=== PATIENT | male | born 1960 | race Caucasian/White ===

== ENCOUNTER 2017-12-07 22:22 | Emergency (ER) | payer SELFPAY ==
[2017-12-07 22:24] VITALS: BP 140/66; PULSE 74; RESP 20; TEMP 36.7; O2SAT 95; BMI 34.3
--- NOTE | 2017-12-07 23:26 | EKG12_ITS ---
Test Reason : SOB Blood Pressure : / mmHG Vent. Rate : 064 BPM Atrial Rate : 064 BPM P-R Int : 170 ms QRS Dur : 100 ms QT Int : 412 ms P-R-T Axes : 051 010 018 degrees QTc Int : 425 ms Normal sinus rhythm Normal ECG Confirmed by MYLES ALMODOVAR, PEG ([id number]), acquisition editor SHEA CHAPMAN ([id number] on 12/13/2017 1:54:51 PM Referred By: UCHE Confirmed By:PEG BUENO MD
--- NOTE | 2017-12-07 23:30 | ED.DCSUM_ITS ---
- ER Visit Summary Date of Service: 12/07/17 Chief Complaint: [Cough, fall] History of Present Illness: The patient is a 56 M [who presents the emergency department with 2 weeks of cough. He has been coughing up green sputum. He denies any shortness of breath fevers sore throat or ear pain. He does smoke a pack a day. Today he was in bed started coughing hard fell out of bed hit his head on a toolbox and had a brief loss of consciousness. Shortly thereafter he became dizzy and started complaining of a headache. No nausea or vomiting. No blurred vision or visual disturbances. No altered mental status. He does not see a doctor does not take any medications he has had some orthopedic surgeries in the past but has no other known health problems.] Physical Examination: [] Pressure 140/66 heart rate 74 respiratory rate 20 pulse ox 95% on room air WN WD NAD patient has a large superficial scratch on his right forehead he has an abrasion just lateral to that he has a contusion with some mild tenderness to palpation and swelling there is no crepitus or depressed skull fracture PERRL EOMI Neck is nontender MMM Serous otitis bilaterally no hematoma to panel him NECK supple and nontender, no masses RRR no murmur rub or gallop, no peripheral edema, symmetric radial pulses End expiratory wheezing with slightly DIP diminished breath sounds diffusely no respiratory distress ABDOMEN is soft and nontender, normal bowel sounds, no distension, no rebound or guarding SKIN is warm and dry no rashes Alert and Oriented x3, CN II-XII in tact, no motor or sensory deficits, gait normal No lymphadenopathy Test Results: [] Emergency Department Course and Treatment: [T of the head shows no acute process. Tetanus was updated. Wound was cleaned and dressed. Patient was given breathing treatments and did improve. Influenza was negative. Blood work was unremarkable. EKG was sinus at a rate of 64 with no acute ischemic changes or conduction abnormalities. Chest x-ray did show a small right middle lobe pneumonia. Patient will be placed on doxycycline. He states that he has a Proventil inhaler inhaler that he uses at home. He will use it every 4 hours. He understands if he gets fevers or worsening shortness of breath he should return to the emergency department. He was given head injury precautions and an excuse for work for the next 2 days.] Treatment Plan: [] Disposition: [Discharge] Impression: [1. Head injury 2. Right middle lobe pneumonia] This note was generated with [employer] dictation software. It may contain incorrect words, spelling, and punctuation that were not noted in review of the chart prior to signing ED Disposition - Plan for ED Patient: Chief Complaint: Cough Referrals: NOT,DEFINED [NON-STAFF] -
[2017-12-07] MEDS: Diphth,Pertuss(Acell),Tet Vac 0.5 ML Vial IM (23:43)
[2017-12-07 23:45] VITALS: PULSE 68; RESP 14
[2017-12-07] MEDS: Albuterol 2.5 MG/3 ML VIAL.NEB. INHALATION (23:45)
[2017-12-07] MEDS: Ipratropium/Albuterol Sulfate 3 ML AMPUL.NEB INHALATION (23:45)
[2017-12-07 23:51] LABS: Absolute Neutrophil Count 1.9 X10^3/uL (2.0-7.7); Basophil# 0.02 X10^3/uL; Basophil% 0.4 % (0-1); Eosinophil# 0.11 X10^3/uL; Eosinophils% 2.4 % (0-5); Hematocrit 40.3 % (40-54); Hemoglobin 13.2 g/dl (13.0-16.5); Lymphocyte % 42.9 % (19-41); Mean Corp Hgb Conc 32.8 g/gl (32-36); Mean Corpuscular Hgb 29.1 pg (27.0-32.0); Mean Platelet Vol. 9.3 fl (6.2-12.0); Monocyte# 0.59 X10^3/uL; Monocyte% 12.7 % (0-10); Neutrophil # 1.94 X10^3/uL (2.7-7.7); Neutrophil % 41.6 % (47-70); POSITIVE COUNT NO; POSITIVE DIFFERENTIAL NO; POSITIVE MORPHOLOGY NO; Platelet Count 169 K/mm3 (150-450); RBC Distribution Width CV 13.9 % (11.6-14.6); RBC Distribution Width SD 45.3 fl (35.1-43.9); Red Blood Count 4.53 M/mm3 (4.6-6.2); White Blood Count 4.7 K/mm3 (4.4-11.0)
[2017-12-07 23:58] LABS: Anion Gap 8 (5-15); BUN 16 mg/dL (7-18); BUN/Creat Ratio 16.3 RATIO (10-20); Calcium,Total 8.3 mg/dL (8.5-10.1); Chloride 102 mmol/L (98-107); Creatinine, Serum 0.98 mg/dL (0.70-1.30); EST Glomerular Filtration Rate 83 mL/min (>60); Est Glom Filt Rate - Afr Amer 101 mL/min (>60); Estimated Creatinine Clearance 84.17 ml/min; Glucose 96 mg/dL (74-106); Potassium 3.3 mmol/L (3.5-5.1); Sodium Level 137 mmol/L (136-145)
--- NOTE | 2017-12-08 00:03 | RAD_ITS ---
STUDY: X-RAY CHEST REASON FOR EXAM: Male, 56 years old. Cough x2 weeks TECHNIQUE: PA and lateral views of the chest. COMPARISON: 03/28/2013 FINDINGS: There are mild hyperinflation of the upper lung parenchyma, calcified nodule left peripheral base. There is mild increase of opacification in the right medial lung base. There is no demonstrated pleural abnormality. Normal size heart. Normal mediastinum and baudilio. Normal visualized pulmonary arteries. Normal visualized aortic arch and descending thoracic aorta. Normal visualized thoracic spine. Normal visualized ribs, clavicles, and shoulders. There is no demonstrated abnormality of the visualized soft tissue structures of the upper abdomen. RAD/Chest PA and Lateral IMPRESSION: Suspect focal bronchial disease or minimal pneumonia in the right middle lobe. Stable hyperinflation of the upper lung parenchyma, remote granulomatous exposure. Electronically Signed: Shy Guthrie MD at 1:36 EST , Service support ,
[2017-12-08 00:23] VITALS: BP 120/73; PULSE 72; RESP 17; O2SAT 93
[2017-12-08 02:00] VITALS: BP 129/70; PULSE 80; RESP 16; O2SAT 94
--- NOTE | 2017-12-08 02:08 | ED.DEP ---
ED Disposition - Plan for ED Patient: Chief Complaint: Cough Instructions: ED Pneumonia Adult, ED Head Injury Closed Prescriptions: Benzonatate [Tessalon Perle] 100 mg PO 4X/DAY PRN PRN #20 capsule PRN Reason: Cough Doxycycline [Vibramycin] 100 mg PO BID #20 capsule Referrals: Anat Welch MD [STAFF PHYSICIAN] - 3-5 Days
[2017-12-08] MEDS: Doxycycline 100 MG CAPSULE PO (02:16)
[2017-12-08] MEDS: Acetaminophen 500 MG Tablet 1000 MG PO (02:16)
[2017-12-08 02:22] VITALS: BP 129/70; PULSE 80; RESP 19
--- NOTE | 2017-12-08 23:26 | CT_ITS ---
STUDY: CT BRAIN WITHOUT CONTRAST REASON FOR EXAM: Male, 56 years old. Cough x2 weeks, fell out of bed and hit forehead, laceration right forehead passed out. History of COPD. RADIATION DOSAGE (If Supplied By Facility): CTDIvol = ( 44.99 ) mGy, DLP = ( 745.49 ) mGycm TECHNIQUE: Transaxial CT imaging of the brain was performed without administration of intravenous contrast material. Individualized dose optimization techniques were used for this CT. COMPARISON: None. FINDINGS: Normal soft tissue structures. Normal calvarium. Normal size ventricles and extra-axial spaces for the patient's age. Normal white matter tracts of the cerebral hemispheres. Normal basal ganglia and thalami. Normal brainstem. Normal cerebellum. There is no intracranial hemorrhage. There are no findings of an acute ischemic infarction. Complete opacification of the right maxillary sinus, moderate bilateral ethmoid sinus opacification consistent with chronic disease. The bilateral mastoid air cells are clear. CT/Brain/Head without Contrast IMPRESSION: There is no acute intracranial pathology. Chronic sinus inflammation. Electronically Signed: Shy Guthrie MD at 1:41 EST , Service support ,
== END 2017-12-08 02:23 | disposition home or self-care (01) ==
LOC: ED 12-08 00:02
PROVIDERS: Emergency Provider Emergency Medicine
DX: J18.9 Pneumonia, unspecified organism (principal); S06.9X9A Unspecified intracranial injury with loss of consciousness of unspecified duration, initial encounter; S00.83XA Contusion of other part of head, initial encounter; W06.XXXA Fall from bed, initial encounter; Y93.9 Activity, unspecified; Y92.9 Unspecified place or not applicable; Y99.9 Unspecified external cause status; Z23 Encounter for immunization; F17.200 Nicotine dependence, unspecified, uncomplicated
CPT/HCPCS: 70450; 71046; 80048; 85025; 87804; 90715; 93005; 94640; 99285; A4216

== ENCOUNTER 2018-01-07 19:11 | Emergency (ER) | payer SELFPAY ==
[2018-01-07 19:12] VITALS: BP 137/80; PULSE 86; RESP 16; TEMP 36.3; O2SAT 95; BMI 31.5
--- NOTE | 2018-01-07 20:01 | ED.VISSUMM ---
- ER Visit Summary Date of Service: 01/07/18 Chief Complaint: Left knee pain History of Present Illness: The patient is a 57 M presenting with left knee pain. Patient states he fell approximately 1 week ago. He states he lost his balance and fell landing on his left knee. He did not hit his head. He has been able to ambulate. He has been taking Tylenol at home with some relief. He presented to ED due to persistent pain. Physical Examination: Vitals are stable. Patient is afebrile. Alert no acute distress. HEENT exam is unremarkable. Lungs are clear and equal bilaterally. Heart is regular rate and rhythm. Extremities left anterior and posterior knee tenderness, active full range of motion, normal distal pulses. No erythema or warmth. Skin is warm and dry. Remainder of exam is unremarkable. Emergency Department Course and Treatment: X-ray left knee shows moderate effusion. Ultrasound is not available at this time of day. He is given an order form for an outpatient venous ultrasound. He is advised to ice and elevate. Advised to follow-up with Dr. Mcqueen environmental research scientist for no doc. Advised return ED if worsening complaints. Disposition: Discharge home Impression: Left knee injury This note was generated with [employer] dictation software. It may contain incorrect words, spelling, and punctuation that were not noted in review of the chart prior to signing ED Disposition - Plan for ED Patient: Chief Complaint: Lower Extremity Injury Referrals: Care Physician,No Primary [Primary Care Provider] -
--- NOTE | 2018-01-07 20:29 | RAD_ITS ---
STUDY: X-RAY - LEFT KNEE REASON FOR EXAM: Male, 57 years old. FELL ABOUT 1 WEEK AGO. PAIN IN LEFT KNEE POSTERIORLY. TECHNIQUE: 4 view(s) of the knee. COMPARISON: None. FINDINGS: Normal visualized distal femur. Normal visualized proximal tibia and fibula. Normal proximal tibiofibular articulation. There is moderate degenerative arthrosis of the medial femorotibial compartment with moderate joint space narrowing. There is mild degenerative arthrosis of the lateral femorotibial compartment. There is mild degenerative arthrosis of the patellofemoral articulation. There is a moderate volume joint effusion. The soft tissue structures are unremarkable. RAD/Knee 4 or More Views IMPRESSION: There is a moderate volume joint effusion. Degenerative arthrosis of the knee. Electronically Signed: Alex Ramhan MD at 20:41 EDT , Service support ,
--- NOTE | 2018-01-07 21:09 | ED.DEP ---
ED Disposition - Plan for ED Patient: Chief Complaint: Lower Extremity Injury Instructions: ED Sprain Knee Referrals: Care Physician,No Primary [Primary Care Provider] - Katharina Mcqueen DO [STAFF PHYSICIAN] -
[2018-01-07 21:28] VITALS: PULSE 82; RESP 16; O2SAT 99
== END 2018-01-07 21:28 | disposition home or self-care (01) ==
PROVIDERS: Emergency Provider Emergency Medicine
DX: S89.92XA Unspecified injury of left lower leg, initial encounter (principal); W19.XXXA Unspecified fall, initial encounter; Y93.9 Activity, unspecified; Y92.9 Unspecified place or not applicable; Y99.9 Unspecified external cause status; M25.462 Effusion, left knee; Z72.0 Tobacco use
CPT/HCPCS: 73564; 99282

== ENCOUNTER → 2018-01-08 14:56 | Outpatient (CLI) | payer SELFPAY ==
--- NOTE | 2018-01-08 14:58 | VDLE_ITS ---
Reason For Study: LEG PAIN RIGHT LEFT CFV is compressible, spontaneous, phasic, GSV is normal. competent and demonstrates normal CFV is compressible, spontaneous, phasic, augmentation. competent, and demonstrates normal Procedure augmentation. Exam performed in department. FV is compressible, spontaneous, phasic, competent and demonstrates normal augmentation. POP V is compressible, spontaneous, phasic, competent and demonstrates normal augmentation. T/P Trunk is compressible. PTV is compressible. LT PerV is compressible. Interpretation Summary Deep veins of the left lower extremity are patent and compressible segmentally. There is no evidence of left lower extremity deep vein thrombosis. Valvular competence appears intact within the proximal deep venous system on the left . The left greater saphenous vein appears patent and compressible segmentally. Ordering Physician: Irina Whelan Performed By: Sagrario Araujo RVT
== END ==
PROVIDERS: Visit Provider Emergency Medicine
DX: M79.605 Pain in left leg (principal)
CPT/HCPCS: 93971

== ENCOUNTER 2018-03-03 08:58 | Emergency (ER) | payer SELFPAY ==
[2018-03-03 08:59] VITALS: BP 122/59; PULSE 92; RESP 17; TEMP 36.7; O2SAT 97; BMI 33.8
--- NOTE | 2018-03-03 09:07 | RAD_ITS ---
STUDY: X-RAY - LEFT TIBIA AND FIBULA REASON FOR EXAM: Male, 57 years old. Pain TECHNIQUE: 2 view(s) of the tibia and fibula were obtained. COMPARISON: None. FINDINGS: Normal visualized tibia. Normal visualized fibula. There is no demonstrated acute fracture. The soft tissue structures are unremarkable. RAD/Tibia & Fibula 2 Views IMPRESSION: Normal x-ray examination of the tibia and fibula. Electronically Signed: Nj Lopez DO at 9:35 EDT , Service support ,
--- NOTE | 2018-03-03 09:07 | RAD_ITS ---
STUDY: X-RAY - LEFT KNEE REASON FOR EXAM: Male, 57 years old. Pain TECHNIQUE: 4 view(s) of the knee. COMPARISON: None. FINDINGS: Normal visualized distal femur. Normal visualized proximal tibia and fibula. Normal proximal tibiofibular articulation. Normal medial femorotibial compartment. There is moderate degenerative arthrosis of the lateral femorotibial compartment with moderate joint space narrowing. Normal patellofemoral articulation. There is a soft tissue prominence in the suprapatellar region suggesting a small volume joint effusion. The soft tissue structures are unremarkable. RAD/Knee 4 or More Views IMPRESSION: Degenerative arthrosis. Small effusion. No fracture or dislocation. Electronically Signed: Nj Lopez DO at 9:56 EDT , Service support ,
--- NOTE | 2018-03-03 09:07 | VDLE_ITS ---
Reason For Study: LLE SWELLING RIGHT LEFT CFV is compressible, spontaneous, phasic, GSV is normal. competent and demonstrates normal CFV is compressible, spontaneous, phasic, augmentation. competent, and demonstrates normal Procedure augmentation. Exam performed portable in ED. FV is compressible, spontaneous, phasic, The exam was diagnostic. competent and demonstrates normal A preliminary report was called and/or faxed augmentation. to ED. POP V is compressible, spontaneous, phasic, competent and demonstrates normal augmentation. T/P Trunk is compressible. PTV is compressible. LT PerV is compressible. Interpretation Summary Deep veins of the left lower extremity are patent and compressible segmentally. There is no evidence of left lower extremity deep vein thrombosis. Valvular competence appears intact within the proximal deep venous system on the left . The left greater saphenous vein appears patent and compressible segmentally. Ordering Physician: Irina Whelan Referring Physician: MD Ronald Galavizery Performed By: Nicol Paul, RDCS, RVT
--- NOTE | 2018-03-03 09:08 | RAD_ITS ---
STUDY: X-RAY CHEST REASON FOR EXAM: Male, 57 years old. Cough TECHNIQUE: AP and lateral views of the chest. COMPARISON: 12/08/2017. FINDINGS: The lungs are clear and expanded. There is no demonstrated pleural abnormality. Normal size heart. Normal mediastinum and baudilio. Normal visualized pulmonary arteries. Normal visualized aortic arch and descending thoracic aorta. Normal visualized thoracic spine. Normal visualized ribs, clavicles, and shoulders. There is no demonstrated abnormality of the visualized soft tissue structures of the upper abdomen. RAD/Chest PA and Lateral IMPRESSION: No acute cardiopulmonary disease. Electronically Signed: Nj Lopez DO at 9:57 EDT , Service support ,
--- NOTE | 2018-03-03 09:08 | ED.VISSUMM ---
- ER Visit Summary Date of Service: 03/03/18 Chief Complaint: Left leg pain History of Present Illness: The patient is a 57 M presenting with left leg pain ?2 days. Patient denies injury. He has not tried any medication at home prior to arrival. He states he has had had similar symptoms in the past on the right with a Bernard's cyst. He also has a nonproductive cough ?1 week. Denies fever. Denies chest pain or shortness of breath. Denies other complaints. Physical Examination: Vitals are stable. Patient is afebrile. Alert no acute distress. HEENT exam is unremarkable. Neck is supple. Lungs are clear and equal bilaterally. Heart is regular rate and rhythm. Abdomen is soft nontender nondistended. Extremities left anterior lower leg tenderness. Active full range of motion. No erythema or warmth. No swelling. Normal distal pulses. Skin is warm and dry. No focal neurologic deficit. Remainder of exam is unremarkable. Emergency Department Course and Treatment: Left tib-fib x-ray shows no acute process. Left knee x-ray shows degenerative arthrosis, small effusion, no fracture or dislocation. Chest x-ray shows no acute process. Ultrasound of the left lower extremity shows no evidence of DVT. Patient was given Tylenol. He was given a prescription for Naprosyn. He is advised to follow-up with Dr. Díaz credit collections analyst for no doc. Advised return to ED if worsening complaints. Disposition: Discharge home Impression: Left leg pain, URI This note was generated with [employer] dictation software. It may contain incorrect words, spelling, and punctuation that were not noted in review of the chart prior to signing ED Disposition - Plan for ED Patient: Chief Complaint: Lower Extremity Injury Referrals: Care Physician,Tabitha Primary [Primary Care Provider] -
--- NOTE | 2018-03-03 10:15 | NURSING ---
VASCULAR LAB IN ROOM
[2018-03-03 11:03] VITALS: BP 124/65; RESP 18; O2SAT 95
--- NOTE | 2018-03-03 11:31 | ED.DEP ---
ED Disposition - Plan for ED Patient: Chief Complaint: Lower Extremity Injury Instructions: ED Strain Muscle Ext Prescriptions: Naproxen [Naprosyn] 500 mg PO BID PRN #20 tablet Referrals: Care Physician,No Primary [Primary Care Provider] - Brayan Díaz DO [STAFF PHYSICIAN] -
[2018-03-03] MEDS: Acetaminophen 500 MG Tablet 1000 MG PO (11:35)
[2018-03-03 11:36] VITALS: BP 134/67; PULSE 84; RESP 18
== END 2018-03-03 11:39 | disposition home or self-care (01) ==
LOC: ED 09:24
PROVIDERS: Emergency Provider Emergency Medicine
DX: M79.605 Pain in left leg (principal); J06.9 Acute upper respiratory infection, unspecified
CPT/HCPCS: 71046; 73564; 73590; 93971; 99283

== ENCOUNTER 2018-03-13 23:19 | Observation (INO) | payer OTHER, SELFPAY ==
[2018-03-13 23:20] VITALS: BP 149/93; PULSE 74; RESP 12; TEMP 36.9; O2SAT 98; BMI 31.8
--- NOTE | 2018-03-13 23:36 | EKG12_ITS ---
Test Reason : NUMBNESS Blood Pressure : / mmHG Vent. Rate : 068 BPM Atrial Rate : 068 BPM P-R Int : 160 ms QRS Dur : 102 ms QT Int : 392 ms P-R-T Axes : 037 004 014 degrees QTc Int : 416 ms Normal sinus rhythm Incomplete right bundle branch block Confirmed by MYLES ALMODOVAR, PEG ([id number]), medical transcription editor SHEA CHAPMAN ([id number]) on 03/16/2018 10:33:29 AM Referred By: WHIT Confirmed By:PEG BUENO MD
--- NOTE | 2018-03-13 23:36 | CT_ITS ---
STUDY: CT BRAIN WITHOUT CONTRAST REASON FOR EXAM: Male, 57 years old. Left-sided headache, numbness and tingling to left side of face since 5:00 PM. History of COPD. RADIATION DOSAGE (If Supplied By Facility): CTDIvol = ( 44.99 ) mGy, DLP = ( 762.36 ) mGycm TECHNIQUE: Transaxial CT imaging of the brain was performed without administration of intravenous contrast material. Multiplanar coronal and sagittal images were reformatted. Individualized dose optimization techniques were used for this CT. COMPARISON: CT brain noncontrast 12/08/2017 FINDINGS: Normal soft tissue structures. Normal calvarium. Normal size ventricles and extra-axial spaces for the patient's age. Normal white matter tracts of the cerebral hemispheres. Normal basal ganglia and thalami. Normal brainstem. Normal cerebellum. There is no intracranial hemorrhage. There are no findings of an acute ischemic infarction. Marked improved paranasal sinus disease involving the right maxillary sinus with residual antral round opacification probably retention cyst on the first image obtained measuring 1.8 x 1.5 cm. There is mild residual mucosal opacification involving the bilateral ethmoid sinuses. The bilateral mastoid air cells are clear. CT/Brain/Head without Contrast IMPRESSION: Improved right maxillary sinus disease. There is no acute intracranial pathology. There is no significant interval change. Electronically Signed: Shy Guthrie MD at 0:38 EDT , Service support ,
--- NOTE | 2018-03-13 23:39 | ED.DCSUM_ITS ---
- ER Visit Summary Date of Service: 03/13/18 Chief Complaint: Left facial numbness History of Present Illness: The patient is a 57 M presenting with left facial numbness and facial droop. This started around 5 PM this evening. He also complains of blurry vision in the left eye which has been ongoing for the past week. He complains of mild intermittent headache over the past week. Denies numbness or weakness in his arms or legs. Denies dizziness or confusion. Denies chest pain or shortness of breath. Physical Examination: Vitals are stable. Patient is afebrile. Alert no acute distress. HEENT exam left facial droop which spares the forehead Neck is supple. Lungs are clear and equal bilaterally. Heart is regular rate and rhythm. Abdomen is soft nontender nondistended. Extremities are unremarkable. Skin is warm and dry. NIH 3 for facial droop, decreased sensation left face, slurred speech Remainder of exam is unremarkable. Emergency Department Course and Treatment: EKG is sinus rate is 68. Chest x- ray shows no acute process. CT head shows no acute pathology. CBC shows a white count 12.0. Chemistry is unremarkable other than glucose 116. INR 1.0. Troponin is negative. Patient was kept n.p.o. in the ED. On repeat evaluation , NIH is 2 with improving facial droop. Discussed with Dr. Rider for admission. Disposition: Admission Impression: TIA versus CVA This note was generated with [employer] dictation software. It may contain incorrect words, spelling, and punctuation that were not noted in review of the chart prior to signing ED Disposition - Plan for ED Patient: Chief Complaint: Numb/Ting
[2018-03-13 23:42] VITALS: O2SAT 96
[2018-03-13 23:44] LABS: Absolute Lymphocyte Count 3.58 X10^3/ul (0.83-4.51); Absolute Neutrophil Count 6.8 X10^3/uL (2.0-7.7); Basophil# 0.04 X10^3/uL; Basophil% 0.3 % (0-1); Eosinophil# 0.38 X10^3/uL; Eosinophils% 3.2 % (0-5); Hematocrit 42.1 % (40-54); Hemoglobin 13.8 g/dl (13.0-16.5); Lymphocyte # 3.58 X10^3/ul (4.0); Lymphocyte % 29.9 % (19-41); Mean Corp Hgb Conc 32.8 g/gl (32-36); Mean Corpuscular Hgb 29.4 pg (27.0-32.0); Mean Corpuscular Volume 89.8 fL (80-94); Mean Platelet Vol. 8.9 fl (6.2-12.0); Monocyte# 1.15 X10^3/uL; Monocyte% 9.6 % (0-10); Neutrophil # 6.77 X10^3/uL (2.7-7.7); Neutrophil % 56.7 % (47-70); Platelet Count 401 K/mm3 (150-450); RBC Distribution Width CV 14.2 % (11.6-14.6); Red Blood Count 4.69 M/mm3 (4.6-6.2)
[2018-03-13 23:45] LABS: POSITIVE COUNT NO; POSITIVE DIFFERENTIAL NO; POSITIVE MORPHOLOGY NO
[2018-03-13 23:47] VITALS: BP 139/80; PULSE 68; RESP 14; O2SAT 96
[2018-03-13 23:48] LABS: Prothrombin Time (Protime)PT. 13.4 SECONDS (11.7-14.9)
[2018-03-13 23:49] LABS: Partial Thromboplast Time 34.4 Seconds (24.1-36.2)
[2018-03-13 23:59] LABS: Anion Gap 6 (5-15); BUN 14 mg/dL (7-18); BUN/Creat Ratio 14.7 RATIO (10-20); Calcium,Total 8.5 mg/dL (8.5-10.1); Chloride 106 mmol/L (98-107); Creatinine, Serum 0.95 mg/dL (0.70-1.30); EST Glomerular Filtration Rate 87 mL/min (>60); Est Glom Filt Rate - Afr Amer 105 mL/min (>60); Estimated Creatinine Clearance 94.16 ml/min; Glucose 116 mg/dL (74-106); Potassium 3.6 mmol/L (3.5-5.1); Sodium Level 139 mmol/L (136-145)
[2018-03-14] VITALS (11 sets, daily range): BP systolic 119–133; BP diastolic 68–113; PULSE 64–80; RESP 14–17; TEMP 36.3–36.6; O2SAT 95–99; BMI 31.1; BMI 31.8
--- NOTE | 2018-03-14 02:04 | PCM.HP.STD ---
Problem List (1) Numbness and tingling of left side of face Status: Acute (2) CVA (cerebral vascular accident) Status: Acute (3) Tobacco abuse Status: Chronic (4) history of rotator cuff disease Status: Chronic History of Present Illness Date of Admission: 03/14/18 Chief Complaint: Left-sided facial droop and numbness and mild slurred speech The patient is a 57 year old M With no prior significant past medical history was brought into ER for left-sided facial numbness and droop since 5 PM today. Prior to that, patient is having blurry vision in the left side visual field and mild headache, intermittent for about 1 week. As per the , he also had mild slurred speech. Patient denies any limb weakness or change in sensation. Has previous history of TIA/CVA, coronary artery disease or CHF. CT had done in the ER does not show acute change. Chest x-ray suggestive of suspected COPD no acute cardiopulmonary disease. EKG normal sinus rhythm at 68 bpm with T inversion in lead V1. [] Past Medical History Past Medical History (Chronic Problems): Chronic Problems Tobacco abuse (Chronic) history of rotator cuff disease (Chronic) Allergies No Known Allergies Allergy (Verified 03/13/18 23:24) Home Medications: Ambulatory Orders Medication Instructions Recorded Naproxen [Naprosyn] 500 mg PO BID PRN #20 tablet 03/03/18 Surgical History: rotator cuff repair Smoking Status: Current every day smoker - 1 pack per day since age of 16. Review of Systems Constitutional: Denies: Chills, Fever, Weight Change HEENT: Denies: Head Aches, Sinus Congestion, Sinus Drainage Cardiovascular: Denies: Chest Pain, Palpitations Respiratory: Denies: Cough, Shortness of breath at rest, Sputum production Gastrointestinal: Denies: Abdominal Pain, Nausea, Vomiting Genitourinary: Denies: Dysuria Musculoskeletal: Denies: Joint Pain, Joint Tenderness Skin: Denies: Rash, Wounds Neurological: Reports: Blurred vision, Headaches, Numbness. Denies: Focal weakness, Tingling Psychiatric: Denies: Anxiety, Depression, Homicidal Ideations, Suicidal Ideations Hematologic/ Lymphatic: Denies: Easy Bruising, Easy Bleeding VTE Information - Inpt Only VTE Present on Admission: No VTE Mechan Device Prophylaxis: SCD's VTE Pharm Prophylaxis ordered?: Yes Patient Problems: Active and Suspected Problems Numbness and tingling of left side of face (Acute) CVA (cerebral vascular accident) (Acute) - Physical Exam General: Alert, Oriented x3, Cooperative HEENT: Atraumatic, PERRLA, EOMI, Normocephalic Neck: Supple, No JVD, Negative Carotid Bruits Lungs: Clear to auscultation, Normal air movement, No rhonchi, No wheeze, No rales Cardiovascular: Regular rate, Regular Rhythm, Normal S1, Normal S2, No murmurs Abdomen: Bowel Sounds Present, Soft, Non Tender, Non-Distended Extremities: No edema, Capillary Refill Less than 3 Seconds Skin: No rashes, No breakdown Musculoskeletal: No Tenderness to Palpation of Joints or Extremities Neurological: - - Left-sided facial droop. Decreased sensation to touch in the left side of face. NIH stroke scale 2. Per ED physician, NIH stroke scale 3 with one more point for slurred speech Psych/Mental Status: Normal Affect, Appropriate Vital Signs Temp Pulse Resp BP Pulse Ox 98.4 F 68 16 130/113 H 95 03/13/18 23:20 03/14/18 01:41 03/14/18 01:41 03/14/18 01:41 03/14/18 01:41 Assessment/Plan Active and Suspected Problems Numbness and tingling of left side of face (Acute) CVA (cerebral vascular accident) (Acute) The patient is a 57 year old M With no prior significant past medical history was brought into ER for left-sided facial numbness and droop since 5 PM today. Prior to that, patient is having blurry vision in the left side visual field and mild headache, intermittent for about 1 week. As per the , he also had mild slurred speech. Patient denies any limb weakness or change in sensation. Has previous history of TIA/CVA, coronary artery disease or CHF. CT had done in the ER does not show acute change. Chest x-ray suggestive of suspected COPD no acute cardiopulmonary disease. EKG normal sinus rhythm at 68 bpm with T inversion in lead V1. 1. Left-sided facial numbness and droop possible CVA: The patient is being admitted in PCU for stroke workup. Follow stroke protocol with MRI brain and CT angiogram of head and neck. BP and glucose control as per stroke guidelines. Neuro consult. PT/OT and speech/swallow evaluation. On aspirin and a statin. Fasting lipid profile and A1c tomorrow a.m. 2. Chronic a smoker with nicotine dependence and exacerbation of COPD: Needs outpatient PFT. Bronchodilator as needed. 3. DVT prophylaxis: Heparin 5000 units twice daily and bilateral SCDs Code Visit Inpatient E&M: 07372 Init Hosp L3
--- NOTE | 2018-03-14 02:11 | CT_ITS ---
STUDY: CTA OF THE BRAIN REASON FOR EXAM: Male, 57 years old. TIA, left-sided facial numbness and tingling. Headache for one week. RADIATION DOSAGE (If Supplied By Facility): CTDIvol = ( 26.72 ) mGy, DLP = ( 764.67 ) mGycm TECHNIQUE: CT angiography was performed with a multi-detector CT scanner. Data acquisition was obtained from the skull base through the vertex following intravenous administration of 100 ml of Isovue-370. MIP images were reconstructed from the axial data set. Post-processing of the angiographic images was performed, with multiplanar reformation and 3D reconstruction. Individualized dose optimization techniques were used for this CT. COMPARISON: CT head March 13, 2018. FINDINGS: Normal bilateral petrous carotid arteries. Normal right cavernous carotid artery with a normal supraclinoid bifurcation. Normal left cavernous carotid artery with a normal supraclinoid bifurcation. Normal right A1 segments of the anterior cerebral artery. Normal left A1 segments of the anterior cerebral artery. Normal intact anterior communicating artery (ACOM). Normal bilateral A2 segments of the anterior cerebral arteries. Normal right M1 and M2 segments of the middle cerebral arteries, with a normal M1 bifurcation. Normal left M1 and M2 segments of the middle cerebral arteries, with a normal M1 bifurcation. Normal right posterior communicating artery (PCOM). Normal left posterior communicating artery (PCOM). Normal bilateral vertebral arteries. Vertebral arteries are codominant. Normal basilar artery with a normal basilar bifurcation. The visualized bilateral superior cerebellar (SCA) arteries are normal. Normal bilateral P1, P2 and visualized P3 segments of the posterior cerebral arteries. There is no demonstrated aneurysm of the [place]. There is no demonstrated abnormality of the visualized brain. 1.7 cm right maxillary sinus mucous retention cyst. CT/CTA Head W/WO Contrast IMPRESSION: Normal [place] without a demonstrated aneurysm or hemodynamically significant stenosis. Electronically Signed: Lg Walters MD at 4:31 EDT , Service support ,
--- NOTE | 2018-03-14 02:11 | MRI_ITS ---
STUDY: MRI BRAIN WITHOUT CONTRAST REASON FOR EXAM: Male, 57 years old. Left-sided facial droop, blurred vision and headache. TECHNIQUE: Standardized multiplanar fat and water weighted pulse sequences were obtained. Several images are limited by patient motion. COMPARISON: CT of the head dated March 13, 2018. FINDINGS: There is mild cerebral atrophy with widening of the extra-axial spaces and ventricular dilatation. There are a limited number of small white matter hyperintensities, distributed throughout the deep white matter tracts of the cerebral hemispheres, consistent with mild chronic white matter ischemic changes. There is no evidence for recent intracranial ischemia or other cause of cytotoxic edema on diffusion weighted imaging (DWI). Normal T2* images of the brain without demonstrated susceptibility artifact. There is no demonstrated hemosiderin stain. Normal bilateral basal ganglia. Normal thalami. There is no extra-axial fluid accumulation. Normal flow voids within the major intracranial circulation suggesting patency by spin echo criteria. Normal sella turcica, pituitary gland, infundibular stalk, optic chiasm and hypothalamus. Normal tectal plate and pineal gland. Normal midbrain, alphonso and medulla. Normal cerebellum. Normal basal cisterns. Normal bilateral temporal bones. Normal bilateral internal auditory canals. No demonstrated orbital abnormality, within the constraints of a routine brain study. Is a right maxillary mucous retention cyst. There is mucoperiosteal thickening present in both maxillary sinuses. There is mucoperiosteal thickening within the ethmoid sinuses Normal calvarium and skull base. Normal visualized soft tissue structures. There are degenerative changes of the imaged cervical spine. There is mild anterolisthesis at C2-3. MRI/Brain without Contrast IMPRESSION: 1. Involutional changes of the brain, as described above. 2. No MR evidence for acute infarct. 3. Technically limited study due to patient motion. Electronically Signed: Johanna Ochoa MD at 9:16 EDT , Service support ,
--- NOTE | 2018-03-14 02:11 | CT_ITS ---
STUDY: CTA NECK WITH CONTRAST BILATERAL REASON FOR EXAM: Male, 57 years old. TIA, left-sided facial numbness and tingling, headache for 1 week blurred vision. RADIATION DOSAGE (If Supplied By Facility): CTDIvol = ( 26.72 ) mGy, DLP = ( 764.67 ) mGycm. Individualized dose optimization techniques were used for this CT.? TECHNIQUE: Axial images through the neck after administration of 100 mL Isovue 370 intravenous contrast with sagittal coronal reconstructions. COMPARISON: CT brain March 13, 2018. CTA head March 14, 2018. FINDINGS: Normal visualized aortic arch. Normal takeoff of the great vessels. Right common carotid artery is normal. Normal carotid bulb. Very minimal atherosclerotic calcification proximal internal carotid artery which is otherwise normal. Normal external carotid artery. No stenosis or aneurysmal dilatation. Left common carotid artery, carotid bulb, internal and external carotid arteries are normal. No stenosis or aneurysmal dilatation. Vertebral arteries are codominant and are normal. Minimal bullous changes in the lung apices. Mild multilevel degenerative changes of the cervical spine. 1.5 cm right maxillary sinus mucous retention cyst. CT/CTA Neck W/WO Contrast IMPRESSION: Normal vertebral and internal carotid arteries. Right maxillary sinus mucous retention cyst. Electronically Signed: Lg Walters MD at 4:22 EDT , Service support ,
[2018-03-14] MEDS: 0.9% Normal Saline 1,000 ML 100 ML IV (02:31)
[2018-03-14] MEDS: Aspirin 325 MG Tablet PO (03:06)
[2018-03-14] MEDS: Acetaminophen 325 MG Tablet 650 MG PO ×2 (03:09→09:28)
[2018-03-14 03:46] LABS: Alcohol, Blood (Medical)-Serum < 3.0 mg/dL
[2018-03-14 03:57] LABS: Thyroid Stim Hormone (TSH) 2.29 uIU/mL (0.358-3.74)
[2018-03-14 03:59] LABS: AST(SGOT) 10 U/L (15-37); Alanine Aminotransfer ALT/SGPT 21 U/L (16-61); Albumin, Serum 2.9 g/dL (3.2-5.0); Alkaline Phosphatase 65 U/L (45-117); Bilirubin, Direct < 0.05 mg/dL (0.00-0.30); Globulin 3.3 g/dL (2.2-4.2); Protein, Total 6.2 g/dL (6.4-8.2)
[2018-03-14 04:00] LABS: Cholesterol 145 mg/dL (200); High Density Lipoprotein 31 mg/dL; Triglycerides 156 mg/dL; Very Low Density Lipoprotein 31 mg/dL (5-40)
[2018-03-14 04:04] LABS: Vista UDS pH Range 6
[2018-03-14 04:23] LABS: Hemoglobin A1c 5.7 % (4.2-6.3)
[2018-03-14 04:57] LABS: Amphetamine Urine VISTA NEGATIVE (<1000 ng/mL); Barbiturate Urine VISTA NEGATIVE (< 200 ng/mL); Benzodiazepine Urine VISTA NEGATIVE (< 200 ng/mL); Cocaine Urine VISTA NEGATIVE (< 300 ng/mL); Ecstacy Urine VISTA NEGATIVE (< 500 ng/mL); Methadone Urine VISTA NEGATIVE (< 300 ng/mL); PCP Urine VISTA NEGATIVE (< 25 ng/mL); THC Urine VISTA NEGATIVE (< 50 ng/mL)
[2018-03-14 06:50] LABS: Bedside Glucose 105 mg/dL (70-110)
[2018-03-14] MEDS: Famotidine 20 MG Tablet PO (09:28)
--- NOTE | 2018-03-14 10:26 | CASEMGMT ---
Per Yessi Pearson PA-C, pt does not have a PCP. List of local PCP's provided to pt at this time, voices understanding. Lila HILL CM
--- NOTE | 2018-03-14 10:46 | DCINST_ITS ---
- Discharge Diagnoses Current Active Problems: Current Active and Chronic Problems Numbness and tingling of left side of face (Acute) CVA (cerebral vascular accident) (Acute) You will use the following diet at home:: Calorie/Carbohydrate Controlled ( specify 1200, 1400, etc) - 1800 cc / day Your food should be the consistency of: Regular Your liquids should be the consistency of: Regular/Thin Discharge Activity: Return to Normal Activity Additional Instructions: Eye patch at night. Eye drops as needed. Allergies/Adverse Reactions: Allergies No Known Allergies Allergy (Verified 03/13/18 23:24) Medications to take at Discharge Naproxen [Naprosyn] 500 mg PO BID PRN #20 tablet 03/03/18 Pantoprazole Sodium [Protonix] 40 mg PO DAILY #12 tab 03/14/18 Prednisone 10 mg PO DAILY #43 tab 03/14/18 Valacyclovir HCl [Valtrex] 1,000 mg PO TID #21 tab 03/14/18 The following prescriptions were given: Pantoprazole Sodium [Protonix] 40 mg PO DAILY #12 tab Prednisone 10 mg PO DAILY #43 tab Valacyclovir HCl [Valtrex] 1,000 mg PO TID #21 tab Primary Care Physician: Care Physician,No Primary [Primary Care Provider] - Please follow up with your Primary Care Physician in: 1-2 weeks Please Follow Up With: Brant Dawson MD When: 6 weeks Proposed Discharge Date: 03/14/18
--- NOTE | 2018-03-14 10:46 | PCM.CONS.GEN ---
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 Per patient he started having left facial weakness and numbness about 2 days ago. Denies any visual disturbances, NASSAR, motor weakness or sensory loss. Has difficulty closing the left eye. Denies any rash.[] Past Medical History Past Medical History (Chronic Problems): Chronic Problems Tobacco abuse (Chronic) history of rotator cuff disease (Chronic) Allergies No Known Allergies Allergy (Verified 03/13/18 23:24) Home Medications: Ambulatory Orders Medication Instructions Recorded Naproxen [Naprosyn] 500 mg PO BID PRN #20 tablet 03/03/18 Pantoprazole Sodium [Protonix] 40 mg PO DAILY #12 tab 03/14/18 Prednisone 10 mg PO DAILY #43 tab 03/14/18 Valacyclovir HCl [Valtrex] 1,000 mg PO TID #21 tab 03/14/18 Surgical History: rotator cuff repair Lives: Spouse/ Significant Other Smoking Status: Current every day smoker Tobacco Use: Cigarettes Alcohol: None Drugs: None Review of Systems Constitutional: Reports: - - complete ROS negative except as documented in HPI Patient Problems: Active and Suspected Problems Numbness and tingling of left side of face (Acute) CVA (cerebral vascular accident) (Acute) Facial weakness (Acute) 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 Power 5/5 all 4 extremities, no sensory loss, no cerebellar signs, Reflexes + B/L B/S/T/K/A, gait deferred Psych/Mental Status: Normal Affect Vital Signs Temp Pulse Resp BP Pulse Ox 97.8 F 69 16 124/68 H 99 05/23/18 09:30 03/14/18 09:30 03/14/18 09:30 03/14/18 09:30 03/14/18 09:30 Oxygen Delivery Method Room Air Weight: 104.4 kg Body Mass Index (BMI) 31.1 Intake and Output for Last 24 Hours 03/12/18 03/13/18 03/14/18 23:59 23:59 23:59 Intake Total 318 / 318 Balance 318 / 318 Laboratory Tests Past 24 Hrs 03/14/18 03/14/18 03/14/18 02:44 02:44 02:44 Hemoglobin A1c Total Bilirubin 0.20 Direct Bilirubin < 0.05 AST 10 L ALT 21 Alkaline Phosphatase 65 Troponin I < 0.015 Total Protein 6.2 L Albumin 2.9 L Globulin 3.3 Triglycerides Cholesterol LDL Cholesterol VLDL Cholesterol HDL Cholesterol TSH 2.29 Urine Opiates Screen Urine Methadone Screen Ur Barbiturates Screen Ur Phencyclidine Scrn Ur Amphetamines Screen U Methamphetamin-MDMA U Benzodiazepines Scrn Urine Cocaine Screen U Cannabinoids Screen Ur Drug Screen Comment Ethyl Alcohol < 3.0 03/14/18 03/14/18 03/14/18 02:44 02:44 03:50 Hemoglobin A1c 5.7 Total Bilirubin Direct Bilirubin AST ALT Alkaline Phosphatase Troponin I Total Protein Albumin Globulin Triglycerides 156 Cholesterol 145 LDL Cholesterol 83 VLDL Cholesterol 31 HDL Cholesterol 31 L TSH Urine Opiates Screen NEGATIVE Urine Methadone Screen NEGATIVE Ur Barbiturates Screen NEGATIVE Ur Phencyclidine Scrn NEGATIVE Ur Amphetamines Screen NEGATIVE U Methamphetamin-MDMA NEGATIVE U Benzodiazepines Scrn NEGATIVE Urine Cocaine Screen NEGATIVE U Cannabinoids Screen NEGATIVE Ur Drug Screen Comment Ethyl Alcohol POC Glucose 03/14/18 06:41 POC Glucose 105 Assessment/Plan Active and Suspected Problems Numbness and tingling of left side of face (Acute) CVA (cerebral vascular accident) (Acute) Facial weakness (Acute) 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 Per patient he started having left facial weakness and numbness about 2 days ago. Denies any visual disturbances, NASSAR, motor weakness or sensory loss. Has difficulty closing the left eye. Denies any rash. 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 Prednisone 60 mg PO for 2 days, then 50 mg PO for 2 days, then 40 mg PO for 2 days, then 30 mg PO for 2 days, then 20 mg PO for 2 days, then 10 mg PO for 2 days, and then 5 mg PO for 2 days, then stop. -Recommend Valacyclovir 1 g PO TID for 7 days -Recommend artificial tears left eye as needed -Recommend eye patch as needed for protection of left cornea -Recommend [place] Ab testing. -Eye care and possible eye infection prevention discussed with patient. -GI/DVT prophylaxis -Fall precautions -Follow up with Neurology as outpatient in about 6 weeks -Please call with questions if any -Thank you for allowing us to participate in patient's care and management I spent 60 minutes taking history, doing physical examination, reviewing medical records, coordinating care and counseling the patient. Code Visit Inpatient E&M: 79243 Init Hosp L3
--- NOTE | 2018-03-14 13:31 | PCM.DC.SUM ---
Discharge Date and Diagnosis Date of Admission: 03/14/18 Date of Discharge: 03/14/18 - Primary Discharge Diagnosis [place] palsy, left Prediabetes type 2 Tobacco abuse Obesity - Secondary Discharge Diagnosis Chronic Problems Tobacco abuse (Chronic) history of rotator cuff disease (Chronic) Hospital Course and Treatment Imaging Results: CT/Brain/Head without Contrast IMPRESSION: Improved right maxillary sinus disease. There is no acute intracranial pathology. There is no significant interval change. RAD/Chest 1 View IMPRESSION: Component of COPD suspected, probable remote granulomatous exposure. No acute cardiopulmonary disease. No significant interval change. MRI/Brain without Contrast IMPRESSION: 1. Involutional changes of the brain, as described above. 2. No MR evidence for acute infarct. 3. Technically limited study due to patient motion. CT/CTA Head W/WO Contrast IMPRESSION: Normal [place] without a demonstrated aneurysm or hemodynamically significant stenosis. CT/CTA Neck W/WO Contrast IMPRESSION: Normal vertebral and internal carotid arteries. Right maxillary sinus mucous retention cyst. Consults: Eunice - neuro. Operations: None Procedures: None Summary of Care Provided: Physical exam on day of discharge: General: Resting comfortably NAD Psych: A/Ox3 normal affect HEENT: [place] AT NC Neck: Supple NT CV: RRR no m/t/r/g/h Resp: CTA Abd: [id number] Soft NT no guarding or rigidity Ext: DP2+= no edema Skin: W/D normal turgor Lymph/Heme: No active bleeding or adenopathy Neuro: left sided facial droop, not sparing the eyebrow, some drooling with eating present, mildly slurred speech Hospital course: The patient is a 57 year old M who has a hx of nicotine abuse who presented to the ER with sudden onset of left sided facial weakness and facial droop, numbness, and slurred speech that started the day prior suddenly. He reported a headache and left sided blurry vision for about a week as well. He had a negative CT of the brain and was brought in with concern for stroke and started on the CVA protocol. MRI brain and CTA head and neck were obtained. There was no stroke. Tox screen was negative. Troponin was negative. Neuro was consulted and felt that this was Morrow's palsy. The patient was placed on 1 week of valtrex, and a tapering dose of oral prednisone. He was advised to use eye drops and patch his eye at night if he had difficulty closing it or if it became dry. We also checked his A1C as part of his CVA workup and found him to be prediabetic (5.7). I advised him on the risks of diabetes and he was provided with diabetic education. Antiglycemics were deferred at this time. He was discharged home in stable condition and will need to follow up with his PCP and with neuro in 6 weeks. He did not have a PCP so a list of local PCPs was provided by case management. This patient was seen by Jean Pearson PA-C under the supervision of Doctor Stoll. [] Discharge Activity: Return to Normal Activity Home Medications: Medications to take at Discharge Naproxen [Naprosyn] 500 mg PO BID PRN #20 tablet 03/03/18 Pantoprazole Sodium [Protonix] 40 mg PO DAILY #12 tab 03/14/18 Prednisone 10 mg PO DAILY #43 tab 03/14/18 Valacyclovir HCl [Valtrex] 1,000 mg PO TID #21 tab 03/14/18 Following Prescrptions Were Given to Patient: Pantoprazole Sodium [Protonix] 40 mg PO DAILY #12 tab Prednisone 10 mg PO DAILY #43 tab Valacyclovir HCl [Valtrex] 1,000 mg PO TID #21 tab Primary Care Physician: Care Physician,No Primary [Primary Care Provider] - Please follow up with your Primary Care Physician in: 1-2 weeks Please Follow Up With: Brant Dawson MD When: 6 weeks Medical Necessity - Tobacco Use Smoking Status: Current every day smoker Tobacco Use: Cigarettes Meaningful Use Info Meaningful Use Diagnoses (Choose all that apply): None applicable
--- NOTE | 2018-03-14 13:40 | DS.PCM_ITS ---
Discharge Date and Diagnosis Date of Admission: 03/14/18 Date of Discharge: 03/14/18 - Primary Discharge Diagnosis [place] palsy, left Prediabetes type 2 Tobacco abuse Obesity - Secondary Discharge Diagnosis Chronic Problems Tobacco abuse (Chronic) history of rotator cuff disease (Chronic) Hospital Course and Treatment Imaging Results: CT/Brain/Head without Contrast IMPRESSION: Improved right maxillary sinus disease. There is no acute intracranial pathology. There is no significant interval change. RAD/Chest 1 View IMPRESSION: Component of COPD suspected, probable remote granulomatous exposure. No acute cardiopulmonary disease. No significant interval change. MRI/Brain without Contrast IMPRESSION: 1. Involutional changes of the brain, as described above. 2. No MR evidence for acute infarct. 3. Technically limited study due to patient motion. CT/CTA Head W/WO Contrast IMPRESSION: Normal [place] without a demonstrated aneurysm or hemodynamically significant stenosis. CT/CTA Neck W/WO Contrast IMPRESSION: Normal vertebral and internal carotid arteries. Right maxillary sinus mucous retention cyst. Consults: Eunice - neuro. Operations: None Procedures: None Summary of Care Provided: Physical exam on day of discharge: General: Resting comfortably NAD Psych: A/Ox3 normal affect HEENT: [place] AT NC Neck: Supple NT CV: RRR no m/t/r/g/h Resp: CTA Abd: [id number] Soft NT no guarding or rigidity Ext: DP2+= no edema Skin: W/D normal turgor Lymph/Heme: No active bleeding or adenopathy Neuro: left sided facial droop, not sparing the eyebrow, some drooling with eating present, mildly slurred speech Hospital course: The patient is a 57 year old M who has a hx of nicotine abuse who presented to the ER with sudden onset of left sided facial weakness and facial droop, numbness, and slurred speech that started the day prior suddenly. He reported a headache and left sided blurry vision for about a week as well. He had a negative CT of the brain and was brought in with concern for stroke and started on the CVA protocol. MRI brain and CTA head and neck were obtained. There was no stroke. Tox screen was negative. Troponin was negative. Neuro was consulted and felt that this was Morrow's palsy. The patient was placed on 1 week of valtrex , and a tapering dose of oral prednisone. He was advised to use eye drops and patch his eye at night if he had difficulty closing it or if it became dry. We also checked his A1C as part of his CVA workup and found him to be prediabetic ( 5.7). I advised him on the risks of diabetes and he was provided with diabetic education. Antiglycemics were deferred at this time. He was discharged home in stable condition and will need to follow up with his PCP and with neuro in 6 weeks. He did not have a PCP so a list of local PCPs was provided by case management. This patient was seen by Jean Pearson PA-C under the supervision of Doctor Stoll. [] Discharge Activity: Return to Normal Activity Home Medications: Medications to take at Discharge Naproxen [Naprosyn] 500 mg PO BID PRN #20 tablet 03/03/18 Pantoprazole Sodium [Protonix] 40 mg PO DAILY #12 tab 03/14/18 Prednisone 10 mg PO DAILY #43 tab 03/14/18 Valacyclovir HCl [Valtrex] 1,000 mg PO TID #21 tab 03/14/18 Following Prescrptions Were Given to Patient: Pantoprazole Sodium [Protonix] 40 mg PO DAILY #12 tab Prednisone 10 mg PO DAILY #43 tab Valacyclovir HCl [Valtrex] 1,000 mg PO TID #21 tab Primary Care Physician: Care Physician,No Primary [Primary Care Provider] - Please follow up with your Primary Care Physician in: 1-2 weeks Please Follow Up With: Brant Dawson MD When: 6 weeks Medical Necessity - Tobacco Use Smoking Status: Current every day smoker Tobacco Use: Cigarettes Meaningful Use Info Meaningful Use Diagnoses (Choose all that apply): None applicable
--- NOTE | 2018-03-14 23:36 | RAD_ITS ---
STUDY: X-RAY CHEST REASON FOR EXAM: Male, 57 years old. Headache, numbness and tingling to left face, elevated blood pressure TECHNIQUE: Single AP portable view of the chest. COMPARISON: 03/03/2018 FINDINGS: There are superimposed monitor leads. Calcified nodule left base with adjacent pleural thickening appears stable. There are areas of hyperinflation. There is no focal parenchymal abnormality. There is no demonstrated pleural abnormality. Normal size heart. Normal mediastinum and baudilio. Normal visualized pulmonary arteries. Normal visualized aortic arch and descending thoracic aorta. Normal visualized thoracic spine. Normal visualized ribs, clavicles, and shoulders. There is no demonstrated abnormality of the visualized soft tissue structures of the upper abdomen. RAD/Chest 1 View IMPRESSION: Component of COPD suspected, probable remote granulomatous exposure. No acute cardiopulmonary disease. No significant interval change. Electronically Signed: Shy Guthrie MD at 1:10 EDT , Service support ,
[2018-03-15 16:06] LABS: Bedside Glucose 133 mg/dL (70-110)
== END 2018-03-14 10:45 | disposition home or self-care (01) ==
LOC: ED 03-14 00:30 → PCU 03-14 01:36
PROVIDERS: Admitting Provider Internal Medicine; Emergency Provider Emergency Medicine; Visit Provider Internal Medicine
DX: G51.0 Bell's palsy (principal); Z86.73 Personal history of transient ischemic attack (TIA), and cerebral infarction without residual deficits; R47.81 Slurred speech; I25.10 Atherosclerotic heart disease of native coronary artery without angina pectoris; F17.200 Nicotine dependence, unspecified, uncomplicated; J44.9 Chronic obstructive pulmonary disease, unspecified; Z95.5 Presence of coronary angioplasty implant and graft
CPT/HCPCS: 36415; 70450; 70496; 70498; 70551; 71045; 80048; 80061; 80076; 80307; 80320; 82962; 83036; 84443; 84484; 85025; 85610; 85730; 92523; 93005; 96360; 96361; 97162; 99218; 99285; 99406; J7030; Q9967; A4216; G0378; G0480

== ENCOUNTER 2024-09-11 09:58 | Emergency (ER) | payer MEDICAID, SELFPAY ==
[2024-09-11 09:59] VITALS: BP 132/82; PULSE 101; RESP 25; TEMP 36.8; O2SAT 94; BMI 42.3
--- NOTE | 2024-09-11 10:13 | CT_ITS ---
INDICATION: cough, right rib injury EXAMINATION: CT CHEST WITHOUT CONTRAST - CT Chest W/O Contrast Injection TECHNIQUE: Helically acquired images were obtained of the chest. A radiation dose optimization technique was used for this scan. IV Contrast dosage and agent: None. COMPARISON: None. FINDINGS: LUNGS, PLEURA AND LARGE AIRWAYS: Mild emphysema. No noncalcified nodule or mass. No pleural effusion or thickening. No pneumothorax. THYROID: No thyroid lesions. HEART AND PERICARDIUM: Heart size is normal. No pericardial effusion. CORONARY ARTERIES: Coronary artery calcification is seen. VESSELS: Thoracic aorta is not dilated. MEDIASTINUM AND TRAM: No mediastinal or hilar adenopathy. Esophagus is unremarkable. No hiatal hernia. UPPER ABDOMEN: Diffusely decreased attenuation of hepatic parenchyma consistent with fatty infiltration. Multiple lesions of decreased attenuation within liver worrisome for metastatic disease and correlation with liver mass protocol CT is recommended. BONES: No suspicious lytic or blastic abnormality. CT/Chest without Contrast IMPRESSION: Mild emphysema without pneumonia, atelectasis, nodule, or mass. Fatty infiltration liver. Multiple hepatic lesions and correlation with liver mass protocol CT is recommended. Electronically Signed: Ced Jama MD at 11:43 EST ,
--- NOTE | 2024-09-11 10:13 | EKG12_ITS ---
Test Reason : Blood Pressure : */* mmHG Vent. Rate : 88 BPM Atrial Rate : 88 BPM P-R Int : 160 ms QRS Dur : 106 ms QT Int : 366 ms P-R-T Axes : 53 -16 16 degrees QTcB Int : 442 ms Normal sinus rhythm Incomplete right bundle branch block Borderline ECG Confirmed by LEANDRO SAHU ([id number]), editorial assistant PAMELA COTTER ([id number]) on 09/13/2024 12:02:12 PM Referred By: Confirmed By: LEANDRO SAHU
--- NOTE | 2024-09-11 10:15 | EDS_ITS ---
HPI History of Present Illness Chief Complaint: Cough Informant: patient Narrative Narrative: Presents for evaluation persistent right rib pain along with increasing productive cough for the last week.. History of COPD no home oxygen tobacco history. He states a week ago today coughing hard caused him to pass out. He was on the ground. He woke up with right rib pain. Increasing yellow sputum since then. No fevers. Increasing wheeze. He is using his nebulizers. He was seen outside emergency department in [place] 3 days ago he states only a chest x-ray was done and he was discharged. He has been using Aleve. Last dose today. Last breathing treatment this morning. No cardiac history. [facility] Medical History Cough Home Medications ?Medication ?Instructions ?Recorded ?Last Taken ?Type naproxen 500 mg tablet 500 mg PO BID PRN #20 tabs 18 03/13/18 21:00 Rx pantoprazole 40 mg tablet,delayed 40 mg PO DAILY #12 tabs 03/14/18 Unknown Rx release prednisone 10 mg tablet 10 mg PO DAILY #43 tabs 03/14/18 Unknown Rx valacyclovir 1 gram tablet 1,000 mg PO TID #21 tabs 03/14/18 Unknown Rx azithromycin 250 mg tablet 250 mg PO DAILY #4 TABLETS 09/11/24 Unknown Rx prednisone 20 mg tablet 60 mg (3 x 20 mg) PO DAILY #12 09/11/24 Unknown Rx TABLETS Allergy/AdvReac Type Severity Reaction Status Date / Time No Known Allergies Allergy Verified 09/11/24 09:59 Social History Smoking Status: Current every day smoker tobacco type: cigarettes ROS ROS ED Constitutional Constitutional ED: Denies chills, fever(s) or sweats Eyes Eyes: Denies change in vision ENT ENT ED: Denies dysphagia or sore throat Cardiovascular Cardiovascular: Denies chest pain, leg edema, palpitations or racing heartbeat Respiratory/Chest Respiratory/Chest: Reports cough, dyspnea and other; Denies dyspnea on exertion Gastrointestinal Gastrointestinal: Denies abdominal pain, diarrhea, nausea or vomiting Genitourinary Genitourinary ED: Denies dysuria, hematuria or urinary frequency Musculoskeletal Musculoskeletal: Denies back pain, extremity pain or neck pain Integumentary Denies rash or wounds Neurologic Neurologic: Denies headache(s), paresthesias or weakness EXAM Physical Exam Const Vital Signs: 09/11/24 09:59 09/11/24 10:22 09/11/24 10:32 Temperature 98.3 F Temperature Source Oral Pulse Rate 101 H Respiratory Rate 25 H 18 Respiratory Effort Short of Breath Respiratory Pattern Normal Blood Pressure 132/82 H Blood Pressure Mean 98 Pulse Ox 94 Oxygen Delivery Method Room Air 09/11/24 11:13 09/11/24 11:36 Temperature 98.1 F Temperature Source Oral Pulse Rate 87 89 Respiratory Rate 24 H 18 Respiratory Effort Respiratory Pattern Blood Pressure 149/80 H 117/80 Blood Pressure Mean 103 92 Pulse Ox 91 93 Oxygen Delivery Method Room Air Room Air Positive well nourished and well developed Constitutional Narrative: Mild pursed lip breathing, nontoxic General Appearance ED: well developed and NAD HEENT Reports moist mucous membranes normocephalic and atraumatic Eyes EOMs intact bilaterally and conjunctivae normal General Eye ED: Yes normal appearance of both eyes Neck no lymphadenopathy and supple General: Negative for tenderness Chest Wall Chest Narrative: Tender palpation right lateral lower ribs with no crepitus. No ecchymosis. Chest: tenderness Resp normal respiratory effort and normal air movement Resp Narrative: Symmetric breath sounds with diminished at the bases. Effort and Inspection: symmetric chest movement; Negative for respiratory distress Cardio regular rate, regular rhythm and no murmurs Peripheral Pulses: pulses 2+ throughout GI normal to inspection, nondistended, normoactive bowel sounds and non-tender Palpation: Negative for guarding or rebound tenderness present Back/Spine no CVA tenderness and no thoracic nor lumbar tenderness Extremity normal to inspection General Extremety ED: Negative for edema or tenderness General Extremity: Negative for edema Neuro oriented x3, CN's II-XII intact bilaterally and no sensory deficits noted Neuro Narrative: No focal deficits Sensorium / Orientation: awake and alert Skin no rashes or lesions noted and no wounds MDM MDM MDM Narrative Medical decision making narrative: Interventions / MDM: Differential diagnosis: COPD exacerbation, posttussive syncope, rib injury, liver masses, abdominal aneurysm with mural thrombus Diagnosis considered but do not suspect: N/A My EKG interpretation: Sinus rate of 88, no ST changes, interventricular delay. Isolated T wave version in lead III nonspecific. QTc 442. Imaging independently reviewed and interpreted by myself: Noncontrast CT chest: No fracture, no pneumonia. Liver masses. CT abdomen pelvis with and without contrast: Liver masses. 4.1 cm aortic aneurysm with mural thrombus. External documents reviewed: Inpatient evaluated in 2018 for potential CVA however he was diagnosed with Morrow's palsy left side of face. Test considered but not ordered:N/A ED course: Patient nontoxic is mild pursed lip breathing. History likely posttussive syncope a week ago causing him to fall with right rib pain. Will check EKG. He reported negative chest x-ray 3 days ago with rib pain. Will obtain noncontrast CT chest for further evaluation. Will start him on prednisone and Zithromax for COPD exacerbation. Aerosol treatments given. Will reevaluate. 1135: Clinically improving on reevaluation no pursed lip breathing. EKG nonspecific findings. CT chest pending final read. On my review notes bilateral atelectasis no clear fracture noted. Will ambulate with a pulse ox, will plan for onset of spirometer for home use. 1200: CT scan neck for fracture and infiltrates. Patient ambulated 91% room air no worsening symptoms. However noted multiple hypodense lesions of the liver concerning for metastatic findings. Patient no cancer history. Denies any unintentional weight loss. Denies history of colonoscopies. Further recommendation radiology is for liver mass protocol CT. Discussed this with the patient and he would like imaging studies in the ED. IV established, CT abdomen pelvis with and without contrast for further evaluation. 1440: CT scan abdomen pelvis again multiple hypodense masses in the liver with metastatic disease to be ruled out. There is no masses in the colon. There is a 4.1 cm abdominal aneurysm with a mural thrombus. Patient is no abdominal pain he reports to me known aneurysm followed by his PCP last time was 4 cm. Secondary mural thrombus I reached out to vascular team in the ED, they recommended baby aspirin, without pain the follow-up with him as an outpatient. With the hypodense lesions in the liver with metastatic disease to be ruled out I did reach out to his primary care team, we will fax note and imaging reports to the office. He will follow-up as an outpatient for further treatment and testing to be ordered. For COPD he will be continued on steroids and antibiotics which is sent to his pharmacy. This was discussed with the patient. Baby aspirin started in the ED. He will package pick up 81 mg daily to take. Re-evaluation: stable Disposition discussed with patient/family/significant other: Patient Case discussed with consulting clinician: N/A This note was generated with [employer] dictation software. It may contain incorrect words, spelling, and punctuation that were not noted in checking the note before signing. Lab Data Attestation: I reviewed the patient's lab results. Labs: Laboratory Results - last 24 hr 09/11/24 12:45 WBC 8.1 RBC 4.88 Hgb 15.0 Hct 45.7 MCV 93.6 MCH 30.7 MCHC 32.8 RDW Std Deviation 47.5 H RDW Coeff of Cecilia 13.9 Plt Count 211 MPV 9.7 Immature Gran % (Auto) 0.400 Neut % (Auto) 77.6 H Lymph % (Auto) 14.0 L Bryan % (Auto) 5.7 Eos % (Auto) 1.8 Baso % (Auto) 0.5 Absolute Neuts (auto) 6.3 Absolute Lymphs (auto) 1.14 Nucleated RBC % 0 Sodium 139 Potassium 4.3 Chloride 105 Carbon Dioxide 29.0 Anion Gap 4 L BUN 19 H Creatinine 1.08 Estim Creat Clear Calc 102.16 Est GFR (MDRD) Af Amer 89 Est GFR (MDRD) Non-Af 73 BUN/Creatinine Ratio 17.6 Glucose 127 H Calcium 9.0 Total Bilirubin 0.70 Direct Bilirubin 0.15 AST 29 ALT 54 Alkaline Phosphatase 73 Total Protein 6.8 Albumin 4.0 Globulin 2.8 Radiography Diagnostic Testing: Clinical Impression(s) from Imaging Studies Chest CT 09/11/24 10:13 IMPRESSION: Mild emphysema without pneumonia, atelectasis, nodule, or mass. Fatty infiltration liver. Multiple hepatic lesions and correlation with liver mass protocol CT is recommended. Electronically Signed: Ced Jama MD at 11:43 EST , Abdomen/Pelvis CT 09/11/24 12:19 IMPRESSION: Diffuse fatty infiltration liver with multiple hypodense masses. Metastatic deposits to be ruled out. Aneurysmal dilatation of the distal abdominal aorta with a transverse dimension of 4.1 cm. Mural thrombus is seen. Electronically Signed: Sree Farmer MD at 14:11 EST , Discharge Plan Triage Chief Complaint: Cough ED Provider: Umesh Multani Dx/Rx/DC Orders Clinical Impression: COPD exacerbation, Chest wall contusion, Liver masses, AAA (abdominal aortic aneurysm) Instructions: AAA, ED COPD Flare Prescriptions: New azithromycin 250 mg tablet 250 mg PO DAILY Qty: 4 0RF prednisone 20 mg tablet 60 mg PO DAILY Qty: 12 0RF No Action naproxen 500 MG tablet 500 mg PO BID PRN Qty: 20 0RF prednisone 10 MG tablet 10 mg PO DAILY Qty: 43 0RF Rx Instructions: 60 mg po qd x 2 days 50 mg po qd x 2 days 40 mg po qd x 2 days 30 mg po qd x 2 days 20 mg po qd x 2 days 10 mg po qd x 2 days 5 mg po qd x 2 days valacyclovir 1,000 MG tablet 1,000 mg PO TID Qty: 21 0RF pantoprazole 40 MG tablet 40 mg PO DAILY Qty: 12 0RF Primary Care Provider: Pilar Morataya Referrals: Javier Rivera MD [Med Staff - Active Staff] - 1-2 Weeks Pilar Morataya MD [Primary Care Provider] - 3-5 Days [facility] Doctor,Out of [Non-Staff] - Activity Restrictions/Additional Instructions: Your CT chest negative for pneumonia or rib fractures. Take prednisone antibiotics for your COPD flare. You are found to have liver masses. CT abdomen pelvis was done there was no other masses noted in the abdomen or chest. Discussed with your PCP team, you will likely need further workup. You have a abdominal aneurysm 4.1 cm with a mural thrombus. Discussed with vascular team, package pick up baby aspirin 81 mg to take daily. Follow-up with Dr. Rivera. If you develop any worsening symptoms show with breathing, return to ED for reevaluation. Print Language: [place] Disposition Disposition: Home, Self Care
[2024-09-11] MEDS: Azithromycin 250 MG Tablet 500 MG PO (10:20)
[2024-09-11] MEDS: predniSONE 20 MG Tablet 60 MG PO (10:20)
[2024-09-11] MEDS: Ipratropium/Albuterol Sulfate 3 ML AMPUL.NEB INHALATION (10:26)
[2024-09-11 10:32] VITALS: RESP 18
[2024-09-11 11:13] VITALS: BP 149/80; PULSE 87; RESP 24; TEMP 36.7; O2SAT 91
[2024-09-11 11:36] VITALS: BP 117/80; PULSE 89; RESP 18; O2SAT 93
[2024-09-11 11:49] VITALS: O2SAT 91
--- NOTE | 2024-09-11 12:19 | CT_ITS ---
STUDY: CT ABDOMEN AND PELVIS WITH AND WITHOUT CONTRAST REASON FOR EXAM: Male, 63 years old. Hepatic lesions RADIATION DOSAGE (If Supplied By Facility): CTDIvol = ( 32.11 ) mGy, DLP = ( 1105.36 ) mGycm TECHNIQUE: Transaxial images were obtained from the dome of the diaphragm to the symphysis pubis without oral contrast. IV 100mL Isovue-370 was administered. Sagittal and coronal images were reconstructed. Individualized dose optimization techniques were used for this CT. COMPARISON: None. FINDINGS: The visualized lung bases are unremarkable. The visualized portions of the heart are within normal limits. There is decreased attenuation of the liver consistent with steatosis. There are multiple hypodense masses scattered throughout both lobes of the liver suggestive of metastatic deposits. The gallbladder is contracted. Normal spleen. Normal pancreas. Normal bilateral adrenal glands. Normal right kidney. Normal left kidney. Normal visualized stomach. Normal small intestine. There are scattered colonic diverticula consistent with diverticulosis. The appendix is visualized and appears normal. There is scattered atherosclerotic calcification of the abdominal aorta. Mild aneurysmal dilatation of the infrarenal abdominal aorta with a transverse dimension of 4.1 cm. Mural thrombus is seen. Normal inferior vena cava. Normal retroperitoneum. Normal urinary bladder. There is a small umbilical hernia containing fat. There are diffuse degenerative changes of the visualized lumbar spine. Straightening of the normal lumbar lordosis. Grade 1 to grade 2 anterolisthesis of L5 on S1 due to spondylolysis of the pars interarticularis of the L5 vertebrae. CT/CT Abd/Pelvis W/WO Contrast IMPRESSION: Diffuse fatty infiltration liver with multiple hypodense masses. Metastatic deposits to be ruled out. Aneurysmal dilatation of the distal abdominal aorta with a transverse dimension of 4.1 cm. Mural thrombus is seen. Electronically Signed: Sree Farmer MD at 14:11 EST ,
[2024-09-11 12:54] LABS: Absolute Lymphocyte Count 1.14 X10^3/uL (0.83-4.51); Absolute Neutrophil Count 6.3 X10^3/uL (2.0-7.7); Basophil# 0.04 X10^3/uL; Basophil% 0.5 % (0-1); Eosinophil# 0.15 X10^3/uL; Eosinophils% 1.8 % (0-5); Hematocrit 45.7 % (40-54); Lymphocyte # 1.14 X10^3/ul (0.83-4.51); Mean Corp Hgb Conc 32.8 g/dL (32-36); Mean Corpuscular Hgb 30.7 pg (27.0-32.0); Mean Corpuscular Volume 93.6 fL (80-94); Mean Platelet Vol. 9.7 fl (6.2-12.0); Monocyte# 0.46 X10^3/uL; Monocyte% 5.7 % (0-10); NRBC Flagged by Analyzer 0 % (0-5); Neutrophil # 6.32 X10^3/uL (2.7-7.7); Neutrophil % 77.6 % (47-70); Platelet Count 211 K/mm3 (150-450); RBC Distribution Width CV 13.9 % (11.6-14.6); RBC Distribution Width SD 47.5 fl (35.1-43.9); Red Blood Count 4.88 M/mm3 (4.6-6.2); White Blood Count 8.1 K/mm3 (4.4-11.0)
[2024-09-11 13:12] LABS: AST(SGOT) 29 U/L (15-37); Alanine Aminotransfer ALT/SGPT 54 U/L (16-61); Alkaline Phosphatase 73 U/L (45-117); Anion Gap 4 (5-15); BUN 19 mg/dL (7-18); BUN/Creat Ratio 17.6 RATIO (10-20); Bilirubin, Direct 0.15 mg/dL (0.00-0.30); Chloride 105 mmol/L (98-107); Creatinine, Serum 1.08 mg/dL (0.70-1.30); EST Glomerular Filtration Rate 73 mL/min (>60); Est Glom Filt Rate - Afr Amer 89 mL/min (>60); Estimated Creatinine Clearance 102.16 ml/min; Globulin 2.8 g/dL (2.2-4.2); Glucose 127 mg/dL (74-106); Potassium 4.3 mmol/L (3.5-5.1); Protein, Total 6.8 g/dL (6.4-8.2); Sodium Level 139 mmol/L (136-145)
[2024-09-11 14:46] VITALS: BP 121/98; PULSE 88; RESP 22; TEMP 36.7; O2SAT 90
[2024-09-11] MEDS: Aspirin 81 MG TAB.CHEW PO (14:51)
== END 2024-09-11 14:56 | disposition home or self-care (01) ==
PROVIDERS: Emergency Provider Emergency Medicine; PCP Student in an Organized Health Care Education/Training Program; Visit Provider Emergency Medicine
DX: J44.1 Chronic obstructive pulmonary disease with (acute) exacerbation (principal); I71.40 Abdominal aortic aneurysm, without rupture, unspecified; I51.3 Intracardiac thrombosis, not elsewhere classified; R16.0 Hepatomegaly, not elsewhere classified; S20.211A Contusion of right front wall of thorax, initial encounter; X58.XXXA Exposure to other specified factors, initial encounter; F17.210 Nicotine dependence, cigarettes, uncomplicated; Z86.73 Personal history of transient ischemic attack (TIA), and cerebral infarction without residual deficits
CPT/HCPCS: 71250; 74178; 80048; 80076; 85025; 93005; 94640; 99284; Q9967; A4216

== ENCOUNTER 2024-09-14 15:19 | Emergency (ER) | payer MEDICAID, SELFPAY ==
[2024-09-14 15:20] VITALS: BP 172/94; PULSE 87; RESP 16; TEMP 36.9; O2SAT 94; BMI 42.5
--- NOTE | 2024-09-14 15:40 | EDS_ITS ---
HPI History of Present Illness Chief Complaint: Chest Other Informant: patient Narrative Narrative: Presents to ED persistent pain right ribs after coughing. History of COPD no home oxygen. Note was seen by myself 3 days ago. Initially seen at outside hospital system report x-rays done was negative. During my workup he had a CT scan noncontrast there is no fractures. No infiltrates. He had incidental findings of concerning liver masses and a known aneurysm with the new mural thrombus. He is currently on baby aspirin. Stay for of his antibiotic and steroids. He states pain only when he coughs. No fevers. No dyspnea. He has no allergies. Note he reports has made appointment with vascular surgery along with appointment with his PCP for further outpatient workup on the findings above. Prior similar symptoms: Yes PFSH PFSH Medical History Cough Home Medications ?Medication ?Instructions ?Recorded ?Last Taken ?Type naproxen 500 mg tablet 500 mg PO BID PRN #20 tabs 18 03/13/18 21:00 Rx pantoprazole 40 mg tablet,delayed 40 mg PO DAILY #12 tabs 03/14/18 Unknown Rx release prednisone 10 mg tablet 10 mg PO DAILY #43 tabs 03/14/18 Unknown Rx valacyclovir 1 gram tablet 1,000 mg PO TID #21 tabs 03/14/18 Unknown Rx azithromycin 250 mg tablet 250 mg PO DAILY #4 TABLETS 09/11/24 Unknown Rx prednisone 20 mg tablet 60 mg (3 x 20 mg) PO DAILY #12 09/11/24 Unknown Rx TABLETS hydrocodone-acetaminophen 5-325mg 1 tab PO Q6H PRN PRN Pain 3 days 09/14/24 Unknown Rx 5mg-325mg #12 TABLETS Allergy/AdvReac Type Severity Reaction Status Date / Time No Known Allergies Allergy Verified 09/14/24 15:20 Social History Smoking Status: Current every day smoker tobacco type: cigarettes ROS ROS ED Constitutional Constitutional ED: Denies chills, fever(s) or sweats Eyes Eyes: Denies change in vision ENT ENT ED: Denies dysphagia or sore throat Cardiovascular Cardiovascular: Reports other Details: Right rib pain ; Denies chest pain, leg edema, palpitations or racing heartbeat Respiratory/Chest Respiratory/Chest: Reports cough; Denies dyspnea or dyspnea on exertion Gastrointestinal Gastrointestinal: Denies abdominal pain, diarrhea, nausea or vomiting Genitourinary Genitourinary ED: Denies dysuria, hematuria or urinary frequency Musculoskeletal Musculoskeletal: Denies back pain, extremity pain or neck pain Integumentary Denies rash or wounds Neurologic Neurologic: Denies headache(s), paresthesias or weakness EXAM Physical Exam Const Vital Signs: 09/14/24 15:20 Temperature 98.4 F Temperature Source Temporal Pulse Rate 87 Respiratory Rate 16 Blood Pressure 172/94 H Blood Pressure Mean 120 Pulse Ox 94 Oxygen Delivery Method Room Air Positive well nourished and well developed General Appearance ED: well developed and NAD HEENT Reports moist mucous membranes normocephalic and atraumatic Eyes EOMs intact bilaterally and conjunctivae normal General Eye ED: Yes normal appearance of both eyes Neck no lymphadenopathy and supple General: Negative for tenderness Chest Wall Chest Narrative: Mild tenderness right lateral lower ribs no crepitus no ecchymosis. Chest: tenderness Resp normal respiratory effort and normal air movement Resp Narrative: Symmetric breath sounds. Effort and Inspection: symmetric chest movement; Negative for respiratory distress Cardio regular rate, regular rhythm and no murmurs Peripheral Pulses: pulses 2+ throughout GI normal to inspection, nondistended, normoactive bowel sounds and non-tender Palpation: Negative for guarding or rebound tenderness present Back/Spine no CVA tenderness and no thoracic nor lumbar tenderness Extremity normal to inspection General Extremety ED: Negative for edema or tenderness General Extremity: Negative for edema Neuro oriented x3 and no sensory deficits noted Sensorium / Orientation: awake and alert Skin no rashes or lesions noted and no wounds MDM MDM MDM Narrative Medical decision making narrative: Interventions / MDM: Differential diagnosis: COPD, rib strain Diagnosis considered but do not suspect: Fracture however x-ray negative My EKG interpretation: N/A Imaging independently reviewed and interpreted by myself: Right rib series with PA chest: No infiltrates no rib fractures also read by radiology External documents reviewed: N/A Test considered but not ordered:N/A ED course: Seen for COPD exacerbation. Still has cough with pain in her right ribs. He is nontoxic symmetric breath sounds. He had a CT scan 3 days ago. Will order, [place] for pain, will obtain rib series for evaluation. Rib series negative pain more controlled. Short course of [place] for symptom control. He will finish his antibiotics and steroids. He is not hypoxic. Outpatient follow-up. All questions were answered. Re-evaluation: stable Disposition discussed with patient/family/significant other: Patient Case discussed with consulting clinician: N/A This note was generated with [employer] dictation software. It may contain incorrect words, spelling, and punctuation that were not noted in checking the note before signing. Radiography Diagnostic Testing: Clinical Impression(s) from Imaging Studies Ribs w/Chest X-Ray 09/14/24 15:50 IMPRESSION: Negative chest and right ribs series. Electronically Signed: Tim Portillo MD at 16:35 EST , Discharge Plan Triage Chief Complaint: Chest Other ED Provider: Umesh Multani Dx/Rx/DC Orders Clinical Impression: Rib sprain, Cough, COPD (chronic obstructive pulmonary disease) Instructions: ED Strain Chest Wall Prescriptions: New hydrocodone-acetaminophen 5-325 mg tablet 1 tab PO Q6H PRN PRN (Reason: Pain) 3 Days Qty: 12 0RF No Action naproxen 500 MG tablet 500 mg PO BID PRN Qty: 20 0RF prednisone 10 MG tablet 10 mg PO DAILY Qty: 43 0RF Rx Instructions: 60 mg po qd x 2 days 50 mg po qd x 2 days 40 mg po qd x 2 days 30 mg po qd x 2 days 20 mg po qd x 2 days 10 mg po qd x 2 days 5 mg po qd x 2 days valacyclovir 1,000 MG tablet 1,000 mg PO TID Qty: 21 0RF pantoprazole 40 MG tablet 40 mg PO DAILY Qty: 12 0RF azithromycin 250 mg tablet 250 mg PO DAILY Qty: 4 0RF prednisone 20 mg tablet 60 mg PO DAILY Qty: 12 0RF Primary Care Provider: Pilar Morataya Referrals: Pilar Morataya MD [Primary Care Provider] - 1 Week if not improving Activity Restrictions/Additional Instructions: Rib series with chest x-ray negative. Take pain medicine as prescribed to help with pain and cough. Finish your steroid antibiotic. Follow-up with your doctor. Print Language: German Disposition Disposition: Home, Self Care Discharge Date/Time: 09/14/24 16:56
[2024-09-14] MEDS: HYDROcodone Bitartrate/Apap 5/325 Tablet PO (15:50)
--- NOTE | 2024-09-14 15:50 | RAD_ITS ---
EXAM: XR RIGHT RIBS AND AP CHEST, 3 OR MORE VIEWS CLINICAL INDICATION: rib pain, cough TECHNIQUE: Frontal and oblique views of the right ribs and frontal view of the chest. COMPARISON: 03/14/2019 FINDINGS: LUNGS AND PLEURAL SPACES: Unremarkable. No consolidation or edema. No pneumothorax. No effusion. HEART: Unremarkable. Cardiac silhouette not enlarged. MEDIASTINUM: Central airways and mediastinal contour are unremarkable. BONES/JOINTS: Unremarkable. No evidence of displaced rib fractures. RAD/Ribs Uni Min 3V w/PA Chest IMPRESSION: Negative chest and right ribs series. Electronically Signed: Tim Portillo MD at 16:35 EST ,
== END 2024-09-14 16:56 | disposition home or self-care (01) ==
PROVIDERS: Emergency Provider Emergency Medicine; PCP Student in an Organized Health Care Education/Training Program; Visit Provider Emergency Medicine
DX: S23.41XA Sprain of ribs, initial encounter (principal); J44.9 Chronic obstructive pulmonary disease, unspecified; X58.XXXA Exposure to other specified factors, initial encounter; I51.3 Intracardiac thrombosis, not elsewhere classified; F17.210 Nicotine dependence, cigarettes, uncomplicated; Z79.82 Long term (current) use of aspirin
CPT/HCPCS: 71101; 99282

== ENCOUNTER → 2024-10-22 | Outpatient (CLI) | payer MEDICAID, SELFPAY ==
--- NOTE | 2024-10-22 08:51 | AAVD_ITS ---
Reason For Study: AAA Aorta Measurements Aorta Doppler Measurements Proximal aorta measures2.43 x 2.00cm. in cross- Peak systolic flow velocities within the proximal sectional axis. aorta measure 86.8 cm/sec. Proximal aorta measures2.54cm. in longitudinal Peak systolic flow velocities within the mid aorta axis. measure 56.0 cm/sec. Mid aorta measures4.09 x 3.69cm. in cross- Peak systolic flow velocities within the distal sectional axis. aorta measure 63.2 cm/sec. Mid aorta measures3.33cm. in longitudinal axis. Distal aorta measures4.22 x 4.06cm. in cross- sectional axis. Distal aorta measures3.93cm. in longitudinal axis. Intraluminal Echoes noted at Distal AO. Left Iliac Artery Left iliac artery measures 1.25 x 1.38 cm. in the cross-sectional axis. Left iliac artery measures 1.32 cm. in the longitudinal axis. Peak systolic velocity in the left iliac artery measures 50.6 cm/sec. Right Iliac Artery Right iliac artery measures 1.32 x 1.45 cm. in the cross-sectional axis. Right iliac artery measures 1.45 cm. in the longitudinal axis. Peak systolic velocity in the right iliac artery measures 79.6 cm/sec. Procedure Aorta IVC Iliac vasculature or bypass grafts 17584. Technically Difficult Study. Exam performed in department. VL/Abd Aortic/IVC Duplex scan Interpretation Summary Aorta patent, 4.22 cm aneurysm present Right iliac artery patent, ectasia to 1.45 cm Left iliac artery patent, ectasia to 1.38 cm Ordering Physician: Chela aTbares Referring Physician: Pilar Morataya Performed By: Morgan Rios, RVT
== END | disposition home or self-care (01) ==
LOC: CVS 08:47
PROVIDERS: PCP Student in an Organized Health Care Education/Training Program; Referring Provider Physician Assistant; Visit Provider Physician Assistant
DX: I71.40 Abdominal aortic aneurysm, without rupture, unspecified (principal)
CPT/HCPCS: 93978

== ENCOUNTER → 2025-04-16 | Outpatient (CLI) | payer MEDICAID, SELFPAY ==
--- NOTE | 2025-04-16 11:33 | RAD_ITS ---
PROCEDURE: L/S SPINE BENDING FLEX/EXT 04/16/2025 REASON FOR EXAM: LUMBAR SPONDYLOLYSIS TECHNIQUE: L/S SPINE BENDING FLEX/EXT COMPARISON: None. FINDINGS: Grade 2 anterolisthesis of L5 on S1 secondary to bilateral pars defects. No evidence of instability on flexion/extension images. Grade 1 anterolisthesis of L3 on L4 secondary to facet joint arthropathy without associated instability on flexion/extension images. There are diffuse spondylotic changes. Findings are demonstrated to by diffuse disc space narrowing, osteophyte formation and degenerative endplate sclerosis. There is diffuse facet joint arthropathy with secondary bilateral neural foramina narrowing. No fracture or dislocation is seen. No aggressive lytic or blastic bony lesion is noted. RAD/L/S Spine Bending Flex/Ext IMPRESSION: Grade 2 anterolisthesis of L5 on S1 secondary to bilateral pars defects. No ev idence of instability on flexion/extension images. Grade 1 anterolisthesis of L3 on L4 secondary to facet joint arthropathy withou t associated instability on flexion/extension images. Spondylosis. Reading Location: [facility]
--- OUTSIDE RECORDS SUMMARY | 2025-04-16 21:45 | XMS RPT_ITS | CCD ---
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 Name Role Phone Pilar Morataya MD Primary Care Provider Chela Tabares Attending Unavailable Chela Tabares Referring Unavailable Pilar Morataya Primary Care Unavailable Pilar Moartaya Primary Care Unavailable Umesh Multani Attending Unavailable Pilar Morataya Primary Care Unavailable Umesh Multani Attending Unavailable Pilar Morataya Primary Care Unavailable Pilar Morataya Referring Unavailable Chela Tabares Attending Unavailable Poncho Tabaresison Referring Unavailable Sarah Rivera Attending Unavailable Pilar Morataya Primary Care Unavailable PILAR MORATAYA Primary Care Unavailable FABI JOVEL Referring Unavailable FABI JOVEL Referring Unavailable SELF Referring Unavailable FABI JOVEL Attending Unavailable SELF Referring Unavailable PILAR MORATAYA Primary Care Unavailable LOU DAVE Attending Unavailable PILAR MORATAYA MD Consulting Unavailable PILAR MORATAYA MD Primary Care Unavailable PILAR MORATAYA MD Admitting Unavailable PILAR MORATAYA MD Attending Unavailable PROVIDER, UNKNOWN Consulting Unavailable PROVIDER, UNKNOWN Consulting Unavailable PILAR MORATAYA MD Consulting Unavailable PILAR MORATAYA MD Primary Care Unavailable PILAR MORATAYA MD Attending Unavailable PILAR MORATAYA MD Admitting Unavailable PROVIDER, UNKNOWN Consulting Unavailable PROVIDER, UNKNOWN Consulting Unavailable PILAR MORATAYA MD Primary Care Unavailable PILAR MORATAYA MD Consulting Unavailable PILAR MORATAYA MD Admitting Unavailable PILAR MORATAYA MD Attending Unavailable PROVIDER, UNKNOWN Consulting Unavailable PROVIDER, UNKNOWN Consulting Unavailable PILAR MORATAYA MD Consulting Unavailable CHEY PERRY Admitting Unavailable ORLANDO, CHEY E Attending Unavailable ORLANDO, CHEY E Primary Care Unavailable PILAR MORATAYA MD Referring Unavailable PROVIDER, UNKNOWN Consulting Unavailable PROVIDER, UNKNOWN Consulting Unavailable PILAR MORATAYA MD Consulting Unavailable ORLANDO, CHEY E Admitting Unavailable ORLANDO, CHEY E Attending Unavailable ORLANDO, CHEY E Primary Care Unavailable PILAR MORATAYA MD Referring Unavailable PROVIDER, UNKNOWN Consulting Unavailable PROVIDER, UNKNOWN Consulting Unavailable PILAR MORATAYA MD Consulting Unavailable PILAR MORATAYA MD Primary Care Unavailable PILAR MORATAYA MD Attending Unavailable PILAR MORATAYA MD Admitting Unavailable PROVIDER, UNKNOWN Consulting Unavailable PROVIDER, UNKNOWN Consulting Unavailable PILAR MORATAYA MD Referring Unavailable PILAR MORATAYA MD Consulting Unavailable DEBORAH CHU MD Admitting Unavailable DEBORAH CHU MD Attending Unavailable DEBORAH CHU MD Primary Care Unavailable PROVIDER, UNKNOWN Consulting Unavailable PROVIDER, UNKNOWN Consulting Unavailable PILAR MORATAYA MD Admitting Unavailable PILAR MORATAYA MD Consulting Unavailable PILAR MORATAYA MD Primary Care Unavailable PILAR MORATAYA MD Attending Unavailable PROVIDER, UNKNOWN Consulting Unavailable PROVIDER, UNKNOWN Consulting Unavailable LEANNA HAINES DO Admitting Unavailable LEANNA HAINES DO Attending Unavailable PILAR MORATAYA MD Consulting Unavailable LEANNA HAINES DO Primary Care Unavailable PILAR MORATAYA MD Referring Unavailable PROVIDER, UNKNOWN Consulting Unavailable PROVIDER, UNKNOWN Consulting Unavailable PILAR MORATAYA MD Admitting Unavailable PILAR MORATAYA MD Consulting Unavailable PILAR MORATAYA MD Primary Care Unavailable PILAR MORATAYA MD Attending Unavailable PROVIDER, UNKNOWN Consulting Unavailable PROVIDER, UNKNOWN Consulting Unavailable PILAR MORATAYA MD Admitting Unavailable PILAR MORATAYA MD Consulting Unavailable PILAR MORATAYA MD Primary Care Unavailable PILAR MORATAYA MD Attending Unavailable PROVIDER, UNKNOWN Consulting Unavailable PROVIDER, UNKNOWN Consulting Unavailable PILAR MORATAYA MD Admitting Unavailable PILAR MORATAYA MD Consulting Unavailable PILAR MORATAYA MD Primary Care Unavailable PILAR MORATAYA MD Attending Unavailable PROVIDER, UNKNOWN Consulting Unavailable PROVIDER, UNKNOWN Consulting Unavailable PILAR MORATAYA MD Consulting Unavailable ORLANDO, CHEY E Admitting Unavailable ORLANDO, CHEY E Attending Unavailable ORLANDO, CHEY E Primary Care Unavailable PILAR MORATAYA MD Referring Unavailable PROVIDER, UNKNOWN Consulting Unavailable PROVIDER, UNKNOWN Consulting Unavailable PILAR MORATAYA MD Referring Unavailable LEANNA HAINES DO Admitting Unavailable LEANNA HAINES DO Attending Unavailable PILAR MORATAYA MD Consulting Unavailable LEANNA HAINES DO Primary Care Unavailable PROVIDER, UNKNOWN Consulting Unavailable PROVIDER, UNKNOWN Consulting Unavailable PILAR MORATAYA MD Consulting Unavailable CSERNYIK, SARAH DO Admitting Unavailable CSERNYIK, SARAH DO Attending Unavailable CSERNYIK, SARAH DO Primary Care Unavailable PROVIDER, UNKNOWN Consulting Unavailable PROVIDER, UNKNOWN Consulting Unavailable DA SILVARITA Man C Admitting Unavailable RITA DA SILVA C Attending Unavailable PILAR MORATAYA MD Consulting Unavailable RITA DA SILVA Primary Care Unavailable PILAR MORATAYA MD Referring Unavailable PROVIDER, UNKNOWN Consulting Unavailable PROVIDER, UNKNOWN Consulting Unavailable PILAR MORATAYA MD Consulting Unavailable ALMUSHTAQ ROJAS MD Admitting Unavailable MUSHTAQ GUZMAN MD Attending Unavailable MUSHTAQ GUZMAN MD Primary Care Unavailable PILAR MORATAYA MD Referring Unavailable PROVIDER, UNKNOWN Consulting Unavailable PROVIDER, UNKNOWN Consulting Unavailable PILAR MORATAYA MD Consulting Unavailable ORLANDO CHEY E Primary Care Unavailable ORLANDO CHEY E Admitting Unavailable ORLANDO CHEY E Attending Unavailable PILAR MORATAYA MD Referring Unavailable PROVIDER, UNKNOWN Consulting Unavailable PROVIDER, UNKNOWN Consulting Unavailable PILAR MORATAYA MD Consulting Unavailable PILAR MORATAYA MD Primary Care Unavailable PILAR MORATAYA MD Admitting Unavailable PILAR MORATAYA MD Attending Unavailable PROVIDER, UNKNOWN Consulting Unavailable PROVIDER, UNKNOWN Consulting Unavailable Medications Current Medications Medication Drug Class(es) Dates Sig (Normalized) Sig (Original) albuterol 0.83 mg/ml inhalation solution (11 sources) beta2-Adrenergic Agonist Start: 08-03-2024 take 2.5 mg by inhalation every six hours as needed albuterol (PROVENTIL) 2.5 mg /3 mL (0.083 %) nebulizer solution Use 2.5 mg via nebulizer every 6 hours as needed. 08/03/2024 Active take 2 puff(s) by in halation every six hours as needed albuterol HFA (PROVENTIL HFA, VENTOLIN H FA) 90 mcg/actuation inhaler Inhale 2 Puffs as instructed every 6 hours as needed. Active COMP-AIR NEBULIZER COMPRESSOR (6 sources) Start: 07-13-2024 COMP-AIR NEBULIZER COMPRESSOR USE NEBULIZER DAILY 07/13/2024 Active dicyclomine hydrochloride 20 mg oral tablet (6 sources) Anticholinergic Start: 04-30-2024 dicyclomine (BENTYL) 20 mg tablet Take 1 tablet by mouth as needed. 04/30/2024 Active 0.5 ml dulaglutide 1.5 mg/ml auto-injector (1 source) GLP-1 Receptor Agonist Start: 12-04-2024 inject 0.75 mg by subcutaneous injection every week TRULICITY 0.75 mg/0.5 mL pen injector Inject 0.75 mg subcutaneously one time a week. 12/04/2024 Active fluticasone / salmeterol (7 sources) Corticosteroid, beta2-Adrenergic Agonist Start: 08-13-2024 take 1 puff(s) by mouth twice daily fluticasone-salmet kal (ADVAIR DISKUS) 250-50 mcg/dose inhaler Inhale 1 Puff as instructed two times a day. RINSE AND GARGLE MOUTH WITH WATER AFTER EACH USE. 1 Each 5 08/13/2024 Active Start: 08-01-2024 End: 08-13-2024 take 1 puff(s) by inhalation twice daily ADVAIR DISKUS 100-50 mcg/dose inhaler Inhale 1 Puff as instructed two times a day. 08/01/2024 08/13/2024 Discontinued furosemide 20 mg oral tablet (1 source) Loop Diuretic Start: 11-29-2024 take 1 tablet by mouth once furosemide (LASIX) 20 mg tablet Take 1 tablet by mouth every afternoon. 11/29/2024 Active gabapentin 300 mg oral capsule (6 sources) Anti-epileptic Agent take 2 capsules by mouth once daily at bedtime gabapentin (NEURONTIN) 300 mg capsule Take 600 mg by mouth daily at bedtime. Active guaifenesin/dextrom ethorphan (TUSSIN DM MAX ORAL) (6 sources) Start: 07-31-2024 take 10 mL by mouth once daily guaifenesin/dextro methorphan (TUSSIN DM MAX ORAL) Take 10 mL by mouth once daily. 07/31/2024 Active ketorolac tromethamine 10 mg oral tablet (1 source) Nonsteroidal Anti-inflammatory Drug, Cyclooxygenase Inhibitor Start: 11-30-2024 take 1 tablet by mouth every eight hours as needed keTORolac (TORADOL) 10 mg tablet Take 10 mg by mouth every 8 hours as needed. 11/30/2024 Active magnesium oxide 400 mg oral tablet (6 sources) Start: 02-05-2024 take 1 tablet by mouth once daily magnesium oxide (MAG-OX) 400 mg (241.3 mg magnesium) tablet Take 1 tablet by mouth once daily. 02/05/2024 Active meloxicam 7.5 mg oral tablet (5 sources) Nonsteroidal Anti-inflammatory Drug take 1 tablet by mouth once daily as needed meloxicam (MOBIC) 7.5 mg tablet Take 7.5 mg by mouth once daily as needed. Active 24 hr metFORMIN hydrochloride 500 mg extended release oral tablet (1 source) Biguanide Start: 11-29-2024 take 1 tablet by mouth every twelve hours metFORMIN ER (GLUCOPHAGE XR) 500 mg 24 hr tablet Take 1 tablet by mouth every 12 hours. 11/29/2024 Active naproxen 500 mg delayed release oral tablet (6 sources) Nonsteroidal Anti-inflammatory Drug Start: 03-03-2018 Naproxen SR (EC-NAPROSYN) 500 mg EC tablet Take 500 mg by mouth as needed. 03/03/2018 Active ondansetron 4 mg disintegrating oral tablet (6 sources) Serotonin-3 Receptor Antagonist Start: 04-30-2024 take 1 tablet by mouth every eight hours as needed ondansetron orally disintegrating (ZOFRAN ODT) 4 mg disintegrating tablet Take 4 mg by mouth every 8 hours as needed. 04/30/2024 Active pantoprazole 40 mg delayed release oral tablet (6 sources) Proton Pump Inhibitor Start: 08-09-2024 take 1 tablet by mouth once pantoprazole DR (PROTONIX) 40 mg tablet Take 1 tablet by mouth every afternoon. 08/09/2024 Active rosuvastatin calcium 20 mg oral tablet (1 source) HMG-CoA Reductase Inhibitor Start: 11-25-2024 take 1 tablet by mouth once rosuvastatin (CRESTOR) 20 mg tablet Take 1 tablet by mouth every afternoon. 11/25/2024 Active tamsulosin hydrochloride 0.4 mg oral capsule (6 sources) alpha-Adrenergic Tera take 0.4 mg by mouth once daily at bedtime tamsulosin (FLOMAX) 0.4 mg Take 0.4 mg by mouth daily at bedtime. Active 10 actuat tiotropium 0.0025 mg/actuat inhalation spray (7 sources) Anticholinergic Start: 08-13-2024 take 2 puff(s) by inhalation once daily tiotropium bromide (SPIRIVA RESPIMAT) 2.5 mcg/actuation inhaler Inhale 2 Puffs as instructed once daily. 1 Each 5 08/13/2024 Active End: 08-13-2024 SPIRIVA RESPIMAT 1.25 mcg/ac tuation inhaler Inhale 2 Puffs as instructed once daily. 08/13/2024 Discontinued varenicline 1 mg oral tablet (1 source) Partial Cholinergic Nicotinic Agonist Start: 11-10-2024 take 1 tablet by mouth once daily at breakfast varenicline (CHANTIX) 1 mg tablet Take 1 mg by mouth daily with breakfast. 11/10/2024 Active Problems Active Problems Problem Classification Problem Date Documented Da te Episodic/Chronic Aortic; peripheral; and visceral artery aneurysms (1 source) Aortic aneurysm of unspecified site, without rupture; Translations: [Aortic aneurysm of unspecified site, without rupture] Onset: 01-21-2025 Chronic Chronic obstructive pulmonary disease and bronchiectasis (8 sources) Chronic obstructive lung disease; Translations: [Chronic obstructive pulmonary disease, unspecified] Onset: 12-10-2024 08-13-2024 Chronic Diabetes mellitus without complication (1 source) Type 2 diabetes mellitus without complications; Translations: [Type 2 diabetes mellitus without complications] Onset: 02-18-2025 Chronic Nonspecific chest pain (1 source) Other chest pain; Translations: [Other chest pain] Onset: 10-13-2024 Episodic Other connective tissue disease (3 sources) Pain in left lower leg; Translations: [Pain in left lower leg] Onset: 01-22-2025 Episodic Other lower respiratory disease (2 sources) Dyspnea; Translations: [Dyspnea, unspecified] 08-13-2024 Episodic Other lower respiratory disease (1 source) Nodule of lung; Translations: [Solitary pulmonary nodule] 08-13-2024 Episodic Other lower respiratory disease (1 source) Hypoxia; Translations: [Hypoxemia] 12-10-2024 Episodic Other nutritional; endocrine; and metabolic disorders (1 source) Morbid obesity; Translations: [Morbid (severe) obesity due to excess calories] 08-13-2024 Chronic Substance-related disorders (3 sources) Cigarette smoker ; Translations: [Nicotine dependence, cigarettes, uncomplicated] Onset: 01-21-2025 08-13-2024 Chronic Thyroid disorders (1 source) Other specified hypothyroidism; Translations: [Other specified hypothyroidism] Onset: 02-18-2025 Chronic Unclassified (1 source) Abdominal aortic aneurysm, without rupture, unspecified; Translations: [Abdominal aortic aneurysm, without rupture, unspecified] Onset: 11-13-2024 Unclassified (1 source) Cough, unspecified; Translations: [Cough, unspecified] Onset: 10-09-2024 Past or Other Problems Problem Classification Problem Date Documented Da te Episodic/Chronic Abdominal pain (7 sources) Right lower quadrant pain; Translations: [Left lower quadrant pain] Onset: 04-29-2024 Episodic Other connective tissue disease (3 sources) Other symptoms and signs involving the nervous system; Translations: [Other symptoms and signs involving the nervous system] Onset: 08-19-2024 Episodic Other lower respiratory disease (1 source) Dyspnea, unspecified; Translations: [Dyspnea, unspecified type] Onset: 08-13-2024 Episodic Other screening for suspected conditions (not mental disorders or infectious disease) (2 sources) Other specified abnormal findings of blood chemistry; Translations: [Other specified abnormal findings of blood chemistry] Onset: 05-13-2024 Episodic Screening and history of mental health and substance abuse codes (1 source) Personal history of nicotine dependence; Translations: [Personal history of nicotine dependence] Onset: 11-16-2024 Episodic Syncope (3 sources) Syncope and collapse; Translations: [Syncope and collapse] Onset: 07-24-2024 Episodic Results Test Name Value Interpretation Reference Range Facility ED MED ADMINISTRATION DETAIL on 03-23-2025 ED MED ADMINISTRATION DETAIL Normal [facility] ED NURSES CLINICAL NOTEon ED NURSES CLINICAL NOTE Normal [facility] ED ORDER SHEET (CPOE ONLY)on 03-23-2025 ED ORDER SHEET (CPOE ONLY) Normal [facility] ED PHYSICIAN CLINICAL REPORT on 03-23-2025 ED PHYSICIAN CLINICAL REPORT Normal [facility] ED SUPER BILLon 03-23-2025 ED SUPER BILL Normal [facility] ED VISIT SUMMARYon ED VISIT SUMMARY Normal [facility] ED VITALS FLOW SHEETon 03-23 ED VITALS FLOW SHEET Normal [facility] Bacteria Ur Culton Bacteria identified Cx Nom (U) ORGANISM ID: 1 10,000 -<50,000 CFU/ml Normal urogenital tomy Normal [facility] Comment on above: Performed By: #### 6 30-4 #### [facility] CLIA [id number] [address] [place] [address] OF [facility] C DIFF COMPLETEon 03-22-2025 C DIFF COMPLETE Normal [facility] Comment on above: Performed By: #### 2 04528 ####[facility],[address] [place] [address] CBC + DIFFon 03-22-2025 Baso # 0.02 x10EE3/UL Normal 0.00 - 0.10 [facility] Comment on above: Performed By: #### 2 07527 ####[facility],[address] [place] [address] 07143 Basophils/100 WBC (Bld) 0.3 % Normal 0.0 - 2.0 [facility] Comment on above: Performed By: #### 2 80802 ####[facility],[address] [place] [address] 52160 CBC + DIFF Normal [facility] Comment on above: Result Comment: CBC- COMPLETE BLOOD COUNT Performed By: #### 2 36151 ####[facility],[address] [place] [address] 82546 EO # 0.38 x10EE3/UL Normal 0.00 - 0.50 [facility] Comment on above: Performed By: #### 2 19975 ####[facility],[address] [place] [address] 98380 Eosinophils/100 WBC (Bld) 5.1 % Normal 0.0 - 7.0 [facility] Comment on above: Performed By: #### 2 71882 ####[facility],[address] [place], [place] [id number] Erythrocyte distribution width (RBC) [Ratio] 13.6 % Normal 12.0 - 15.6 [facility] Comment on above: Performed By: #### 2 72407 ####[facility],[address] [place], [place] [id number] Hematocrit (Bld) [Volume fraction] 44.1 % Normal 40.0 - 52.0 [facility] Comment on above: Performed By: #### 2 15227 ####[facility],[address] [place] [address] Hemoglobin (Bld) [Mass/Vol] 15.5 g/dL Normal 13.0 - 17.5 [facility] Comment on above: Performed By: #### 2 67048 ####[facility],[address] [place] [address] Lymph # 1.75 x10EE3/UL Normal 0.80 - 2.80 [facility] Comment on above: Performed By: #### 2 98093 ####[facility],[address] [place], [place] [id number] Lymphocytes/100 WBC (Bld) 23.2 % Normal 20.0 - 45.0 [facility] Comment on above: Performed By: #### 2 75691 ####[facility],[address] [place], [place] [id number] MANUAL DIFF N/A Normal [facility] Comment on above: Performed By: #### 2 95995 ####[facility],[address] [place] [address] 64545 MCH (RBC) [Entitic mass] 32 pg Normal 27 - 33 [facility] Comment on above: Performed By: #### 2 56374 ####[facility],[address] [place] [address] 17867 MCHC 35 X10 3 Normal 32 - 36 [facility] Comment on above: Performed By: #### 2 14683 ####[facility],[address] [place] [address] 04934 MCV (RBC) [Entitic vol] 90 fL Normal 81 - 98 [facility] Comment on above: Performed By: #### 2 00376 ####[facility],[address] [place] [address] 97285 [place] # 0.57 x10EE3/UL Normal 0.20 - 1.00 [facility] Comment on above: Performed By: #### 2 62297 ####[facility],[address] [place] [address] 71638 MONOS % 7.6 % Normal 0.0 - 10.0 [facility] Comment on above: Performed By: #### 2 53282 ####[facility],[address] [place] [address] 98478 Morphology Brody (Bld) [Interp] N/A Normal [facility] Comment on above: Performed By: #### 2 71780 ####[facility],[address] [place] [address] 88851 Neut # 4.80 x10EE3/UL Normal 1.50 - 7.10 [facility] Comment on above: Performed By: #### 2 38250 ####[facility],[address] [place] [address] 65060 Neutrophils/100 WBC (Bld) 63.9 % Normal 46.0 - 76.0 [facility] Comment on above: Performed By: #### 2 96639 ####[facility],[address] [place] [address] 29172 PLATELET 224 x10EE3/UL Normal 150 - 450 [facility] Comment on above: Performed By: #### 2 69479 ####[facility],[address] [place] [address] 24636 Platelet mean volume (Bld) [Entitic vol] 7.8 fL Normal 6.4 - 10.5 [facility] Comment on above: Result Comment: AUTO MATED DIFFERENTIAL Performed By: #### 2 04404 ####[facility],[address] [place] [address] 35411 RBC 4.91 x 10EE6/UL Normal 4.50 - 6.00 [facility] Comment on above: Performed By: #### 2 51550 ####[facility],[address] [place] [address] 37347 WBC 7.5 x 10EE3/UL Normal 4.5 - 10.8 [facility] Comment on above: Performed By: #### 2 45345 ####[facility],[address] [place] [address] 25623 CMP with eGFRon 03-22-2025 AGE 64 years Normal [facility] Comment on above: Performed By: #### 2 48466 ####[facility],[address] [place] [address] 71199 Albumin [Mass/Vol] 3.5 g/dL Normal 3.4 - 5.0 [facility] Comment on above: Performed By: #### 2 39768 ####[facility],[address] [place] [address] 19313 Albumin/Globulin [Mass ratio] 1.0 {ratio} Normal 0.9 - 1.6 [facility] Comment on above: Performed By: #### 2 84891 ####[facility],[address] [place] [address] 36270 ALK PHOS 77 U/L Normal 46 - 116 [facility] Comment on above: Performed By: #### 2 60676 ####[facility],[address] [place] [address] 20350 ALT [Catalytic activity/Vol] 37 U/L Normal 16 - 63 [facility] Comment on above: Performed By: #### 2 64637 ####[facility],[address] [place] [address] 85379 Anion gap [Moles/Vol] 14 mmol/L Normal 10 - 20 [facility] Comment on above: Performed By: #### 2 13161 ####[facility],[address] [place] [address] 01759 AST [Catalytic activity/Vol] 21 U/L Normal 15 - 37 [facility] Comment on above: Performed By: #### 2 93111 ####[facility],[address] [place] [address] 27956 B/C RATIO 14 ratio Normal 0 - 30 [facility] Comment on above: Performed By: #### 2 76195 ####[facility],[address] [place] [address] 93747 Bilirubin [Mass/Vol] 0.5 mg/dL Normal 0.2 - 1.0 [facility] Comment on above: Performed By: #### 2 11288 ####[facility],[address] [place] [address] 19107 Calcium [Mass/Vol] 8.3 mg/dL Low 8.5 - 10.1 [facility] Comment on above: Performed By: #### 2 85471 ####[facility],[address] [place] [address] 14137 Chloride [Moles/Vol] 102 mmol/L Normal 98 - 107 [facility] Comment on above: Performed By: #### 2 79239 ####[facility],[address] [place] [address] 58124 CMP with eGFR Normal [facility] Comment on above: Result Comment: COMP REHENSIVE METABOLIC PANEL Performed By: #### 2 03603 ####[facility],[address] [place] [address] 37181 CO2 [Moles/Vol] 25.9 mmol/L Normal 21.0 - 32.0 [facility] Comment on above: Performed By: #### 2 81006 ####[facility],[address] [place] [address] 67448 Creatinine [Mass/Vol] 0.98 mg/dL Normal 0.70 - 1.30 [facility] Comment on above: Performed By: #### 2 40978 ####[facility],[address] [place] [address] 94168 GFR/1.73 sq M.predicted among non-blacks MDRD (S/P/Bld) [Vol rate/Area] mL/min/{1.73_m2} Normal 60 - 999 [facility] Comment on above: Performed By: #### 2 47079 ####[facility],[address] [place], [place] [id number] Result Comment: ACCO RDING TO THE NATIONAL KIDNEY DISEASE EDUCATION PROGRAM(NKDE), A NORMAL eGFRIS A VALUE GREATER THAN OR EQUAL TO 60 ML/MIN/1.73 SQ METERS.CHRONIC KIDNEY DISEASE: <60mL/MIN/1.73 SQ METERSKIDNEY FAILURE: <15mL/MIN/1.73 SQ METERSTHIS TEST SHOULD ONLY BE USED FOR PATIENTS 18 YEARS OF AGE AND OLDER. Globulin (S) [Mass/Vol] 3.4 g/dL Normal 1.5 - 3.8 [facility] Comment on above: Performed By: #### 2 96271 ####[address] [address] Glucose [Mass/Vol] 123 mg/dL High 74 - 106 [facility] Comment on above: Performed By: #### 2 62106 ####[facility],[address] [place] [address] 45156 Potassium [Moles/Vol] 3.7 mmol/L Normal 3.5 - 5.1 [facility] Comment on above: Performed By: #### 2 38169 ####[facility],[address] [place] [address] 44261 Protein [Mass/Vol] 6.9 g/dL Normal 6.4 - 8.2 [facility] Comment on above: Performed By: #### 2 87223 ####[facility],[address] [place] [address] 04802 Sodium [Moles/Vol] 138 mmol/L Normal 136 - 145 [facility] Comment on above: Performed By: #### 2 63022 ####[facility],[address] [place] [address] Urea nitrogen [Mass/Vol] 14 mg/dL Normal 7 - 18 [facility] Comment on above: Performed By: #### 2 29066 ####[facility],[address] [place] [address] CT ABDOMEN/PELVIS Won 2024 CT ABDOMEN/PELVIS W Normal [facility] LACTOFERRIN, QUALITATIVE, ST OOLon 03-22-2025 LACTOFERRIN, QUALITATIVE, STOOL Normal [facility] Comment on above: Performed By: #### 2 80440 ####[place] [address] LIPASEon 03-22-2025 Lipase [Catalytic activity/Vol] 18.0 U/L Normal 15.0 - 78.0 [facility] Comment on above: Result Comment: *PLE ASE NOTE THAT RANGES FOR LIPASE HAVE CHANGED OF 10/20/23 DUE TO AN ASSAYUPDATE BY THE HORSE RACE STARTER.THE NEW ASSAY RANGE IS 6-250 U/L, WITH A REFERENCERANGE OF 16-77 U/L. Performed By: #### 2 75849 ####[place] [id number] STOOL CULTURE [DANIEL]on Stool culture STOOL CULTURE [AULTM AN] 03/27/25.0919.DNP.COMPLE TE Normal [facility] Comment on above: Performed By: #### 2 99303 ####[place] [id number] URINALYSISon 03-22-2025 Amorphous NONE Normal [facility] Comment on above: Performed By: #### 2 03275 ####[place] [id number] Bacteria NONE Normal [facility] Comment on above: Performed By: #### 2 91852 ####[facility],[address] [place] [address] 08142 Bilirubin Ql (U) 1 Abnormal NORMAL: NEGATIVE [facility] Comment on above: Performed By: #### 2 34451 ####[facility],[address] [place] [address] 27832 Casts NONE Normal [facility] Comment on above: Performed By: #### 2 86744 ####[facility],[address] [place] [address] 09607 Clarity (U) clear Normal NORMAL: CLEAR [facility] Comment on above: Performed By: #### 2 60835 ####[facility],[address] [place] [address] 49162 Color (U) marilynn Normal NORMAL: YELLOW [facility] Comment on above: Performed By: #### 2 04049 ####[facility],[address] [place] [address] 51918 Crystals LM Nom (Urine sed) NONE Normal [facility] Comment on above: Performed By: #### 2 87864 ####[facility],[address] [place] [address] 14111 Epi Cells NONE Normal [facility] Comment on above: Performed By: #### 2 61605 ####[facility],[address] [place] [address] 79309 Glucose Ql (U) NORM Normal NORMAL: NORMAL [facility] Comment on above: Performed By: #### 2 95730 ####[facility],[address] [place] [address] 50375 Hemoglobin Ql (U) Negative Normal NORMAL: NEGATIVE [facility] Comment on above: Performed By: #### 2 07428 ####[facility],[address] [place] [address] 95047 Ketone Negative Normal NORMAL: NEGATIVE [facility] Comment on above: Performed By: #### 2 28564 ####[facility],[address] [place] [address] 75352 Leukocytes 25 Abnormal NORMAL: NEGATIVE [facility] Comment on above: Performed By: #### 2 15338 ####[facility],[address] [place] [address] 31360 Mucous 1+ Normal [facility] Comment on above: Performed By: #### 2 17073 ####[facility],[address] [place] [address] Nitrite Ql (U) Negative Normal NORMAL: NEGATIVE [facility] Comment on above: Performed By: #### 2 18886 ####[facility],[address] [place] [address] pH (U) 5 [pH] Normal NORMAL: 5.0-8.0 [facility] Comment on above: Performed By: #### 2 07876 ####[facility],[address] [place] [address] Protein Ql (U) 30 Abnormal NORMAL: NEGATIVE [facility] Comment on above: Performed By: #### 2 30662 ####[facility],[address] [place] [address] Rbc NONE Normal 0-3/hpf [facility] Comment on above: Performed By: #### 2 79203 ####[facility],[address] [place] [address] Sp [place] 1.020 Normal NORMAL: 1.010-1.030 [facility] Comment on above: Performed By: #### 2 86881 ####[facility],[address] [place] [address] Specimen Type R Normal [facility] Comment on above: Performed By: #### 2 69578 ####[facility],[address] [place] [address] Urinalysis dipstick W Reflex Microscopic panel (U) SEE BELOW Normal [facility] Comment on above: Result Comment: MICR OSCOPIC Performed By: #### 2 53612 ####[facility],[address] [place] [address] 21642 Urobilinog 1 Abnormal NORMAL: NORMAL [facility] Comment on above: Performed By: #### 2 85751 ####[facility],[address] [place] [address] 28388 Wbc 1-5 Normal 0-5/hpf [facility] Comment on above: Performed By: #### 2 55206 ####[facility],[address] [place] [address]1532 Yeast NONE Normal [facility] Comment on above: Performed By: #### 2 25656 ####[facility],[address] [place], [place] [id number] URINE CULTURE [CCL]on 2024 Bacteria identified Cx Nom (U) Normal [facility] Comment on above: Performed By: #### 2 45713 ####[facility],[address] [place], [place] [id number] US EXTREMITY NONVASCULAR COM PLETEon 02-27-2025 US EXTREMITY NONVASCULAR COMPLETE Normal [facility] HEMOGLOBIN A1C (POM)on 02-18 Glucose [Mass/Vol] 148.5 mg/dL High 0.0 - 0.0 [facility] Comment on above: Result Comment: BLDo HEMOGLOBIN A1C REFERENCE RANGESBLDo Suggested Diagnosis HbA1c(%) HbA1C (mmol/mol Diabetic >/=6.5 >/=48 Prediabetes 5.7 - 6.4 39 - 47 Normal <5.7 <39 Performed By: #### 2 33451 ####[facility],[address] [place], [place] [id number] HbA1c (Bld) [Mass fraction] 6.8 % High 0.0 - 6.5 [facility] Comment on above: Performed By: #### 2 47632 ####[facility],[address] [place], [place] [id number] T4-FREE (FREE THYROXINE)on 0 02-18-2025 Free T4 [Mass/Vol] 0.99 ng/dL Normal 0.76 - 1.46 [facility] Comment on above: Result Comment: P otential of falsely elevated results when biotin concentrations are > 10ng/mL. Performed By: #### 2 93336 ####[facility],[address] [place] [address] TSHon 02-18-2025 TSH Qn 3.68 m[IU]/L Normal 0.35 - 3.74 [facility] Comment on above: Performed By: #### 2 36867 ####[facility],[address] [place], [place] [address] URINE MICROALBUMIN W/CREATIN INE, RANDOMon 02-18-2025 CREATININE UR 231.46 mg/dl Normal [facility] Comment on above: Performed By: #### 2 12578 ####[facility],[address] [place], [place] [id number] MICROALBUMIN UR 0.9 mg/dL Normal 0.1 - 25.1 [facility] Comment on above: Performed By: #### 2 43910 ####[facility],[address] [place] [address]26 UACR 4 mg/g Normal [facility] Comment on above: Performed By: #### 2 98263 ####[facility],[address] [place] [address] 13357 CV VENOUS LEG LTon CV VENOUS LEG LT Normal [facility] ED MED ADMINISTRATION DETAIL on 01-21-2025 ED MED ADMINISTRATION DETAIL Normal [facility] ED NURSES CLINICAL NOTEon ED NURSES CLINICAL NOTE Normal [facility] ED ORDER SHEET (CPOE ONLY)on 01-21-2025 ED ORDER SHEET (CPOE ONLY) Normal [facility] ED PHYSICIAN CLINICAL REPORT on 01-21-2025 ED PHYSICIAN CLINICAL REPORT Normal [facility] ED PHYSICIAN DISCHARGE REPOR Ton 01-21-2025 ED PHYSICIAN DISCHARGE REPORT Normal [facility] ED SUPER BILLon 01-21-2025 ED SUPER BILL Normal [facility] ED VISIT SUMMARYon ED VISIT SUMMARY Normal [facility] ED VITALS FLOW SHEETon 01-21 ED VITALS FLOW SHEET Normal [facility] CNOVon 12-10-2024 CNOV Office Visit (PULMWS ) -------- QUIQUE DENNY ([id number]) 1960 M Date Time Provider Department 12/10/24 1:00 PM LOU DAVE PULMWS During your visit today, we recorded the following information about you: Lou Dave, RUDY.[facility] 12/10/2024 5:41 PM Signed Pulmonary Medicine Patients name: Quique Denny PCP: Pilar Morataya MD CC: oxygen testing and follow-up HPI: Quique Denny is a 63 year old male current [id number] smoker with PMH significant for COPD, PAD, AAA, obesity, and HTN. He presents today for follow-up and request for oxygen testing for portable oxygen. Current therapy with Advair, Spiriva and PRN Albuterol. New to Dr. Jovel 08/13/2024 for COPD. PFT with midflow obstruction but he had used Advair prior to testing which may have impacted results. Advair and Spiriva doses increased d/t symptoms of cough, wheezing and exertional dyspnea. Recommended sleep study which is scheduled for 12/12. Following his visit, a chest CT report was sent from [facility] which revealed Emphysema and a calcified granuloma. Reportedly prescribed oxygen by PCP for hypoxia but he does not recall why. Has oxygen tanks but is requesting portable concentrator. Today, he reports he was prescribed Chantix by his PCP and is down to 1 pack of cigarettes a week. Breathing symptoms have significant improved. Currently has an occasional cough with white phelgm. No hemoptysis. No wheezing. No dyspnea at rest. Exertional dyspnea with stairs or heavy activity which is much improved. No fevers, chills, or night sweats. No unintended weight loss. Currently on Trulicity for diabetes and has lost 5lbs. DME: Susan PAST MEDICAL HISTORY Diagnosis Date AAA (abdominal aortic aneurysm) ([facility]) COPD (chronic obstructive pulmonary disease) ([facility]) Morbid obesity ([facility]) VANDANA (obstructive sleep apnea) PAD (peripheral artery disease) ([facility]) Allergies: No Known Allergies Medication List Accurate as of December 10, 2024 12:45 PM. If you have any questions, ask your nurse or doctor. CONTINUE taking these medications * albuterol HFA 90 mcg/actuation inhaler Commonly known as: PROVENTIL HFA, VENTOLIN HFA * albuterol 2.5 mg /3 mL (0.083 %) nebulizer solution Commonly known as: PROVENTIL COMP-AIR NEBULIZER COMPRESSOR Generic drug: Nebulizer and Compressor For Neb dicyclomine 20 mg tablet Commonly known as: BENTYL fluticasone-salmeterol 250-50 mcg/dose inhaler Commonly known as: ADVAIR DISKUS Inhale 1 Puff as instructed two times a day. RINSE AND GARGLE MOUTH WITH WATER AFTER EACH USE. gabapentin 300 mg capsule Commonly known as: NEURONTIN magnesium oxide 400 mg (241.3 mg magnesium) tablet Commonly known as: MAG-OX meloxicam 7.5 mg tablet Commonly known as: MOBIC Naproxen SR 500 mg EC tablet Commonly known as: EC-NAPROSYN ondansetron orally disintegrating 4 mg disintegrating tablet Commonly known as: ZOFRAN ODT pantoprazole DR 40 mg tablet Commonly known as: PROTONIX SPIRIVA RESPIMAT 2.5 mcg/actuation inhaler Generic drug: tiotropium bromide Inhale 2 Puffs as instructed once daily. tamsulosin 0.4 mg Commonly known as: FLOMAX TUSSIN DM MAX ORAL * This list has 2 medication(s) that are the same as other medications prescribed for you. Read the directions carefully, and ask your doctor or other care provider to review them with you. DATA: I personally reviewed and analyzed all labs, radiographs and available pulmonary function testing Oximetry with ambulation: 12/10/2024 PFT: 07/2024 Spirometry notable for obstruction of midflows. No improvement with bronchodilator. Patient took Advair prior to testing which may affect the results. CXR: Last XR Chest - Impression Only XR CHEST 2V FRONTAL/LAT Exam End: 08/13/2024 10:08 AM (Final result) Impression: IMPRESSION: Minimal linear atelectasis or fibrosis at the left base Medical Psychotherapist: UZIEL Transcribe Date/Time: Aug 14 2024 3:09P ... CT Chest: 07/2024 at [facility] Review of Systems Constitutional: Negative for activity change, appetite change, fever and unexpected weight change. HENT: Negative for congestion, mouth sores, postnasal drip, sinus pressure and sinus pain. Respiratory: Positive for cough and shortness of breath. Negative for chest tightness and wheezing. Cardiovascular: Negative for chest pain, palpitations and leg swelling. Neurological: Negative for dizziness, light-headedness and headaches. BP (P) 130/80 Pulse (P) 100 Resp (P) 17 Wt (!) (P) 140.6 kg (310 lb) SpO2 (P) 91% BMI (P) 42.04 kg/m? Physical Exam Vitals reviewed. Constitutional: General: He is not in acute distress. Appearance: Normal appearance. He is obese. He is not ill-appearing. HENT: Head: Normocephalic. Nose: No rhinorrhea. Mouth/Throat: Mouth: Mucous membranes are moist. Pharynx: No oropharyngeal exudate. Cardiova (more content not included)... Normal [facility] OXIMETRY WITH AMBULATIONon 0 12-10-2024 Justen Roman RPF T 12/10/2024 1:28 PM RESPIRATORY THERAPY OXIMETRY WITH AMBULATION Oximetry with Ambulation Test for This Encounter O2 Device O2 Adapter NC O2 Flow SpO2% HR Activity Ft Walked (ft) Time (min) Avg Speed (MPH) R/A 97 82 Resting R/A 95 120 Walking, usual pace 540 3 2.05 R/A 96 124 Walking, fastest pace 700 3 2.65 General Information Pulse Oximetry Site Total Time Spent Walking Assistance/O2 Supply Carrier Forehead 30 None NAME: DUONG Heart PATIENT NAME: Quique Denny DATE: December 10, 2024 TIME: 1:28 PM Comment: [facility] Jamal 12-06-2024 JEREL Telephone (PULMWS) -------- QUIQUE DENNY ([id number]) 1960 M Date Time Provider Department 12/06/24 FABI JOVEL PULAlissaWS During your visit today, we recorded the following information about you: Julia Burris LPN 12/06/2024 2:26 PM Signed Patient calling and states he would like a POC for using outside of the home. Currently has O2 he uses PRN at home through [employer] that was ordered by PCP. PCPs office has directed patient to us for POC order. I advised the patient we do not have qualifying data and he would need to complete oximetry testing and have a face to face with provider for insurance to cover. He is agreeable to testing and visit. ARIAN [place] Christine M, APRN.[facility] 12/06/2024 2:33 PM Signed Orders placed. I'm happy to see him. Allergies As of Date: 12/06/2024 (No Known Allergies) Date Reviewed: 08/13/2024 Reviewed by: Fabi Jovel MD - Fully Assessed Primary Visit Diagnosis:Chronic obstructive pulmonary disease, unspecified COPD type ([facility]) [J44.9] Order(s):OXIMETRY WITH AMBULATION [[id number]] Order #: [id number]: 1 FUTURE Prescriptions as of 12/06/2024 - Naproxen SR (EC-NAPROSYN) 500 mg EC tablet Take 500 mg by mouth as needed. - guaifenesin/dextromethor miles (TUSSIN DM MAX ORAL) Take 10 mL by mouth once daily. - dicyclomine (BENTYL) 20 mg tablet Take 1 tablet by mouth as needed. - gabapentin (NEURONTIN) 300 mg capsule Take 600 mg by mouth daily at bedtime. - magnesium oxide (MAG-OX) 400 mg (241.3 mg magnesium) tablet Take 1 tablet by mouth once daily. - meloxicam (MOBIC) 7.5 mg tablet Take 7.5 mg by mouth once daily as needed. - COMP-AIR NEBULIZER COMPRESSOR USE NEBULIZER DAILY - ondansetron orally disintegrating (ZOFRAN ODT) 4 mg disintegrating tablet Take 4 mg by mouth every 8 hours as needed. - pantoprazole DR (PROTONIX) 40 mg tablet Take 1 tablet by mouth every afternoon. - tamsulosin (FLOMAX) 0.4 mg Take 0.4 mg by mouth daily at bedtime. - albuterol (PROVENTIL) 2.5 mg /3 mL (0.083 %) nebulizer solution Use 2.5 mg via nebulizer every 6 hours as needed. - albuterol HFA (PROVENTIL HFA, VENTOLIN HFA) 90 mcg/actuation inhaler Inhale 2 Puffs as instructed every 6 hours as needed. - fluticasone-salmeterol (ADVAIR DISKUS) 250-50 mcg/dose inhaler Inhale 1 Puff as instructed two times a day. RINSE AND GARGLE MOUTH WITH WATER AFTER EACH USE. - tiotropium bromide (SPIRIVA RESPIMAT) 2.5 mcg/actuation inhaler Inhale 2 Puffs as instructed once daily. Problem List As Of Date: 12/06/2024 (None) Encounter Status:Closed by CLICK, LOU Maxwell on 12/06/24 Normal [facility] CVFLURVon 11-30-2024 FLU A PCR Negative Normal Negative [facility] Comment on above: Result Comment: [place] s [id number] Performed By: #### C VFLURV #### [facility] [address] [place] [address]1807 FLU B PCR Negative Normal Negative [facility] Comment on above: Result Comment: Note s [id number] Performed By: #### C VFLURV #### [facility] [address] [place] [address] 09468 RSV PCR Negative Normal Negative [facility] Comment on above: Result Comment: Note s [id number] Performed By: #### C VFLURV #### [facility] [address] [place] [address] 76419 SARS-CoV-2 (COVID-19) RNA DANIEL+probe Ql (Unsp spec) Negative Normal Negative [facility] Comment on above: Result Comment: Note s [id number] This test has been authorized by FDA under an EUA for use by authorized laboratories and has not been FDA cleared or approved. Results from the Xpert Xpress SARS-CoV-2/Flu/RSV or Xpert Xpress SARS-CoV-2 only test should be correlated with the clinical history, epidemiological data, and other data available to the clinician evaluating the patient. Performance of the Xpert Xpress SARS-CoV-2/Flu/RSV or Xpert Xpress SARS-CoV-2 only test has only been established in nasopharyngeal swab specimens. Erroneous test results might occur from improper specimen collection; failure to follow the recommended sample collection, handling, and storage procedures; technical error; or sample mix-up.False negative results may occur if virus is present at levels below the analytical limit of detection. Viral nucleic acid may persist in vivo, independent of virus viability. Detection of analyte target(s) does not imply that the corresponding virus(es) are infectious or are the causative agents for clinical symptoms.Recent patient exposure to FluMist or other live attenuated influenza vaccines may cause inaccurate positive results. Performed By: #### C [facility] #### [facility] [address] [place] [address]220[address] ED MED ADMINISTRATION DETAIL on 11-30-2024 ED MED ADMINISTRATION DETAIL Normal [facility] ED MED ADMINISTRATION DETAIL Normal [facility] ED NURSES CLINICAL NOTEon ED NURSES CLINICAL NOTE Normal [facility] ED NURSES CLINICAL NOTE Normal [facility] ED ORDER SHEET (CPOE ONLY)on 11-30-2024 ED ORDER SHEET (CPOE ONLY) Normal [facility] ED ORDER SHEET (CPOE ONLY) Normal [facility] ED PHYSICIAN CLINICAL REPORT on 11-30-2024 ED PHYSICIAN CLINICAL REPORT Normal [facility] ED PHYSICIAN CLINICAL REPORT Normal [facility] ED PHYSICIAN DISCHARGE REPOR Ton 11-30-2024 ED PHYSICIAN DISCHARGE REPORT Normal [facility] ED PHYSICIAN DISCHARGE REPORT Normal [facility] ED SUPER BILLon 11-30-2024 ED SUPER BILL Normal [facility] ED SUPER BILL Normal [facility] ED VISIT SUMMARYon ED VISIT SUMMARY Normal [facility] ED VISIT SUMMARY Normal [facility] ED VITALS FLOW SHEETon 11-30 ED VITALS FLOW SHEET Normal [facility] ED VITALS FLOW SHEET Normal [facility] CBC + DIFFon 11-29-2024 Baso # 0.01 x10EE3/UL Normal 0.00 - 0.10 [facility] Comment on above: Performed By: #### 2 91526 ####[facility],[address] [place] [address] 16710 Basophils/100 WBC (Bld) 0.2 % Normal 0.0 - 2.0 [facility] Comment on above: Performed By: #### 2 48818 ####[facility],[address] [place], [place] [id number] CBC + DIFF Normal [facility] Comment on above: Result Comment: CBC- COMPLETE BLOOD COUNT Performed By: #### 2 57776 ####[facility],[address] [place] [address] 44769 EO # 0.28 x10EE3/UL Normal 0.00 - 0.50 [facility] Comment on above: Performed By: #### 2 76609 ####[facility],[address] [place] [address] 96202 Eosinophils/100 WBC (Bld) 4.3 % Normal 0.0 - 7.0 [facility] Comment on above: Performed By: #### 2 25479 ####[facility],[address] [place] [address] 39805 Erythrocyte distribution width (RBC) [Ratio] 13.4 % Normal 12.0 - 15.6 [facility] Comment on above: Performed By: #### 2 60509 ####[facility],[address] [place] [address] 29619 Hematocrit (Bld) [Volume fraction] 42.0 % Normal 40.0 - 52.0 [facility] Comment on above: Performed By: #### 2 16463 ####[facility],[address] [place] [address] Hemoglobin (Bld) [Mass/Vol] 14.3 g/dL Normal 13.0 - 17.5 [facility] Comment on above: Performed By: #### 2 55481 ####[facility],[address] [place] [address] Lymph # 2.28 x10EE3/UL Normal 0.80 - 2.80 [facility] Comment on above: Performed By: #### 2 29811 ####[place] [address] Lymphocytes/100 WBC (Bld) 34.7 % Normal 20.0 - 45.0 [facility] Comment on above: Performed By: #### 2 64319 ####[facility],[address] [place] [address] MANUAL DIFF N/A Normal [facility] Comment on above: Performed By: #### 2 73725 ####[place] [address] MCH (RBC) [Entitic mass] 31 pg Normal 27 - 33 [facility] Comment on above: Performed By: #### 2 77837 ####[place] [address] MCHC 34 X10 3 Normal 32 - 36 [facility] Comment on above: Performed By: #### 2 34686 ####[place] [id number] MCV (RBC) [Entitic vol] 92 fL Normal 81 - 98 [facility] Comment on above: Performed By: #### 2 [id number] ####[place] [address] [place] # 0.41 x10EE3/UL Normal 0.20 - 1.00 [facility] Comment on above: Performed By: #### 2 69093 ####[facility],[address] [place] [address] 34424 MONOS % 6.2 % Normal 0.0 - 10.0 [facility] Comment on above: Performed By: #### 2 06553 ####[facility],[address] [place] [address] Morphology Brody (Bld) [Interp] N/A Normal [facility] Comment on above: Performed By: #### 2 22136 ####[facility],[address] [place] [address] Neut # 3.59 x10EE3/UL Normal 1.50 - 7.10 [facility] Comment on above: Performed By: #### 2 92513 ####[facility],[address] [place] [address] Neutrophils/100 WBC (Bld) 54.6 % Normal 46.0 - 76.0 [facility] Comment on above: Performed By: #### 2 58317 ####[facility],[address] [place] [address] PLATELET 216 x10EE3/UL Normal 150 - 450 [facility] Comment on above: Performed By: #### 2 44160 ####[facility],[address] [place] [address] Platelet mean volume (Bld) [Entitic vol] 7.7 fL Normal 6.4 - 10.5 [facility] Comment on above: Result Comment: AUTO MATED DIFFERENTIAL Performed By: #### 2 16711 ####[facility],[address] [place], [place] [id number] RBC 4.56 x 10EE6/UL Normal 4.50 - 6.00 [facility] Comment on above: Performed By: #### 2 34907 ####[facility],[address],[place] [address] WBC 6.6 x 10EE3/UL Normal 4.5 - 10.8 [facility] Comment on above: Performed By: #### 2 36380 ####[facility],[address] [place] [address] 71910 CMP with eGFRon 11-29-2024 AGE 63 years Normal [facility] Comment on above: Performed By: #### 2 68797 ####[facility],[address] [place] [address] 21029 Albumin [Mass/Vol] 3.6 g/dL Normal 3.4 - 5.0 [facility] Comment on above: Performed By: #### 2 68508 ####[facility],[address] [place] [address] Albumin/Globulin [Mass ratio] 1.2 {ratio} Normal 0.9 - 1.6 [facility] Comment on above: Performed By: #### 2 97590 ####[facility],[address] [place] [address] 20475 ALK PHOS 81 U/L Normal 46 - 116 [facility] Comment on above: Performed By: #### 2 89748 ####[facility],[address] [place] [address] 55209 ALT [Catalytic activity/Vol] 63 U/L Normal 16 - 63 [facility] Comment on above: Performed By: #### 2 52816 ####[facility],[address] [place] [address] 09286 Anion gap [Moles/Vol] 8 mmol/L Low 10 - 20 [facility] Comment on above: Performed By: #### 2 85124 ####[facility],[address] [place] [address] 05174 AST [Catalytic activity/Vol] 36 U/L Normal 15 - 37 [facility] Comment on above: Performed By: #### 2 38652 ####[facility],[address] [place] [address] 39133 B/C RATIO 12 ratio Normal 0 - 30 [facility] Comment on above: Performed By: #### 2 87766 ####[facility],[address] [place] [address] 91107 Bilirubin [Mass/Vol] 0.4 mg/dL Normal 0.2 - 1.0 [facility] Comment on above: Performed By: #### 2 44718 ####[facility],[address] [place], [place] [id number] Calcium [Mass/Vol] 8.4 mg/dL Low 8.5 - 10.1 [facility] Comment on above: Performed By: #### 2 07200 ####[facility],[address] [place] [address] Chloride [Moles/Vol] 104 mmol/L Normal 98 - 107 [facility] Comment on above: Performed By: #### 2 68473 ####[facility],[address] [place] [address] CMP with eGFR Normal [facility] Comment on above: Result Comment: COMP REHENSIVE METABOLIC PANEL Performed By: #### 2 17318 ####[facility],[address] [place], [place] [address] CO2 [Moles/Vol] 32.9 mmol/L High 21.0 - 32.0 [facility] Comment on above: Performed By: #### 2 68582 ####[facility],[address] [place] [address] 66787 Creatinine [Mass/Vol] 1.23 mg/dL Normal 0.70 - 1.30 [facility] Comment on above: Performed By: #### 2 24750 ####[facility],[address] [place], [place] [address] eGFR 59 ML/MINUTE Low 60 - 999 [facility] Comment on above: Performed By: #### 2 07940 ####[facility],[address] [place] [address] 37794 GFR/1.73 sq M.predicted among non-blacks MDRD (S/P/Bld) [Vol rate/Area] mL/min/{1.73_m2} Normal 60 - 999 [facility] Comment on above: Result Comment: ACCO RDING TO THE NATIONAL KIDNEY DISEASE EDUCATION PROGRAM(NKDE), A NORMAL eGFRIS A VALUE GREATER THAN OR EQUAL TO 60 ML/MIN/1.73 SQ METERS.CHRONIC KIDNEY DISEASE: <60mL/MIN/1.73 SQ METERSKIDNEY FAILURE: <15mL/MIN/1.73 SQ METERSTHIS TEST SHOULD ONLY BE USED FOR PATIENTS 18 YEARS OF AGE AND OLDER. Performed By: #### 2 88648 ####[facility],[address] [place] [address] 28184 Globulin (S) [Mass/Vol] 2.9 g/dL Normal 1.5 - 3.8 [facility] Comment on above: Performed By: #### 2 19735 ####[facility],[address] [place] [address] 56844 Glucose [Mass/Vol] 202 mg/dL High 74 - 106 [facility] Comment on above: Performed By: #### 2 08621 ####[facility],[address] [place] [address] 52487 Potassium [Moles/Vol] 3.7 mmol/L Normal 3.5 - 5.1 [facility] Comment on above: Performed By: #### 2 29554 ####[facility],[address] [place] [address] 56710 Protein [Mass/Vol] 6.5 g/dL Normal 6.4 - 8.2 [facility] Comment on above: Performed By: #### 2 17206 ####[facility],[address] [place] [address] 03189 Sodium [Moles/Vol] 141 mmol/L Normal 136 - 145 [facility] Comment on above: Performed By: #### 2 42239 ####[facility],[address] [place] [address] 41946 Urea nitrogen [Mass/Vol] 15 mg/dL Normal 7 - 18 [facility] Comment on above: Performed By: #### 2 57464 ####[facility],[address] [place] [address] 31732 CORONAVIRUS (SARS) ANTIGEN T ESTon 11-29-2024 EXTERNAL QC DONE? YES Normal [facility] Comment on above: Performed By: #### 2 71308 ####[facility],[address] [place] [address] INTERNAL CONTROL PASS Normal [facility] Comment on above: Performed By: #### 2 02380 ####[facility],[address] [place], [place] [id number] SARS ANTIGEN Negative Normal NORMAL: NEGATIVE [facility] Comment on above: Performed By: #### 2 30479 ####[facility],[address] [place], [place] [id number] SEND TO ? NO Normal [facility] Comment on above: Result Comment: SARS -CoV-2THIS TEST IS BEING USED UNDER THE FDA EUA PROCEDURE. THIS ASSAY HAS BEENVALIDATED AT [facility] FOR USE WITH NASAL AND NASOPHARYNGEAL SWABSPECIMENS.INTERPRETIVE DATATEST RESULTS SHOULD ALWAYS BE CONSIDERED IN THE CONTEXT OF CLINICALOBSERVATIONS AND EPIDEMIOLOGICAL DATA IN MAKING FINAL DIAGNOSIS AND PATIENTMANAGEMENT DECISIONS. PATIENT MANAGEMENT SHOULD FOLLOW CURRENT CDC GUIDELINES.THE FERNANDO SARS ANTIGEN ANGELICA DOES NOT DIFFERENTIATE BETWEEN SARS-CoV & SARS-CoV-2.A POSITIVE TEST RESULT INDICATES THE PRESENCE OF SARS-CoV-2 NUCLEOCAPSID PROTEINANTIGEN, AND THE PATIENT IS INFECTED WITH THE VIRUS AND PRESUMED TO BECONTAGIOUS.A NEGATIVE TEST RESULT FOR THIS TEST MEANS THAT SARS-CoV-2 NUCLEOCAPSID PROTEINANTIGEN WAS NOT PRESENT IN THE SPECIMEN ABOVE THE LIMIT OF DETECTION. HOWEVER, ANEGATIVE RESULT DOES NOT RULE OUT COVID-19 AND SHOULD NOT BE USED THE SOLEBASIS FOR TREATMENT OR PATIENT MANAGEMENT DECISIONS. A NEGATIVE RESULT DOES NOTEXCLUDE THE POSSIBILITY OF COVID-19. NEGATIVE RESULTS, FROM PATIENTS WITHSYMPTOM ONSET BEYOND FIVE DAYS, SHOULD BE TREATED PRESUMPTIVE ANDCONFIRMATION WITH A MOLECULAR ASSAY, IF NECESSARY, FOR PATIENT MANAGEMENT, MAYBE PERFORMED.WHEN DIAGNOSTIC TESTING IS NEGATIVE, THE POSSIBLILTY OF A FALSE NEGATIVE RESULTSHOULD BE CONSIDERED IN THE CONTEXT OF A PATIENT'S RECENT EXPOSURES AND THEPRESENCE OF CLINICAL SIGNS AND SYMPTOMS CONSISTENT WITH COVID-19. THEPOSSIBILITY OF A FALSE NEGATIVE RESULT SHOULD ESPECIALLY BE CONSIDERED IF THEPATIENT'S RECENT EXPOSURES OR CLINICAL PRESENTATION INDICATE THAT COVID-19 ISLIKELY, AND DIAGNOSTIC TESTS FOR OTHER CAUSES OF ILLNESS (e.g., OTHERRESPIRATORY ILLNESS) ARE NEGATIVE. IF COVID-19 IS STILL SUSPECTED BASED ONEXPOSURE HISTORY TOGETHER WITH OTHER CLINICAL FINDINGS, RE-TESTING SHOULD BECONSIDERED BY HEALTHCARE PROVIDERS IN CONSULTATION WITH [facility]. Performed By: #### 2 76564 ####[place] [id number] CPKon 11-29-2024 CPK 558 U/L High 39 - 308 [facility] Comment on above: Performed By: #### 2 28245 ####[facility],[address] [place], [place] [address] [place] CHEST W/CONTRASTon 2024 CT CHEST W/CONTRAST Normal [facility] HEMOGLOBIN A1C (POM)on 11-29 Glucose [Mass/Vol] 191.5 mg/dL High 0.0 - 0.0 [facility] Comment on above: Result Comment: BLDo HEMOGLOBIN A1C REFERENCE RANGESBLDo Suggested Diagnosis HbA1c(%) HbA1C (mmol/mol Diabetic >/=6.5 >/=48 Prediabetes 5.7 - 6.4 39 - 47 Normal <5.7 <39 Performed By: #### 2 03017 ####[facility],[address] [place] [address] 31116 HbA1c (Bld) [Mass fraction] 8.3 % High 0.0 - 6.5 [facility] Comment on above: Performed By: #### 2 56334 ####[facility],[address] [place], [place] [id number] INFLUENZA VIRUS RAPID A/Bon 11-29-2024 INFLUENZA VIRUS RAPID A/B Normal [facility] Comment on above: Performed By: #### 2 26639 ####[address] [address] LIPASEon 11-29-2024 Lipase [Catalytic activity/Vol] 27.0 U/L Normal 15.0 - 78.0 [facility] Comment on above: Result Comment: *PLE ASE NOTE THAT RANGES FOR LIPASE HAVE CHANGED OF 10/20/23 DUE TO AN ASSAYUPDATE BY THE HORSE RACE STARTER.THE NEW ASSAY RANGE IS 6-250 U/L, WITH A REFERENCERANGE OF 16-77 U/L. Performed By: #### 2 50740 ####[address] [address] Lipase [Catalytic activity/Vol] 26.0 U/L Normal 15.0 - 78.0 [facility] Comment on above: Result Comment: *PLE ASE NOTE THAT RANGES FOR LIPASE HAVE CHANGED OF 10/20/23 DUE TO AN ASSAYUPDATE BY THE HORSE RACE STARTER.THE NEW ASSAY RANGE IS 6-250 U/L, WITH A REFERENCERANGE OF 16-77 U/L. Performed By: #### 2 12583 ####[address] [address] LIPID PROFILEon 11-29-2024 Cholesterol [Mass/Vol] 95 mg/dL Normal 0 - 240 [facility] Comment on above: Performed By: #### 2 08969 ####[address] [address] Cholesterol in HDL [Mass/Vol] 44 mg/dL Normal 40 - 60 [facility] Comment on above: Performed By: #### 2 51685 ####[address] [address] Cholesterol in LDL [Mass/Vol] 25 mg/dL Normal 0 - 129 [facility] Comment on above: Performed By: #### 2 14825 ####[address],[place] [address] Cholesterol.total/Ch olesterol in HDL [Mass ratio] 2.2 {ratio} Normal 0.0 - 5.0 [facility] Comment on above: Performed By: #### 2 31637 ####[facility],[address] [place] [address] 83422 Lipid 1996 panel Normal [facility] Comment on above: Result Comment: LIPI D PROFILE Performed By: #### 2 90880 ####[facility],[address] [place] [address] 43465 Triglyceride [Mass/Vol] 129 mg/dL Normal 0 - 150 [facility] Comment on above: Performed By: #### 2 74700 ####[facility],[address] [place] [address] 73754 NM CARDIAC STRESS (SPECT) W/ LEXISCANon 11-29-2024 NM CARDIAC STRESS (SPECT) W/LEXISCAN Normal [facility] NM EXERCISE STRESS TEST (W/C ARDIAC STUDYon 11-29-2024 NM EXERCISE STRESS TEST (W/CARDIAC STUDY Normal [facility] NT-proBNPon 11-29-2024 Natriuretic peptide B (Bld) [Mass/Vol] 70 pg/mL Normal 0 - 125 [facility] Comment on above: Performed By: #### 2 80008 ####[facility],[address] [place] [address] 29465 RSVon 11-29-2024 RSV Normal [facility] Comment on above: Performed By: #### 2 39147 ####[facility],[address] [place] [address] 89117 TROPONINon 11-29-2024 HS TROPONIN 17.9 pg/mL Normal 0.0 - 76.2 [facility] Comment on above: Performed By: #### 2 70931 ####[facility],[address] [place] [address] 03753 TROPONIN I, HIGH SENSITIVITY on 11-29-2024 HS TROPONIN 12.3 pg/mL Normal 0.0 - 76.2 [facility] Comment on above: Performed By: #### 2 20824 ####[facility],[address] [place] [address] 92862 C-REACTIVE PROTEINon 025 CRP 0.81 mg/dl Normal 0.00 - 0.90 [facility] Comment on above: Performed By: #### 2 76463 ####[facility],[address] [place] [address] 95731 CBC + DIFFon 11-28-2024 Baso # 0.01 x10EE3/UL Normal 0.00 - 0.10 [facility] Comment on above: Performed By: #### 2 14541 ####[facility],[address] [place] [address] 24972 Basophils/100 WBC (Bld) 0.2 % Normal 0.0 - 2.0 [facility] Comment on above: Performed By: #### 2 18796 ####[facility],[address] [place] [address] 67113 CBC + DIFF Normal [facility] Comment on above: Result Comment: CBC- COMPLETE BLOOD COUNT Performed By: #### 2 52071 ####[facility],[address] [place] [address] 09505 EO # 0.28 x10EE3/UL Normal 0.00 - 0.50 [facility] Comment on above: Performed By: #### 2 69382 ####[facility],[address] [place] [address] 23904 Eosinophils/100 WBC (Bld) 4.1 % Normal 0.0 - 7.0 [facility] Comment on above: Performed By: #### 2 85285 ####[facility],[address] [place] [address] 07783 Erythrocyte distribution width (RBC) [Ratio] 13.3 % Normal 12.0 - 15.6 [facility] Comment on above: Performed By: #### 2 42344 ####[facility],[address] [place] [address] 54763 Hematocrit (Bld) [Volume fraction] 40.5 % Normal 40.0 - 52.0 [facility] Comment on above: Performed By: #### 2 12424 ####[facility],[address] [place] [address] 10093 Hemoglobin (Bld) [Mass/Vol] 13.8 g/dL Normal 13.0 - 17.5 [facility] Comment on above: Performed By: #### 2 98421 ####[facility],[address] [place], [place] [address] Lymph # 1.87 x10EE3/UL Normal 0.80 - 2.80 [facility] Comment on above: Performed By: #### 2 98138 ####[facility],[address] [place], [place] [address] Lymphocytes/100 WBC (Bld) 27.5 % Normal 20.0 - 45.0 [facility] Comment on above: Performed By: #### 2 83199 ####[facility],[address] [place] [address] 39689 MANUAL DIFF N/A Normal [facility] Comment on above: Performed By: #### 2 25921 ####[facility],[address] [place] [address] 23376 MCH (RBC) [Entitic mass] 31 pg Normal 27 - 33 [facility] Comment on above: Performed By: #### 2 69672 ####[facility],[address] [place] [address] 82414 MCHC 34 X10 3 Normal 32 - 36 [facility] Comment on above: Performed By: #### 2 10389 ####[facility],[address] [place] [address] 71067 MCV (RBC) [Entitic vol] 92 fL Normal 81 - 98 [facility] Comment on above: Performed By: #### 2 38005 ####[facility],[address] [place] [address] 82739 [place] # 0.56 x10EE3/UL Normal 0.20 - 1.00 [facility] Comment on above: Performed By: #### 2 82135 ####[facility],[address] [place] [address] 13656 MONOS % 8.2 % Normal 0.0 - 10.0 [facility] Comment on above: Performed By: #### 2 34467 ####[facility],[address] [place] [address] 83033 Morphology [place] (Bld) [Interp] N/A Normal [facility] Comment on above: Performed By: #### 2 31044 ####[facility],[address] [place] [address] 71888 Neut # 4.09 x10EE3/UL Normal 1.50 - 7.10 [facility] Comment on above: Performed By: #### 2 16766 ####[facility],[address] [place] [address] 29178 Neutrophils/100 WBC (Bld) 60.1 % Normal 46.0 - 76.0 [facility] Comment on above: Performed By: #### 2 83641 ####[facility],[address] [place] [address] 48102 PLATELET 216 x10EE3/UL Normal 150 - 450 [facility] Comment on above: Performed By: #### 2 95557 ####[facility],[address] [place] [address] 74272 Platelet mean volume (Bld) [Entitic vol] 7.8 fL Normal 6.4 - 10.5 [facility] Comment on above: Result Comment: AUTO MATED DIFFERENTIAL Performed By: #### 2 44152 ####[facility],[address] [place] [address] 61597 RBC 4.39 x 10EE6/UL Low 4.50 - 6.00 [facility] Comment on above: Performed By: #### 2 66336 ####[facility],[address] [place] [address] 35360 WBC 6.8 x 10EE3/UL Normal 4.5 - 10.8 [facility] Comment on above: Performed By: #### 2 50912 ####[facility],[address] [place] [address] 73555 CHEST 1 VIEWon 11-28-2024 CHEST 1 VIEW Normal [facility] CMP with eGFRon 11-28-2024 AGE 63 years Normal [facility] Comment on above: Performed By: #### 2 83546 ####[facility],[address] [place] [address] 35228 Albumin [Mass/Vol] 3.7 g/dL Normal 3.4 - 5.0 [facility] Comment on above: Performed By: #### 2 27458 ####[facility],[address] [place] [address] 36196 Albumin/Globulin [Mass ratio] 1.3 {ratio} Normal 0.9 - 1.6 [facility] Comment on above: Performed By: #### 2 56722 ####[facility],[address] [place] [address] 02346 ALK PHOS 82 U/L Normal 46 - 116 [facility] Comment on above: Performed By: #### 2 14881 ####[facility],[address] [place] [address] 57633 ALT [Catalytic activity/Vol] 66 U/L High 16 - 63 [facility] Comment on above: Performed By: #### 2 98160 ####[facility],[address] [place] [address] 13844 Anion gap [Moles/Vol] 10 mmol/L Normal 10 - 20 [facility] Comment on above: Performed By: #### 2 35946 ####[facility],[address] [place] [address] 56764 AST [Catalytic activity/Vol] 41 U/L High 15 - 37 [facility] Comment on above: Performed By: #### 2 09894 ####[facility],[address] [place] [address] 36593 B/C RATIO 11 ratio Normal 0 - 30 [facility] Comment on above: Performed By: #### 2 22200 ####[facility],[address] [place] [address] 48544 Bilirubin [Mass/Vol] 0.5 mg/dL Normal 0.2 - 1.0 [facility] Comment on above: Performed By: #### 2 87212 ####[facility],[address] [place] [address] 11513 Calcium [Mass/Vol] 8.6 mg/dL Normal 8.5 - 10.1 [facility] Comment on above: Performed By: #### 2 79592 ####[facility],[address] [place] [address] 01404 Chloride [Moles/Vol] 106 mmol/L Normal 98 - 107 [facility] Comment on above: Performed By: #### 2 91770 ####[facility],[address] [place] [address] 26858 CMP with eGFR Normal [facility] Comment on above: Result Comment: COMP REHENSIVE METABOLIC PANEL Performed By: #### 2 55135 ####[facility],[address] [place] [address] 40457 CO2 [Moles/Vol] 32.1 mmol/L High 21.0 - 32.0 [facility] Comment on above: Performed By: #### 2 05864 ####[facility],[address] [place] [address] 55835 Creatinine [Mass/Vol] 1.15 mg/dL Normal 0.70 - 1.30 [facility] Comment on above: Performed By: #### 2 23167 ####[facility],[address] [place] [address] 72902 GFR/1.73 sq M.predicted among non-blacks MDRD (S/P/Bld) [Vol rate/Area] mL/min/{1.73_m2} Normal 60 - 999 [facility] Comment on above: Performed By: #### 2 16142 ####[facility],[address] [place] [address] 53925 Result Comment: ACCO RDING TO THE NATIONAL KIDNEY DISEASE EDUCATION PROGRAM(NKDE), A NORMAL eGFRIS A VALUE GREATER THAN OR EQUAL TO 60 ML/MIN/1.73 SQ METERS.CHRONIC KIDNEY DISEASE: <60mL/MIN/1.73 SQ METERSKIDNEY FAILURE: <15mL/MIN/1.73 SQ METERSTHIS TEST SHOULD ONLY BE USED FOR PATIENTS 18 YEARS OF AGE AND OLDER. Globulin (S) [Mass/Vol] 2.8 g/dL Normal 1.5 - 3.8 [facility] Comment on above: Performed By: #### 2 77122 ####[facility],[address] [place] [address] 50072 Glucose [Mass/Vol] 147 mg/dL High 74 - 106 [facility] Comment on above: Performed By: #### 2 19774 ####[facility],[address] [place] [address] 61341 Potassium [Moles/Vol] 3.8 mmol/L Normal 3.5 - 5.1 [facility] Comment on above: Performed By: #### 2 03296 ####[facility],[address] [place] [address] 48047 Protein [Mass/Vol] 6.5 g/dL Normal 6.4 - 8.2 [facility] Comment on above: Performed By: #### 2 92322 ####[facility],[address] [place] [address] 40069 Sodium [Moles/Vol] 144 mmol/L Normal 136 - 145 [facility] Comment on above: Performed By: #### 2 49374 ####[facility],[address] [place] [address] 29041 Urea nitrogen [Mass/Vol] 13 mg/dL Normal 7 - 18 [facility] Comment on above: Performed By: #### 2 [id number] ####[facility],[address] [place] [address] 75020 CORONAVIRUS (SARS) ANTIGEN T ESTon 11-28-2024 EXTERNAL QC DONE? YES Normal [facility] Comment on above: Performed By: #### 2 41084 ####[facility],[address] [place] [address] 59097 INTERNAL CONTROL PASS Normal [facility] Comment on above: Performed By: #### 2 75722 ####[facility],[address] [place] [address] 63302 SARS ANTIGEN Negative Normal NORMAL: NEGATIVE [facility] Comment on above: Performed By: #### 2 39206 ####[facility],[address] [place] [address] 67097 SEND TO ? NO Normal [facility] Comment on above: Result Comment: SARS -CoV-2THIS TEST IS BEING USED UNDER THE FDA EUA PROCEDURE. THIS ASSAY HAS BEENVALIDATED AT [facility] FOR USE WITH NASAL AND NASOPHARYNGEAL SWABSPECIMENS.INTERPRETIVE DATATEST RESULTS SHOULD ALWAYS BE CONSIDERED IN THE CONTEXT OF CLINICALOBSERVATIONS AND EPIDEMIOLOGICAL DATA IN MAKING FINAL DIAGNOSIS AND PATIENTMANAGEMENT DECISIONS. PATIENT MANAGEMENT SHOULD FOLLOW CURRENT CDC GUIDELINES.THE FERNANDO SARS ANTIGEN ANGELICA DOES NOT DIFFERENTIATE BETWEEN SARS-CoV & SARS-CoV-2.A POSITIVE TEST RESULT INDICATES THE PRESENCE OF SARS-CoV-2 NUCLEOCAPSID PROTEINANTIGEN, AND THE PATIENT IS INFECTED WITH THE VIRUS AND PRESUMED TO BECONTAGIOUS.A NEGATIVE TEST RESULT FOR THIS TEST MEANS THAT SARS-CoV-2 NUCLEOCAPSID PROTEINANTIGEN WAS NOT PRESENT IN THE SPECIMEN ABOVE THE LIMIT OF DETECTION. HOWEVER, ANEGATIVE RESULT DOES NOT RULE OUT COVID-19 AND SHOULD NOT BE USED THE SOLEBASIS FOR TREATMENT OR PATIENT MANAGEMENT DECISIONS. A NEGATIVE RESULT DOES NOTEXCLUDE THE POSSIBILITY OF COVID-19. NEGATIVE RESULTS, FROM PATIENTS WITHSYMPTOM ONSET BEYOND FIVE DAYS, SHOULD BE TREATED PRESUMPTIVE ANDCONFIRMATION WITH A MOLECULAR ASSAY, IF NECESSARY, FOR PATIENT MANAGEMENT, MAYBE PERFORMED.WHEN DIAGNOSTIC TESTING IS NEGATIVE, THE POSSIBLILTY OF A FALSE NEGATIVE RESULTSHOULD BE CONSIDERED IN THE CONTEXT OF A PATIENT'S RECENT EXPOSURES AND THEPRESENCE OF CLINICAL SIGNS AND SYMPTOMS CONSISTENT WITH COVID-19. THEPOSSIBILITY OF A FALSE NEGATIVE RESULT SHOULD ESPECIALLY BE CONSIDERED IF THEPATIENT'S RECENT EXPOSURES OR CLINICAL PRESENTATION INDICATE THAT COVID-19 ISLIKELY, AND DIAGNOSTIC TESTS FOR OTHER CAUSES OF ILLNESS (e.g., OTHERRESPIRATORY ILLNESS) ARE NEGATIVE. IF COVID-19 IS STILL SUSPECTED BASED ONEXPOSURE HISTORY TOGETHER WITH OTHER CLINICAL FINDINGS, RE-TESTING SHOULD BECONSIDERED BY HEALTHCARE PROVIDERS IN CONSULTATION WITH [facility]. Performed By: #### 2 80434 ####[place] [address] CT CHEST (PE PROTOCOL)on CT CHEST (PE PROTOCOL) Normal [facility] D-DIMER, QUANTITATIVEon 02-0 D-DIMER QUANT 240 ng/ml High 0 - 230 [facility] Comment on above: Performed By: #### 2 59940 ####[facility],[address] [place] [address] D-DIMER, QUANTITATIVE Normal [facility] Comment on above: Result Comment: ARMEN T D-DIMER Performed By: #### 2 52363 ####[facility],[address] [place], [place] [id number] INFLUENZA VIRUS RAPID A/Bon 11-28-2024 INFLUENZA VIRUS RAPID A/B Normal [facility] Comment on above: Performed By: #### 2 06580 ####[place] [id number] LIPASEon 11-28-2024 Lipase [Catalytic activity/Vol] 23.0 U/L Normal 15.0 - 78.0 [facility] Comment on above: Result Comment: *PLE ASE NOTE THAT RANGES FOR LIPASE HAVE CHANGED OF 10/20/23 DUE TO AN ASSAYUPDATE BY THE HORSE RACE STARTER.THE NEW ASSAY RANGE IS 6-250 U/L, WITH A REFERENCERANGE OF 16-77 U/L. Performed By: #### 2 80295 ####[facility],[address] [place] [address] NT-proBNPon 11-28-2024 Natriuretic peptide B (Bld) [Mass/Vol] 35 pg/mL Normal 0 - 125 [facility] Comment on above: Performed By: #### 2 47533 ####[facility],[address] [place] [address] TROPONINon 11-28-2024 HS TROPONIN 9.4 pg/mL Normal 0.0 - 76.2 [facility] Comment on above: Performed By: #### 2 98923 ####[place] [address] HS TROPONIN 8.9 pg/mL Normal 0.0 - 76.2 [facility] Comment on above: Performed By: #### 2 83148 ####[facility],[address] [place] [address] 50511 C-REACTIVE PROTEINon 025 CRP 0.58 mg/dl Normal 0.00 - 0.90 [facility] Comment on above: Performed By: #### 2 33169 ####[facility],[address] [place] [address] 80315 CBC + DIFFon 11-16-2024 Baso # 0.01 x10EE3/UL Normal 0.00 - 0.10 [facility] Comment on above: Performed By: #### 2 77192 ####[address] [address] Basophils/100 WBC (Bld) 0.2 % Normal 0.0 - 2.0 [facility] Comment on above: Performed By: #### 2 09375 ####[facility],[address] [place], [place] [id number] CBC + DIFF Normal [facility] Comment on above: Result Comment: CBC- COMPLETE BLOOD COUNT Performed By: #### 2 55682 ####[facility],[address] [place] [address] 13163 EO # 0.31 x10EE3/UL Normal 0.00 - 0.50 [facility] Comment on above: Performed By: #### 2 37860 ####[facility],[address] [place] [address] Eosinophils/100 WBC (Bld) 3.9 % Normal 0.0 - 7.0 [facility] Comment on above: Performed By: #### 2 16217 ####[facility],[address] [place] [address] Erythrocyte distribution width (RBC) [Ratio] 13.3 % Normal 12.0 - 15.6 [facility] Comment on above: Performed By: #### 2 73673 ####[facility],[address] [place] [address] Hematocrit (Bld) [Volume fraction] 43.7 % Normal 40.0 - 52.0 [facility] Comment on above: Performed By: #### 2 52540 ####[facility],[address] [place], [place] [id number] Hemoglobin (Bld) [Mass/Vol] 14.6 g/dL Normal 13.0 - 17.5 [facility] Comment on above: Performed By: #### 2 16773 ####[facility],[address] [place] [address] 61320 Lymph # 1.97 x10EE3/UL Normal 0.80 - 2.80 [facility] Comment on above: Performed By: #### 2 23776 ####[facility],[address] [place] [address] 58289 Lymphocytes/100 WBC (Bld) 25.0 % Normal 20.0 - 45.0 [facility] Comment on above: Performed By: #### 2 50813 ####[facility],[address] [place] [address] MANUAL DIFF N/A Normal [facility] Comment on above: Performed By: #### 2 72241 ####[facility],[address] [place] [address] MCH (RBC) [Entitic mass] 31 pg Normal 27 - 33 [facility] Comment on above: Performed By: #### 2 12284 ####[facility],[address] [place] [address] MCHC 34 X10 3 Normal 32 - 36 [facility] Comment on above: Performed By: #### 2 49390 ####[facility],[address] [place] [address] MCV (RBC) [Entitic vol] 92 fL Normal 81 - 98 [facility] Comment on above: Performed By: #### 2 19661 ####[facility],[address] [place] [address] [place] # 0.57 x10EE3/UL Normal 0.20 - 1.00 [facility] Comment on above: Performed By: #### 2 37174 ####[facility],[address] [place] [address] MONOS % 7.2 % Normal 0.0 - 10.0 [facility] Comment on above: Performed By: #### 2 04028 ####[facility],[address] [place] [address] Morphology Brody (Bld) [Interp] N/A Normal [facility] Comment on above: Performed By: #### 2 97481 ####[facility],[address] [place] [address] Neut # 5.03 x10EE3/UL Normal 1.50 - 7.10 [facility] Comment on above: Performed By: #### 2 44278 ####[facility],[address] [place] [address] 20436 Neutrophils/100 WBC (Bld) 63.7 % Normal 46.0 - 76.0 [facility] Comment on above: Performed By: #### 2 59004 ####[facility],[address] [place] [address] 26312 PLATELET 218 x10EE3/UL Normal 150 - 450 [facility] Comment on above: Performed By: #### 2 91266 ####[facility],[address] [place] [address] 13274 Platelet mean volume (Bld) [Entitic vol] 7.3 fL Normal 6.4 - 10.5 [facility] Comment on above: Result Comment: AUTO MATED DIFFERENTIAL Performed By: #### 2 96602 ####[facility],[address] [place] [address] 74299 RBC 4.76 x 10EE6/UL Normal 4.50 - 6.00 [facility] Comment on above: Performed By: #### 2 55381 ####[facility],[address] [place] [address] 14889 WBC 7.9 x 10EE3/UL Normal 4.5 - 10.8 [facility] Comment on above: Performed By: #### 2 20277 ####[facility],[address] [place] [address] 07335 CMP with eGFRon 11-16-2024 AGE 63 years Normal [facility] Comment on above: Performed By: #### 2 94487 ####[facility],[address] [place] [address] 42176 Albumin [Mass/Vol] 3.6 g/dL Normal 3.4 - 5.0 [facility] Comment on above: Performed By: #### 2 16830 ####[facility],[address] [place] [address] 20692 Albumin/Globulin [Mass ratio] 1.2 {ratio} Normal 0.9 - 1.6 [facility] Comment on above: Performed By: #### 2 53621 ####[facility],[address] [place] [address] 34670 ALK PHOS 76 U/L Normal 46 - 116 [facility] Comment on above: Performed By: #### 2 83426 ####[facility],[address] [place] [address] 79298 ALT [Catalytic activity/Vol] 62 U/L Normal 16 - 63 [facility] Comment on above: Performed By: #### 2 69462 ####[facility],[address] [place] [address] 03335 Anion gap [Moles/Vol] 11 mmol/L Normal 10 - 20 [facility] Comment on above: Performed By: #### 2 71163 ####[facility],[address] [place] [address] 59577 AST [Catalytic activity/Vol] 32 U/L Normal 15 - 37 [facility] Comment on above: Performed By: #### 2 38905 ####[facility],[address] [place] [address] 63114 B/C RATIO 14 ratio Normal 0 - 30 [facility] Comment on above: Performed By: #### 2 43117 ####[facility],[address] [place] [address] 73477 Bilirubin [Mass/Vol] 0.5 mg/dL Normal 0.2 - 1.0 [facility] Comment on above: Performed By: #### 2 72759 ####[facility],[address] [place] [address] 40317 Calcium [Mass/Vol] 8.9 mg/dL Normal 8.5 - 10.1 [facility] Comment on above: Performed By: #### 2 79009 ####[facility],[address] [place] [address] 12774 Chloride [Moles/Vol] 102 mmol/L Normal 98 - 107 [facility] Comment on above: Performed By: #### 2 29391 ####[facility],[address] [place] [address] 47753 CMP with eGFR Normal [facility] Comment on above: Result Comment: COMP REHENSIVE METABOLIC PANEL Performed By: #### 2 58231 ####[facility],[address] [place] [address] 57953 CO2 [Moles/Vol] 33.5 mmol/L High 21.0 - 32.0 [facility] Comment on above: Performed By: #### 2 91175 ####[facility],[address] [place] [address] 78133 Creatinine [Mass/Vol] 1.07 mg/dL Normal 0.70 - 1.30 [facility] Comment on above: Performed By: #### 2 35566 ####[facility],[address] [place] [address] 56637 GFR/1.73 sq M.predicted among non-blacks MDRD (S/P/Bld) [Vol rate/Area] mL/min/{1.73_m2} Normal 60 - 999 [facility] Comment on above: Performed By: #### 2 17687 ####[facility],[address] [place] [address] 20474 Result Comment: ACCO RDING TO THE NATIONAL KIDNEY DISEASE EDUCATION PROGRAM(NKDE), A NORMAL eGFRIS A VALUE GREATER THAN OR EQUAL TO 60 ML/MIN/1.73 SQ METERS.CHRONIC KIDNEY DISEASE: <60mL/MIN/1.73 SQ METERSKIDNEY FAILURE: <15mL/MIN/1.73 SQ METERSTHIS TEST SHOULD ONLY BE USED FOR PATIENTS 18 YEARS OF AGE AND OLDER. Globulin (S) [Mass/Vol] 3.0 g/dL Normal 1.5 - 3.8 [facility] Comment on above: Performed By: #### 2 94168 ####[facility],[address] [place] [address] 04870 Glucose [Mass/Vol] 145 mg/dL High 74 - 106 [facility] Comment on above: Performed By: #### 2 31282 ####[facility],[address] [place] [address] 45767 Potassium [Moles/Vol] 4.2 mmol/L Normal 3.5 - 5.1 [facility] Comment on above: Performed By: #### 2 34821 ####[facility],[address] [place] [address] 01638 Protein [Mass/Vol] 6.6 g/dL Normal 6.4 - 8.2 [facility] Comment on above: Performed By: #### 2 38951 ####[facility],[address] [place] [address] 52561 Sodium [Moles/Vol] 142 mmol/L Normal 136 - 145 [facility] Comment on above: Performed By: #### 2 29030 ####[facility],[address] [place] [address] 44345 Urea nitrogen [Mass/Vol] 15 mg/dL Normal 7 - 18 [facility] Comment on above: Performed By: #### 2 55081 ####[facility],[address] [place] [address] ABDOMEN/PELVIS Won 2024 CT ABDOMEN/PELVIS W Normal [facility] ED MED ADMINISTRATION DETAIL on 11-16-2024 ED MED ADMINISTRATION DETAIL Normal [facility] ED NURSES CLINICAL NOTEon ED NURSES CLINICAL NOTE Normal [facility] ED ORDER SHEET (CPOE ONLY)on 11-16-2024 ED ORDER SHEET (CPOE ONLY) Normal [facility] ED PHYSICIAN CLINICAL REPORT on 11-16-2024 ED PHYSICIAN CLINICAL REPORT Normal [facility] ED PHYSICIAN DISCHARGE REPOR Ton 11-16-2024 ED PHYSICIAN DISCHARGE REPORT Normal [facility] ED SUPER BILLon 11-16-2024 ED SUPER BILL Normal [facility] ED VISIT SUMMARYon ED VISIT SUMMARY Normal [facility] ED VITALS FLOW SHEETon 11-16 ED VITALS FLOW SHEET Normal [facility] LACTATEon 11-16-2024 Lactate [Moles/Vol] 1.1 mmol/L Normal 0.4 - 2.0 [facility] Comment on above: Performed By: #### 2 00519 ####[facility],[address] [place] [address] 67044 LIPASEon 11-16-2024 Lipase [Catalytic activity/Vol] 22.0 U/L Normal 15.0 - 78.0 [facility] Comment on above: Result Comment: *PLE ASE NOTE THAT RANGES FOR LIPASE HAVE CHANGED OF 10/20/23 DUE TO AN ASSAYUPDATE BY THE HORSE RACE STARTER.THE NEW ASSAY RANGE IS 6-250 U/L, WITH A REFERENCERANGE OF 16-77 U/L. Performed By: #### 2 96586 ####[facility],[address] [place], [place] [address] TROPONINon 11-16-2024 HS TROPONIN 8.3 pg/mL Normal 0.0 - 76.2 [facility] Comment on above: Performed By: #### 2 85500 ####[facility],[address] [place] [address] 46085 URINALYSISon 11-16-2024 Bilirubin Ql (U) Negative Normal NORMAL: NEGATIVE [facility] Comment on above: Performed By: #### 2 58454 ####[facility],[address] [place] [address] 74988 Clarity (U) clear Normal NORMAL: CLEAR [facility] Comment on above: Performed By: #### 2 74297 ####[facility],[address] [place] [address] 43542 Color (U) yellow Normal NORMAL: YELLOW [facility] Comment on above: Performed By: #### 2 09911 ####[facility],[address] [place] [address] 54392 Glucose Ql (U) 250 Abnormal NORMAL: NORMAL [facility] Comment on above: Performed By: #### 2 64099 ####[facility],[address] [place] [address] 94174 Hemoglobin Ql (U) Negative Normal NORMAL: NEGATIVE [facility] Comment on above: Performed By: #### 2 53525 ####[facility],[address] [place] [address] 87000 Ketone Negative Normal NORMAL: NEGATIVE [facility] Comment on above: Performed By: #### 2 53806 ####[facility],[address] [place], [place] [id number] Leukocytes Negative Normal NORMAL: NEGATIVE [facility] Comment on above: Performed By: #### 2 88644 ####[facility],[address] [place], [place] [address] Nitrite Ql (U) Negative Normal NORMAL: NEGATIVE [facility] Comment on above: Performed By: #### 2 61394 ####[facility],[address] [place] [address] pH (U) 7 [pH] Normal NORMAL: 5.0-8.0 [facility] Comment on above: Performed By: #### 2 82645 ####[facility],[address] [place] [address] Protein Ql (U) 15 Abnormal NORMAL: NEGATIVE [facility] Comment on above: Performed By: #### 2 39527 ####[facility],[address] [place] [address] [place] 1.010 Normal NORMAL: 1.010-1.030 [facility] Comment on above: Performed By: #### 2 35474 ####[facility],[address] [place] [address] Specimen Type R Normal [facility] Comment on above: Performed By: #### 2 56936 ####[facility],[address] [place] [address] Urinalysis dipstick W Reflex Microscopic panel (U) NOT INDICATED Normal [facility] Comment on above: Performed By: #### 2 72549 ####[facility],[address] [facility] [address] Urobilinog NORM Normal NORMAL: NORMAL [facility] Comment on above: Performed By: #### 2 12381 ####[facility],[address] [place] [address] 54353 Abd Aortic/IVC Duplex scanon 10-22-2024 Abd Aortic/IVC Duplex scan [facility] [address] [place] [address] Abd Aortic/IVC Duplex scan 10/22/24 0920 MR#: [id number] Acct: [id number] Name: QUIQUE DENNY Rep #: [id number] : 1960 63 From: Sarah Rivera MD Attending Dr: LAURA Orellana Status: REG CLI Ordering Dr: Chela Tabares Date: 10/22/24 Location: CVS Sex: M C Admitted: Reason For Study: AAA Aorta Measurements Aorta Doppler Measurements Proximal aorta measures2.43 x 2.00cm. in cross- Peak systolic flow velocities within the proximal sectional axis. aorta measure 86.8 cm/sec. Proximal aorta measures2.54cm. in longitudinal Peak systolic flow velocities within the mid aorta axis. measure 56.0 cm/sec. Mid aorta measures4.09 x 3.69cm. in cross- Peak systolic flow velocities within the distal sectional axis. aorta measure 63.2 cm/sec. Mid aorta measures3.33cm. in longitudinal axis. Distal aorta measures4.22 x 4.06cm. in cross- sectional axis. Distal aorta measures3.93cm. in longitudinal axis. Intraluminal Echoes noted at Distal AO. Left Iliac Artery Left iliac artery measures 1.25 x 1.38 cm. in the cross-sectional axis. Left iliac artery measures 1.32 cm. in the longitudinal axis. Peak systolic velocity in the left iliac artery measures 50.6 cm/sec. Right Iliac Artery Right iliac artery measures 1.32 x 1.45 cm. in the cross-sectional axis. Right iliac artery measures 1.45 cm. in the longitudinal axis. Peak systolic velocity in the right iliac artery measures 79.6 cm/sec. Procedure Aorta IVC Iliac vasculature or bypass grafts 00949. Technically Difficult Study. Exam performed in department. VL/Abd Aortic/IVC Duplex scan Interpretation Summary Aorta patent, 4.22 cm aneurysm present Right iliac artery patent, ectasia to 1.45 cm Left iliac artery patent, ectasia to 1.38 cm Ordering Physician: Chela Tabares Referring Physician: Pilar Morataya Performed By: Morgan Rios RVT 10/22/24 7969 Date Sarah Rivera MD CC: LAURA Orellana; Dr. Pilar Morataya MD Date Dictated: 10/22/24919 Date Transcribed: 10/22/241558 Medical Psychotherapist: Jeancarlos Normal [facility] MR/BMS.JAVANSon 10-01-2024 MR/BMS.BVS [facility] [address] [place] [address]. [address] [place] [address] OFFICE VISIT Date of Service: 10/01/24 MR#: [id number] Acct: [id number] Name: QUIQUE DENNY Rep #: [id number] : 1960 Provider: LAURA Orellana Age/Sex: 63/M Location: [facility] Status: Signed Intake Vital Signs 09/11/24 09:59 09/14/24 15:20 10/01/24 13:16 Height 6 ft 6 ft Weight: 314 lb BP 143/87 H Blood Pressure Location Lt brachial Position Sitting Respiration 16 Pulse 89 Pulse Source Monitor Temp 97.3 F L Temp Source Temporal Pulse Oximetry (%) 94 Oxygen Delivery Method room air Intake Visit Reasons: AAA, blood clot Is patient in pain?: Yes Allergies No Known Allergies Allergy (Verified 10/01/24 13:17) Medications ???Medication ???Instructions ???Recorded ???Confirmed ???Type naproxen 500 mg tablet 500 mg PO BID PRN #20 tabs 03/03/18 10/01/24 Rx pantoprazole 40 mg tablet,delayed 40 mg PO DAILY #12 tabs 03/14/18 10/01/24 Rx release azithromycin 250 mg tablet 250 mg PO DAILY #4 TABLETS 09/11/24 10/01/24 Rx aspirin 81 mg chewable tablet 81 mg PO QDAY 10/01/24 10/01/24 History fluticasone 250 mcg-salmeterol 50 1 inh inhalation Q12H 10/01/24 10/01/24 History mcg/dose blistr powdr for inhalation (Advair Diskus) gabapentin 100 mg capsule 100 mg PO QHS 10/01/24 10/01/24 History meloxicam 7.5 mg tablet 7.5 mg PO QDAY PRN 10/01/24 10/01/24 History rosuvastatin 20 mg tablet (Crestor) 20 mg PO ONCE #30 tabs 10/01/24 10/01/24 Rx tamsulosin 0.4 mg capsule 0.4 mg PO QHS 10/01/24 10/01/24 History tiotropium bromide 1.25 2 puff inhalation Q24H 10/01/24 10/01/24 History mcg/actuation mist for inhalation (Spiriva Respimat) varenicline 0.5 mg (11)-1 mg (42) See Rx Instructions PO PER PKG DIR 10/01/24 10/01/24 History tablets in a dose pack Have you fallen in the past year?: No PFSH Medical History (Updated 10/01/24 @ 15:08 by LAURA Orellana) Cough Surgical History (Updated 10/01/24 @ 13:15 by Yolanda Cast) Hx of shoulder surgery Hx of right knee surgery ( 2018) Social History (Updated 10/01/24 @ 13:16 by Yolanda Cast) Smoking Status: Heavy Smoker (>10/day) Tobacco: How many years used: 45 HPI HPI HPI: QUIQUE DENNY, is a 63 M who presents to the office today for evaluation of AAA as referred from the ER. He was evaluated in the ER on 09/11/24 with rib pain and a productive cough. He had a CT Chest which incidentally noted hypodense liver lesions leading to CT Abdomen/Pelvis for further evaluation which then incidentally identified AAA 4.1 cm with associated mural thrombus. He was initiated on ASA 81mg daily and referred to our office. He reports that he also had a CT at [place] 6 months ago which had shown this AAA so he has known about it for 6 months. He has not had any ultrasounds. He denies any persistent abdominal/flank pain. He does have chronic low back pain and he has some pain into his legs as well. The pain in his back and into his legs is worse with sitting up straight or lying flat, improves with leaning forward. His PCP is working this up, he recently had PT with little improvement. He denies any history of prior vascular surgical intervention, CVA/TIA, VTE. He is a smoker, down to 1/2 ppd and recently started Chantix to try to quit. He is not diabetic. Reviewed his records in [facility]. Did see report of CTA Abd/Pelvis completed in February 2024 which showed AAA 4.1 cm and January 2024 showing AAA 4.1cm. ROS General General: No weight change, appetite, fatigue, colon cancer, breast cancer or weakness HEENT HEENT: No difficulty swallowing, eye injury, eye surgery, swollen glands or hoarseness Endo Endocrine: No thyroid disease, diabetes mellitus, thyroid cancer, Hair loss, heat intolerance or cold intolerance Skin Skin: No rash or changing moles Musc Musculoskeletal: Yes back problems; No arthritis, rheumatoid arthritis, gout or joint pain Cardio Cardiovascular: No murmur, pacemaker, heart disease, atrial fibrillation, high blood pressure, heart attack, heart stent, palpitations, shortness of breat with exertion or chest pain Psych Psychiatric: No depression, anxiety or hearing voices Resp Respiratory: Yes shortness of breath, No sleep apnea, No cough, Yes COPD, No asthma, No emphysema and No wheezing Gastro Gastrointestinal: No abdominal pain, No nausea or vomiting, No diarrhea, No constipation, No blood in stool, No acid reflux, No hemorrhoids, No ulcers, No gallbladder problem and No black,tarry stools Bakari Hematologic: No blood thinners, No blood disorders, No bleeding, No anemia and Yes blood clots Additional Details: asa Neuro Neurologic: No system reviewed and no additional complaints, except as documented, No as per HPI, No (more content not included)... Normal [facility] Emergency Department Summary on 09-14-2024 Emergency Department Summary [facility] Medical Records Department [address] [place] [address] Emergency Department Summary 09/14/24 MR#: [id number] Acct: [id number] Name: QUIQUE DENNY Rep #: [id number] : 1960 63 From: Umesh Cotton PCP: Dr. Pilar Morataya MD Status:DEP ER Location: ED HPI History of Present Illness Chief Complaint: Chest Other Informant: patient Narrative Narrative: Presents to ED persistent pain right ribs after coughing. History of COPD no home oxygen. Note was seen by myself 3 days ago. Initially seen at outside hospital system report x-rays done was negative. During my workup he had a CT scan noncontrast there is no fractures. No infiltrates. He had incidental findings of concerning liver masses and a known aneurysm with the new mural thrombus. He is currently on baby aspirin. Stay for of his antibiotic and steroids. He states pain only when he coughs. No fevers. No dyspnea. He has no allergies. Note he reports has made appointment with vascular surgery along with appointment with his PCP for further outpatient workup on the findings above. Prior similar symptoms: Yes [facility] Medical History Cough Home Medications ???Medication ???Instructions ???Recorded ???Last Taken ???Type naproxen 500 mg tablet 500 mg PO BID PRN #20 tabs 03/03/18 03/13/18 21:00 Rx pantoprazole 40 mg tablet,delayed 40 mg PO DAILY #12 tabs 03/14/18 Unknown Rx release prednisone 10 mg tablet 10 mg PO DAILY #43 tabs 03/14/18 Unknown Rx valacyclovir 1 gram tablet 1,000 mg PO TID #21 tabs 03/14/18 Unknown Rx azithromycin 250 mg tablet 250 mg PO DAILY #4 TABLETS 09/11/24 Unknown Rx prednisone 20 mg tablet 60 mg (3 x 20 mg) PO DAILY #12 09/11/24 Unknown Rx TABLETS hydrocodone-acetaminophe n 5-325mg 1 tab PO Q6H PRN PRN Pain 3 days 09/14/24 Unknown Rx 5mg-325mg #12 TABLETS Allergy/AdvReac Type Severity Reaction Status Date / Time No Known Allergies Allergy Verified 09/14/24 15:20 Social History Smoking Status: Current every day smoker tobacco type: cigarettes ROS ROS ED Constitutional Constitutional ED: Denies chills, fever(s) or sweats Eyes Eyes: Denies change in vision ENT ENT ED: Denies dysphagia or sore throat Cardiovascular Cardiovascular: Reports other Details: Right rib pain ; Denies chest pain, leg edema, palpitations or racing heartbeat Respiratory/Chest Respiratory/Chest: Reports cough; Denies dyspnea or dyspnea on exertion Gastrointestinal Gastrointestinal: Denies abdominal pain, diarrhea, nausea or vomiting Genitourinary Genitourinary ED: Denies dysuria, hematuria or urinary frequency Musculoskeletal Musculoskeletal: Denies back pain, extremity pain or neck pain Integumentary Denies rash or wounds Neurologic Neurologic: Denies headache(s), paresthesias or weakness EXAM Physical Exam Const Vital Signs: 09/14/24 15:20 Temperature 98.4 F Temperature Source Temporal Pulse Rate 87 Respiratory Rate 16 Blood Pressure 172/94 H Blood Pressure Mean 120 Pulse Ox 94 Oxygen Delivery Method Room Air Positive well nourished and well developed General Appearance ED: well developed and NAD HEENT Reports moist mucous membranes normocephalic and atraumatic Eyes EOMs intact bilaterally and conjunctivae normal General Eye ED: Yes normal appearance of both eyes Neck no lymphadenopathy and supple General: Negative for tenderness Chest Wall Chest Narrative: Mild tenderness right lateral lower ribs no crepitus no ecchymosis. Chest: tenderness Resp normal respiratory effort and normal air movement Resp Narrative: Symmetric breath sounds. Effort and Inspection: symmetric chest movement; Negative for respiratory distress Cardio regular rate, regular rhythm and no murmurs Peripheral Pulses: pulses 2+ throughout GI normal to inspection, nondistended, normoactive bowel sounds and non-tender Palpation: Negative for guarding or rebound tenderness present Back/Spine no CVA tenderness and no thoracic nor lumbar tenderness Extremity normal to inspection General Extremety ED: Negative for edema or tenderness General Extremity: Negative for edema Neuro oriented x3 and no sensory deficits noted Sensorium / Orientation: awake and alert Skin no rashes or lesions noted and no wounds MDM MDM MDM Narrative Medical decision making narrative: Interventions / MDM: Differential diagnosis: COPD, rib strain Diagnosis considered but do not suspect: Fracture however x-ray negative My EKG interpretation: N/A Imaging independently reviewed and interpreted by myself: Right rib series with PA chest: No infiltrates no rib fractures also read by radiology External documents re (more content not included)... Normal [facility] Ribs Uni Min 3V w/PA Cheston 09-14-2024 Ribs Uni Min 3V w/PA Chest [facility] Imaging Services [address] [place] [address] Ribs Uni Min 3V w/PA Chest MR#: [id number] Acct: [id number] Name: QUIQUE DENNY Rep #: [id number] : 1960 M 63 From: Tim Portillo MD PCP: Dr. Pilar Morataya MD Status: REG ER Study: Ribs Uni Min 3V w/PA Chest Date of Exam: 09/14 Exam# [id number] Ordering Dr: Umesh Multani DO [id number] EXAM: XR RIGHT RIBS AND AP CHEST, 3 OR MORE VIEWS CLINICAL INDICATION: rib pain, cough TECHNIQUE: Frontal and oblique views of the right ribs and frontal view of the chest. COMPARISON: 03/14/2019 FINDINGS: LUNGS AND PLEURAL SPACES: Unremarkable. No consolidation or edema. No pneumothorax. No effusion. HEART: Unremarkable. Cardiac silhouette not enlarged. MEDIASTINUM: Central airways and mediastinal contour are unremarkable. BONES/JOINTS: Unremarkable. No evidence of displaced rib fractures. RAD/Ribs Uni Min 3V w/PA Chest IMPRESSION: Negative chest and right ribs series. Electronically Signed: Tim Portillo MD at 16:35 EST , CC: Dr. Pilar Morataya MD; Dr. Umesh Multani DO Medical Psychotherapist: Signed Normal [facility] 12 Lead EKGon 09-11-2024 12 Lead EKG [facility] Cardiovascular Services [address] [place] [address] 12 Lead EKG 09/11/24 1029 MR#: [id number] Acct: [id number] Name: QUIQUE DENNY Rep #: [id number] : 1960 63 From: Leandro Scott MD Attending Dr: Status: DEP ER Ordering Dr: Umesh Multani DO Date: 09/11/24 Location: ED Sex: M C Admitted: Test Reason : Blood Pressure : */* mmHG Vent. Rate : 88 BPM Atrial Rate : 88 BPM P-R Int : 160 ms QRS Dur : 106 ms QT Int : 366 ms P-R-T Axes : 53 -16 16 degrees QTcB Int : 442 ms Normal sinus rhythm Incomplete right bundle branch block Borderline ECG Confirmed by LEANDRO SCOTT ([id number]), video editor PAMELA COTTER ([id number]) on 09/13/2024 12:02:12 PM Referred By: Confirmed By: LEANDRO SCOTT 09/13/24 1202 Date Leandro Scott MD CC: Dr. Pilar Morataya MD; Dr. Umesh Multani DO Signed Normal [facility] Basic Metabolic Profile (BMP )on 09-11-2024 BUN/CRE 17.6 RATIO Normal 08-11 [facility] Comment on above: Performed By: #### L 500.2500, L100.0100, L500.3400 #### [facility] [address] [place], [id number] CA,Total 9.0 mg/dL Normal 8.5-10.1 [facility] Comment on above: Performed By: #### L 500.2500, L100.0100, L500.3400 #### [facility] [address] [place], [address] Chloride [Moles/Vol] 105 mmol/L Normal 98-107 [facility] Comment on above: Performed By: #### L 500.2500, L100.0100, L500.3400 #### [facility] [address] [place], [address] CO2 [Moles/Vol] 29.0 mmol/L Normal 21.0-32.0 [facility] Comment on above: Performed By: #### L 500.2500, L100.0100, L500.3400 #### [facility] [address] [place], [address] Creatinine [Mass/Vol] 1.08 mg/dL Normal 0.70-1.30 [facility] Comment on above: Result Comment: The validity of the calculated GFR GFRAA in patients over 70 years has not been determined. Clinical correlation is essential. Performed By: #### L 500.2500, L100.0100, L500.3400 #### [facility] [address] [place], [address] ECRCL 102.16 ml/min Normal [facility] Comment on above: Performed By: #### L 500.2500, L100.0100, L500.3400 #### [facility] [address] [place], [address] EST GFR - AA 89 mL/min Normal >60 [facility] Comment on above: Result Comment: Afri can French GFR Calc Performed By: #### L 500.2500, L100.0100, L500.3400 #### [facility] [address] [place], [address] GAP 4 Low 5-15 [facility] Comment on above: Performed By: #### L 500.2500, L100.0100, L500.3400 #### [facility] [address] [place], [address] GFR/1.73 sq M.predicted among non-blacks MDRD (S/P/Bld) [Vol rate/Area] 73 mL/min/{1.73_m2} Normal >60 [facility] Comment on above: Result Comment: Non- GFR Calc Performed By: #### L 500.2500, L100.0100, L500.3400 #### [facility] [address] [place], [address] Glucose [Mass/Vol] 127 mg/dL High 74-106 [facility] Comment on above: Result Comment: Fast ing Glucose result greater than or equal to 126 mg/dL suggests DIABETES MELLITUS per A.D.A. criteria. Performed By: #### L 500.2500, L100.0100, L500.3400 #### [facility] [address] [place], [address] Potassium [Moles/Vol] 4.3 mmol/L Normal 3.5-5.1 [facility] Comment on above: Performed By: #### L 500.2500, L100.0100, L500.3400 #### [facility] [address] [place], [address] Sodium [Moles/Vol] 139 mmol/L Normal 136-145 [facility] Comment on above: Performed By: #### L 500.2500, L100.0100, L500.3400 #### [facility] [address] [place], [address] Urea nitrogen [Mass/Vol] 19 mg/dL High 7-18 [facility] Comment on above: Performed By: #### L 500.2500, L100.0100, L500.3400 #### [facility] [address] [place], [address] CBC W/Diff, Automatedon 11-2 0-4 Absolute Lymph 1.14 X10 3/uL Normal 0.83-4.51 [facility] Comment on above: Performed By: #### L 500.2500, L100.0100, L500.3400 #### [facility] [address] [place], [address] Absolute Neut 6.3 X10 3/uL Normal 2.0-7.7 [facility] Comment on above: Performed By: #### L 500.2500, L100.0100, L500.3400 #### [facility] [address] [place], [address] Basophils/100 WBC (Bld) 0.5 % Normal 0-1 [facility] Comment on above: Performed By: #### L 500.2500, L100.0100, L500.3400 #### [facility] [address] [place], [address] Eosinophils/100 WBC (Bld) 1.8 % Normal 0-5 [facility] Comment on above: Performed By: #### L 500.2500, L100.0100, L500.3400 #### [facility] [address] [place], [address] Erythrocyte distribution width (RBC) [Ratio] 13.9 % Normal 11.6-14.6 [facility] Comment on above: Performed By: #### L 500.2500, L100.0100, L500.3400 #### [facility] [address] [place], [address] Hematocrit (Bld) [Volume fraction] 45.7 % Normal 40-54 [facility] Comment on above: Performed By: #### L 500.2500, L100.0100, L500.3400 #### [facility] [address] [place], [address] Hemoglobin (Bld) [Mass/Vol] 15.0 g/dL Normal 13.0-16.5 [facility] Comment on above: Performed By: #### L 500.2500, L100.0100, L500.3400 #### [facility] [address] [place], [address] IG% 0.400 Normal 0.0-0.9 [facility] Comment on above: Result Comment: IG% - Immature Granulocytes (promyelocytes, myelocytes and metamyelocytes) > 1% indicates that a LEFT SHIFT is Present. Performed By: #### L 500.2500, L100.0100, L500.3400 #### [facility] [address] [place], [address] Lymphocytes/100 WBC (Bld) 14.0 % Low 19-41 [facility] Comment on above: Performed By: #### L 500.2500, L100.0100, L500.3400 #### [facility] [address] [place], [address] MCH (RBC) [Entitic mass] 30.7 pg Normal 27.0-32.0 [facility] Comment on above: Performed By: #### L 500.2500, L100.0100, L500.3400 #### [facility] [address] [place], [address] MCHC (RBC) [Mass/Vol] 32.8 g/dL Normal 32-36 [facility] Comment on above: Performed By: #### L 500.2500, L100.0100, L500.3400 #### [facility] [address] [place], [address] MCV (RBC) [Entitic vol] 93.6 fL Normal 80-94 [facility] Comment on above: Performed By: #### L 500.2500, L100.0100, L500.3400 #### [facility] [address] [place], [address] Monocytes/100 WBC (Bld) 5.7 % Normal 0-10 [facility] Comment on above: Performed By: #### L 500.2500, L100.0100, L500.3400 #### [facility] [address] [place], [address] Neutrophils/100 WBC (Bld) 77.6 % High 47-70 [facility] Comment on above: Performed By: #### L 500.2500, L100.0100, L500.3400 #### [facility] [address] [place], [address] Nucleated RBC (Bld) [#/Vol] 0 10*3/uL Normal 0-5 [facility] Comment on above: Performed By: #### L 500.2500, L100.0100, L500.3400 #### [facility] [address] [place], [address] Platelet mean volume (Bld) [Entitic vol] 9.7 fL Normal 6.2-12.0 [facility] Comment on above: Performed By: #### L 500.2500, L100.0100, L500.3400 #### [facility] [address] [place], [address] Platelets (Bld) [#/Vol] 211 10*3/uL Normal 150-450 [facility] Comment on above: Performed By: #### L 500.2500, L100.0100, L500.3400 #### [facility] [address] [place], [address] RBC (Bld) [#/Vol] 4.88 10*6/uL Normal 4.6-6.2 [facility] Comment on above: Performed By: #### L 500.2500, L100.0100, L500.3400 #### [facility] [address] [place], [address] RDW SD 47.5 fl High 35.1-43.9 [facility] Comment on above: Performed By: #### L 500.2500, L100.0100, L500.3400 #### [facility] [address] [place], [address] WBC (Bld) [#/Vol] 8.1 10*3/uL Normal 4.4-11.0 [facility] Comment on above: Performed By: #### L 500.2500, L100.0100, L500.3400 #### [facility] [address] [place], [address] CT Abd/Pelvis W/WO Contrasto n 09-11-2024 CT Abd/Pelvis W/WO Contrast [facility] Imaging Services [address] [place] [address] CT Abd/Pelvis W/WO Contrast MR#: [id number] Acct: [id number] Name: QUIQUE DENNY Rep #: [id number] : 1960 63 From: Sree salomon MD PCP: Dr. Pilar Morataya MD Status: REG ER Study: CT Abd/Pelvis W/WO Contrast Date of Exam: 08/24 Exam# [id number] Ordering Dr: Umesh Multani DO [id number] STUDY: CT ABDOMEN AND PELVIS WITH AND WITHOUT CONTRAST REASON FOR EXAM: Male, 63 years old. Hepatic lesions RADIATION DOSAGE (If Supplied By Facility): CTDIvol = ( 32.11 ) mGy, DLP = ( 1105.36 ) mGycm TECHNIQUE: Transaxial images were obtained from the dome of the diaphragm to the symphysis pubis without oral contrast. IV 100mL Isovue-370 was administered. Sagittal and coronal images were reconstructed. Individualized dose optimization techniques were used for this CT. COMPARISON: None. FINDINGS: The visualized lung bases are unremarkable. The visualized portions of the heart are within normal limits. There is decreased attenuation of the liver consistent with steatosis. There are multiple hypodense masses scattered throughout both lobes of the liver suggestive of metastatic deposits. The gallbladder is contracted. Normal spleen. Normal pancreas. Normal bilateral adrenal glands. Normal right kidney. Normal left kidney. Normal visualized stomach. Normal small intestine. There are scattered colonic diverticula consistent with diverticulosis. The appendix is visualized and appears normal. There is scattered atherosclerotic calcification of the abdominal aorta. Mild aneurysmal dilatation of the infrarenal abdominal aorta with a transverse dimension of 4.1 cm. Mural thrombus is seen. Normal inferior vena cava. Normal retroperitoneum. Normal urinary bladder. There is a small umbilical hernia containing fat. There are diffuse degenerative changes of the visualized lumbar spine. Straightening of the normal lumbar lordosis. Grade 1 to grade 2 anterolisthesis of L5 on S1 due to spondylolysis of the pars interarticularis of the L5 vertebrae. CT/CT Abd/Pelvis W/WO Contrast IMPRESSION: Diffuse fatty infiltration liver with multiple hypodense masses. Metastatic deposits to be ruled out. Aneurysmal dilatation of the distal abdominal aorta with a transverse dimension of 4.1 cm. Mural thrombus is seen. Electronically Signed: Sree Farmer MD at 14:11 EST Reading Location ID and State: [address] [place] [address] , Service support , CC: Dr. Pilar Morataya MD; Dr. Umesh Multani DO Medical Psychotherapist: Signed Normal [facility] Chest without Contraston Chest without Contrast [facility] Imaging Services [address] [place], [place] [address] Chest without Contrast MR#: [id number] Acct: [id number] Name: QUIQUE DENNY Rep #: [id number] : 1960 M 63 From: Ced Jama MD PCP: Dr. Pilar Morataya MD Status: REG ER Study: Chest without Contrast Date of Exam: 09/11/24 Exam# [id number] Ordering Dr: Umesh Multani DO [id number] INDICATION: cough, right rib injury EXAMINATION: CT CHEST WITHOUT CONTRAST - CT Chest W/O Contrast Injection TECHNIQUE: Helically acquired images were obtained of the chest. A radiation dose optimization technique was used for this scan. IV Contrast dosage and agent: None. COMPARISON: None. FINDINGS: LUNGS, PLEURA AND LARGE AIRWAYS: Mild emphysema. No noncalcified nodule or mass. No pleural effusion or thickening. No pneumothorax. THYROID: No thyroid lesions. HEART AND PERICARDIUM: Heart size is normal. No pericardial effusion. CORONARY ARTERIES: Coronary artery calcification is seen. VESSELS: Thoracic aorta is not dilated. MEDIASTINUM AND TRAM: No mediastinal or hilar adenopathy. Esophagus is unremarkable. No hiatal hernia. UPPER ABDOMEN: Diffusely decreased attenuation of hepatic parenchyma consistent with fatty infiltration. Multiple lesions of decreased attenuation within liver worrisome for metastatic disease and correlation with liver mass protocol CT is recommended. BONES: No suspicious lytic or blastic abnormality. CT/Chest without Contrast IMPRESSION: Mild emphysema without pneumonia, atelectasis, nodule, or mass. Fatty infiltration liver. Multiple hepatic lesions and correlation with liver mass protocol CT is recommended. Electronically Signed: Ced Jama MD at 11:43 EST , CC: Dr. Pilar Morataya MD; Dr. Umesh Multani DO Medical Psychotherapist: Signed Normal [facility] Emergency Department Summary on 09-11-2024 Emergency Department Summary [facility] Medical Records Department [address] [place] [address] Emergency Department Summary 09/11/24 MR#: [id number] Acct: [id number] Name: QUIQUE DENNY Rep #: [id number] : 1960 63 From: Umesh Cotton PCP: Dr. Pilar Morataya MD Status:REG ER Location: ED HPI History of Present Illness Chief Complaint: Cough Informant: patient Narrative Narrative: Presents for evaluation persistent right rib pain along with increasing productive cough for the last week.. History of COPD no home oxygen tobacco history. He states a week ago today coughing hard caused him to pass out. He was on the ground. He woke up with right rib pain. Increasing yellow sputum since then. No fevers. Increasing wheeze. He is using his nebulizers. He was seen outside emergency department in [place] 3 days ago he states only a chest x-ray was done and he was discharged. He has been using Aleve. Last dose today. Last breathing treatment this morning. No cardiac history. [facility] Medical History Cough Home Medications ???Medication ???Instructions ???Recorded ???Last Taken ???Type naproxen 500 mg tablet 500 mg PO BID PRN #20 tabs 03/03/18 03/13/18 21:00 Rx pantoprazole 40 mg tablet,delayed 40 mg PO DAILY #12 tabs 03/14/18 Unknown Rx release prednisone 10 mg tablet 10 mg PO DAILY #43 tabs 03/14/18 Unknown Rx valacyclovir 1 gram tablet 1,000 mg PO TID #21 tabs 03/14/18 Unknown Rx azithromycin 250 mg tablet 250 mg PO DAILY #4 TABLETS 09/11/24 Unknown Rx prednisone 20 mg tablet 60 mg (3 x 20 mg) PO DAILY #12 09/11/24 Unknown Rx TABLETS Allergy/AdvReac Type Severity Reaction Status Date / Time No Known Allergies Allergy Verified 09/11/24 09:59 Social History Smoking Status: Current every day smoker tobacco type: cigarettes ROS ROS ED Constitutional Constitutional ED: Denies chills, fever(s) or sweats Eyes Eyes: Denies change in vision ENT ENT ED: Denies dysphagia or sore throat Cardiovascular Cardiovascular: Denies chest pain, leg edema, palpitations or racing heartbeat Respiratory/Chest Respiratory/Chest: Reports cough, dyspnea and other; Denies dyspnea on exertion Gastrointestinal Gastrointestinal: Denies abdominal pain, diarrhea, nausea or vomiting Genitourinary Genitourinary ED: Denies dysuria, hematuria or urinary frequency Musculoskeletal Musculoskeletal: Denies back pain, extremity pain or neck pain Integumentary Denies rash or wounds Neurologic Neurologic: Denies headache(s), paresthesias or weakness EXAM Physical Exam Const Vital Signs: 09/11/24 09:59 09/11/24 10:22 09/11/24 10:32 Temperature 98.3 F Temperature Source Oral Pulse Rate 101 H Respiratory Rate 25 H 18 Respiratory Effort Short of Breath Respiratory Pattern Normal Blood Pressure 132/82 H Blood Pressure Mean 98 Pulse Ox 94 Oxygen Delivery Method Room Air 09/11/24 11:13 09/11/24 11:36 Temperature 98.1 F Temperature Source Oral Pulse Rate 87 89 Respiratory Rate 24 H 18 Respiratory Effort Respiratory Pattern Blood Pressure 149/80 H 117/80 Blood Pressure Mean 103 92 Pulse Ox 91 93 Oxygen Delivery Method Room Air Room Air Positive well nourished and well developed Constitutional Narrative: Mild pursed lip breathing, nontoxic General Appearance ED: well developed and NAD HEENT Reports moist mucous membranes normocephalic and atraumatic Eyes EOMs intact bilaterally and conjunctivae normal General Eye ED: Yes normal appearance of both eyes Neck no lymphadenopathy and supple General: Negative for tenderness Chest Wall Chest Narrative: Tender palpation right lateral lower ribs with no crepitus. No ecchymosis. Chest: tenderness Resp normal respiratory effort and normal air movement Resp Narrative: Symmetric breath sounds with diminished at the bases. Effort and Inspection: symmetric chest movement; Negative for respiratory distress Cardio regular rate, regular rhythm and no murmurs Peripheral Pulses: pulses 2+ throughout GI normal to inspection, nondistended, normoactive bowel sounds and non-tender Palpation: Negative for guarding or rebound tenderness present Back/Spine no CVA tenderness and no thoracic nor lumbar tenderness Extremity normal to inspection General Extremety ED: Negative for edema or tenderness General Extremity: Negative for edema Neuro oriented x3, CN's II-XII intact bilaterally and no sensory deficits noted Neuro Narrative: No focal deficits Sensorium / Orientation: awake and alert Skin no rashes or lesions noted and no wounds MDM MDM MDM Narrative Medical decision making narrative: Interventions / MDM: Differ (more content not included)... Normal [facility] Liver Profileon 09-11-2024 Albumin [Mass/Vol] 4.0 g/dL Normal 3.2-5.0 [facility] Comment on above: Performed By: #### L 500.2500, L100.0100, L500.3400 #### [facility] [address] [place], [address] ALK P 73 U/L Normal 45-117 [facility] Comment on above: Performed By: #### L 500.2500, L100.0100, L500.3400 #### [facility] [address] [place], [address] ALT [Catalytic activity/Vol] 54 U/L Normal 16-61 [facility] Comment on above: Performed By: #### L 500.2500, L100.0100, L500.3400 #### [facility] [address] [place], [address] AST [Catalytic activity/Vol] 29 U/L Normal 15-37 [facility] Comment on above: Performed By: #### L 500.2500, L100.0100, L500.3400 #### [facility] [address] [place], [address] Bilirubin [Mass/Vol] 0.70 mg/dL Normal 0.20-1.00 [facility] Comment on above: Result Comment: For patients on eltrombopag therapy, use of Dimension [place] TBIL is not recommended. Performed By: #### L 500.2500, L100.0100, L500.3400 #### [facility] [address] [place], [address] Bilirubin.direct [Mass/Vol] 0.15 mg/dL Normal 0.00-0.30 [facility] Comment on above: Performed By: #### L 500.2500, L100.0100, L500.3400 #### [facility] [address] [place], [address] Globulin (S) [Mass/Vol] 2.8 g/dL Normal 2.2-4.2 [facility] Comment on above: Performed By: #### L 500.2500, L100.0100, L500.3400 #### [facility] [address] [place], [address] T PROT 6.8 g/dL Normal 6.4-8.2 [facility] Comment on above: Performed By: #### L 500.2500, L100.0100, L500.3400 #### [facility] [address] [place], [address] ED MED ADMINISTRATION DETAIL on 09-09-2024 ED MED ADMINISTRATION DETAIL Normal [facility] ED NURSES CLINICAL NOTEon ED NURSES CLINICAL NOTE Normal [facility] ED ORDER SHEET (CPOE ONLY)on 09-09-2024 ED ORDER SHEET (CPOE ONLY) Normal [facility] ED PHYSICIAN CLINICAL REPORT on 09-09-2024 ED PHYSICIAN CLINICAL REPORT Normal [facility] ED PHYSICIAN DISCHARGE REPOR Ton 09-09-2024 ED PHYSICIAN DISCHARGE REPORT Normal [facility] ED SUPER BILLon 09-09-2024 ED SUPER BILL Normal [facility] ED VISIT SUMMARYon ED VISIT SUMMARY Normal [facility] ED VITALS FLOW SHEETon 09-09 ED VITALS FLOW SHEET Normal [facility] SHOULDER COMPLETE RTon 09-09 SHOULDER COMPLETE RT Normal [facility] ED MED ADMINISTRATION DETAIL on 09-05-2024 ED MED ADMINISTRATION DETAIL Normal [facility] ED NURSES CLINICAL NOTEon ED NURSES CLINICAL NOTE Normal [facility] ED ORDER SHEET (CPOE ONLY)on 09-05-2024 ED ORDER SHEET (CPOE ONLY) Normal [facility] ED PHYSICIAN CLINICAL REPORT on 09-05-2024 ED PHYSICIAN CLINICAL REPORT Normal [facility] ED PHYSICIAN DISCHARGE REPOR Ton 09-05-2024 ED PHYSICIAN DISCHARGE REPORT Normal [facility] ED SUPER BILLon 09-05-2024 ED SUPER BILL Normal [facility] ED VISIT SUMMARYon ED VISIT SUMMARY Normal [facility] ED VITALS FLOW SHEETon 09-05 ED VITALS FLOW SHEET Normal [facility] CHEST 1 VIEWon 09-04-2024 CHEST 1 VIEW Normal [facility] CT CERVICAL W/O CONTRASTon 1 11-04-2023 CT CERVICAL W/O CONTRAST Normal [facility] CNOVon 08-13-2024 CNOV Office Visit (PULMWS ) -------- QUIQUE DENNY ([id number]) 1960 M Date Time Provider Department 08/13/24 11:00 AM FABI JOVEL PULMWS During your visit today, we recorded the following information about you: Pulse Blood pressure Weight Height 88/minute 126/94 139.7 kg 1.829 m Fabi Jovel MD 08/13/2024 12:24 PM Signed . Respiratory [place] Note Patient name: Quique Denny PCP: Pilar Morataya MD Referring Physician: same Consultation requested by Dr. Morataya for an opinion regarding COPD. My final recommendations will be communicated back to the requesting physician by way of shared Medical record or letter to requesting physician via US mail. CC: COPD HPI: Quique Denny 63 year old male current [id number] smoker with PMH significant for COPD, PAD, AAA, obesity, HTN being referred for evaluation of COPD. Current inhaled therapy consists of Advair and Spiriva Respimat he has been on medication for several years. Pending evaluation for obstructive sleep apnea. Respiratory symptoms consist of daily cough productive of yellow to brown sputum, wheezing, dyspnea with exertion. No chest pain. He has never been intubated for his COPD nor required noninvasive ventilation. Has denies a history of recurrent bronchitis, last episode requiring antibiotics over a year ago. Shortness of breath is not worsened by exposure to changes in the weather or strong odors or fumes. Uses his rescue inhaler on a daily basis. He has attempted smoking cessation in the past using nicotine replacement as well as Chantix but has been unsuccessful. His chest x-ray today shows evidence of pulmonary nodularity. He states that he had a CT of the chest at [facility] approximately 1 month ago. I do not have a report or images to review. DATA: PFT: Pulmonary function tests are consistent with PRISM Imaging / Diagnostic Studies: Reviewed chest CT shows flattening of diaphragms on the lateral view and a pulmonary nodule PAST MEDICAL HISTORY Diagnosis Date AAA (abdominal aortic aneurysm) (HCC) COPD (chronic obstructive pulmonary disease) (HCC) Morbid obesity (HCC) VANDANA (obstructive sleep apnea) PAD (peripheral artery disease) (HCC) ALLERGIES No Known Allergies Naproxen SR (EC-NAPROSYN) 500 mg EC tablet Take 500 mg by mouth as needed. guaifenesin/dextromethor miles (TUSSIN DM MAX ORAL) Take 10 mL by mouth once daily. dicyclomine (BENTYL) 20 mg tablet Take 1 tablet by mouth as needed. ADVAIR DISKUS 100-50 mcg/dose inhaler Inhale 1 Puff as instructed two times a day. gabapentin (NEURONTIN) 300 mg capsule Take 600 mg by mouth daily at bedtime. magnesium oxide (MAG-OX) 400 mg (241.3 mg magnesium) tablet Take 1 tablet by mouth once daily. meloxicam (MOBIC) 7.5 mg tablet Take 7.5 mg by mouth once daily as needed. COMP-AIR NEBULIZER COMPRESSOR USE NEBULIZER DAILY ondansetron orally disintegrating (ZOFRAN ODT) 4 mg disintegrating tablet Take 4 mg by mouth every 8 hours as needed. pantoprazole DR (PROTONIX) 40 mg tablet Take 1 tablet by mouth every afternoon. tamsulosin (FLOMAX) 0.4 mg Take 0.4 mg by mouth daily at bedtime. SPIRIVA RESPIMAT 1.25 mcg/actuation inhaler Inhale 2 Puffs as instructed once daily. albuterol (PROVENTIL) 2.5 mg /3 mL (0.083 %) nebulizer solution Use 2.5 mg via nebulizer every 6 hours as needed. albuterol HFA (PROVENTIL HFA, VENTOLIN HFA) 90 mcg/actuation inhaler Inhale 2 Puffs as instructed every 6 hours as needed. Social History Tobacco Use Smoking status: Every Day Current packs/day: 1.00 Average packs/day: 1 pack/day for 47.8 years (47.8 ttl pk-yrs) Types: Cigarettes Start date: 1976 Smokeless tobacco: Never Vaping Use Vaping status: Never Used Substance Use Topics Alcohol use: Never Drug use: Never Sawdust exposure for 2 years Pets: None FAMILY HISTORY Problem Relation Age of Onset Heart disease Mother Diabetes Mother Stroke Father No Known Problems Sister Obesity Brother PAST SURGICAL HISTORY Procedure Laterality Date TOTAL KNEE REPLACEMENT Right 2018 PMH, Social history, family history and surgical history reviewed and updated in EMR REVIEW OF SYSTEMS: CONSTITUTIONAL: No fevers, chills, nightsweats, unintended weight loss HEENT: Denies nasal congestion/sinus symptoms, allergy problems. EYES: No visual changes CARDIOVASCULAR: No chest pain, palpitations, orthopnea, edema. PULM: See HPI GI: No dysphagia/odynophagia, problematic reflux NEURO: No balance problems, peripheral weakness/paresthesias or numbness of concern. MUSC-SKEL: No joint pain, swelling, or erythema. PSY: No concerns regarding depression, anxiety INTEGUMENTARY: No new skin changes, rashes PHYSICAL EXAMINATION: BP 126/94 Pulse 88 Ht 6' 0 (1.83m) Wt 308 lb (139.7kg) SpO2 89% BMI 41.76 kg/(m2). General Appearance: Morbidly (more content not included)... Normal [facility] XR CHEST 2V FRONTAL/LATon XR CHEST 2V FRONTAL/LAT * * *Final Report* * * DATE OF EXAM: Aug 13 2024 10:08AM [id number] - XR CHEST 2V FRONTAL/LAT / PROCEDURE REASON: Dyspnea, unspecified type * * * * Physician Interpretation * * * * EXAMINATION: CHEST RADIOGRAPH (2 VIEW FRONTAL and LATERAL) CLINICAL HISTORY: Dyspnea, unspecified type MQ: [id number] EXAM DATE/TIME: 08/13/2024 10:08 AM COMPARISON: No relevant prior studies available. RESULT: Lines, tubes, and devices: None. Lungs and pleura: No consolidation. No lung mass. No pleural effusion. No pneumothorax. Minimal linear atelectasis or fibrosis at the left base Cardiomediastinal silhouette: Normal cardiomediastinal silhouette. Bones and soft tissues: Unremarkable. IMPRESSION: Minimal linear atelectasis or fibrosis at the left base Medical Psychotherapist: UZIEL Transcribe Date/Time: Aug 14 2024 3:09P Dictated by : JASON CHAPMAN MD This examination was interpreted and the report reviewed and electronically signed by: JASON CHAPMAN MD on Aug 14 2024 3:09PM EST [id number] Normal [facility] BCIDon 07-28-2024 Acinetobacter fatemeh-baumanii complex Not detected Normal Not Detected [facility] Comment on above: Order Comment: jay reza at [facility] [place] , 07/28/2024 13:25:10 EDT//JV Performed By: #### B ELDER #### [place] [address] Bacteroides fragilis Not detected Normal Not Detected [facility] Comment on above: Order Comment: jay reza at [facility], [facility] [place] , 07/28/2024 13:25:10 EDT//JV Performed By: #### B ELDER #### [place] [address] BCID Comment See Comment Normal [facility] Comment on above: Order Comment: jay reza at [facility], [facility] [place] , 07/28/2024 13:25:10 EDT//JV Result Comment: Anti microbial resistance can occur via multiple mechanisms. A Not Detected result for antimicrobial resistance gene(s) does not indicate antimicrobial susceptibility. Culture identification and susceptibility results to follow. If BCID panel was negative (Not Detected) for all targets, this does not exclude a blood stream infection. Our blood culture system detected growth. Culture identification and susceptibility testing (if appropriate) to follow. Performed By: #### B ELDER #### [place] [address] Marie albicans Not detected Normal Not Detected [facility] Comment on above: Order Comment: jay reza at [facility], [facility] [place] , 07/28/2024 13:25:10 EDT//JV Performed By: #### B ELDER #### [facility] [address] [place] [address] Marie auris Not detected Normal Not Detected [facility] Comment on above: Order Comment: jay reza at [facility] [place] , 07/28/2024 13:25:10 EDT//JV Performed By: #### B ELDER #### [address] [address] Marie glabrata Not detected Normal Not Detected [facility] Comment on above: Order Comment: jay reza at [facility] [place] , 07/28/2024 13:25:10 EDT//JV Performed By: #### B ELDER #### [address] [address] Marie krusei Not detected Normal Not Detected [facility] Comment on above: Order Comment: jay reza at [facility] [place] , 07/28/2024 13:25:10 EDT//JV Performed By: #### B ELDER #### [address] [address] Marie parapsilosis Not detected Normal Not Detected [facility] Comment on above: Order Comment: jay reza at [facility] [place] , 07/28/2024 13:25:10 EDT//JV Performed By: #### B ELDER #### [address] Marie tropicalis Not detected Normal Not Detected [facility] Comment on above: Order Comment: jay reza at [facility] [place] , 07/28/2024 13:25:10 EDT//JV Performed By: #### B ELDER #### [address] [address] Cryptococcus neoformans-gattii Not detected Normal Not Detected [facility] Comment on above: Order Comment: jay reza at [facility] [place] , 07/28/2024 13:25:10 EDT//JV Performed By: #### B ELDER #### [address] [address] CTX-M (ESBL) Not Applicable Normal Not Detected [facility] Comment on above: Order Comment: jay reza at [facility] [place] , 07/28/2024 13:25:10 EDT//JV Performed By: #### B ELDER #### [facility] [address] [place] [address] E. Coli Not detected Normal Not Detected [facility] Comment on above: Order Comment: jay reza at [facility] [place] , 07/28/2024 13:25:10 EDT//JV Performed By: #### B ELDER #### [address] [address] Enterobacter cloacae Complex Not detected Normal Not Detected [facility] Comment on above: Order Comment: jay reza at [facility] [place] , 07/28/2024 13:25:10 EDT//JV Performed By: #### B ELDER #### [address] [address] Enterobacterales Not detected Normal Not Detected [facility] Comment on above: Order Comment: jay reza at [facility] [place] , 07/28/2024 13:25:10 EDT//JV Performed By: #### B ELDER #### [address] [address] Enterococcus faecalis Not detected Normal Not Detected [facility] Comment on above: Order Comment: jay reza at [facility], [facility] [place] , 07/28/2024 13:25:10 EDT//JV Performed By: #### B ELDER #### [address] [address] Enterococcus faecium Not detected Normal Not Detected [facility] Comment on above: Order Comment: jay reza at [facility] [place] , 07/28/2024 13:25:10 EDT//JV Performed By: #### B ELDER #### [address] [address] Haemophilus influenzae Not detected Normal Not Detected [facility] Comment on above: Order Comment: jay reza at [facility] [place] , 07/28/2024 13:25:10 EDT//JV Performed By: #### B ELDER #### [facility] [address] [place] [address] IMP (Carbapenemase) Not Applicable Normal Not Detected [facility] Comment on above: Order Comment: jay reza at [facility] [place] , 07/28/2024 13:25:10 EDT//JV Performed By: #### B ELDER #### [facility] [address] [place] [address] Klebsiella aerogenes Not detected Normal Not Detected [facility] Comment on above: Order Comment: jay reza at [facility] [place] , 07/28/2024 13:25:10 EDT//JV Performed By: #### B ELDER #### [address] [address] Klebsiella oxytoca Not detected Normal Not Detected [facility] Comment on above: Order Comment: jay reza at [facility] [place] , 07/28/2024 13:25:10 EDT//JV Performed By: #### B ELDER #### [address] [address] Klebsiella pneumoniae group Not detected Normal Not Detected [facility] Comment on above: Order Comment: jay reza at [facility] [place] , 07/28/2024 13:25:10 EDT//JV Performed By: #### B ELDER #### [place] [id number] [place] [address] KPC (Carbapenemase) Not Applicable Normal Not Detected [facility] Comment on above: Order Comment: jay reza at [facility] [place] , 07/28/2024 13:25:10 EDT//JV Performed By: #### B ELDER #### [address] [address] Listeria monocytogenes Not detected Normal Not Detected [facility] Comment on above: Order Comment: jay reza at [facility] [place] , 07/28/2024 13:25:10 EDT//JV Performed By: #### B ELDER #### [address] [address] MCR-1 (Colistin Resistance) Not Applicable Normal Not Detected [facility] Comment on above: Order Comment: jay reza at [facility] [place] , 07/28/2024 13:25:10 EDT//JV Performed By: #### B ELDER #### [address] [address] Mec A/C Detected Abnormal Not Detected [facility] Comment on above: Order Comment: jay reza at [facility] [place] , 07/28/2024 13:25:10 EDT//JV Performed By: #### B ELDER #### [address] [address] Mec A/C-MREJ (MRSA) Not Applicable Normal Not Detected [facility] Comment on above: Order Comment: jay reza at [facility] [place] , 07/28/2024 13:25:10 EDT//JV Performed By: #### B ELDER #### [address] [address] NDM (Carbapenemase) Not Applicable Normal Not Detected [facility] Comment on above: Order Comment: jay reza at [facility], [facility] [place] , 07/28/2024 13:25:10 EDT//JV Performed By: #### B ELDER #### [address] [address] Neisseria meningitidis (Encapsalated) Not detected Normal Not Detected [facility] Comment on above: Order Comment: jay reza at [facility] [place] , 07/28/2024 13:25:10 EDT//JV Performed By: #### B ELDER #### [address] [address] OXA-48 like (Carbapenemase) Not Applicable Normal Not Detected [facility] Comment on above: Order Comment: jay reza at [facility] [place] , 07/28/2024 13:25:10 EDT//JV Performed By: #### B ELDER #### [address] [address] Proteus Not detected Normal Not Detected [facility] Comment on above: Order Comment: jay reza at [facility] [place] , 07/28/2024 13:25:10 EDT//JV Performed By: #### B ELDER #### [address] [address] Pseudomonas aeruginosa Not detected Normal Not Detected [facility] Comment on above: Order Comment: jay reza at [facility] [place] , 07/28/2024 13:25:10 EDT//JV Performed By: #### B ELDER #### [address] [address] S. agalactiae Org specific cx Ql (Vag fld) Not detected Normal Not Detected [facility] Comment on above: Order Comment: jay reza at [facility] [place] , 07/28/2024 13:25:10 EDT//JV Performed By: #### B ELDER #### [address] [address] Salmonella species Not detected Normal Not Detected [facility] Comment on above: Order Comment: jay reza at [facility] [place] , 07/28/2024 13:25:10 EDT//JV Performed By: #### B ELDER #### [address] [address] Serratia marcescens Not detected Normal Not Detected [facility] Comment on above: Order Comment: jay reza at [facility] [place] , 07/28/2024 13:25:10 EDT//JV Performed By: #### B ELDER #### [address] [address] Staphylococcus Detected Abnormal Not Detected [facility] Comment on above: Order Comment: jay reza at [facility] [place] , 07/28/2024 13:25:10 EDT//JV Performed By: #### B ELDER #### [facility] [address] [place] [address] Staphylococcus aureus Not detected Normal Not Detected [facility] Comment on above: Order Comment: jay reza at [facility], [facility] [place] , 07/28/2024 13:25:10 EDT//JV Result Comment: If S taphylococcus aureus is Detected, an Infectious Disease physician consult is required on identification. Performed By: #### B ELDER #### [address] [address] Staphylococcus epidermidis Detected Abnormal Not Detected [facility] Comment on above: Order Comment: jay reza at [facility], [facility] [place] , 07/28/2024 13:25:10 EDT//JV Performed By: #### B ELDER #### [address] [address] Staphylococcus lugdunensis Not detected Normal Not Detected [facility] Comment on above: Order Comment: jay reza at [facility], [facility] [place] , 07/28/2024 13:25:10 EDT//JV Performed By: #### B ELDER #### [address] [address] Stenotrophomonas maltophilia Not detected Normal Not Detected [facility] Comment on above: Order Comment: jay reza at [facility] [place] , 07/28/2024 13:25:10 EDT//JV Performed By: #### B ELDER #### [address] [address] Streptococcus Not detected Normal Not Detected [facility] Comment on above: Order Comment: jay reza at [facility], [facility] [place] , 07/28/2024 13:25:10 EDT//JV Performed By: #### B ELDER #### [address] [address] Streptococcus pneumoniae Not detected Normal Not Detected [facility] Comment on above: Order Comment: jay reza at [facility] [place] , 07/28/2024 13:25:10 EDT//JV Performed By: #### B ELDER #### [place] [address] Streptococcus pyogenes Not detected Normal Not Detected [facility] Comment on above: Order Comment: jay reza at [facility] [place] , 07/28/2024 13:25:10 EDT//JV Performed By: #### B ELDER #### [place] [address] Van A/B Not Applicable Normal Not Detected [facility] Comment on above: Order Comment: jay reza at [facility] [place] , 07/28/2024 13:25:10 EDT//JV Performed By: #### B ELDER #### [place] [address] VIM (Carbapenemase) Not Applicable Normal Not Detected [facility] Comment on above: Order Comment: jay reza at [facility] [place] , 07/28/2024 13:25:10 EDT//JV Performed By: #### B ELDER #### [place] [address] CBC + DIFFon 07-27-2024 Baso # 0.01 x10EE3/UL Normal 0.00 - 0.10 [facility] Comment on above: Performed By: #### 2 [id number] ####[facility],[address] [place] [address] Basophils/100 WBC (Bld) 0.2 % Normal 0.0 - 2.0 [facility] Comment on above: Performed By: #### 2 [address]1639 ####[facility],[address] [place] [address] CBC + DIFF Normal [facility] Comment on above: Result Comment: CBC- COMPLETE BLOOD COUNT Performed By: #### 2 11689 ####[facility] [facility],[address] [place] [address] EO # 0.29 x10EE3/UL Normal 0.00 - 0.50 [facility] Comment on above: Performed By: #### 2 73241 ####[facility],[address] [place] [address] 37676 Eosinophils/100 WBC (Bld) 4.9 % Normal 0.0 - 7.0 [facility] Comment on above: Performed By: #### 2 90635 ####[facility],[address] [place], [place] [id number] Erythrocyte distribution width (RBC) [Ratio] 13.9 % Normal 12.0 - 15.6 [facility] Comment on above: Performed By: #### 2 00816 ####[facility],[address] [place] [address] Hematocrit (Bld) [Volume fraction] 47.0 % Normal 40.0 - 52.0 [facility] Comment on above: Performed By: #### 2 60354 ####[facility],[address] [place] [address] Hemoglobin (Bld) [Mass/Vol] 15.7 g/dL Normal 13.0 - 17.5 [facility] Comment on above: Performed By: #### 2 15106 ####[facility],[address] [place] [address] 72618 Lymph # 1.60 x10EE3/UL Normal 0.80 - 2.80 [facility] Comment on above: Performed By: #### 2 68556 ####[facility],[address] [place], [place] [id number] Lymphocytes/100 WBC (Bld) 27.0 % Normal 20.0 - 45.0 [facility] Comment on above: Performed By: #### 2 87924 ####[facility],[address] [place] [address] 47645 MANUAL DIFF N/A Normal [facility] Comment on above: Performed By: #### 2 79937 ####[facility],[address] [place] [address] 41047 MCH (RBC) [Entitic mass] 31 pg Normal 27 - 33 [facility] Comment on above: Performed By: #### 2 77460 ####[facility],[address] [place] [address] 18803 MCHC 34 X10 3 Normal 32 - 36 [facility] Comment on above: Performed By: #### 2 81064 ####[facility],[address] [place] [address] 01769 MCV (RBC) [Entitic vol] 92 fL Normal 81 - 98 [facility] Comment on above: Performed By: #### 2 36359 ####[facility],[address] [place] [address] 83776 [place] # 0.47 x10EE3/UL Normal 0.20 - 1.00 [facility] Comment on above: Performed By: #### 2 68762 ####[facility],[address] [place] [address] 98028 MONOS % 7.9 % Normal 0.0 - 10.0 [facility] Comment on above: Performed By: #### 2 81348 ####[facility],[address] [place] [address] 97163 Morphology Brody (Bld) [Interp] N/A Normal [facility] Comment on above: Performed By: #### 2 09757 ####[facility],[address] [place] [address] 30184 Neut # 3.57 x10EE3/UL Normal 1.50 - 7.10 [facility] Comment on above: Performed By: #### 2 42591 ####[facility],[address] [place] [address] 01771 Neutrophils/100 WBC (Bld) 60.1 % Normal 46.0 - 76.0 [facility] Comment on above: Performed By: #### 2 81548 ####[facility],[address] [place] [address] 24478 PLATELET 193 x10EE3/UL Normal 150 - 450 [facility] Comment on above: Performed By: #### 2 66245 ####[facility],[address] [place] [address] 20008 Platelet mean volume (Bld) [Entitic vol] 7.7 fL Normal 6.4 - 10.5 [facility] Comment on above: Result Comment: AUTO MATED DIFFERENTIAL Performed By: #### 2 17749 ####[facility],[address] [place] [address] RBC 5.11 x 10EE6/UL Normal 4.50 - 6.00 [facility] Comment on above: Performed By: #### 2 66251 ####[facility],[address] [place] [address] WBC 6.0 x 10EE3/UL Normal 4.5 - 10.8 [facility] Comment on above: Performed By: #### 2 78614 ####[facility],[address] [place], [place] [id number] CMP with eGFRon 07-27-2024 AGE 63 years Normal [facility] Comment on above: Performed By: #### 2 17793 ####[facility],[address] [place], [place] [id number] Albumin [Mass/Vol] 3.6 g/dL Normal 3.4 - 5.0 [facility] Comment on above: Performed By: #### 2 23751 ####[facility],[address] [place], [place] [address] Albumin/Globulin [Mass ratio] 1.1 {ratio} Normal 0.9 - 1.6 [facility] Comment on above: Performed By: #### 2 70833 ####[facility],[address] [place] [address] 42093 ALK PHOS 70 U/L Normal 46 - 116 [facility] Comment on above: Performed By: #### 2 59519 ####[facility],[address] [place] [address] 22017 ALT [Catalytic activity/Vol] 58 U/L Normal 16 - 63 [facility] Comment on above: Performed By: #### 2 62922 ####[facility],[address] [place] [address] 73151 Anion gap [Moles/Vol] 10 mmol/L Normal 10 - 20 [facility] Comment on above: Performed By: #### 2 19557 ####[facility],[address] [place] [address] AST [Catalytic activity/Vol] 28 U/L Normal 15 - 37 [facility] Comment on above: Performed By: #### 2 35791 ####[facility],[address] [place], [place] [id number] B/C RATIO 14 ratio Normal 0 - 30 [facility] Comment on above: Performed By: #### 2 24602 ####[facility],[address] [place] [address] 72778 Bilirubin [Mass/Vol] 0.5 mg/dL Normal 0.2 - 1.0 [facility] Comment on above: Performed By: #### 2 73486 ####[facility],[address] [place] [address] 86951 Calcium [Mass/Vol] 8.6 mg/dL Normal 8.5 - 10.1 [facility] Comment on above: Performed By: #### 2 77705 ####[facility],[address] [place] [address] 72126 Chloride [Moles/Vol] 101 mmol/L Normal 98 - 107 [facility] Comment on above: Performed By: #### 2 35741 ####[facility],[address] [place] [address] 18631 CMP with eGFR Normal [facility] Comment on above: Result Comment: COMP REHENSIVE METABOLIC PANEL Performed By: #### 2 12273 ####[facility],[address] [place] [address] 85529 CO2 [Moles/Vol] 31.1 mmol/L Normal 21.0 - 32.0 [facility] Comment on above: Performed By: #### 2 61501 ####[facility],[address] [place] [address] Creatinine [Mass/Vol] 1.04 mg/dL Normal 0.70 - 1.30 [facility] Comment on above: Performed By: #### 2 36733 ####[place] [address] GFR/1.73 sq M.predicted among non-blacks MDRD (S/P/Bld) [Vol rate/Area] mL/min/{1.73_m2} Normal 60 - 999 [facility] Comment on above: Performed By: #### 2 34067 ####[place] [address] Result Comment: ACCO RDING TO THE NATIONAL KIDNEY DISEASE EDUCATION PROGRAM(NKDE), A NORMAL eGFRIS A VALUE GREATER THAN OR EQUAL TO 60 ML/MIN/1.73 SQ METERS.CHRONIC KIDNEY DISEASE: <60mL/MIN/1.73 SQ METERSKIDNEY FAILURE: <15mL/MIN/1.73 SQ METERSTHIS TEST SHOULD ONLY BE USED FOR PATIENTS 18 YEARS OF AGE AND OLDER. Globulin (S) [Mass/Vol] 3.4 g/dL Normal 1.5 - 3.8 [facility] Comment on above: Performed By: #### 2 25145 ####[facility],[address] [place], [place] [id number] Glucose [Mass/Vol] 123 mg/dL High 74 - 106 [facility] Comment on above: Performed By: #### 2 45730 ####[place] [id number] Potassium [Moles/Vol] 3.7 mmol/L Normal 3.5 - 5.1 [facility] Comment on above: Performed By: #### 2 94755 ####[place] [id number] Protein [Mass/Vol] 7.0 g/dL Normal 6.4 - 8.2 [facility] Comment on above: Performed By: #### 2 13305 ####[facility],[address] [place] [address] Sodium [Moles/Vol] 138 mmol/L Normal 136 - 145 [facility] Comment on above: Performed By: #### 2 40977 ####[facility],[address] [place] [address] Urea nitrogen [Mass/Vol] 15 mg/dL Normal 7 - 18 [facility] Comment on above: Performed By: #### 2 47761 ####[facility],[address] [place] [address] CORONAVIRUS (SARS) ANTIGEN T ESTon 07-27-2024 EXTERNAL QC DONE? YES Normal [facility] Comment on above: Performed By: #### 2 75380 ####[facility],[address] [place] [address] INTERNAL CONTROL PASS Normal [facility] Comment on above: Performed By: #### 2 90952 ####[facility],[address] [place] [address] SARS ANTIGEN Negative Normal NORMAL: NEGATIVE [facility] Comment on above: Performed By: #### 2 18583 ####[facility],[address] [place] [address] SEND TO ? NO Normal [facility] Comment on above: Result Comment: SARS -CoV-2THIS TEST IS BEING USED UNDER THE FDA EUA PROCEDURE. THIS ASSAY HAS BEENVALIDATED AT [facility] FOR USE WITH NASAL AND NASOPHARYNGEAL SWABSPECIMENS.INTERPRETIVE DATATEST RESULTS SHOULD ALWAYS BE CONSIDERED IN THE CONTEXT OF CLINICALOBSERVATIONS AND EPIDEMIOLOGICAL DATA IN MAKING FINAL DIAGNOSIS AND PATIENTMANAGEMENT DECISIONS. PATIENT MANAGEMENT SHOULD FOLLOW CURRENT CDC GUIDELINES.THE FERNANDO SARS ANTIGEN ANGELICA DOES NOT DIFFERENTIATE BETWEEN SARS-CoV & SARS-CoV-2.A POSITIVE TEST RESULT INDICATES THE PRESENCE OF SARS-CoV-2 NUCLEOCAPSID PROTEINANTIGEN, AND THE PATIENT IS INFECTED WITH THE VIRUS AND PRESUMED TO BECONTAGIOUS.A NEGATIVE TEST RESULT FOR THIS TEST MEANS THAT SARS-CoV-2 NUCLEOCAPSID PROTEINANTIGEN WAS NOT PRESENT IN THE SPECIMEN ABOVE THE LIMIT OF DETECTION. HOWEVER, ANEGATIVE RESULT DOES NOT RULE OUT COVID-19 AND SHOULD NOT BE USED THE SOLEBASIS FOR TREATMENT OR PATIENT MANAGEMENT DECISIONS. A NEGATIVE RESULT DOES NOTEXCLUDE THE POSSIBILITY OF COVID-19. NEGATIVE RESULTS, FROM PATIENTS WITHSYMPTOM ONSET BEYOND FIVE DAYS, SHOULD BE TREATED PRESUMPTIVE ANDCONFIRMATION WITH A MOLECULAR ASSAY, IF NECESSARY, FOR PATIENT MANAGEMENT, MAYBE PERFORMED.WHEN DIAGNOSTIC TESTING IS NEGATIVE, THE POSSIBLILTY OF A FALSE NEGATIVE RESULTSHOULD BE CONSIDERED IN THE CONTEXT OF A PATIENT'S RECENT EXPOSURES AND THEPRESENCE OF CLINICAL SIGNS AND SYMPTOMS CONSISTENT WITH COVID-19. THEPOSSIBILITY OF A FALSE NEGATIVE RESULT SHOULD ESPECIALLY BE CONSIDERED IF THEPATIENT'S RECENT EXPOSURES OR CLINICAL PRESENTATION INDICATE THAT COVID-19 ISLIKELY, AND DIAGNOSTIC TESTS FOR OTHER CAUSES OF ILLNESS (e.g., OTHERRESPIRATORY ILLNESS) ARE NEGATIVE. IF COVID-19 IS STILL SUSPECTED BASED ONEXPOSURE HISTORY TOGETHER WITH OTHER CLINICAL FINDINGS, RE-TESTING SHOULD BECONSIDERED BY HEALTHCARE PROVIDERS IN CONSULTATION WITH PUBLIC [facility]IES. Performed By: #### 2 05836 ####[facility],[address] [place] [address] CT CHEST (PE PROTOCOL)on CT CHEST (PE PROTOCOL) Normal [facility] CULTURE BLOOD [DANIEL]on Microscopic examination of blood, culture CULTURE BLOOD [DANIEL] _[facility]ANNED REPORT 07/30/[email or web address].COMPLE TE Normal [facility] Comment on above: Performed By: #### 2 98067 ####[facility],[address] [place] [address] Microscopic examination of blood, culture CULTURE BLOOD [DANIEL] _BLOOD CULTURE_ [facility]ANNED REPORT 08/02/[email or web address].COMPLE TE Normal [facility] Comment on above: Performed By: #### 2 15708 ####[facility],[address] [place] [address] 01839 LACTATEon 07-27-2024 Lactate [Moles/Vol] 1.5 mmol/L Normal 0.4 - 2.0 [facility] Comment on above: Performed By: #### 2 30564 ####[facility],[address] [place], [place] [id number] TROPONIN I, HIGH SENSITIVITY on 07-27-2024 HS TROPONIN 12.6 pg/mL Normal 0.0 - 76.2 [facility] Comment on above: Performed By: #### 2 04304 ####[facility],[address] [place] [address] 16546 URINALYSISon 07-27-2024 Bilirubin Ql (U) Negative Normal NORMAL: NEGATIVE [facility] Comment on above: Performed By: #### 2 35768 ####[facility],[address] [place] [address] 81059 Clarity (U) clear Normal NORMAL: CLEAR [facility] Comment on above: Performed By: #### 2 43659 ####[facility],[address] [place] [address] 17607 Color (U) marilynn Normal NORMAL: YELLOW [facility] Comment on above: Performed By: #### 2 47545 ####[facility],[address] [place] [address] 34980 Glucose Ql (U) NORM Normal NORMAL: NORMAL [facility] Comment on above: Performed By: #### 2 16499 ####[facility],[address] [place] [address] 49096 Hemoglobin Ql (U) Negative Normal NORMAL: NEGATIVE [facility] Comment on above: Performed By: #### 2 00860 ####[facility],[address] [place] [address] 15376 Ketone Negative Normal NORMAL: NEGATIVE [facility] Comment on above: Performed By: #### 2 02119 ####[facility],[address] [place] [address] Leukocytes Negative Normal NORMAL: NEGATIVE [facility] Comment on above: Performed By: #### 2 52282 ####[facility],[address] [place], [place] [id number] Nitrite Ql (U) Negative Normal NORMAL: NEGATIVE [facility] Comment on above: Performed By: #### 2 14466 ####[facility],[address] [place] [address] pH (U) 6 [pH] Normal NORMAL: 5.0-8.0 [facility] Comment on above: Performed By: #### 2 87114 ####[facility],[address] [place] [address] Protein Ql (U) 30 Abnormal NORMAL: NEGATIVE [facility] Comment on above: Performed By: #### 2 29334 ####[facility],[address] [place] [address] [place] 1.020 Normal NORMAL: 1.010-1.030 [facility] Comment on above: Performed By: #### 2 53134 ####[facility],[address] [place] [address] Specimen Type UNSPECIFIED Normal [facility] Comment on above: Performed By: #### 2 85872 ####[facility],[address] [place] [address] Urinalysis dipstick W Reflex Microscopic panel (U) NOT INDICATED Normal [facility] Comment on above: Performed By: #### 2 72200 ####[facility],[address] [place] [address] Urobilinog 1 Abnormal NORMAL: NORMAL [facility] Comment on above: Performed By: #### 2 08498 ####[facility],[address] [place] [address] CV ECHO COMPLETEon CV ECHO COMPLETE Normal [facility] T4-FREE (FREE THYROXINE)on 0 05-24-2024 Free T4 [Mass/Vol] 0.82 ng/dL Normal 0.76 - 1.46 [facility] Comment on above: Result Comment: P otential of falsely elevated results when biotin concentrations are > 10ng/mL. Performed By: #### 2 55908 ####[facility],[address] [place] [address] 88546 LIPID PROFILEon 05-13-2024 Cholesterol [Mass/Vol] 215 mg/dL Normal 0 - 240 [facility] Comment on above: Performed By: #### 2 62577 ####[facility],[address] [place] [address] 35162 Cholesterol in HDL [Mass/Vol] 47 mg/dL Normal 40 - 60 [facility] Comment on above: Performed By: #### 2 14212 ####[facility],[address] [place] [address] 66014 Cholesterol in LDL [Mass/Vol] 119 mg/dL Normal 0 - 129 [facility] Comment on above: Performed By: #### 2 25860 ####[facility],[address] [place] [address] 49820 Cholesterol.total/Ch olesterol in HDL [Mass ratio] 4.6 {ratio} Normal 0.0 - 5.0 [facility] Comment on above: Performed By: #### 2 27295 ####[facility],[address] [place] [address] 14741 Lipid 1996 panel Normal [facility] Comment on above: Result Comment: LIPI D PROFILE Performed By: #### 2 73814 ####[facility],[address] [place] [address] 82376 Triglyceride [Mass/Vol] 245 mg/dL High 0 - 150 [facility] Comment on above: Performed By: #### 2 06755 ####[facility],[address] [place] [address] TSHon 05-13-2024 TSH Qn 4.54 m[IU]/L High 0.35 - 3.74 [facility] Comment on above: Performed By: #### 2 93231 ####[facility],[address] [place] [address] CBC + DIFFon 04-29-2024 Baso # 0.02 x10EE3/UL Normal 0.00 - 0.10 [facility] Comment on above: Performed By: #### 2 88772 ####[facility],[address] [place] [address] Basophils/100 WBC (Bld) 0.3 % Normal 0.0 - 2.0 [facility] Comment on above: Performed By: #### 2 07545 ####[facility],[address] [place] [address] CBC + DIFF Normal [facility] Comment on above: Result Comment: CBC- COMPLETE BLOOD COUNT Performed By: #### 2 07403 ####[facility],[address] [place] [address] EO # 0.26 x10EE3/UL Normal 0.00 - 0.50 [facility] Comment on above: Performed By: #### 2 77515 ####[facility],[address] [place] [address] Eosinophils/100 WBC (Bld) 3.2 % Normal 0.0 - 7.0 [facility] Comment on above: Performed By: #### 2 92019 ####[facility],[address] [place] [address] Erythrocyte distribution width (RBC) [Ratio] 13.5 % Normal 12.0 - 15.6 [facility] Comment on above: Performed By: #### 2 25249 ####[facility],[address],[place] [address] Hematocrit (Bld) [Volume fraction] 45.3 % Normal 40.0 - 52.0 [facility] Comment on above: Performed By: #### 2 45534 ####[facility],[address] [place], [place] [id number] Hemoglobin (Bld) [Mass/Vol] 15.0 g/dL Normal 13.0 - 17.5 [facility] Comment on above: Performed By: #### 2 15173 ####[facility],[address] [place] [address] Lymph # 2.37 x10EE3/UL Normal 0.80 - 2.80 [facility] Comment on above: Performed By: #### 2 53987 ####[facility],[address] [place], [place] [id number] Lymphocytes/100 WBC (Bld) 29.1 % Normal 20.0 - 45.0 [facility] Comment on above: Performed By: #### 2 04022 ####[facility],[address] [place], [place] [id number] MANUAL DIFF N/A Normal [facility] Comment on above: Performed By: #### 2 74204 ####[facility],[address] [place], [place] [id number] MCH (RBC) [Entitic mass] 30 pg Normal 27 - 33 [facility] Comment on above: Performed By: #### 2 91806 ####[facility],[address] [place], [place] [id number] MCHC 33 X10 3 Normal 32 - 36 [facility] Comment on above: Performed By: #### 2 34774 ####[facility],[address] [place], [place] [id number] MCV (RBC) [Entitic vol] 92 fL Normal 81 - 98 [facility] Comment on above: Performed By: #### 2 28823 ####[facility],[address],[place] [address] [place] # 0.65 x10EE3/UL Normal 0.20 - 1.00 [facility] Comment on above: Performed By: #### 2 41625 ####[facility],[address] [place] [address] 68516 MONOS % 8.1 % Normal 0.0 - 10.0 [facility] Comment on above: Performed By: #### 2 41867 ####[facility],[address] [place] [address] Morphology Brody (Bld) [Interp] N/A Normal [facility] Comment on above: Performed By: #### 2 70703 ####[place] [address] Neut # 4.82 x10EE3/UL Normal 1.50 - 7.10 [facility] Comment on above: Performed By: #### 2 42973 ####[place] [address] Neutrophils/100 WBC (Bld) 59.4 % Normal 46.0 - 76.0 [facility] Comment on above: Performed By: #### 2 62183 ####[place] [address] PLATELET 218 x10EE3/UL Normal 150 - 450 [facility] Comment on above: Performed By: #### 2 41518 ####[place] [address] Platelet mean volume (Bld) [Entitic vol] 7.7 fL Normal 6.4 - 10.5 [facility] Comment on above: Result Comment: AUTO MATED DIFFERENTIAL Performed By: #### 2 49114 ####[place] [address] RBC 4.94 x 10EE6/UL Normal 4.50 - 6.00 [facility] Comment on above: Performed By: #### 2 03738 ####[facility],[address] [place] [address] 09063 WBC 8.1 x 10EE3/UL Normal 4.5 - 10.8 [facility] Comment on above: Performed By: #### 2 97131 ####[facility],[address] [place] [address] 47920 CMP with eGFRon 04-29-2024 AGE 63 years Normal [facility] Comment on above: Performed By: #### 2 38672 ####[facility],[address] [place] [address] 03669 Albumin [Mass/Vol] 3.5 g/dL Normal 3.4 - 5.0 [facility] Comment on above: Performed By: #### 2 77579 ####[facility],[address] [place] [address] 71830 Albumin/Globulin [Mass ratio] 1.1 {ratio} Normal 0.9 - 1.6 [facility] Comment on above: Performed By: #### 2 57966 ####[facility],[address] [place] [address] 82111 ALK PHOS 68 U/L Normal 46 - 116 [facility] Comment on above: Performed By: #### 2 34582 ####[facility],[address] [place] [address] 69049 ALT [Catalytic activity/Vol] 59 U/L Normal 16 - 63 [facility] Comment on above: Performed By: #### 2 53410 ####[facility],[address] [place] [address] 81559 Anion gap [Moles/Vol] 11 mmol/L Normal 10 - 20 [facility] Comment on above: Performed By: #### 2 49056 ####[facility],[address] [place] [address] 35061 AST [Catalytic activity/Vol] 27 U/L Normal 15 - 37 [facility] Comment on above: Performed By: #### 2 [id number] ####[facility],[address] [place] [address] 15530 B/C RATIO 12 ratio Normal 0 - 30 [facility] Comment on above: Performed By: #### 2 68560 ####[facility],[address] [place] [address] 24401 Bilirubin [Mass/Vol] 0.4 mg/dL Normal 0.2 - 1.0 [facility] Comment on above: Performed By: #### 2 68582 ####[facility],[address] [place] [address] 10709 Calcium [Mass/Vol] 9.5 mg/dL Normal 8.5 - 10.1 [facility] Comment on above: Performed By: #### 2 03972 ####[facility],[address] [place] [address] 07473 Chloride [Moles/Vol] 102 mmol/L Normal 98 - 107 [facility] Comment on above: Performed By: #### 2 53495 ####[facility],[address] [place] [address] 27652 CMP with eGFR Normal [facility] Comment on above: Result Comment: COMP REHENSIVE METABOLIC PANEL Performed By: #### 2 15507 ####[facility],[address] [place] [address] 65472 CO2 [Moles/Vol] 32.3 mmol/L High 21.0 - 32.0 [facility] Comment on above: Performed By: #### 2 35445 ####[facility],[address] [place] [address] 74380 Creatinine [Mass/Vol] 1.15 mg/dL Normal 0.70 - 1.30 [facility] Comment on above: Performed By: #### 2 36906 ####[facility],[address] [place] [address] 23246 GFR/1.73 sq M.predicted among non-blacks MDRD (S/P/Bld) [Vol rate/Area] mL/min/{1.73_m2} Normal 60 - 999 [facility] Comment on above: Performed By: #### 2 95898 ####[facility],[address] [place] [address] 01868 Result Comment: ACCO RDING TO THE NATIONAL KIDNEY DISEASE EDUCATION PROGRAM(NKDE), A NORMAL eGFRIS A VALUE GREATER THAN OR EQUAL TO 60 ML/MIN/1.73 SQ METERS.CHRONIC KIDNEY DISEASE: <60mL/MIN/1.73 SQ METERSKIDNEY FAILURE: <15mL/MIN/1.73 SQ METERSTHIS TEST SHOULD ONLY BE USED FOR PATIENTS 18 YEARS OF AGE AND OLDER. Globulin (S) [Mass/Vol] 3.3 g/dL Normal 1.5 - 3.8 [facility] Comment on above: Performed By: #### 2 96240 ####[facility],[address] [place] [address] 66079 Glucose [Mass/Vol] 122 mg/dL High 74 - 106 [facility] Comment on above: Performed By: #### 2 52795 ####[facility],[address] [place] [address] 87552 Potassium [Moles/Vol] 4.0 mmol/L Normal 3.5 - 5.1 [facility] Comment on above: Performed By: #### 2 46098 ####[facility],[address] [place] [address] 69265 Protein [Mass/Vol] 6.8 g/dL Normal 6.4 - 8.2 [facility] Comment on above: Performed By: #### 2 58909 ####[facility],[address] [place] [address] 08084 Sodium [Moles/Vol] 141 mmol/L Normal 136 - 145 [facility] Comment on above: Performed By: #### 2 38476 ####[facility],[address] [place] [address] 64574 Urea nitrogen [Mass/Vol] 14 mg/dL Normal 7 - 18 [facility] Comment on above: Performed By: #### 2 70656 ####[facility],[address] [place] [address] CT ABDOMEN/PELVIS Won 2023 CT ABDOMEN/PELVIS W Normal [facility] LIPASEon 04-29-2024 Lipase [Catalytic activity/Vol] 29.0 U/L Normal 15.0 - 78.0 [facility] Comment on above: Result Comment: *PLE ASE NOTE THAT RANGES FOR LIPASE HAVE CHANGED OF 10/20/23 DUE TO AN ASSAYUPDATE BY THE HORSE RACE STARTER.THE NEW ASSAY RANGE IS 6-250 U/L, WITH A REFERENCERANGE OF 16-77 U/L. Performed By: #### 2 54073 ####[facility],[address] [place] [address] TROPONIN I, HIGH SENSITIVITY on 04-29-2024 HS TROPONIN 7.8 pg/mL Normal 0.0 - 76.2 [facility] Comment on above: Performed By: #### 2 87601 ####[facility],[address] [place] [address] HS TROPONIN 6.3 pg/mL Normal 0.0 - 76.2 [facility] Comment on above: Performed By: #### 2 36842 ####[facility],[address] [place] [address] URINALYSISon 04-29-2024 Amorphous NONE Normal [facility] Comment on above: Performed By: #### 2 28643 ####[facility],[address] [place] [address] Bacteria NONE Normal [facility] Comment on above: Performed By: #### 2 72789 ####[facility],[address] [place] [address] Bilirubin Ql (U) Negative Normal NORMAL: NEGATIVE [facility] Comment on above: Performed By: #### 2 62930 ####[facility],[address] [place] [address] Casts NONE Normal [facility] Comment on above: Performed By: #### 2 54892 ####[facility],[address] [place] [address] 27980 Clarity (U) clear Normal NORMAL: CLEAR [facility] Comment on above: Performed By: #### 2 56957 ####[facility],[address] [place] [address] 50887 Color (U) yellow Normal NORMAL: YELLOW [facility] Comment on above: Performed By: #### 2 51258 ####[facility],[address] [place] [address],[facility] [address] Crystals LM Nom (Urine sed) NONE Normal [facility] Comment on above: Performed By: #### 2 71492 ####[facility],[address] [place] [address] 59772 Epi Cells NONE Normal [facility] Comment on above: Performed By: #### 2 14403 ####[facility],[address] [place] [address] 24041 Glucose Ql (U) NORM Normal NORMAL: NORMAL [facility] Comment on above: Performed By: #### 2 87766 ####[facility],[address] [place] [address] 89987 Hemoglobin Ql (U) Negative Normal NORMAL: NEGATIVE [facility] Comment on above: Performed By: #### 2 23012 ####[facility],[address] [place] [address] 89927 Ketone Negative Normal NORMAL: NEGATIVE [facility] Comment on above: Performed By: #### 2 66500 ####[facility],[address] [place] [address] 22283 Leukocytes Negative Normal NORMAL: NEGATIVE [facility] Comment on above: Performed By: #### 2 71862 ####[facility],[address] [place] [address] 26165 Mucous NONE Normal [facility] Comment on above: Performed By: #### 2 35351 ####[facility],[address] [place] [address] Nitrite Ql (U) Negative Normal NORMAL: NEGATIVE [facility] Comment on above: Performed By: #### 2 04725 ####[facility],[address] [place] [address] pH (U) 6 [pH] Normal NORMAL: 5.0-8.0 [facility] Comment on above: Performed By: #### 2 69407 ####[facility],[address] [place] [address] Protein Ql (U) 15 Abnormal NORMAL: NEGATIVE [facility] Comment on above: Performed By: #### 2 05674 ####[facility],[address] [place] [address] Rbc NONE Normal 0-3/hpf [facility] Comment on above: Performed By: #### 2 16422 ####[facility],[address] [place] [address] Sp [place] 1.025 Normal NORMAL: 1.010-1.030 [facility] Comment on above: Performed By: #### 2 22980 ####[facility],[address] [place] [address] Specimen Type Clean catch Normal [facility] Comment on above: Performed By: #### 2 10957 ####[facility],[address] [place] [address] Urinalysis dipstick W Reflex Microscopic panel (U) SEE BELOW Normal [facility] Comment on above: Result Comment: MICR OSCOPIC Performed By: #### 2 67235 ####[facility],[address] [place] [address] Urobilinog 1 Abnormal NORMAL: NORMAL [facility] Comment on above: Performed By: #### 2 05029 ####[facility],[address] [place] [address] Wbc 1-5 Normal 0-5/hpf [facility] Comment on above: Performed By: #### 2 09681 ####[facility],[address] [place] [address] 11602 Yeast NONE Normal [facility] Comment on above: Performed By: #### 2 02713 ####[facility],[address] [place] [address] 32310 ALBon 09-05-2023 Albumin Level 3.9 G/dL Normal 3.2-4.8 [facility] Comment on above: Performed By: #### A LB #### [facility] [address] [place] [address] Vital Signs Date Time Vital Sign Value Performing Clinician Daijai melonie 08-13-2024 10:50-0400 Body height 182.9 cm Fabi Jovel MD Work Phone: [facility] 08-13-2024 10:50-0400 Body mass index (BMI) [Ratio] 41.77 kg/m2 Fabi Jovel MD Work Phone: [facility] 08-13-2024 10:50-0400 Body weight 139.71 kg Fabi Jovel MD Work Phone: [facility] 08-13-2024 10:50-0400 Diastolic blood pressure 94 mm[Hg] Fabi Jovel MD Work Phone: [facility] 08-13-2024 10:50-0400 Heart rate 88 /min Fabi Jovel MD Work Phone: [facility] 08-13-2024 10:50-0400 SaO2% (BldA) [Mass fraction] 89 % Fabi Jovel MD Work Phone: [facility] 08-13-2024 10:50-0400 Systolic blood pressure 126 mm[Hg] Fabi Jovel MD Work Phone: [facility] 08-13-2024 10:31-0400 Body height 179.3 cm Pulm Wstr Work Phone: [facility] 08-13-2024 10:31-0400 Body mass index (BMI) [Ratio] 43.46 kg/m2 Pulm Wstr Work Phone: [facility] 08-13-2024 10:31-0400 Body weight 139.71 kg Pulm Wstr Work Phone: [facility] 08-13-2024 10:31-0400 Heart rate 86 /min Pulm Wstr Work Phone: [facility] 08-13-2024 10:31-0400 Respiratory rate 16 /min Pulm Wstr Work Phone: [facility] 08-13-2024 10:31-0400 SaO2% (BldA) [Mass fraction] 95 % Pulm Wstr Work Phone: [facility] Encounters Encounter Date Encounter Type Care Provider Facility Start: 03-22-2025 End: 03-22-2025 Emergency department patient visit PILAR ALMODOVAR [facility] Start: 03-18-2025 ambulatory PILAR ALMODOVAR [facility] Start: 02-27-2025 End: 02-27-2025 ambulatory PILAR ALMODOVAR [facility] Start: 02-18-2025 End: 02-18-2025 ambulatory PILAR ALMODOVAR [facility] Start: 01-22-2025 End: 01-22-2025 ambulatory LEANNA FINK [facility] Start: 01-21-2025 End: 01-21-2025 Emergency department patient visit PILAR ALMODOVAR [facility] Start: 12-26-2024 End: 12-27-2024 ambulatory PILAR ALMODOVAR [facility] Start: 12-10-2024 End: 12-10-2024 Patient encounter procedure [facility] Work Phone: [facility] Start: 12-10-2024 End: 12-10-2024 ambulatory [facility] Work Phone: [facility] Comment on above: Spirometry Start: 12-10-2024 End: 12-10-2024 Office outpatient visit 15 minutes Lou M Nathaly COHEN Work Phone: Pulmonary Medicine Comment on above: Hypoxia (Primary Dx) ; Chronic obstructive pulmonary disease, unspecified COPD type (HCC); Pulmonary emphysema, unspecified emphysema type (HCC); Cigarette smoker Start: 12-06-2024 End: 12-06-2024 Telephone encounter Fabi Jovel MD Work Phone: Pulmonary Medicine Start: 11-29-2024 End: 11-30-2024 Emergency department patient visit PILAR ALMODOVAR [facility] Start: 11-28-2024 End: 11-29-2024 ambulatory PILAR ALMODOVAR [facility] Start: 11-16-2024 End: 11-16-2024 Emergency department patient visit PILAR ALMODOVAR [facility] Start: 11-04-2024 End: 11-04-2024 ambulatory Fabi Jovel MD Work Phone: Pulmonary Medicine Comment on above: Received Outside Med ical Records Start: 10-22-2024 [facility] Start: 10-22-2024 End: 10-22-2024 ambulatory [facility] Facility:[facility] Start: 10-01-2024 End: 10-01-2024 ambulatory [facility] Facility:[facility] Start: 09-14-2024 End: 09-14-2024 Emergency department patient visit [facility] Facility:[facility] Start: 09-11-2024 End: 09-11-2024 Emergency department patient visit [facility] Facility:[facility] Start: 09-09-2024 End: 09-09-2024 Emergency department patient visit RITA DA SILVA [facility] Start: 09-04-2024 End: 09-04-2024 Emergency department patient visit PILAR ALMODOVAR [facility] Start: 08-19-2024 End: 08-19-2024 ambulatory PILAR ALMODOVAR [facility] Start: 08-13-2024 End: 08-13-2024 Patient encounter procedure [facility] Work Phone: [facility] Comment on above: Chronic obstructive pulmonary disease, unspecified COPD type (HCC) (Primary Dx); Cigarette smoker; Lung nodule; Morbid obesity (HCC) Start: 08-13-2024 End: 08-13-2024 ambulatory [facility] Work Phone: [facility] Comment on above: Spirometry Start: 08-13-2024 End: 08-13-2024 Subsequent hospital visit by physician [facility] Work Phone: Radiology Comment on above: Dyspnea, unspecified type [R06.00] Start: 07-27-2024 End: 07-27-2024 Emergency department patient visit PILAR ALMODOVAR [facility] Start: 07-24-2024 End: 07-24-2024 ambulatory PILAR ALMODOVAR [facility] Start: 07-16-2024 End: 07-16-2024 ambulatory PILAR ALMODOVAR [facility] Start: 05-24-2024 End: 05-24-2024 ambulatory PILAR ALMODOVAR [facility] Start: 05-13-2024 End: 05-13-2024 ambulatory PILAR ALMODOVAR [facility] Start: 05-13-2024 End: 05-13-2024 Encounter for general adult medical examination without abnormal findings PILAR ALMODOVAR [facility] Start: 04-29-2024 End: 04-30-2024 Emergency department patient visit PILAR ALMODOVAR [facility] Procedures Date Procedure Procedure Detail Performing Clinician Start: 03-22-2025 Urinalysis PILAR SHIPLEY Comment on above: Result Comment: URIN ALYSIS Performed By: #### 2 [id number] ####[facility],[address] [place] [address] 90793 Start: 12-10-2024 Noninvasive ear/puls e oximetry multiple deter Fabi Jovel MD Work Phone: Start: 11-16-2024 Urinalysis PILAR SHIPLEY Comment on above: Result Comment: URIN ALYSIS Performed By: #### 2 [id number] ####[place] [id number] Start: 08-13-2024 Brncdilat rspse spmt ry pre&post-brncdilat admn Fabi Jovel MD Work Phone: Start: 07-27-2024 Urinalysis PILAR SHIPLEY Comment on above: Result Comment: URIN ALYSIS Performed By: #### 2 [id number] ####[place] [address] Start: 04-29-2024 Urinalysis PILAR SHIPLEY Comment on above: Result Comment: URIN ALYSIS Performed By: #### 2 [id number] ####[place] [address] Plan of Treatment Date Care Activity Detail Author Start: 12-07-2027 Urine microalbumin profile DTaP,Tdap,Td Vaccine (2 - Td or Tdap) [facility] Start: 06-10-2025 End: 06-10-2025 Patient encounter procedure 06/10/2025 11:30 AM EDT Office Visit Pulmonary Medicine [address] [place] [address] Lou Dave APRN.[employer]ER[employer]ECTIVE [address] [place] [address] 6 MTH F/U Pulmonary Medicine Comment on above: 6 MTH F/U Start: 12-17-2024 End: 12-17-2024 Patient encounter procedure 12/17/2024 11:00 AM EST Office Visit Pulmonary Medicine [address] [place] [address] Lou Dave APRN.SHERIFFS DETECTIVE [address] [place] [address] 4 MTH F/U [facility] Medicine Comment on above: 4 MTH F/U Start: 06-23-2024 Covid-19 Vaccine ( season) Covid-19 Vaccine ( season) [facility] Start: 06-23-2024 Influenza vaccination Influenza Vacc ine (#1) [facility] Start: 2020 RSV Vaccine (1 - Ris k 60-74 years 1-dose series) RSV Vaccine (1 - Risk 60-74 years 1-dose series) [facility] Start: 2015 Prostate specific antigen measurement Prostate Cancer Screening Discussion [facility] Start: 2010 Screening for malign ant neoplasm of lung Lung Cancer Screening [facility] Start: 2010 Shingrix Vaccine (1 of 2) Shingrix Vaccine (1 of 2) [facility] Start: 2005 Diabetes Screening Diabetes Screenin g [facility] Start: 2005 Screening for malign ant neoplasm of colon [facility] Start: 1995 Lipid panel Lipid Screening 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 Disease Visit Annual PCP Team Chronic Disease Visit [facility] Start: 1978 Anxiety Screening Anxiety Screening [facility] Start: 1978 Depression Screening Depression Scre ening [facility] Start: 1978 Hepatitis C screening Hepatitis C Sc reening [facility] Start: 1978 HIV screening HIV Screening [facility] Start: 1966 Pneumococcal vaccination Pneumococcal Vaccine (1 of 2 - PCV) [facility] OXIMETRY - NOCTURNAL OXIMETRY - NOCTURNAL Procedures Routine Hypoxia Ordered: 12/10/2024 [facility] Work Phone: Comment on above: Ordered: 12/10/2024 End: 01-05-2026 OXIMETRY WITH AMBULATION OXIMETRY WITH AMBULATION PFT Routine Chronic obstructive pulmonary disease, unspecified COPD type (HCC) 1 Occurrences starting 12/06/2024 until 01/05/2026 [facility] Work Phone: Comment on above: 1 Occurrences starti ng 12/06/2024 until 01/05/2026 SPIROMETRY WITH DILA TOR IF OBSTRUCTED SPIROMETRY WITH DILATOR IF OBSTRUCTED PFT Routine Dyspnea, unspecified type 08/13/2024 10:17 AM EDT [facility] Work Phone: XR Chest PA and Lateral XR CHEST 2V FRONTAL/LAT Radiology Routine Dyspnea, unspecified type 08/13/2024 10:08 AM EDT [facility] Work Phone: Payers Date Payer Category Payer Self-pay 2024 Medicaid [id number] 2024 Unknown [id number] 1960 Unknown [id number] 2.16.8 40.1.636167.3.579.2.651 1960 Unknown [id number] 2.16.8 40.1.902473.3.579.2.651 1960 Unknown [id number] 2.16.8 40.1.639654.3.579.2.651 1960 Unknown [id number] 2.16.8 40.1.950658.3.579.2.651 1960 Unknown [id number] 2.16.8 40.1.565606.3.579.2.651 1960 Unknown [id number] 2.16.8 40.1.970348.3.579.2.651 1960 Unknown [id number] 2.16.8 40.1.222145.3.579.2.651 1960 Unknown [id number] 2.16.8 40.1.241957.3.579.2.651 1960 Unknown [id number] 2.16.8 40.1.930608.3.579.2.651 1960 Unknown [id number] 2.16.8 40.1.957375.3.579.2.651 1960 Unknown [id number] 2.16.8 40.1.739883.3.579.2.651 1960 Unknown [id number] 2.16.8 40.1.366793.3.579.2.651 1960 Unknown [id number] 2.16.8 40.1.119157.3.579.2.651 1960 Unknown [id number] 2.16.8 40.1.203675.3.579.2.651 1960 Unknown [id number] 2.16.8 40.1.640730.3.579.2.651 1960 Unknown [id number] 2.16.8 40.1.294231.3.579.2.651 1960 Unknown [id number] 2.16.8 40.1.156775.3.579.2.651 1960 Unknown [id number] 2.16.8 40.1.244604.3.579.2.651 1960 Unknown [id number] 2.16.8 40.1.138697.3.579.2.651 Unknown [id number] 2.16.8 40.1.347310.3.579.2.462 Unknown [id number] 2.16.8 40.1.220967.3.579.2.462 Unknown [id number] 2.16.8 40.1.693002.3.579.2.462 Unknown [id number] 2.16.8 40.1.928505.3.579.2.462 Unknown [id number] 2.16.8 40.1.868267.3.579.2.462 Social History Date Type Detail Facility Start[facility] Start: 10-23-1976 History of tobacco use Cigarette Smo ker [facility] Start: 08-13-2024 End: 12-10-2024 Cigarettes smoked current (pack per day) - Reported 1 [facility] Start: 08-13-2024 Tobacco use and exposure Smoke less tobacco non-user [facility] Start: 08-13-2024 End: 12-10-2024 Alcoholic beverage intake Lifetime non-drinker (finding) [facility] Start: 08-13-2024 End: 12-10-2024 Tobacco use panel [facility] National Score (1-10 0), lower number is lower risk 80 [facility] Start: 1960 Sex assigned at Not on file C [facility] Clinical Notes 11-14-2023 to 03-26-2025 Patient InstructionsPetJusten johnson, RPFT - 12/10/2024 1:27 PM ESTPetushChristyJusten, RPFT - 12/10/2024 1:27 PM ESTPetush, Justen, RPFT - 12/10/2024 1:12 PM EST Note Date & Type Note Facility 03-26-2025 Note . MICRO - Microbiology PROCEDURE: Stool Culture [^1 *1] SOURCE: Stool BODY SITE: COLLECTED DATE/TIME: 03/22/2025 15:00 EDT RECEIVED DATE/TIME: 03/23/2025 13:26 EDT START DATE/TIME: 03/23/2025 13:27 EDT FREE TEXT SOURCE: FINAL REPORTS Final Report [] Verified Date/Time/Personnel: 03/26/2025 08:50 EDT Normal stool tomy present. Salmonella: Negative Shigella: Negative Campylobacter: Negative PRELIMINARY REPORTS Preliminary Report [] Verified Date/Time/Personnel: 03/25/2025 09:54 EDT Normal stool tomy present. Negative for stool pathogens at 48 hours. Final report to follow. Interpretive Data ^1: Culture Stool Requests for alternative pathogens including Yersinia, E. coli 0157, C. difficile toxin, Rotavirus, Giardia and parasites require specific requests. Performing Locations *1: This test was performed at: [facility], [address] [place] [address], [id number] , [facility] 03-24-2025 Note . MICRO - Microbiology PROCEDURE: Shiga Toxins 1 and 2 [[id number]: [id number] ^1 *1] SOURCE: Stool BODY SITE: COLLECTED DATE/TIME: 03/23/2025 13:27 EDT RECEIVED DATE/TIME: 03/23/2025 13:27 EDT START DATE/TIME: 03/23/2025 13:27 EDT FREE TEXT SOURCE: FINAL REPORTS Final Report [] Verified Date/Time/Personnel: 03/24/2025 14:30 EDT Absence of Shiga toxin 1 Absence of Shiga toxin 2 Order Comments O1: Shiga Toxins 1 and 2 ordered by lab as part of Culture Stool Panel Interpretive Data ^1: Shiga Toxins 1 and 2 Testing performed by immunochromatography. Performing Locations *1: This test was performed at: [facility], [address] [place] [address], [facility] , [facility] 12-10-2024 Instructions Lou Dave APRN.CNP - 12/10/2024 1:59 PM EST Take your Lasix prescription in the morning. Continue your current inhalers with Advair and Spiriva. Complete your sleep study. You will have an overnight oxygen test to see if you also need oxygen overnight. [facility] will supply the machine to test and send me a report. I will let you know what it shows. Our test today do not show the need for oxygen during the day with activity. documented in this encounter [facility] 12-10-2024 Note HNO ID: [id number] Author: JUSTEN ROMAN RPFT Service: ? Author Type: Respiratory Therapist Type: Procedures Filed: 12/10/2024 13:28 Note Text: RESPIRATORY THERAPY OXIMETRY WITH AMBULATION Oximetry with Ambulation Test for This Encounter O2 Device O2 Adapter NC O2 Flow SpO2% HR Activity Ft Walked (ft) Time (min) Avg Speed (MPH) R/A 97 82 Resting R/A 95 120 Walking, usual pace 540 3 2.05 R/A 96 124 Walking, fastest pace 700 3 2.65 General Information Pulse Oximetry Site Total Time Spent Walking Assistance/O2 Supply Carrier Forehead 30 None NAME: Justen DUONG Roman PATIENT NAME: Quique Denny DATE: December 10, 2024 TIME: 1:28 PM Comment: [facility] 12-10-2024 Procedure note Associated Ord er(s): OXIMETRY WITH AMBULATION RESPIRATORY THERAPY OXIMETRY WITH AMBULATION Oximetry with Ambulation Test for This Encounter O2 Device O2 Adapter NC O2 Flow SpO2% HR Activity Ft Walked (ft) Time (min) Avg Speed (MPH) R/A 97 82 Resting R/A 95 120 Walking, usual pace 540 3 2.05 R/A 96 124 Walking, fastest pace 700 3 2.65 General Information Pulse Oximetry Site Total Time Spent Walking Assistance/O2 Supply Carrier Forehead 30 None NAME: Justen DUONG Roman PATIENT NAME: Quique Denny DATE: December 10, 2024 TIME: 1:28 PM Comment: [facility] 12-10-2024 Procedure note Associated Ord er(s): OXIMETRY WITH AMBULATION RESPIRATORY THERAPY OXIMETRY WITH AMBULATION Oximetry with Ambulation Test for This Encounter O2 Device O2 Adapter NC O2 Flow SpO2% HR Activity Ft Walked (ft) Time (min) Avg Speed (MPH) R/A 97 82 Resting R/A 95 120 Walking, usual pace 540 3 2.05 R/A 96 124 Walking, fastest pace 700 3 2.65 General Information Pulse Oximetry Site Total Time Spent Walking Assistance/O2 Supply Carrier Forehead 30 None NAME: DUONG Heart PATIENT NAME: Quique Denny DATE: December 10, 2024 TIME: 1:28 PM Comment: documented in this encounter [facility] 12-10-2024 Note HNO ID: [id number] Author: JUSTEN ROMAN RPFT Service: ? Author Type: Respiratory Therapist Type: Progress Notes Filed: 12/10/2024 13:28 Note Text: PULM FUNCTION: Provider: Fabi Jovel MD Assisting Tech: Justen Roman RPFT Oximetry - Ambulation: 1 [facility] 12-10-2024 History of Presen t illness Narrative PULM FUNCTION: Provider: Fabi Jovel MD Assisting Tech: Justen Roman RPFT Oximetry - Ambulation: 1 documented in this encounter [facility] 12-10-2024 Note HNO ID: [id number] Author: LOU DAVE APRN.SHERIFFS DETECTIVE Service: ? Author Type: Nurse Practitioner Type: Progress Notes Filed: 12/10/2024 17:41 Note Text: Pulmonary Medicine Patients name: Quique Denny PCP: Pilar Morataya MD CC: oxygen testing and follow-up HPI: Quique Denny is a 63 year old male current 14-ficx-dmsz smoker with PMH significant for COPD, PAD, AAA, obesity, and HTN. He presents today for follow-up and request for oxygen testing for portable oxygen. Current therapy with Advair, Spiriva and PRN Albuterol. New to Dr. Jovel 08/13/2024 for COPD. PFT with midflow obstruction but he had used Advair prior to testing which may have impacted results. Advair and Spiriva doses increased d/t symptoms of cough, wheezing and exertional dyspnea. Recommended sleep study which is scheduled for 12/12. Following his visit, a chest CT report was sent from [facility] which revealed Emphysema and a calcified granuloma. Reportedly prescribed oxygen by PCP for hypoxia but he does not recall why. Has oxygen tanks but is requesting portable concentrator. Today, he reports he was prescribed Chantix by his PCP and is down to 1 pack of cigarettes a week. Breathing symptoms have significant improved. Currently has an occasional cough with white phelgm. No hemoptysis. No wheezing. No dyspnea at rest. Exertional dyspnea with stairs or heavy activity which is much improved. No fevers, chills, or night sweats. No unintended weight loss. Currently on Trulicity for diabetes and has lost 5lbs. DME: Susan PAST MEDICAL HISTORY Diagnosis Date AAA (abdominal aortic aneurysm) ([facility]) COPD (chronic obstructive pulmonary disease) ([facility]) Morbid obesity (HCC) VANDANA (obstructive sleep apnea) PAD (peripheral artery disease) ([facility]) Allergies: No Known Allergies Medication List Accurate as of December 10, 2024 12:45 PM. If you have any questions, ask your nurse or doctor. CONTINUE taking these medications * albuterol HFA 90 mcg/actuation inhaler Commonly known as: PROVENTIL HFA, VENTOLIN HFA * albuterol 2.5 mg /3 mL (0.083 %) nebulizer solution Commonly known as: PROVENTIL COMP-AIR NEBULIZER COMPRESSOR Generic drug: Nebulizer and Compressor For Neb dicyclomine 20 mg tablet Commonly known as: BENTYL fluticasone-salmeterol 250-50 mcg/dose inhaler Commonly known as: ADVAIR DISKUS Inhale 1 Puff as instructed two times a day. RINSE AND GARGLE MOUTH WITH WATER AFTER EACH USE. gabapentin 300 mg capsule Commonly known as: NEURONTIN magnesium oxide 400 mg (241.3 mg magnesium) tablet Commonly known as: MAG-OX meloxicam 7.5 mg tablet Commonly known as: MOBIC Naproxen SR 500 mg EC tablet Commonly known as: EC-NAPROSYN ondansetron orally disintegrating 4 mg disintegrating tablet Commonly known as: ZOFRAN ODT pantoprazole DR 40 mg tablet Commonly known as: PROTONIX SPIRIVA RESPIMAT 2.5 mcg/actuation inhaler Generic drug: tiotropium bromide Inhale 2 Puffs as instructed once daily. tamsulosin 0.4 mg Commonly known as: FLOMAX TUSSIN DM MAX ORAL * This list has 2 medication(s) that are the same as other medications prescribed for you. Read the directions carefully, and ask your doctor or other care provider to review them with you. DATA: I personally reviewed and analyzed all labs, radiographs and available pulmonary function testing Oximetry with ambulation: 12/10/2024 PFT: 07/2024 Spirometry notable for obstruction of midflows. No improvement with bronchodilator. Patient took Advair prior to testing which may affect the results. CXR: Last XR Chest - Impression Only XR CHEST 2V FRONTAL/LAT Exam End: 08/13/2024 10:08 AM (Final result) Impression: IMPRESSION: Minimal linear atelectasis or fibrosis at the left base Medical Psychotherapist: UZIEL Transcribe Date/Time: Aug 14 2024 3:09P ... CT Chest: 07/2024 at O[facility] Review of Systems Constitutional: Negative for activity change, appetite change, fever and unexpected weight change. HENT: Negative for congestion, mouth sores, postnasal drip, sinus pressure and sinus pain. Respiratory: Positive for cough and shortness of breath. Negative for chest tightness and wheezing. Cardiovascular: Negative for chest pain, palpitations and leg swelling. Neurological: Negative for dizziness, light-headedness and headaches. BP (P) 130/80 Pulse (P) 100 Resp (P) 17 Wt (!) (P) 140.6 kg (310 lb) SpO2 (P) 91% BMI (P) 42.04 kg/m? Physical Exam Vitals reviewed. Constitutional: General: He is not in acute distress. Appearance: Normal appearance. He is obese. He is not ill-appearing. HENT: Head: Normocephalic. Nose: No rhinorrhea. Mouth/Throat: Mouth: Mucous membranes are moist. Pharynx: No oropharyngeal exudate. Cardiovascular: Rate and Rhythm: Normal rate and regular rhythm. Heart sounds: Normal heart sounds. Pulmonary: Effort: Pulmonary effort is normal. No respiratory distress. Breath sound (more content not included)... [facility] 12-10-2024 History of Presen t illness Narrative Images from the original note were not included. Pulmonary Medicine Patients name: Quique Denny PCP: Pilar Morataya MD CC: oxygen testing and follow-up HPI: Quique Denny is a 63 year old male current 35-hdsn-qvpj smoker with PMH significant for COPD, PAD, AAA, obesity, and HTN. He presents today for follow-up and request for oxygen testing for portable oxygen. Current therapy with Advair, Spiriva and PRN Albuterol. New to Dr. Jovel 08/13/2024 for COPD. PFT with midflow obstruction but he had used Advair prior to testing which may have impacted results. Advair and Spiriva doses increased d/t symptoms of cough, wheezing and exertional dyspnea. Recommended sleep study which is scheduled for 2/20. Following his visit, a chest CT report was sent from [facility] which revealed Emphysema and a calcified granuloma. Reportedly prescribed oxygen by PCP for hypoxia but he does not recall why. Has oxygen tanks but is requesting portable concentrator. Today, he reports he was prescribed Chantix by his PCP and is down to 1 pack of cigarettes a week. Breathing symptoms have significant improved. Currently has an occasional cough with white phelgm. No hemoptysis. No wheezing. No dyspnea at rest. Exertional dyspnea with stairs or heavy activity which is much improved. No fevers, chills, or night sweats. No unintended weight loss. Currently on Trulicity for diabetes and has lost 5lbs. DME: Susan PAST MEDICAL HISTORY Diagnosis Date AAA (abdominal aortic aneurysm) ([facility]) COPD (chronic obstructive pulmonary disease) ([facility]) Morbid obesity ([facility]) VANDANA (obstructive sleep apnea) PAD (peripheral artery disease) ([facility]) Allergies: No Known Allergies Medication List Accurate as of December 10, 2024 12:45 PM. If you have any questions, ask your nurse or doctor. CONTINUE taking these medications * albuterol HFA 90 mcg/actuation inhaler Commonly known as: PROVENTIL HFA, VENTOLIN HFA * albuterol 2.5 mg /3 mL (0.083 %) nebulizer solution Commonly known as: PROVENTIL COMP-AIR NEBULIZER COMPRESSOR Generic drug: Nebulizer and Compressor For Neb dicyclomine 20 mg tablet Commonly known as: BENTYL fluticasone-salmeterol 250-50 mcg/dose inhaler Commonly known as: ADVAIR DISKUS Inhale 1 Puff as instructed two times a day. RINSE AND GARGLE MOUTH WITH WATER AFTER EACH USE. gabapentin 300 mg capsule Commonly known as: NEURONTIN magnesium oxide 400 mg (241.3 mg magnesium) tablet Commonly known as: MAG-OX meloxicam 7.5 mg tablet Commonly known as: MOBIC Naproxen SR 500 mg EC tablet Commonly known as: EC-NAPROSYN ondansetron orally disintegrating 4 mg disintegrating tablet Commonly known as: ZOFRAN ODT pantoprazole DR 40 mg tablet Commonly known as: PROTONIX SPIRIVA RESPIMAT 2.5 mcg/actuation inhaler Generic drug: tiotropium bromide Inhale 2 Puffs as instructed once daily. tamsulosin 0.4 mg Commonly known as: FLOMAX TUSSIN DM MAX ORAL * This list has 2 medication(s) that are the same as other medications prescribed for you. Read the directions carefully, and ask your doctor or other care provider to review them with you. DATA: I personally reviewed and analyzed all labs, radiographs and available pulmonary function testing Oximetry with ambulation: 12/10/2024 PFT: 07/2024 Spirometry notable for obstruction of midflows. No improvement with bronchodilator. Patient took Advair prior to testing which may affect the results. CXR: Last XR Chest - Impression Only XR CHEST 2V FRONTAL/LAT Exam End: 08/13/2024 10:08 AM (Final result) Impression: IMPRESSION: Minimal linear atelectasis or fibrosis at the left base Medical Psychotherapist: UZIEL Transcribe Date/Time: Aug 14 2024 3:09P ... CT Chest: 07/2024 at OSH Review of Systems Constitutional: Negative for activity change, appetite change, fever and unexpected weight change. HENT: Negative for congestion, mouth sores, postnasal drip, sinus pressure and sinus pain. Respiratory: Positive for cough and shortness of breath. Negative for chest tightness and wheezing. Cardiovascular: Negative for chest pain, palpitations and leg swelling. Neurological: Negative for dizziness, light-headedness and headaches. BP (P) 130/80 Pulse (P) 100 Resp (P) 17 Wt (!) (P) 140.6 kg (310 lb) SpO2 (P) 91% BMI (P) 42.04 kg/m Physical Exam Vitals reviewed. Constitutional: General: He is not in acute distress. Appearance: Normal appearance. He is obese. He is not ill-appearing. HENT: Head: Normocephalic. Nose: No rhinorrhea. Mouth/Throat: Mouth: Mucous membranes are moist. Pharynx: No oropharyngeal exudate. Cardiovascular: Rate and Rhythm: Normal rate and regular rhythm. Heart sounds: Normal heart sounds. Pulmonary: Effort: Pulmonary effort is normal. No respiratory distress. Breath sounds: No wheezing or rhonchi. Musculoskeletal: Right lower leg: Edema present. Left lower leg: Edema present. Comments: 1-2+ LE edema Lymphadenopathy: Cervical: No cervical adenopathy. Skin: General: Skin is warm and dry. Capillary Refill: Capillary refill takes less than 2 seconds. Neurological: General: No focal deficit present. Mental Status: He is alert. ASSESSMENT/PLAN: 1. Hypoxia - ICD9: 799.02, ICD10: R09.02 (primary diagnosis) - testing today with stable SPO2. Does not qualify for oxygen. - Oximetry testing at night. - OXIMETRY - NOCTURNAL 2. Chronic obstructive pulmonary disease, unspecified COPD type (HCC) - ICD9: 496, ICD10: J44.9 3. Pulmonary emphysema, unspecified emphysema type (HCC) - ICD9: 492.8, ICD10: J43.9 - significant improvement in symptoms with adjustment in triple therapy and cutting back on smoking. - Continue Advair and Spiriva. - Albuterol as needed 4. Cigarette smoker - ICD9: 305.1, ICD10: F17.210 - Cessation encouraged is paramount. Down to 1 pack per week. - continue Chantix prescribed by PCP. - Counseling was given focusing on the harmful effects of this addiction especially given the patient's medical condition(s) which will be worsened because of the chemicals in tobacco. - will refer for LCS but not due until 07/2025. [address] order at 6 month follow-up. F/u 6 months Portions of this documentation were copied and pasted from previous office visit notes in order to provide a cohesive continuity of the history. The note has been reviewed and edited and updated as necessary. Lou Dave APRN.SOM I spent a total of 22 minutes on the date of the service which included preparing to see the patient, [id number] patient care, completing clinical documentation, performing a medically appropriate examination, counseling and educating the patient/family/caregiver, and ordering medications, tests, or procedures. documented in this encounter [facility] 12-06-2024 Telephone encounter Note Orders placed. I'm happy to see him. [facility] 12-06-2024 Miscellaneous Notes Orders placed. I'm happy to see him. Patient calling and states he would like a POC for using outside of the home. Currently has O2 he uses PRN at home through [employer] that was ordered by PCP. PCPs office has directed patient to us for POC order. I advised the patient we do not have qualifying data and he would need to complete oximetry testing and have a face to face with provider for insurance to cover. He is agreeable to testing and visit. Julia Burris LPN documented in this encounter [facility] 12-06-2024 Telephone encounter Note Patient calling and states he would like a POC for using outside of the home. Currently has O2 he uses PRN at home through [employer] that was ordered by PCP. PCPs office has directed patient to us for POC order. I advised the patient we do not have qualifying data and he would need to complete oximetry testing and have a face to face with provider for insurance to cover. He is agreeable to testing and visit. Julia Burris LPN [facility] 11-04-2024 Note HNO ID: [id number] Author: FABI JOVEL MD Service: ? Author Type: Physician Type: Progress Notes Filed: 11/04/2024 05:25 Note Text: Received report of chest CT 07/2024 from [facility]. Emphysema and calcified granuloma. Will Refer for lung cancer screening but not due until this July. [facility] 11-04-2024 History of Presen t illness Narrative Received report of chest CT 07/2024 from [facility]. Emphysema and calcified granuloma. Will Refer for lung cancer screening but not due until this July. documented in this encounter [facility] 09-13-2024 Note HNO ID: [id number] Author: FABI JOVEL MD Service: ? Author Type: Physician Type: Progress Notes Filed: 09/13/2024 08:22 Note Text: Outside PFT 10/2023: FVC 3.15 L 67% FEV1 2.46 L 69% FEV1/FVC 102% Marked improvement post bronchodilator TLC 4.48 L 61% RV 0.79 L 32% RV/TLC 51% DLCO 28.12 100% DLCO/VA 101% [facility] 08-13-2024 History of Presen t illness Narrative Images from the original note were not included. . Respiratory [place] Note Patient name: Quique Denny PCP: Pilar Morataya MD Referring Physician: same Consultation requested by Dr. Morataya for an opinion regarding COPD. My final recommendations will be communicated back to the requesting physician by way of shared Medical record or letter to requesting physician via US mail. CC: COPD HPI: Quique Denny 63 year old male current 50-smrg-aoqw smoker with PMH significant for COPD, PAD, AAA, obesity, HTN being referred for evaluation of COPD. Current inhaled therapy consists of Advair and Spiriva Respimat he has been on medication for several years. Pending evaluation for obstructive sleep apnea. Respiratory symptoms consist of daily cough productive of yellow to brown sputum, wheezing, dyspnea with exertion. No chest pain. He has never been intubated for his COPD nor required noninvasive ventilation. Has denies a history of recurrent bronchitis, last episode requiring antibiotics over a year ago. Shortness of breath is not worsened by exposure to changes in the weather or strong odors or fumes. Uses his rescue inhaler on a daily basis. He has attempted smoking cessation in the past using nicotine replacement as well as Chantix but has been unsuccessful. His chest x-ray today shows evidence of pulmonary nodularity. He states that he had a CT of the chest at [facility] approximately 1 month ago. I do not have a report or images to review. DATA: PFT: Pulmonary function tests are consistent with PRISM Imaging / Diagnostic Studies: Reviewed chest CT shows flattening of diaphragms on the lateral view and a pulmonary nodule PAST MEDICAL HISTORY Diagnosis Date AAA (abdominal aortic aneurysm) (HCC) COPD (chronic obstructive pulmonary disease) (HCC) Morbid obesity (HCC) VANDANA (obstructive sleep apnea) PAD (peripheral artery disease) ([facility]) ALLERGIES No Known Allergies Naproxen SR (EC-NAPROSYN) 500 mg EC tablet Take 500 mg by mouth as needed. guaifenesin/dextromethorphan (TUSSIN DM MAX ORAL) Take 10 mL by mouth once daily. dicyclomine (BENTYL) 20 mg tablet Take 1 tablet by mouth as needed. ADVAIR DISKUS 100-50 mcg/dose inhaler Inhale 1 Puff as instructed two times a day. gabapentin (NEURONTIN) 300 mg capsule Take 600 mg by mouth daily at bedtime. magnesium oxide (MAG-OX) 400 mg (241.3 mg magnesium) tablet Take 1 tablet by mouth once daily. meloxicam (MOBIC) 7.5 mg tablet Take 7.5 mg by mouth once daily as needed. COMP-AIR NEBULIZER COMPRESSOR USE NEBULIZER DAILY ondansetron orally disintegrating (ZOFRAN ODT) 4 mg disintegrating tablet Take 4 mg by mouth every 8 hours as needed. pantoprazole DR (PROTONIX) 40 mg tablet Take 1 tablet by mouth every afternoon. tamsulosin (FLOMAX) 0.4 mg Take 0.4 mg by mouth daily at bedtime. SPIRIVA RESPIMAT 1.25 mcg/actuation inhaler Inhale 2 Puffs as instructed once daily. albuterol (PROVENTIL) 2.5 mg /3 mL (0.083 %) nebulizer solution Use 2.5 mg via nebulizer every 6 hours as needed. albuterol HFA (PROVENTIL HFA, VENTOLIN HFA) 90 mcg/actuation inhaler Inhale 2 Puffs as instructed every 6 hours as needed. Social History Tobacco Use Smoking status: Every Day Current packs/day: 1.00 Average packs/day: 1 pack/day for 47.8 years (47.8 ttl pk-yrs) Types: Cigarettes Start date: 1976 Smokeless tobacco: Never Vaping Use Vaping status: Never Used Substance Use Topics Alcohol use: Never Drug use: Never Sawdust exposure for 2 years Pets: None FAMILY HISTORY Problem Relation Age of Onset Heart disease Mother Diabetes Mother Stroke Father No Known Problems Sister Obesity Brother PAST SURGICAL HISTORY Procedure Laterality Date TOTAL KNEE REPLACEMENT Right 2018 PMH, Social history, family history and surgical history reviewed and updated in EMR REVIEW OF SYSTEMS: CONSTITUTIONAL: No fevers, chills, nightsweats, unintended weight loss HEENT: Denies nasal congestion/sinus symptoms, allergy problems. EYES: No visual changes CARDIOVASCULAR: No chest pain, palpitations, orthopnea, edema. PULM: See HPI GI: No dysphagia/odynophagia, problematic reflux NEURO: No balance problems, peripheral weakness/paresthesias or numbness of concern. MUSC-SKEL: No joint pain, swelling, or erythema. PSY: No concerns regarding depression, anxiety INTEGUMENTARY: No new skin changes, rashes PHYSICAL EXAMINATION: BP 126/94 Pulse 88 Ht 6' 0 (1.83m) Wt 308 lb (139.7kg) SpO2 89% BMI 41.76 kg/(m^2). General Appearance: Morbidly obese, NAD Skin: Skin color, texture, turgor normal, no suspicious rashes or lesions. Head: Normocephalic, no masses, lesions, tenderness or abnormalities. Nicotine staining of mustache Oropharynx: Mallampati 4, dry mucosa. Neck: No masses or adenopathy. Lungs: Not labored, pursed lip breathing bilateral expiratory wheezes. Heart: Regular rate rhythm, no murmurs. Extremities: No edema, no clubbing. Assessment/Plan: 1. COPD -Despite his smoking history, pulmonary function testing is relatively preserved but physical exam would suggest more significant obstructive lung disease -Smoking cessation recommended -Increase Advair dosage to 250/50 and increase Spiriva Respimat to 2.5 mcg -Suspect he does have significant obstructive sleep apnea. If he qualifies for PAP would recommend overnight oximetry testing on his CPAP/BiPAP 2. Cigarette smoker -Current smoker -Smoking cessation strongly encouraged. Failed nicotine replacement and Chantix -Follows for lung cancer screening but had recent CT of the chest 3. Lung nodule -See #2 -Requesting images from [facility] 4. Morbid obesity -BMI 41 -Weight loss advised Fabi Jovel MD [facility] [place] documented in this encounter [facility] 08-13-2024 Note HNO ID: [id number] Author: FABI JOVEL MD Service: ? Author Type: Physician Type: Progress Notes Filed: 08/13/2024 12:24 Note Text: . Respiratory [place] Note Patient name: Quique Denny PCP: Pilar Morataya MD Referring Physician: same Consultation requested by Dr. Morataya for an opinion regarding COPD. My final recommendations will be communicated back to the requesting physician by way of shared Medical record or letter to requesting physician via US mail. CC: COPD HPI: Quique Denny 63 year old male current 51-[id number]-hozf smoker with PMH significant for COPD, PAD, AAA, obesity, HTN being referred for evaluation of COPD. Current inhaled therapy consists of Advair and Spiriva Respimat he has been on medication for several years. Pending evaluation for obstructive sleep apnea. Respiratory symptoms consist of daily cough productive of yellow to brown sputum, wheezing, dyspnea with exertion. No chest pain. He has never been intubated for his COPD nor required noninvasive ventilation. Has denies a history of recurrent bronchitis, last episode requiring antibiotics over a year ago. Shortness of breath is not worsened by exposure to changes in the weather or strong odors or fumes. Uses his rescue inhaler on a daily basis. He has attempted smoking cessation in the past using nicotine replacement as well as Chantix but has been unsuccessful. His chest x-ray today shows evidence of pulmonary nodularity. He states that he had a CT of the chest at [facility] approximately 1 month ago. I do not have a report or images to review. DATA: PFT: Pulmonary function tests are consistent with PRISM Imaging / Diagnostic Studies: Reviewed chest CT shows flattening of diaphragms on the lateral view and a pulmonary nodule PAST MEDICAL HISTORY Diagnosis Date AAA (abdominal aortic aneurysm) (HCC) COPD (chronic obstructive pulmonary disease) (HCC) Morbid obesity (HCC) VANDANA (obstructive sleep apnea) PAD (peripheral artery disease) ([facility]) ALLERGIES No Known Allergies Naproxen SR (EC-NAPROSYN) 500 mg EC tablet Take 500 mg by mouth as needed. guaifenesin/dextromethorphan (TUSSIN DM MAX ORAL) Take 10 mL by mouth once daily. dicyclomine (BENTYL) 20 mg tablet Take 1 tablet by mouth as needed. ADVAIR DISKUS 100-50 mcg/dose inhaler Inhale 1 Puff as instructed two times a day. gabapentin (NEURONTIN) 300 mg capsule Take 600 mg by mouth daily at bedtime. magnesium oxide (MAG-OX) 400 mg (241.3 mg magnesium) tablet Take 1 tablet by mouth once daily. meloxicam (MOBIC) 7.5 mg tablet Take 7.5 mg by mouth once daily as needed. COMP-AIR NEBULIZER COMPRESSOR USE NEBULIZER DAILY ondansetron orally disintegrating (ZOFRAN ODT) 4 mg disintegrating tablet Take 4 mg by mouth every 8 hours as needed. pantoprazole DR (PROTONIX) 40 mg tablet Take 1 tablet by mouth every afternoon. tamsulosin (FLOMAX) 0.4 mg Take 0.4 mg by mouth daily at bedtime. SPIRIVA RESPIMAT 1.25 mcg/actuation inhaler Inhale 2 Puffs as instructed once daily. albuterol (PROVENTIL) 2.5 mg /3 mL (0.083 %) nebulizer solution Use 2.5 mg via nebulizer every 6 hours as needed. albuterol HFA (PROVENTIL HFA, VENTOLIN HFA) 90 mcg/actuation inhaler Inhale 2 Puffs as instructed every 6 hours as needed. Social History Tobacco Use Smoking status: Every Day Current packs/day: 1.00 Average packs/day: 1 pack/day for 47.8 years (47.8 ttl pk-yrs) Types: Cigarettes Start date: 1976 Smokeless tobacco: Never Vaping Use Vaping status: Never Used Substance Use Topics Alcohol use: Never Drug use: Never Sawdust exposure for 2 years Pets: None FAMILY HISTORY Problem Relation Age of Onset Heart disease Mother Diabetes Mother Stroke Father No Known Problems Sister Obesity Brother PAST SURGICAL HISTORY Procedure Laterality Date TOTAL KNEE REPLACEMENT Right 2018 PMH, Social history, family history and surgical history reviewed and updated in EMR REVIEW OF SYSTEMS: CONSTITUTIONAL: No fevers, chills, nightsweats, unintended weight loss HEENT: Denies nasal congestion/sinus symptoms, allergy problems. EYES: No visual changes CARDIOVASCULAR: No chest pain, palpitations, orthopnea, edema. PULM: See HPI GI: No dysphagia/odynophagia, problematic reflux NEURO: No balance problems, peripheral weakness/paresthesias or numbness of concern. MUSC-SKEL: No joint pain, swelling, or erythema. PSY: No concerns regarding depression, anxiety INTEGUMENTARY: No new skin changes, rashes PHYSICAL EXAMINATION: BP 126/94 Pulse 88 Ht 6' 0 (1.83m) Wt 308 lb (139.7kg) SpO2 89% BMI 41.76 kg/(m2). General Appearance: Morbidly obese, NAD Skin: Skin color, texture, turgor normal, no suspicious rashes or lesions. Head: Normocephalic, no masses, lesions, tenderness or abnormalities. Nicotine staining of mustache Oropharynx: Mallampati 4, dry mucosa. Neck: No masses or adenopathy. Lungs: Not (more content not included)... [facility] 08-13-2024 Note HNO ID: [id number] Author: JUSTEN ROMAN RPFT Service: ? Author Type: Respiratory Therapist Type: Progress Notes Filed: 08/13/2024 10:44 Note Text: PULM FUNCTION: Provider: Fabi Jovel MD Assisting Tech: Justen Roman RPFT Spirometry w/BD: 1 [facility] 08-13-2024 History of Presen t illness Narrative PULM FUNCTION: Provider: Fabi Jovel MD Assisting Tech: Justen Roman RPFT Spirometry w/BD: 1 documented in this encounter [facility] 08-13-2024 History of Presen t illness Narrative Radiology Service Progress Note PATIENT NAME: Quique Denny DATE OF SERVICE: August 13, 2024 TIME: 12:20 PM PATIENT IDENTITY VERIFICATION COMPLETED USING TWO (2) IDENTIFIERS: Name and Date of confirmed by patient verbally. FALL SCREENING: Has the patient had 2 falls in the last year or 1 fall with injury or currently using an Ambulatory Assistive Device (Walker, Cane, Wheelchair, Crutches, etc.)? No PATIENT GENDER DATA: Male PATIENT RELEVANT IMPLANT DATA REVIEWED: Not Applicable PATIENT PRESENTS WITH AN IMPLANTABLE OR ATTACHED YARD PILOT: No RADIOLOGY DEPARTMENT: General X-ray: Exam(s) Completed: Chest X-Ray PERIPHERAL IV DATA: Not applicable SIGNED BY: RT Yeni(R) August 13, 2024 12:20 PM documented in this encounter [facility] 08-13-2024 Note HNO ID: [id number] Author: ARIELLA CORNEJO RT(Tierney) Service: ? Author Type: Technologist Type: Progress Notes Filed: 08/13/2024 12:21 Note Text: Radiology Service Progress Note PATIENT NAME: Quique Denny DATE OF SERVICE: August 13, 2024 TIME: 12:20 PM PATIENT IDENTITY VERIFICATION COMPLETED USING TWO (2) IDENTIFIERS: Name and Date of confirmed by patient verbally. FALL SCREENING: Has the patient had 2 falls in the last year or 1 fall with injury or currently using an Ambulatory Assistive Device (Walker, Cane, Wheelchair, Crutches, etc.)? No PATIENT GENDER DATA: Male PATIENT RELEVANT IMPLANT DATA REVIEWED: Not Applicable PATIENT PRESENTS WITH AN IMPLANTABLE OR ATTACHED YARD PILOT: No RADIOLOGY DEPARTMENT: General X-ray: Exam(s) Completed: Chest X-Ray PERIPHERAL IV DATA: Not applicable SIGNED BY: RT Yeni(Tierney) August 13, 2024 12:20 PM [facility] 08-01-2024 Note . MICRO - Microbiology PROCEDURE: Blood Culture (bacterial) [*1] SOURCE: Blood BODY SITE: COLLECTED DATE/TIME: 07/27/2024 09:09 EDT RECEIVED DATE/TIME: 07/27/2024 16:28 EDT START DATE/TIME: 07/27/2024 16:29 EDT FREE TEXT SOURCE: FINAL REPORTS Final Report [] Verified Date/Time/Personnel: 08/01/2024 17:00 EDT Blood Culture: No Growth at 5 days. PRELIMINARY REPORTS Preliminary Report [] Verified Date/Time/Personnel: 07/27/2024 16:59 EDT Culture has been received in lab and is no growth to date. Routine cultures are held for 5 days. Performing Locations *1: This test was performed at: [facility], [address] [place] [address], [phone] , [facility] 07-29-2024 Note . MICRO - Microbiology PROCEDURE: Blood Culture (bacterial) [*1] SOURCE: Blood BODY SITE: Anticubital, Left COLLECTED DATE/TIME: 07/27/2024 10:12 EDT RECEIVED DATE/TIME: 07/27/2024 16:27 EDT START DATE/TIME: 07/27/2024 16:29 EDT FREE TEXT SOURCE: FINAL REPORTS Final Report [] Verified Date/Time/Personnel: 07/29/2024 10:21 EDT Staphylococcus coagulase negative Isolated from aerobe bottle only. 1 out of 2 sets positive Organism is a potential contaminant. Clinical Significance undetermined. Please contact Microbiology if further work-up is required. PRELIMINARY REPORTS Preliminary Report [] Verified Date/Time/Personnel: 07/27/2024 16:59 EDT Culture has been received in lab and is no growth to date. Routine cultures are held for 5 days. STAINS GSAER [] Verified Date/Time/Personnel: 07/28/2024 11:21 EDT Gram Positive Cocci in clusters Performing Locations *1: This test was performed at: [address], [address] [place] [address] 11-14-2023 Note . MICRO - Microbiology PROCEDURE: Blood Culture (bacterial) [*1] SOURCE: Blood BODY SITE: COLLECTED DATE/TIME: 11/13/2023 17:39 EST RECEIVED DATE/TIME: 11/14/2023 14:38 EST START DATE/TIME: 11/14/2023 14:39 EST FREE TEXT SOURCE: PRELIMINARY REPORTS Preliminary Report [] Verified Date/Time/Personnel: 11/14/2023 15:59 EST Culture has been received in lab and is no growth to date. Routine cultures are held for 5 days. Performing Locations *1: This test was performed at: [address] ([place]) Evaluation note Diagnosis Dyspnea, unspecified type [facility] Diagnosis Chronic obstructive pulmonary disease, unspecified COPD type (HCC)- Primary Cigarette smoker Tobacco use disorder Lung nodule Solitary pulmonary nodule Morbid obesity (HCC) Morbid obesity documented in this encounter [facility] note* Diagnosis Dyspnea, unspecified type documented in this encounter [facility] note* Diagnosis Chronic obstructive pulmonary disease, unspecified COPD type (HCC)- Primary documented in this encounter [facility] note* Diagnosis Chronic obstructive pulmonary disease, unspecified COPD type (HCC) documented in this encounter [facility] note* Diagnosis Hypoxia- Primary Hypoxemia Chronic obstructive pulmonary disease, unspecified COPD type (HCC) Pulmonary emphysema, unspecified emphysema type (HCC) Cigarette smoker Tobacco use disorder documented in this encounter [facility] Summary Purpose Family History No Family History Records FoundNo Family History Records FoundNo Family History Records FoundNo Family History Records FoundNo Family History Records Found Advance Directives No Advanced Directives Records FoundNo Advanced Directives Records FoundNo Advanced Directives Records FoundNo Advanced Directives Records FoundNo Advanced Directives Records Found Additional Source Comments (unrecognized sect ion and content) No Status Records FoundNo Status Records FoundNo Status Records FoundNo Status Records FoundNo Status Records Found INFORMATION SOURCE (unrecogn ized section and content) DATE CREATED AUTHOR 11/15/2023 [facility] ([place] DATE CREATED AUTHOR AUTHOR'S ORGANIZ ATION 11/14/2024 [facility] DATE CREATED AUTHOR AUTHOR'S ORGANIZ ATION 03/25/2025 [facility] DATE CREATED AUTHOR AUTHOR'S ORGANIZ ATION 03/27/2025 [facility] DATE CREATED AUTHOR AUTHOR'S ORGANIZ ATION 03/28/2025 [facility] Source Comments (unrecognize d section and content) In the event this informatio n is protected by the Federal Confidentiality of Alcohol and Drug Abuse Patient Records regulations: The Federal rules restrict any use of the information to criminally investigate or prosecute any alcohol or drug abuse patient.[facility] the event this information is protected by the Federal Confidentiality of Alcohol and Drug Abuse Patient Records regulations: The Federal rules restrict any use of the information to criminally investigate or prosecute any alcohol or drug abuse patient.[facility] the event this information is protected by the Federal Confidentiality of Alcohol and Drug Abuse Patient Records regulations: The Federal rules restrict any use of the information to criminally investigate or prosecute any alcohol or drug abuse patient.[facility] the event this information is protected by the Federal Confidentiality of Alcohol and Drug Abuse Patient Records regulations: The Federal rules restrict any use of the information to criminally investigate or prosecute any alcohol or drug abuse patient.[facility] the event this information is protected by the Federal Confidentiality of Alcohol and Drug Abuse Patient Records regulations: The Federal rules restrict any use of the information to criminally investigate or prosecute any alcohol or drug abuse patient.[facility] the event this information is protected by the Federal Confidentiality of Alcohol and Drug Abuse Patient Records regulations: The Federal rules restrict any use of the information to criminally investigate or prosecute any alcohol or drug abuse patient.[facility] the event this information is protected by the Federal Confidentiality of Alcohol and Drug Abuse Patient Records regulations: The Federal rules restrict any use of the information to criminally investigate or prosecute any alcohol or drug abuse patient.[facility] Reason for Visit (unrecogniz ed section and content) Reason Comments Spirometry Specialty Diagnoses / Procedures Referred By Contac t Referred To Contact [facility] Diagnoses Dyspnea, unspecified type Procedures SPIROMETRY WITH DILATOR IF OBSTRUCTED BRNCDILAT RSPSE SPMTRY PRE&POST-BRNCDILAT ADMFabi Brown MD [address] [place] [address] [facility] [place] [address] [place] [address] Referral ID Status Reason Start Date Expiration Date V isits Requested Visits Authorized [id number] Closed Auto-Generate d Referral 05/29/2024 06/28/2025 1 1 Reason Comments Consult Breathing difficulti es x 1 year Reason Comments Received Outside Medical Records Specialty Diagnoses / Procedures Referred By Contac t Referred To Contact [facility] Diagnoses Chronic obstructive pulmonary disease, unspecified COPD type (HCC) Procedures OXIMETRY WITH AMBULATION NONINVASIVE EAR/PULSE OXIMETRY MULTIPLE Fabi Aguirre MD [address] [place] [address] Phone: tel: fax: [facility] [place] [address] [place] [address] Referral ID Status Reason Start Date Expiration Date V isits Requested Visits Authorized [id number] Closed Auto-Generate d Referral 12/06/2024 01/05/2026 1 1 Reason Comments Established Patient COPD/Evaluate for po rtable O2 Care Teams (unrecognized sec tion and content) 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 Relationship Specialty Start Date End Date Pilar Morataya MD [address] [place] [address] PCP - General Internal Medicine 08/13/24 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 Relationship Specialty Start Date End Date Pilar Morataya MD [address] [place] [id number] PCP - General Internal Medicine 08/13/24 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 Relationship Specialty Start Date End Date Pilar Morataya MD [address] [address] PCP - General Internal Medicine 08/13/24 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 Relationship Specialty Start Date End Date Pilar Morataya MD [address] [address] PCP - General Internal Medicine 08/13/24 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 Relationship Specialty Start Date End Date Pilar Morataya MD [address] [address] PCP - General Internal Medicine 08/13/24 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 This clinical summary was aggregated from multiple sources. Caution should be exercised in using it in the provision of clinical care. This summary normalizes information from multiple sources, and as a consequence, information in this document may materially change the coding, format and clinical context of patient data. In addition, data may be omitted in some cases. CLINICAL DECISIONS SHOULD BE BASED ON THE PRIMARY CLINICAL RECORDS. [employer] provides no warranty or guarantee of the accuracy or completeness of information in this document.
== END | disposition home or self-care (01) ==
LOC: RAD 11:27
PROVIDERS: PCP Student in an Organized Health Care Education/Training Program; Referring Provider Anesthesiology; Visit Provider Anesthesiology
DX: M47.816 Spondylosis without myelopathy or radiculopathy, lumbar region (principal)
CPT/HCPCS: 72120

== ENCOUNTER → 2025-06-09 | Outpatient (CLI) | payer MEDICAID, SELFPAY ==
--- NOTE | 2025-06-09 09:32 | US_ITS ---
PROCEDURE: EXT NON VASC LIMITED/SOFT TISS 06/09/2025 REASON FOR EXAM: WRIST SWELLING, ASSESS FOR GANGLION CYST TECHNIQUE: EXT NON VASC LIMITED/SOFT TISS COMPARISON: None FINDINGS: The dorsal aspect of the left hand/wrist was examined with ultrasound. The palpable abnormality corresponds to a 2.8 cm 2.6 cm x 0.4 cm cystic collection with the increased echoes within it. Drainage recommended. US/Ext Non Vasc Limited/Soft Tiss IMPRESSION: The palpable abnormality corresponds to a 2.8 cm 2.6 cm x 0.4 cm cystic collect ion with increased echoes within it. Percutaneous drainage is sampling recommended. Reading Location: [facility]
--- OUTSIDE RECORDS SUMMARY | 2025-06-09 20:32 | XMS RPT_ITS | CCD ---
Author Organization [facility] Care Team Providers Care Ski Base Trimmer Name Role Phone Pilar Morataya MD Primary Care Provider [phone] PILAR MORATAYA Primary Care Unavailable FABI JOVEL Referring Unavailable FABI JOVEL Referring Unavailable SELF Referring Unavailable FABI JOVEL Attending Unavailable SELF Referring Unavailable PILAR MORATAYA Primary Care Unavailable LOU DAVE Attending Unavailable Hood ALMODOVAR, Dr. Quezada Primary Care Provider Dr. Abraham Garvin MD Attending Provider [phone] Dr. Abraham Garvin MD Referring Provider Dr. Pilar Morataya MD Referring Provider Kleber Mott MD Attending Provider Pilar Morataya Primary Care Unavailable Umesh Multani Attending Unavailable Pilar Morataya Primary Care Unavailable Umesh Multani Attending Unavailable Kleber Mott Referring Unavailable Kleber Mott Attending Unavailable Pilar Morataya Primary Care Unavailable Sarah Rivera Attending Unavailable Pilar Morataya Primary Care Unavailable Chela Tabares Referring Unavailable Pilar Morataya Referring Unavailable Pilar Morataya Primary Care Unavailable Chela Tabares Attending Unavailable Kleber Mott Attending Unavailable Pilar Morataya Primary Care Unavailable Pilar Morataya Referring Unavailable Abraham Garvin Referring Unavailable Abraham Garvin Attending Unavailable Pilar Morataya Primary Care Unavailable Pilar Morataya Primary Care Unavailable Poncho Tabaresison Referring Unavailable Chela Tabares Attending Unavailable PILAR MORATAYA MD Consulting Unavailable [...] Consulting Unavailable PILAR MORATAYA MD Consulting Unavailable LEANNA HAINES DO Primary Care Unavailable LEANNA HAINES DO Admitting Unavailable LEANNA HAINES DO Attending Unavailable PILAR MORATAYA MD Referring Unavailable PROVIDER, UNKNOWN Consulting Unavailable PROVIDER, UNKNOWN Consulting Unavailable PILAR MORATAYA MD Consulting Unavailable CSERNYIK, SARAH DO Admitting Unavailable CSERNYIK, SARAH DO Attending Unavailable CSERRASHMI, SARAH DO Primary Care Unavailable PROVIDER, UNKNOWN Consulting Unavailable PROVIDER, UNKNOWN Consulting Unavailable PILAR MORATAYA MD Consulting Unavailable DEBORAH CHU MD Admitting Unavailable DEBORAH CHU MD Attending Unavailable DEBORAH CHU MD Primary Care Unavailable PILAR MORATAYA MD Referring Unavailable PROVIDER, UNKNOWN Consulting Unavailable PROVIDER, UNKNOWN Consulting Unavailable PILAR MORATAYA MD Consulting Unavailable KATJA MCKEON Primary Care Unavailable KATJA MCKEON Attending Unavailable KATJA MCKEON Admitting Unavailable PROVIDER, UNKNOWN Consulting Unavailable PROVIDER, UNKNOWN Consulting Unavailable RITA DA SILVA Attending Unavailable RITA DA SILVA Primary Care Unavailable PILAR MORATAYA MD Referring Unavailable PILAR MORATAYA MD Consulting Unavailable RITA DA SILVA Admitting Unavailable PROVIDER, UNKNOWN Consulting Unavailable PROVIDER, UNKNOWN Consulting Unavailable MUSHTAQ GUZMAN MD Admitting Unavailable MUSHTAQ GUZMAN MD Attending Unavailable PILAR MORATAYA MD Consulting Unavailable MUSHTAQ GUZMAN MD Primary Care Unavailable PILAR MORATAYA MD Referring Unavailable PROVIDER, UNKNOWN Consulting Unavailable PROVIDER, UNKNOWN Consulting Unavailable PILAR MORATAYA MD Consulting Unavailable TIBURCIO PEARL MD Admitting Unavailable TIBURCIO PEARL MD Attending Unavailable TIBURCIO PEARL MD Primary Care Unavailable PILAR MORATAYA MD Referring Unavailable PROVIDER, UNKNOWN Consulting Unavailable PROVIDER, UNKNOWN Consulting Unavailable GOOD ZAFAR Admitting Unavailable GOOD ZAFAR Attending Unavailable GOOD ZAFAR Primary Care Unavailable PILAR MORATAYA MD Referring Unavailable PILAR MORATAYA MD Consulting Unavailable PROVIDER, UNKNOWN Consulting Unavailable PROVIDER, UNKNOWN Consulting Unavailable PILAR MORATAYA MD Consulting Unavailable ARIK GONZALES JR Primary Care Unavailable PILAR MORATAYA MD Referring Unavailable JANET, ARIK JR Admitting Unavailable JANETARIK JR Attending Unavailable PROVIDER, UNKNOWN Consulting Unavailable PROVIDER, UNKNOWN Consulting Unavailable PILAR MORATAYA MD Consulting Unavailable ORLANDO, CHEY E Admitting Unavailable ORLANDO CHEY E Attending Unavailable ORLANDO, CHEY E Primary Care Unavailable PILAR MORATAYA MD Referring Unavailable PROVIDER, UNKNOWN Consulting Unavailable PROVIDER, UNKNOWN Consulting Unavailable ORLANDO, CHEY E Attending Unavailable PILAR MORATAYA MD Consulting Unavailable ORLANDO, CHEY E Primary Care Unavailable ORLANDO, CHEY E Admitting Unavailable PILAR MORATAYA MD Referring Unavailable PROVIDER, UNKNOWN Consulting Unavailable PROVIDER, UNKNOWN Consulting Unavailable ORLANDO, CHEY E Attending Unavailable PILAR MORATAYA MD Consulting Unavailable ORLANDO, CHEY E Primary Care Unavailable ORLANDO, CHEY E Admitting Unavailable PILAR MORATAYA MD Referring Unavailable PROVIDER, [...] Consulting Unavailable PILAR MORATAYA MD Consulting Unavailable LEANNA HAINES DO Admitting Unavailable LEANNA HAINES DO Attending Unavailable LEANNA HAINES DO Primary Care Unavailable [...] instructed every 6 hours as needed. Active aspirin 81 mg chewable tablet (2 sources) Platelet Aggregation Inhibitor, Nonsteroidal Anti-inflammatory Drug Start: 10-01-2024 take 1 tablet by mouth once daily Aspirin 81 mg tablet,chewable Active 81 mg PO daily October 01, 2024 1:00am azithromycin 250 mg oral tablet (2 sources) Macrolide Antimicrobial Start: 09-11-2024 take 1 tablet by mouth once daily Azithromycin 250 mg tablet Active 250 mg PO DAILY 4 0 September 11, 2024 1:00am COMP-AIR NEBULIZER COMPRESSOR (6 sources) Start: 07-13-2024 COMP-AIR NEBULIZER COMPRESSOR USE NEBULIZER DAILY 07/13/2024 Active dicyclomine hydrochloride 20 mg oral tablet (6 sources) Anticholinergic Start: 04-30-2024 dicyclomine (BENTYL) 20 mg tablet Take 1 tablet by mouth as needed. 04/30/2024 Active 0.5 ml dulaglutide 1.5 mg/ml auto-injector (1 source) GLP-1 Receptor Agonist Start: 02-12-2025 inject 0.75 mg by subcutaneous injection every week TRULICITY 0.75 mg/0.5 mL pen injector Inject 0.75 mg subcutaneously one time a week. 12/04/2024 Active Fluticasone Propion-Salmetero l (9 sources) Corticosteroid, beta2-Adrenergic Agonist Start: 10-01-2024 Fluticasone Propion-Salmeterol (Advair Diskus) 250-50 mcg/dose blister with device Active 1 NMA INHALATION Q1H October 01, 2024 1:00am Start: 10-01-2024 Fluticasone Pr opion-Salmeterol (Advair Diskus) 250-50 mcg/dose blister with device Discontinued 1 NMA INHALATION Q12H October 01, 2024 1:00am Start: 08-13-2024 take 1 puff(s) by mo uth twice daily fluticasone-salmeterol (ADVAIR DISKUS) 250-50 mcg/dose inhaler Inhale [...] tablet by mouth every afternoon. 11/29/2024 Active guaifenesin/dextrom ethorphan (TUSSIN DM MAX ORAL) (6 sources) Start: 07-31-2024 take 10 mL by mouth once daily guaifenesin/dext romethorphan (TUSSIN DM MAX ORAL) Take 10 mL [...] 02/05/2024 Active meloxicam 7.5 mg oral tablet (8 sources) Nonsteroidal Anti-inflammatory Drug Start: 05-20-2025 take 1 tablet by mouth twice daily as needed Meloxicam 7.5 mg tablet Active 7.5 mg PO TWICE A DAY as needed for swelling in the wrist 30 14 May 20, 2025 12:00am Left wrist pain Ganglion cyst of dorsum of left wrist Pain in left wrist Ganglion, left wrist Start: 10-01-2024 take 1 tablet by naun th once daily as needed Meloxicam 7.5 mg tablet Active 7.5 mg PO daily as needed October 01, 2024 1:00am 24 hr metFORMIN hydrochloride 500 mg extended release oral tablet (1 source) Biguanide Start: 11-29-2024 take 1 tablet by mouth every twelve hours metFORMIN ER (GLUCOPHAGE XR) 500 mg 24 hr tablet Take 1 tablet by mouth every 12 hours. 11/29/2024 Active naproxen 500 mg delayed release oral tablet (8 sources) Nonsteroidal Anti-inflammatory Drug Start: 03-03-2018 Naproxen SR (EC-NAPROSYN) 500 mg EC tablet Take 500 mg by mouth as needed. 03/03/2018 Active Start: 03-03-2018 take 1 tablet by naun th twice daily as needed Naproxen 500 MG tablet Active 500 mg PO TWICE DAILY NEEDED March 03, 2018 12:00am ondansetron 4 mg disintegrating oral tablet (6 sources) Serotonin-3 Receptor Antagonist Start: 04-30-2024 take 1 tablet by mouth every eight hours as needed ondansetron orally disintegrating (ZOFRAN ODT) 4 mg disintegrating tablet Take 4 mg by mouth every 8 hours as needed. 04/30/2024 Active pantoprazole 40 mg delayed release oral tablet (8 sources) Proton Pump Inhibitor Start: 03-14-2018 take 1 tablet by mouth once daily Pantoprazole 40 MG tablet Active 40 mg PO DAILY 12 March 14, 2018 12:00am tamsulosin hydrochloride 0.4 mg oral capsule (8 sources) alpha-Adrenergic Tera Start: 10-01-2024 take 1 capsule by mouth at bedtime Tamsulosin 0.4 mg capsule Active 0.4 mg PO AT BEDTIME October 01, 2024 1:00am 60 actuat tiotropium 0.19631 mg/actuat inhalation spray (9 sources) Anticholinergic Start: 10-01-2024 take 1.25 ug by inhalation every twenty-four hours Tiotropium Mylo (Spiriva Respimat) 1.25 mcg/actuation mist Active 2 NMA INHALATION Q24H October 01, 2024 1:00am Start: 08-13-2024 take 2 puff(s) by in halation once daily tiotropium bromide (SPIRIVA RESPIMAT) 2.5 [...] by mouth daily with breakfast. 11/10/2024 Active Completed/Discontinued Medications Medication Drug Class(es) Dates Sig (Normalized) Sig (Original) acetaminophen 325 mg / HYDROcodone bitartrate 5 mg oral tablet (2 sources) Opioid Agonist Start: 09-14-2024 End: 10-01-2024 Hydrocodone-Acetam inophen 5-325 mg tablet Discontinued 1 {tbl} PO EVERY 6 HOURS NEEDED as needed for Pain 12 3 0 September 14, 2024 October 01, 2024 2:17pm Sprain of costal cartilage Sprain of ribs, initial encounter gabapentin 100 mg oral capsule (7 sources) Anti-epileptic Agent Start: 10-01-2024 take 1 capsule by mouth at bedtime Gabapentin 100 mg capsule Discontinued 100 mg PO AT BEDTIME October 01, 2024 1:00am take 2 capsules by m outh once daily at bedtime gabapentin (NEURONTIN) 300 mg capsule Ta ke 600 mg by mouth daily at bedtime. Active predniSONE 20 mg oral tablet (4 sources) Start: 09-11-2024 End: 10-01-2024 take 3 tablets by mouth once daily Prednisone 20 mg tablet Discontinued 60 mg PO DAILY 12 September 11, 2024 1:00am October 01, 2024 2:18pm Start: 03-14-2018 End: 10-01-2024 Prednisone 10 MG tablet Disc ontinued 10 mg PO DAILY 43 March 14, 2018 12:00am October 01, 2024 2:18pm 60 mg po qd x 2 days 50 mg po qd x 2 days 40 mg po qd x 2 days 30 mg po qd x 2 days 20 mg po qd x 2 days 10 mg po qd x 2 days 5 mg po qd x 2 days rosuvastatin calcium 20 mg oral tablet (7 sources) HMG-CoA Reductase Inhibitor Start: 10-01-2024 End: 04-01-2025 take 1 tablet by mouth once Rosuvastatin (Crestor) 20 mg tablet Discontinued 20 mg PO ONCE 30 October 29, 2024 8:26am April 01, 2025 8:58am valACYclovir 1000 mg oral tablet (2 sources) Herpesvirus Nucleoside Analog DNA Polymerase Inhibitor, Herpes Simplex Virus Nucleoside Analog DNA Polymerase Inhibitor, Herpes Zoster Virus Nucleoside Analog DNA Polymerase Inhibitor Start: 03-14-2018 End: 10-01-2024 take 1 tablet by mouth three times daily Valacyclovir 1,000 MG tablet Discontinued 1000 mg PO THREE TIMES A DAY March 14, 2018 12:00am October 01, 2024 2:19pm Varenicline Tartrate 0.5 mg (11)- 1 mg (42) tablets,dose pack (1 source) Start: 10-01-2024 take 1 tablet by mouth once Varenicline Tartrate 0.5 mg (11)- 1 mg (42) tablets,dose pack Discontinued 0 PO per package directions October 01, 2024 1:00am PO PER PKG DIR Problems Active Problems Problem Classification Problem Date Documented Date Episodic/Chronic Aortic; peripheral; and visceral artery aneurysms (5 sources) Abdominal aortic aneurysm; Translations: [Abdominal aortic aneurysm (AAA)] Onset: 01-21-2025 10-01-2024 Chronic Chronic obstructive pulmonary disease and bronchiectasis (12 sources) Chronic obstructive lung disease; Translations: [Chronic obstructive pulmonary disease, unspecified] Onset: 12-10-2024 08-13-2024 Chronic Diabetes mellitus without complication (2 sources) Type 2 diabetes mellitus without complications; Translations: [Type 2 diabetes mellitus without complications] Onset: 02-18-2025 Chronic Other aftercare (1 source) Other prison (current) drug therapy; Translations: [Other predatory animal exterminator (current) drug therapy] Onset: 05-02-2025 Episodic Other aftercare (1 source) exterminator termite (current) use of oral hypoglycemic drugs; Translations: [custodial (current) use of oral hypoglycemic drugs] Onset: 05-02-2025 Episodic Other connective tissue disease (2 sources) Weakness of face muscles; Translations: [Facial weakness] 03-14-2018 Episodic Other connective tissue disease (1 source) Ganglion cyst of left dorsal wrist; Translations: [Ganglion, left wrist] 05-20-2025 Episodic Other connective tissue disease (2 sources) Ganglion, left wrist; Translations: [Ganglion, left wrist] Onset: 05-20-2025 Episodic Other liver diseases (2 sources) Liver mass; Translations: [Hepatomegaly, not elsewhere classified] 09-19-2024 Episodic Other lower respiratory disease (2 sources) Dyspnea; Translations: [Dyspnea, unspecified] 08-13-2024 Episodic Other lower respiratory disease (1 source) Nodule of lung; Translations: [Solitary pulmonary nodule] 08-13-2024 Episodic Other lower respiratory disease (1 source) Hypoxia; Translations: [Hypoxemia] 12-10-2024 Episodic Other lower respiratory disease (2 sources) Cough; Translations: [Cough] 09-22-2024 Episodic Other nervous system disorders (2 sources) Facial weakness, lower motor neurone; 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] 03-14-2018 Episodic Other nervous system disorders (2 sources) Facial paresthesia; Translations: [Anesthesia of skin] 03-14-2018 Episodic Other non-traumatic joint disorders (2 sources) Pain in wrist; Translations: [Pain in left wrist] 05-20-2025 Episodic Other non-traumatic joint disorders (4 sources) Pain in left wrist; Translations: [Pain in left wrist] Onset: 05-02-2025 Episodic Other nutritional; endocrine; and metabolic disorders (1 source) Morbid obesity; Translations: [Morbid (severe) obesity due to excess calories] 08-13-2024 Chronic Residual codes; unclassified (2 sources) Tobacco user; Translations: [Tobacco use] 11-08-2013 Episodic Spondylosis; intervertebral disc disorders; other back problems (1 source) Spondylosis without myelopathy or radiculopathy, lumbar region; Translations: [Spondylosis without myelopathy or radiculopathy, lumbar region] Onset: 04-21-2025 Chronic Sprains and strains (3 sources) Chondrocostal joint sprain; Translations: [Sprain of ribs, initial encounter] Onset: 05-02-2025 09-22-2024 Episodic Substance-related disorders (3 sources) Cigarette smoker ; Translations: [Nicotine dependence, cigarettes, uncomplicated] Onset: 05-02-2025 08-13-2024 Chronic Superficial injury; contusion (2 sources) Contusion of chest; Translations: [Contusion of unspecified front wall of thorax, initial encounter] 09-19-2024 Episodic Thyroid disorders (1 source) Other specified hypothyroidism; Translations: [Other specified hypothyroidism] Onset: 02-18-2025 Chronic Unclassified (2 sources) history of rotator cuff disease 11-08-2013 Unclassified (1 source) Abdominal aortic aneurysm, without rupture, unspecified; Translations: [Abdominal aortic aneurysm, without rupture, unspecified] Onset: 11-13-2024 Unclassified (1 source) Cough, unspecified; Translations: [Cough, unspecified] Onset: 10-09-2024 Past or Other Problems Problem Classification Problem Date Documented Da te Episodic/Chronic Abdominal pain (4 sources) Right lower quadrant pain; Translations: [Left lower quadrant pain] Onset: 11-16-2024 Episodic Nonspecific chest pain (1 source) Other chest pain; Translations: [Other chest pain] Onset: 10-13-2024 Episodic Other connective tissue disease (3 sources) Pain in left lower leg; Translations: [Pain in left lower leg] Onset: 01-22-2025 Episodic Other connective tissue disease (3 sources) Other symptoms and signs involving the nervous system; Translations: [Other symptoms and signs involving the nervous system] Onset: 08-19-2024 Episodic Other lower respiratory disease (1 source) Dyspnea, unspecified; Translations: [Dyspnea, unspecified type] Onset: 08-13-2024 Episodic Screening and history of mental health and substance abuse codes (1 source) Personal history of nicotine dependence; Translations: [Personal history of nicotine dependence] Onset: 11-16-2024 Episodic Syncope (3 sources) Syncope and collapse; Translations: [Syncope and collapse] Onset: 07-24-2024 Episodic Results Test Name Value Interpretation Reference Range Facility ED MED ADMINISTRATION DETAIL on 06-05-2025 ED MED ADMINISTRATION DETAIL Normal [facility] ED NURSES CLINICAL NOTEon ED NURSES CLINICAL NOTE Normal [facility] ED ORDER SHEET (CPOE ONLY)on 06-05-2025 ED ORDER SHEET (CPOE ONLY) Normal [facility] ED PHYSICIAN CLINICAL REPORT on 06-05-2025 ED PHYSICIAN CLINICAL REPORT Normal [facility] ED SUPER BILLon 06-05-2025 ED SUPER BILL Normal [facility] ED VISIT SUMMARYon ED VISIT SUMMARY Normal [facility] ED VITALS FLOW SHEETon 06-05 ED VITALS FLOW SHEET Normal [facility] CBC + DIFFon 05-22-2025 Baso # 0.02 x10EE3/UL Normal 0.00 - 0.10 [facility] Comment on above: Performed By: #### 2 [id number] ####[facility],[address] [place] [address] Basophils/100 WBC (Bld) 0.1 % Normal 0.0 - 2.0 [facility] Comment on above: Performed By: #### 2 [id number] ####[facility],[address] [place] [address] CBC + DIFF Normal [facility] Comment on above: Result Comment: CBC- COMPLETE BLOOD COUNT Performed By: #### 2 [id number] ####[facility],[address] [place] [address] EO # 0.20 x10EE3/UL Normal 0.00 - 0.50 [facility] Comment on above: Performed By: #### 2 [id number] ####[facility],[address] [place] [address] Eosinophils/100 WBC (Bld) 1.5 % Normal 0.0 - 7.0 [facility] Comment on above: Performed By: #### 2 22064 ####[facility],[address] [place], [place] [id number] Erythrocyte distribution width (RBC) [Ratio] 14.2 % Normal 12.0 - 15.6 [facility] Comment on above: Performed By: #### 2 38832 ####[facility],[address] [place], [place] [id number] Hematocrit (Bld) [Volume fraction] 44.9 % Normal 40.0 - 52.0 [facility] Comment on above: Performed By: #### 2 87974 ####[facility],[address] [place] [address] Hemoglobin (Bld) [Mass/Vol] 15.6 g/dL Normal 13.0 - 17.5 [facility] Comment on above: Performed By: #### 2 73782 ####[facility],[address] [place] [address] Lymph # 3.07 x10EE3/UL High 0.80 - 2.80 [facility] Comment on above: Performed By: #### 2 61874 ####[facility],[address] [place] [address] 45938 Lymphocytes/100 WBC (Bld) 22.8 % Normal 20.0 - 45.0 [facility] Comment on above: Performed By: #### 2 50668 ####[facility],[address] [place], [place] [id number] MANUAL DIFF N/A Normal [facility] Comment on above: Performed By: #### 2 72593 ####[facility],[address] [place] [address] 02262 MCH (RBC) [Entitic mass] 32 pg Normal 27 - 33 [facility] Comment on above: Performed By: #### 2 37674 ####[facility],[address] [place] [address] 06579 MCHC 35 X10 3 Normal 32 - 36 [facility] Comment on above: Performed By: #### 2 53259 ####[facility],[address] [place] [address] 18036 MCV (RBC) [Entitic vol] 91 fL Normal 81 - 98 [facility] Comment on above: Performed By: #### 2 24002 ####[facility],[address] [place] [address] 17717 Benzie # 0.80 x10EE3/UL Normal 0.20 - 1.00 [facility] Comment on above: Performed By: #### 2 84323 ####[facility],[address] [place] [address] 22652 MONOS % 6.0 % Normal 0.0 - 10.0 [facility] Comment on above: Performed By: #### 2 47337 ####[facility],[address] [place] [address] 54873 Morphology Brody (Bld) [Interp] N/A Normal [facility] Comment on above: Performed By: #### 2 37329 ####[facility],[address] [place], [place] [id number] Neut # 9.38 x10EE3/UL High 1.50 - 7.10 [facility] Comment on above: Performed By: #### 2 43584 ####[facility],[address] [place] [address] 65836 Neutrophils/100 WBC (Bld) 69.6 % Normal 46.0 - 76.0 [facility] Comment on above: Performed By: #### 2 33997 ####[facility],[address] [place] [address] 25004 PLATELET 235 x10EE3/UL Normal 150 - 450 [facility] Comment on above: Performed By: #### 2 79949 ####[facility],[address] [place] [address] 89128 Platelet mean volume (Bld) [Entitic vol] 7.4 fL Normal 6.4 - 10.5 [facility] Comment on above: Result Comment: AUTO MATED DIFFERENTIAL Performed By: #### 2 71679 ####[facility],[address] [place] [address] 04459 RBC 4.95 x 10EE6/UL Normal 4.50 - 6.00 [facility] Comment on above: Performed By: #### 2 36519 ####[facility],[address] [place] [address] 50841 WBC 13.5 x 10EE3/UL High 4.5 - 10.8 [facility] Comment on above: Performed By: #### 2 24118 ####[facility],[address] [place] [address] 78786 CHEST 1 VIEWon 05-22-2025 CHEST 1 VIEW Normal [facility] CMP with eGFRon 05-22-2025 AGE 64 years Normal [facility] Comment on above: Performed By: #### 2 32168 ####[facility],[address] [place] [address] 50927 Albumin [Mass/Vol] 3.7 g/dL Normal 3.4 - 5.0 [facility] Comment on above: Performed By: #### 2 18478 ####[facility],[address] [place] [address] 31023 Albumin/Globulin [Mass ratio] 1.2 {ratio} Normal 0.9 - 1.6 [facility] Comment on above: Performed By: #### 2 93736 ####[facility],[address] [place] [address] 99658 ALK PHOS 75 U/L Normal 46 - 116 [facility] Comment on above: Performed By: #### 2 15736 ####[facility],[address] [place] [address] 31084 ALT [Catalytic activity/Vol] 48 U/L Normal 16 - 63 [facility] Comment on above: Performed By: #### 2 67119 ####[facility],[address] [place] [address] 13962 Anion gap [Moles/Vol] 8 mmol/L Low 10 - 20 [facility] Comment on above: Performed By: #### 2 90944 ####[facility],[address] [place] [address] 51714 AST [Catalytic activity/Vol] 20 U/L Normal 15 - 37 [facility] Comment on above: Performed By: #### 2 87421 ####[facility],[address] [place] [address] 35881 B/C RATIO 23 ratio Normal 0 - 30 [facility] Comment on above: Performed By: #### 2 13728 ####[facility],[address] [place] [address] 30811 Bilirubin [Mass/Vol] 0.4 mg/dL Normal 0.2 - 1.0 [facility] Comment on above: Performed By: #### 2 38230 ####[facility],[address] [place] [address] 14939 Calcium [Mass/Vol] 9.1 mg/dL Normal 8.5 - 10.1 [facility] Comment on above: Performed By: #### 2 95455 ####[facility],[address] [place] [address] 02295 Chloride [Moles/Vol] 100 mmol/L Normal 98 - 107 [facility] Comment on above: Performed By: #### 2 17484 ####[facility],[address] [place] [address] 91825 CMP with eGFR Normal [facility] Comment on above: Result Comment: COMP REHENSIVE METABOLIC PANEL Performed By: #### 2 [id number] ####[facility],[address] [place] [address] 87109 CO2 [Moles/Vol] 30.5 mmol/L Normal 21.0 - 32.0 [facility] Comment on above: Performed By: #### 2 90498 ####[facility],[address] [place] [address] 78893 Creatinine [Mass/Vol] 0.94 mg/dL Normal 0.70 - 1.30 [facility] Comment on above: Performed By: #### 2 40763 ####[facility],[address] [place], [place] [id number] GFR/1.73 sq M.predicted among non-blacks MDRD (S/P/Bld) [Vol rate/Area] mL/min/{1.73_m2} Normal 60 - 999 [facility] Comment on above: Performed By: #### 2 60190 ####[facility],[address] [place] [address] Result Comment: ACCO RDING TO THE NATIONAL KIDNEY DISEASE EDUCATION PROGRAM(NKDE), A NORMAL eGFRIS A VALUE GREATER THAN OR EQUAL TO 60 ML/MIN/1.73 SQ METERS.CHRONIC KIDNEY DISEASE: <60mL/MIN/1.73 SQ METERSKIDNEY FAILURE: <15mL/MIN/1.73 SQ METERSTHIS TEST SHOULD ONLY BE USED FOR PATIENTS 18 YEARS OF AGE AND OLDER. Globulin (S) [Mass/Vol] 3.2 g/dL Normal 1.5 - 3.8 [facility] Comment on above: Performed By: #### 2 60093 ####[facility],[address] [place] [address] 36898 Glucose [Mass/Vol] 95 mg/dL Normal 74 - 106 [facility] Comment on above: Performed By: #### 2 59783 ####[facility],[address] [place] [address] 89376 Potassium [Moles/Vol] 4.0 mmol/L Normal 3.5 - 5.1 [facility] Comment on above: Performed By: #### 2 76142 ####[facility],[address] [place] [address] 19852 Protein [Mass/Vol] 6.9 g/dL Normal 6.4 - 8.2 [facility] Comment on above: Performed By: #### 2 72366 ####[facility],[address] [place] [address] 75154 Sodium [Moles/Vol] 134 mmol/L Low 136 - 145 [facility] Comment on above: Performed By: #### 2 75694 ####[facility],[address] [place] [address] 64576 Urea nitrogen [Mass/Vol] 22 mg/dL High 7 - 18 [facility] Comment on above: Performed By: #### 2 02081 ####[facility],[address] [place] [address] 89009 ED MED ADMINISTRATION DETAIL on 05-22-2025 ED MED ADMINISTRATION DETAIL Normal [facility] ED NURSES CLINICAL NOTEon ED NURSES CLINICAL NOTE Normal [facility] ED ORDER SHEET (CPOE ONLY)on 05-22-2025 ED ORDER SHEET (CPOE ONLY) Normal [facility] ED PHYSICIAN CLINICAL REPORT on 05-22-2025 ED PHYSICIAN CLINICAL REPORT Normal [facility] ED SUPER BILLon 05-22-2025 ED SUPER BILL Normal [facility] ED VISIT SUMMARYon ED VISIT SUMMARY Normal [facility] ED VITALS FLOW SHEETon 05-22 ED VITALS FLOW SHEET Normal [facility] TROPONINon 05-22-2025 HS TROPONIN <4.0 Normal 0.0 - 76.2 [facility] Comment on above: Performed By: #### 2 76793 ####[facility],[address] [place] [address] 15981 HS TROPONIN <4.0 Normal 0.0 - 76.2 [facility] Comment on above: Performed By: #### 2 84677 ####[facility],[address] [place] [address] 54538 Orthopedic Visit Reporton Orthopedic Visit Report [facility] [address] [place] [id number] OFFICE VISIT Date of Service: 05/20/25 MR#: [id number] Acct: [id number] Name: QUIQUE DENNY Rep #: [id number] : 1960 Provider: Dr. Kleber banuelos MD Age/Sex: 64/M Location: [facility] [place].RICK Status: Signed Intake Vital Signs 09/14/24 15:20 05/20/25 14:20 Height 6 ft 6 ft Weight: 291 lb BMI 39.4 Intake Visit Reasons: LEFT HAND Chief Complaint: Left hand pain Accompanied by: Self Is patient in pain?: Yes Pain scale (1-10): 5 Allergies No Known Allergies Allergy (Verified 05/20/25 14:24) Medications ???Medication ???Instructions ???Recorded ???Confirmed ???Type naproxen 500 mg tablet 500 mg PO BID PRN #20 tabs 8 05/20/25 Rx pantoprazole 40 mg tablet,delayed 40 mg PO DAILY #12 tabs 03/14/18 05/20/25 Rx release azithromycin 250 mg tablet 250 mg PO DAILY #4 TABLETS 4 05/20/25 Rx aspirin 81 mg chewable tablet 81 mg PO QDAY 10/01/24 05/20/25 Hi story fluticasone 250 mcg-salmeterol 50 1 inh inhalation Q12H 10/01/24 History mcg/dose blistr powdr for inhalation (Advair Diskus) meloxicam 7.5 mg tablet 7.5 mg PO QDAY PRN 10/01/24 History tamsulosin 0.4 mg capsule 0.4 mg PO QHS 10/01/24 05/20/25 Hi story tiotropium bromide 1.25 2 puff inhalation Q24H 10/01/24 History mcg/actuation mist for inhalation (Spiriva Respimat) rosuvastatin 20 mg tablet (Crestor) 20 mg PO ONCE #30 tabs 04/01/25 05/20/25 Rx meloxicam 7.5 mg tablet 7.5 mg PO BID PRN swelling in the 05/20/25 05/20/25 Rx wrist 2 weeks #30 tabs Have you fallen in the past year?: No PFSH Medical History (Updated 05/20/25 @ 14:39 by Kleber Mott MD) Ganglion cyst of dorsum of left wrist Left wrist pain Cough Surgical History Hx of shoulder surgery Hx of right knee surgery ( 2018) Social History Smoking Status: Heavy Smoker (>10/day) Tobacco: How many years used: 45 HPI LEFT HAND Details: This documentation accurately reflects the service provided and the decisions made by me, Dr. Kleber Mott MD 05/20/25 1021. Part of today???s visit was documented by [ ], acting as scribe. QUIQUE DENNY is a 64 year old M here today for L wrist pain and dorsal swelling. 1 month history. No trauma. It is mildly painful. 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 Uoqfz-duar-[id number]. Has not tried any formal treatment. Did have some x-rays that were negative related to this. No history of redness drainage or other problems with this no constitutional symptoms no history of malignancy. Supplemental Info POMERENE : X-ray left wrist 3 views conclusion no acute disease dictated on 05/03/2025 from an outside source Coding Level of Care Code Off vis,new,level 4 Diagnoses Left wrist pain M25.532 Ganglion cyst of dorsum of left wrist M67.432 Assessment and Plan Assessment and Plan (1) Left wrist pain: Status: Acute Plan: QUIQUE DENNY is a 64 year old M here today for L wrist pain. Patient has a 1 month history of atraumatic dorsal wrist swelling consistent with a ganglion cyst. I will go ahead and order an ultrasound to further characterize this. In the meantime no blood thinners beyond aspirin and the patient is not on any antihypertensive medications with no history of kidney problems he will try meloxicam twice a day discontinue the naproxen and follow-up after the ultrasound. Cautioned him against the side effects on these medications and to take with food as well to minimize the GI complications. The patient understands no further questions or concerns. (2) Ganglion cyst of dorsum of left wrist: Status: Acute Medications: New meloxicam 7.5 mg PO BID PRN 30 tabs 1RF swelling in the wrist 2 weeks MDD 2 M25.532 - Pain in left wrist, M67.432 - Ganglion, left wrist Clinical Quality Measures Falls Risk Screening/Assistive Devices Have you fallen in the past year?: No Ortho Exam General General: Yes no acute distress Neurologic: Yes alert and Yes oriented x3 Psychologic: Yes reasonable and appropriate Right Wrist/Hand Skin/Wound: Yes Swelling and No Ecchymosis Left Wrist/Hand Skin/Wound: Yes CDI, Yes Swelling, No Ecchymosis, Yes nail intact, Yes capillary refill normal and No erythema Left Wrist: Yes ROM-Extension 0-60, Yes ROM-Flexion 0-80, Yes ROM-Pronation 0-80 and Yes ROM- Supination 0-90; No Snuffbox tenderness, No Tender to palpate triangular fibrocartilage complex, No Distal radioulnar joint, No tender to palpate 1st dorsal compartment, No Thenar Atrophy and No Hypothenar Atrophy Motor: EPL: 5, FDP-2: 5, 1st Dorsal Interosseous: 5 and APB: (more content not included)... Normal [facility] ED MED ADMINISTRATION DETAIL on 05-16-2025 ED MED ADMINISTRATION DETAIL Normal [facility] ED NURSES CLINICAL NOTEon ED NURSES CLINICAL NOTE Normal [facility] ED ORDER SHEET (CPOE ONLY)on 05-16-2025 ED ORDER SHEET (CPOE ONLY) Normal [facility] ED PHYSICIAN CLINICAL REPORT on 05-16-2025 ED PHYSICIAN CLINICAL REPORT Normal [facility] ED SUPER BILLon 05-16-2025 ED SUPER BILL Normal [facility] ED VISIT SUMMARYon ED VISIT SUMMARY Normal [facility] ED VITALS FLOW SHEETon 05-16 ED VITALS FLOW SHEET Normal [facility] Final Surgical Pathology Rep [facility] 05-14-2025 Final Surgical Pathology Report . Pathology Reports Accession: Collected Date/Time: Received Date/Time: Pathologist: [id number] 05/12/2025 08:30 EDT 05/13/2025 08:45 EDT MD JAZMIN CADE Final Surgical Pathology Report DIAGNOSIS: A. DESCENDING COLON, BIOPSY: - HYPERPLASTIC POLYP B. RECTOSIGMOID COLON, BIOPSY: - HYPERPLASTIC POLYP C. RECTUM, BIOPSY: - FRAGMENTS OF HYPERPLASTIC POLYP COMMENT: [facility] [id number] CLINICAL INFORMATION: SCREENING COLONOSCOPY SPECIMEN: A DESCENDING COLON POLYP X 1 B RECTAL-SIGMOID COLON POLYP X 1 C RECTAL POLYP X 8 GROSS DESCRIPTION: All parts labelled with patient name and [id number] A. Received in formalin labeled descending colon polyp x 1 is 1 choi-brown tissue fragment measuring 0.6 x 0.4 cm. Fecal debris also identified. TS-1 B. Received in formalin labeled rectal sigmoid polyp are 3 wispy choi-brown tissue fragments measuring 0.5 x 0.2 to 0.6 x 0.3 cm greatest dimension. TS-1 C. Received in formalin labeled rectal polyp x 8 are multiple wispy choi-brown tissue fragments aggregating 1.7 x 0.5 x 0.3 cm greatest dimension. Smallest fragments may not survive processing. TS-1 Radha Echeverria, Grossing Drum Stenciler/ Dr. Ammon Taylor, Pathologist Performed by Radha Echeverria MICROSCOPIC DESCRIPTION: The microscopic examination is performed, except in the case of Gross Only. Verified by Pathology Report verified by [facility] JAZMIN CADE MD Sign out Date: 05/14/2025 09:14 Performing Lab: [facility], [address] [place] [address] Pathology Dept Disclaimer If ancillary studies were utilized, the following Laboratory Developed Test (LDT) disclaimer will apply: Under CLIA requirements, [facility] Laboratory is qualified to perform high complexity testing. For all ancillary stains, positive and negative controls stain appropriately. Performance characteristics of immunohistochemical and chromogenic in-situ Pathology Reports Accession: Collected Date/Time: Received Date/Time: Pathologist: [id number] 05/12/2025 08:30 EDT 05/13/2025 08:45 EDT MD JAZMIN CADE Disclaimer hybridization tests have been determined by [facility] Laboratory. These tests are used for clinical purposes, They should not be regarded as investigational or for research. Normal [facility] US AORTAon 05-05-2025 US AORTA Normal [facility] WRIST COMPLETE LTon 05-02-20 WRIST COMPLETE LT Normal [facility] L/S Spine Bending Flex/[place] 04-16-2025 L/S Spine Bending Flex/Ext [facility] Imaging Services [address] [place] [address] L/S Spine Bending Flex/Ext MR#: [id number] Acct: [id number] Name: QUIQUE DENNY Rep #: [id number] : 1960 M 64 From: Tamy palomares MD PCP: Dr. Pilar Morataya MD Status: REG CLI Study: L/S Spine Bending Flex/Ext Date of Exam: 04/16 Exam# [id number] Ordering Dr: Abraham Garvin MD PROCEDURE: L/S SPINE BENDING FLEX/EXT 04/16/2025 REASON FOR EXAM: LUMBAR SPONDYLOLYSIS TECHNIQUE: L/S SPINE BENDING FLEX/EXT COMPARISON: None. FINDINGS: Grade 2 anterolisthesis of L5 on S1 secondary to bilateral pars defects. No evidence of instability on flexion/extension images. Grade 1 anterolisthesis of L3 on L4 secondary to facet joint arthropathy without associated instability on flexion/extension images. There are diffuse spondylotic changes. Findings are demonstrated to by diffuse disc space narrowing, osteophyte formation and degenerative endplate sclerosis. There is diffuse facet joint arthropathy with secondary bilateral neural foramina narrowing. No fracture or dislocation is seen. No aggressive lytic or blastic bony lesion is noted. RAD/L/S Spine Bending Flex/Ext IMPRESSION: Grade 2 anterolisthesis of L5 on S1 secondary to bilateral pars defects. No evidence of instability on flexion/extension images. Grade 1 anterolisthesis of L3 on L4 secondary to facet joint arthropathy without associated instability on flexion/extension images. Spondylosis. Reading [facility] CC: Dr. Abraham Garvin MD; Dr. Pilar Morataya MD Substation Mechanic: Signed Normal [facility] ED MED ADMINISTRATION DETAIL on 03-23-2025 ED MED ADMINISTRATION DETAIL Normal [facility] ED NURSES CLINICAL NOTEon ED NURSES CLINICAL NOTE Normal [facility] ED ORDER SHEET (CPOE ONLY)on 03-23-2025 ED ORDER SHEET (CPOE ONLY) Normal [facility] ED PHYSICIAN CLINICAL REPORT on 03-23-2025 ED PHYSICIAN CLINICAL REPORT Normal [facility] ED SUPER BILLon 03-23-2025 ED SUPER BILL Normal [facility] ED VISIT SUMMARYon 5 ED VISIT SUMMARY Normal [facility] ED VITALS FLOW SHEETon 03-23 ED VITALS FLOW SHEET Normal [facility] Bacteria Ur Culton Bacteria identified Cx Nom (U) ORGANISM ID: 1 10,000 -<50,000 CFU/ml Normal urogenital tomy Normal [facility] Comment on above: Performed By: #### 6 30-4 #### [facility] CLIA [id number] [address] [place] [address] [facility] C DIFF COMPLETEon 03-22-2025 C DIFF COMPLETE Normal [facility] Comment on above: Performed By: #### 2 51990 ####[facility],[address] [place] [address] CBC + DIFFon 03-22-2025 Baso # 0.02 x10EE3/UL Normal 0.00 - 0.10 [facility] Comment on above: Performed By: #### 2 14452 ####[facility],[address] [place] [address] Basophils/100 WBC (Bld) 0.3 % Normal 0.0 - 2.0 [facility] Comment on above: Performed By: #### 2 02874 ####[facility],[address] [place] [address] CBC + DIFF Normal [facility] Comment on above: Result Comment: CBC- COMPLETE BLOOD COUNT Performed By: #### 2 95447 ####[facility],[address] [place] [address] EO # 0.38 x10EE3/UL Normal 0.00 - 0.50 [facility] Comment on above: Performed By: #### 2 48937 ####[facility],[address] [place] [address] 67684 Eosinophils/100 WBC (Bld) 5.1 % Normal 0.0 - 7.0 [facility] Comment on above: Performed By: #### 2 19342 ####[facility],[address] [place] [address] 16602 Erythrocyte distribution width (RBC) [Ratio] 13.6 % Normal 12.0 - 15.6 [facility] Comment on above: Performed By: #### 2 48282 ####[facility],[address] [place] [address] 98373 Hematocrit (Bld) [Volume fraction] 44.1 % Normal 40.0 - 52.0 [facility] Comment on above: Performed By: #### 2 89764 ####[facility],[address] [place] [address] Hemoglobin (Bld) [Mass/Vol] 15.5 g/dL Normal 13.0 - 17.5 [facility] Comment on above: Performed By: #### 2 77250 ####[facility],[address] [place] [address] 95872 Lymph # 1.75 x10EE3/UL Normal 0.80 - 2.80 [facility] Comment on above: Performed By: #### 2 54816 ####[facility],[address] [place] [address] 64735 Lymphocytes/100 WBC (Bld) 23.2 % Normal 20.0 - 45.0 [facility] Comment on above: Performed By: #### 2 07861 ####[facility],[address] [place] [address] 98049 MANUAL DIFF N/A Normal [facility] Comment on above: Performed By: #### 2 04612 ####[facility],[address] [place] [address] 77709 MCH (RBC) [Entitic mass] 32 pg Normal 27 - 33 [facility] Comment on above: Performed By: #### 2 06325 ####[facility],[address] [place] [address] MCHC 35 X10 3 Normal 32 - 36 [facility] Comment on above: Performed By: #### 2 23994 ####[facility],[address] [place], [place] [phone] MCV (RBC) [Entitic vol] 90 fL Normal 81 - 98 [facility] Comment on above: Performed By: #### 2 09677 ####[facility],[address] [place] [address] [place] # 0.57 x10EE3/UL Normal 0.20 - 1.00 [facility] Comment on above: Performed By: #### 2 93086 ####[facility],[address] [place] [address] MONOS % 7.6 % Normal 0.0 - 10.0 [facility] Comment on above: Performed By: #### 2 98521 ####[facility],[address] [place] [address] Morphology Brody (Bld) [Interp] N/A Normal [facility] Comment on above: Performed By: #### 2 35101 ####[facility],[address] [place] [address] Neut # 4.80 x10EE3/UL Normal 1.50 - 7.10 [facility] Comment on above: Performed By: #### 2 56431 ####[facility],[address] [place], [place] [phone] Neutrophils/100 WBC (Bld) 63.9 % Normal 46.0 - 76.0 [facility] Comment on above: Performed By: #### 2 49438 ####[facility],[address] [place] [address] PLATELET 224 x10EE3/UL Normal 150 - 450 [facility] Comment on above: Performed By: #### 2 42288 ####[facility],[address] [place] [address] 79516 Platelet mean volume (Bld) [Entitic vol] 7.8 fL Normal 6.4 - 10.5 [facility] Comment on above: Result Comment: AUTO MATED DIFFERENTIAL Performed By: #### 2 13556 ####[facility],[address] [place] [address] 76312 RBC 4.91 x 10EE6/UL Normal 4.50 - 6.00 [facility] Comment on above: Performed By: #### 2 64727 ####[facility],[address] [place] [address] 60658 WBC 7.5 x 10EE3/UL Normal 4.5 - 10.8 [facility] Comment on above: Performed By: #### 2 13545 ####[facility],[address] [place] [address] 20916 CMP with eGFRon 03-22-2025 AGE 64 years Normal [facility] Comment on above: Performed By: #### 2 11085 ####[facility],[address] [place] [address] 69512 Albumin [Mass/Vol] 3.5 g/dL Normal 3.4 - 5.0 [facility] Comment on above: Performed By: #### 2 69250 ####[facility],[address] [place] [address] 20845 Albumin/Globulin [Mass ratio] 1.0 {ratio} Normal 0.9 - 1.6 [facility] Comment on above: Performed By: #### 2 81488 ####[facility],[address] [place] [address] 89360 ALK PHOS 77 U/L Normal 46 - 116 [facility] Comment on above: Performed By: #### 2 53946 ####[facility],[address] [place] [address] 95229 ALT [Catalytic activity/Vol] 37 U/L Normal 16 - 63 [facility] Comment on above: Performed By: #### 2 58654 ####[facility],[address] [place] [address] 37176 Anion gap [Moles/Vol] 14 mmol/L Normal 10 - 20 [facility] Comment on above: Performed By: #### 2 44446 ####[facility],[address] [place] [address] 34428 AST [Catalytic activity/Vol] 21 U/L Normal 15 - 37 [facility] Comment on above: Performed By: #### 2 33241 ####[facility],[address] [place] [address] 36435 B/C RATIO 14 ratio Normal 0 - 30 [facility] Comment on above: Performed By: #### 2 84919 ####[facility],[address] [place] [address] 74195 Bilirubin [Mass/Vol] 0.5 mg/dL Normal 0.2 - 1.0 [facility] Comment on above: Performed By: #### 2 47214 ####[facility],[address] [place] [address] 11281 Calcium [Mass/Vol] 8.3 mg/dL Low 8.5 - 10.1 [facility] Comment on above: Performed By: #### 2 61860 ####[facility],[address] [place] [address] 92775 Chloride [Moles/Vol] 102 mmol/L Normal 98 - 107 [facility] Comment on above: Performed By: #### 2 76972 ####[facility],[address] [place] [address] 80471 CMP with eGFR Normal [facility] Comment on above: Result Comment: COMP REHENSIVE METABOLIC PANEL Performed By: #### 2 50945 ####[facility],[address] [place] [address] 64151 CO2 [Moles/Vol] 25.9 mmol/L Normal 21.0 - 32.0 [facility] Comment on above: Performed By: #### 2 93018 ####[facility],[address] [place] [address] 96673 Creatinine [Mass/Vol] 0.98 mg/dL Normal 0.70 - 1.30 [facility] Comment on above: Performed By: #### 2 98799 ####[facility],[address] [place] [address] 55980 GFR/1.73 sq M.predicted among non-blacks MDRD (S/P/Bld) [Vol rate/Area] mL/min/{1.73_m2} Normal 60 - 999 [facility] Comment on above: Performed By: #### 2 06737 ####[facility],[address] [place] [address] 14145 Result Comment: ACCO RDING TO THE NATIONAL KIDNEY DISEASE EDUCATION PROGRAM(NKDE), A NORMAL eGFRIS A VALUE GREATER THAN OR EQUAL TO 60 ML/MIN/1.73 SQ METERS.CHRONIC KIDNEY DISEASE: <60mL/MIN/1.73 SQ METERSKIDNEY FAILURE: <15mL/MIN/1.73 SQ METERSTHIS TEST SHOULD ONLY BE USED FOR PATIENTS 18 YEARS OF AGE AND OLDER. Globulin (S) [Mass/Vol] 3.4 g/dL Normal 1.5 - 3.8 [facility] Comment on above: Performed By: #### 2 77116 ####[facility],[address] [place] [address] 23095 Glucose [Mass/Vol] 123 mg/dL High 74 - 106 [facility] Comment on above: Performed By: #### 2 94506 ####[facility],[address] [place] [address] 19531 Potassium [Moles/Vol] 3.7 mmol/L Normal 3.5 - 5.1 [facility] Comment on above: Performed By: #### 2 12257 ####[facility],[address] [place] [address] 55708 Protein [Mass/Vol] 6.9 g/dL Normal 6.4 - 8.2 [facility] Comment on above: Performed By: #### 2 72110 ####[facility],[address] [place] [address] Sodium [Moles/Vol] 138 mmol/L Normal 136 - 145 [facility] Comment on above: Performed By: #### 2 56464 ####[facility],[address] [place] [address] Urea nitrogen [Mass/Vol] 14 mg/dL Normal 7 - 18 [facility] Comment on above: Performed By: #### 2 42497 ####[facility],[address] [place] [address] CT ABDOMEN/PELVIS Won 2024 CT ABDOMEN/PELVIS W Normal [facility] LACTOFERRIN, QUALITATIVE, ST OOLon 03-22-2025 LACTOFERRIN, QUALITATIVE, STOOL Normal [facility] Comment on above: Performed By: #### 2 13427 ####[facility],[address] [place], [place] [phone] LIPASEon 03-22-2025 Lipase [Catalytic activity/Vol] 18.0 U/L Normal 15.0 - 78.0 [facility] Comment on above: Result Comment: *PLE ASE NOTE THAT RANGES FOR LIPASE HAVE CHANGED OF 10/20/23 DUE TO AN ASSAYUPDATE BY THE AVIONIC TECHNICIAN.THE NEW ASSAY RANGE IS 6-250 U/L, WITH A REFERENCERANGE OF 16-77 U/L. Performed By: #### 2 28095 ####[facility],[address] [place], [place] [phone] STOOL CULTURE [DANIEL]on Stool culture STOOL CULTURE [AULTM AN] 03/27/25.0919.DNP.COMPLE TE Normal [facility] Comment on above: Performed By: #### 2 77468 ####[facility],[address] [place], [place] [address] URINALYSISon 03-22-2025 Amorphous NONE Normal [facility] Comment on above: Performed By: #### 2 32016 ####[facility],[address] [place] [address] 72400 Bacteria NONE Normal [facility] Comment on above: Performed By: #### 2 82788 ####[facility],[address] [place] [address] 03639 Bilirubin Ql (U) 1 Abnormal NORMAL: NEGATIVE [facility] Comment on above: Performed By: #### 2 66806 ####[facility],[address] [place] [address] 97328 Casts NONE Normal [facility] Comment on above: Performed By: #### 2 08545 ####[facility],[address] [place] [address] 16359 Clarity (U) clear Normal NORMAL: CLEAR [facility] Comment on above: Performed By: #### 2 75468 ####[facility],[address] [place] [address] 98134 Color (U) marilynn Normal NORMAL: YELLOW [facility] Comment on above: Performed By: #### 2 49905 ####[facility],[address] [place] [address] 91504 Crystals LM Nom (Urine sed) NONE Normal [facility] Comment on above: Performed By: #### 2 51518 ####[facility],[address] [place] [address] 59630 Epi Cells NONE Normal [facility] Comment on above: Performed By: #### 2 35540 ####[facility],[address] [place] [address] 78301 Glucose Ql (U) NORM Normal NORMAL: NORMAL [facility] Comment on above: Performed By: #### 2 05868 ####[facility],[address] [place] [address] 80237 Hemoglobin Ql (U) Negative Normal NORMAL: NEGATIVE [facility] Comment on above: Performed By: #### 2 68390 ####[facility],[address] [place] [address] 19964 Ketone Negative Normal NORMAL: NEGATIVE [facility] Comment on above: Performed By: #### 2 04629 ####[facility],[address] [place] [address] 51801 Leukocytes 25 Abnormal NORMAL: NEGATIVE [facility] Comment on above: Performed By: #### 2 21794 ####[facility],[address] [place] [address] Mucous 1+ Normal [facility] Comment on above: Performed By: #### 2 33970 ####[facility],[address] [place], [place] [phone] Nitrite Ql (U) Negative Normal NORMAL: NEGATIVE [facility] Comment on above: Performed By: #### 2 05206 ####[facility],[address] [place] [address] pH (U) 5 [pH] Normal NORMAL: 5.0-8.0 [facility] Comment on above: Performed By: #### 2 01869 ####[facility],[address] [place], [place] [phone] Protein Ql (U) 30 Abnormal NORMAL: NEGATIVE [facility] Comment on above: Performed By: #### 2 30731 ####[facility],[address] [place], [place] [phone] Rbc NONE Normal 0-3/hpf [facility] Comment on above: Performed By: #### 2 14615 ####[facility],[address] [place], [place] [phone] Sp [place] 1.020 Normal NORMAL: 1.010-1.030 [facility] Comment on above: Performed By: #### 2 37107 ####[facility],[address] [place] [address] Specimen Type R Normal [facility] Comment on above: Performed By: #### 2 24196 ####[facility],[address] [place] [address] Urinalysis dipstick W Reflex Microscopic panel (U) SEE BELOW Normal [facility] Comment on above: Result Comment: MICR OSCOPIC Performed By: #### 2 61038 ####[facility],[address] [place] [address] Urobilinog 1 Abnormal NORMAL: NORMAL [facility] Comment on above: Performed By: #### 2 93710 ####[facility],[address] [place] [address] Wbc 1-5 Normal 0-5/hpf [facility] Comment on above: Performed By: #### 2 29678 ####[facility],[address] [place] [address] Yeast NONE Normal [facility] Comment on above: Performed By: #### 2 46837 ####[facility],[address] [place], [place] [phone] URINE CULTURE [CCL]on 2024 Bacteria identified Cx Nom (U) Normal [facility] Comment on above: Performed By: #### 2 61005 ####[facility],[address] [place], [place] [phone] US EXTREMITY NONVASCULAR COM PLETEon 02-27-2025 US EXTREMITY NONVASCULAR COMPLETE Normal [facility] HEMOGLOBIN A1C (POM)on 02-18 Glucose [Mass/Vol] 148.5 mg/dL High 0.0 - 0.0 [facility] Comment on above: Result Comment: BLDo HEMOGLOBIN A1C REFERENCE RANGESBLDo Suggested Diagnosis HbA1c(%) HbA1C (mmol/mol Diabetic >/=6.5 >/=48 Prediabetes 5.7 - 6.4 39 - 47 Normal <5.7 <39 Performed By: #### 2 34878 ####[facility],[address] [place], [place] [phone] HbA1c (Bld) [Mass fraction] 6.8 % High 0.0 - 6.5 [facility] Comment on above: Performed By: #### 2 48801 ####[facility],[address] [place], [place] [phone] T4-FREE (FREE THYROXINE)on 0 02-18-2025 Free T4 [Mass/Vol] 0.99 ng/dL Normal 0.76 - 1.46 [facility] Comment on above: Result Comment: P otential of falsely elevated results when biotin concentrations are > 10ng/mL. Performed By: #### 2 28390 ####[facility],[address] [place], [place] [address] TSHon 02-18-2025 TSH Qn 3.68 m[IU]/L Normal 0.35 - 3.74 [facility] Comment on above: Performed By: #### 2 63434 ####[facility],[address] [place], [place] [address] URINE MICROALBUMIN W/CREATIN INE, RANDOMon 02-18-2025 CREATININE UR 231.46 mg/dl Normal [facility] Comment on above: Performed By: #### 2 36737 ####[facility],[address] [place] [address] 74435 MICROALBUMIN UR 0.9 mg/dL Normal 0.1 - 25.1 [facility] Comment on above: Performed By: #### 2 40270 ####[facility],[address] [place], [place] [phone] UACR 4 mg/g Normal [facility] Comment on above: Performed By: #### 2 84386 ####[facility],[address] [place] [address] 59573 CV VENOUS LEG LTon CV VENOUS LEG LT Normal [facility] ED MED ADMINISTRATION DETAIL on 01-21-2025 ED MED ADMINISTRATION DETAIL Normal [facility] ED NURSES CLINICAL NOTEon ED NURSES CLINICAL NOTE Normal [facility] ED ORDER SHEET (CPOE ONLY)on 01-21-2025 ED ORDER SHEET (CPOE ONLY) Normal [facility] ED PHYSICIAN CLINICAL REPORT on 01-21-2025 ED PHYSICIAN CLINICAL REPORT Normal [facility] ED PHYSICIAN DISCHARGE REPOR Ton 01-21-2025 ED PHYSICIAN DISCHARGE REPORT Normal [facility] ED SUPER BILLon 01-21-2025 ED SUPER BILL Normal [facility] ED VISIT SUMMARYon ED VISIT SUMMARY Normal [facility] ED VITALS FLOW SHEETon 01-21 ED VITALS FLOW SHEET Normal [facility] CNOVon 12-10-2024 CNOV Office Visit (PULMWS ) -------- REILLYQUIQUE PORTILLO ([id number]) 1960 M Date Time Provider Department 12/10/24 1:00 PM LOU DAVE PULMWS During your visit today, we recorded the following information about you: Lou Dave APRN.[facility] 12/10/2024 5:41 PM Signed Pulmonary Medicine Patients name: Quique Denny PCP: Pilar Morataya MD CC: oxygen testing and follow-up HPI: Quique Denny is a 63 year old male current 90-euov-brkr smoker with PMH significant for COPD, PAD, [...] a chest CT report was sent from [facility] which revealed Emphysema and a calcified granuloma. [...] HISTORY Diagnosis Date AAA (abdominal aortic aneurysm) ([facility]) COPD (chronic obstructive pulmonary disease) ([facility]) Morbid obesity ([facility]) VANDANA (obstructive sleep apnea) PAD (peripheral artery disease) ([facility]) Allergies: No Known Allergies Medication List [...] atelectasis or fibrosis at the left base Substation Mechanic: [email or web address] Transcribe Date/Time: Aug 14 2024 3:09P [...] exudate. Cardiova (more content not included)... Normal [facility] OXIMETRY WITH AMBULATIONon 0 12-10-2024 Justen Roman [...] Supply Carrier Forehead 30 None NAME: Justen Roman RPSAMANTHA PATIENT NAME: Quique Denny DATE: December 10, 2024 TIME: 1:28 PM [facility] Telephone (PULMWS) -------- QUIQUE DENNY ([id number]) 1960 M Date Time Provider Department 12/06/24 FABI JOVEL PULWS During your visit today, we recorded the [...] testing and visit. ARIAN [place] Christine M, APRN.[facility] 12/06/2024 2:33 PM Signed Orders placed. I'm happy to see him. Allergies As of Date: 12/06/2024 (No Known Allergies) Date Reviewed: 08/13/2024 Reviewed by: Fabi Jovel MD - Fully Assessed Primary Visit Diagnosis:Chronic obstructive pulmonary disease, unspecified COPD type (HCC) [J44.9] Order(s):OXIMETRY WITH AMBULATION [[id number]] Order #: [id number]: 1 FUTURE Prescriptions as of 12/06/2024 - [...] by CLICK, LOU Maxwell on 12/06/24 Normal [facility] CVFLURVon 11-30-2024 FLU A PCR Negative Normal Negative [facility] Comment on above: Result Comment: [place] s [id number] Performed By: #### C VFLURV #### [facility] [address] [place] [address] 18974 FLU B PCR Negative Normal Negative [facility] Comment on above: Result Comment: Note s [id number] Performed By: #### C VFLURV #### [facility] [address] [place] [address] 59571 RSV PCR Negative Normal Negative [facility] Comment on above: Result Comment: Note s [id number] Performed By: #### C VFLURV #### [facility] [address] [place] [address] 51988 SARS-CoV-2 (COVID-19) RNA DANIEL+probe Ql (Unsp spec) Negative Normal Negative [facility] Comment on above: Result Comment: Note s [id number] This test has been authorized by FDA [...] inaccurate positive results. Performed By: #### C VFLURV #### [facility] [address] [place] [address] 33210 ED MED ADMINISTRATION DETAIL on 11-30-2024 ED MED ADMINISTRATION DETAIL Normal [facility] ED MED ADMINISTRATION DETAIL Normal [facility] ED NURSES CLINICAL NOTEon ED NURSES CLINICAL NOTE Normal [facility] ED NURSES CLINICAL NOTE Normal [facility] ED ORDER SHEET (CPOE ONLY)on 11-30-2024 ED ORDER SHEET (CPOE ONLY) Normal [facility] ED ORDER SHEET (CPOE ONLY) Normal [facility] ED PHYSICIAN CLINICAL REPORT on 11-30-2024 ED PHYSICIAN CLINICAL REPORT Normal [facility] ED PHYSICIAN CLINICAL REPORT Normal [facility] ED PHYSICIAN DISCHARGE REPOR Ton 11-30-2024 ED PHYSICIAN DISCHARGE REPORT Normal [facility] ED PHYSICIAN DISCHARGE REPORT Normal [facility] ED SUPER BILLon 11-30-2024 ED SUPER BILL Normal [facility] ED SUPER BILL Normal [facility] ED VISIT SUMMARYon ED VISIT SUMMARY Normal [facility] ED VISIT SUMMARY Normal [facility] ED VITALS FLOW SHEETon 11-30 ED VITALS FLOW SHEET Normal [facility] ED VITALS FLOW SHEET Normal [facility] CBC + DIFFon 11-29-2024 Baso # 0.01 x10EE3/UL Normal 0.00 - 0.10 [facility] Comment on above: Performed By: #### 2 36486 ####[facility],[address] [place] [address] 32720 Basophils/100 WBC (Bld) 0.2 % Normal 0.0 - 2.0 [facility] Comment on above: Performed By: #### 2 95289 ####[facility],[address] [place] [address] 81648 CBC + DIFF Normal [facility] Comment on above: Result Comment: CBC- COMPLETE BLOOD COUNT Performed By: #### 2 07448 ####[facility],[address] [place] [address] 53472 EO # 0.28 x10EE3/UL Normal 0.00 - 0.50 [facility] Comment on above: Performed By: #### 2 21022 ####[facility],[address] [place] [address] 25586 Eosinophils/100 WBC (Bld) 4.3 % Normal 0.0 - 7.0 [facility] Comment on above: Performed By: #### 2 25347 ####[facility],[address] [place] [address] 13941 Erythrocyte distribution width (RBC) [Ratio] 13.4 % Normal 12.0 - 15.6 [facility] Comment on above: Performed By: #### 2 04556 ####[facility],[address] [place], [place] [phone] Hematocrit (Bld) [Volume fraction] 42.0 % Normal 40.0 - 52.0 [facility] Comment on above: Performed By: #### 2 73588 ####[facility],[address] [place] [address] Hemoglobin (Bld) [Mass/Vol] 14.3 g/dL Normal 13.0 - 17.5 [facility] Comment on above: Performed By: #### 2 13077 ####[facility],[address] [place] [address] Lymph # 2.28 x10EE3/UL Normal 0.80 - 2.80 [facility] Comment on above: Performed By: #### 2 05061 ####[facility],[address] [place] [address] Lymphocytes/100 WBC (Bld) 34.7 % Normal 20.0 - 45.0 [facility] Comment on above: Performed By: #### 2 97788 ####[facility],[address] [place] [address] MANUAL DIFF N/A Normal [facility] Comment on above: Performed By: #### 2 93625 ####[facility],[address] [place], [place] [phone] MCH (RBC) [Entitic mass] 31 pg Normal 27 - 33 [facility] Comment on above: Performed By: #### 2 88643 ####[facility],[address] [place], [place] [phone] MCHC 34 X10 3 Normal 32 - 36 [facility] Comment on above: Performed By: #### 2 69472 ####[facility],[address] [place] [address] 08274 MCV (RBC) [Entitic vol] 92 fL Normal 81 - 98 [facility] Comment on above: Performed By: #### 2 22723 ####[facility],[address] [place] [address] 94931 Benzie # 0.41 x10EE3/UL Normal 0.20 - 1.00 [facility] Comment on above: Performed By: #### 2 17162 ####[facility],[address] [place] [address] 15644 MONOS % 6.2 % Normal 0.0 - 10.0 [facility] Comment on above: Performed By: #### 2 64881 ####[facility],[address] [place] [address] 89529 Morphology Brody (Bld) [Interp] N/A Normal [facility] Comment on above: Performed By: #### 2 98286 ####[facility],[address] [place] [address] 95834 Neut # 3.59 x10EE3/UL Normal 1.50 - 7.10 [facility] Comment on above: Performed By: #### 2 75355 ####[facility],[address] [place] [address] 87214 Neutrophils/100 WBC (Bld) 54.6 % Normal 46.0 - 76.0 [facility] Comment on above: Performed By: #### 2 13371 ####[facility],[address] [place] [address] 66802 PLATELET 216 x10EE3/UL Normal 150 - 450 [facility] Comment on above: Performed By: #### 2 75462 ####[facility],[address] [place] [address] 63541 Platelet mean volume (Bld) [Entitic vol] 7.7 fL Normal 6.4 - 10.5 [facility] Comment on above: Result Comment: AUTO MATED DIFFERENTIAL Performed By: #### 2 18900 ####[facility],[address] [place] [address] 25938 RBC 4.56 x 10EE6/UL Normal 4.50 - 6.00 [facility] Comment on above: Performed By: #### 2 32726 ####[facility],[address] [place] [address] 44064 WBC 6.6 x 10EE3/UL Normal 4.5 - 10.8 [facility] Comment on above: Performed By: #### 2 94400 ####[facility],[address] [place] [address] 06645 CMP with eGFRon 11-29-2024 AGE 63 years Normal [facility] Comment on above: Performed By: #### 2 52645 ####[facility],[address] [place] [address] 83596 Albumin [Mass/Vol] 3.6 g/dL Normal 3.4 - 5.0 [facility] Comment on above: Performed By: #### 2 17322 ####[facility],[address] [place], [place] [phone] Albumin/Globulin [Mass ratio] 1.2 {ratio} Normal 0.9 - 1.6 [facility] Comment on above: Performed By: #### 2 08802 ####[facility],[address] [place] [address] 04861 ALK PHOS 81 U/L Normal 46 - 116 [facility] Comment on above: Performed By: #### 2 18440 ####[facility],[address] [place] [address] 07038 ALT [Catalytic activity/Vol] 63 U/L Normal 16 - 63 [facility] Comment on above: Performed By: #### 2 81545 ####[facility],[address] [place] [address] 73248 Anion gap [Moles/Vol] 8 mmol/L Low 10 - 20 [facility] Comment on above: Performed By: #### 2 15129 ####[facility],[address] [place] [address] 55984 AST [Catalytic activity/Vol] 36 U/L Normal 15 - 37 [facility] Comment on above: Performed By: #### 2 89647 ####[facility],[address] [place] [address] 05418 B/C RATIO 12 ratio Normal 0 - 30 [facility] Comment on above: Performed By: #### 2 55046 ####[facility],[address] [place] [address] 35222 Bilirubin [Mass/Vol] 0.4 mg/dL Normal 0.2 - 1.0 [facility] Comment on above: Performed By: #### 2 59890 ####[facility],[address] [place] [address] 56343 Calcium [Mass/Vol] 8.4 mg/dL Low 8.5 - 10.1 [facility] Comment on above: Performed By: #### 2 25589 ####[facility],[address] [place] [address] 27523 Chloride [Moles/Vol] 104 mmol/L Normal 98 - 107 [facility] Comment on above: Performed By: #### 2 49657 ####[facility],[address] [place] [address] 49935 CMP with eGFR Normal [facility] Comment on above: Result Comment: COMP REHENSIVE METABOLIC PANEL Performed By: #### 2 84750 ####[facility],[address] [place] [address] 46004 CO2 [Moles/Vol] 32.9 mmol/L High 21.0 - 32.0 [facility] Comment on above: Performed By: #### 2 61643 ####[facility],[address] [place] [address] 97841 Creatinine [Mass/Vol] 1.23 mg/dL Normal 0.70 - 1.30 [facility] Comment on above: Performed By: #### 2 53323 ####[facility],[address] [place] [address] 89769 eGFR 59 ML/MINUTE Low 60 - 999 [facility] Comment on above: Performed By: #### 2 86654 ####[facility],[address] [place] [address] 33041 GFR/1.73 sq M.predicted among non-blacks MDRD (S/P/Bld) [Vol rate/Area] mL/min/{1.73_m2} Normal 60 - 999 [facility] Comment on above: Result Comment: ACCO RDING TO THE NATIONAL KIDNEY DISEASE EDUCATION PROGRAM(NKDE), A NORMAL eGFRIS A VALUE GREATER THAN OR EQUAL TO 60 ML/MIN/1.73 SQ METERS.CHRONIC KIDNEY DISEASE: <60mL/MIN/1.73 SQ METERSKIDNEY FAILURE: <15mL/MIN/1.73 SQ METERSTHIS TEST SHOULD ONLY BE USED FOR PATIENTS 18 YEARS OF AGE AND OLDER. Performed By: #### 2 57217 ####[address] [address] Globulin (S) [Mass/Vol] 2.9 g/dL Normal 1.5 - 3.8 [facility] Comment on above: Performed By: #### 2 98984 ####[address] [address] Glucose [Mass/Vol] 202 mg/dL High 74 - 106 [facility] Comment on above: Performed By: #### 2 80768 ####[address] [address] Potassium [Moles/Vol] 3.7 mmol/L Normal 3.5 - 5.1 [facility] Comment on above: Performed By: #### 2 22798 ####[address] [address] Protein [Mass/Vol] 6.5 g/dL Normal 6.4 - 8.2 [facility] Comment on above: Performed By: #### 2 46020 ####[address] [place] [address] Sodium [Moles/Vol] 141 mmol/L Normal 136 - 145 [facility] Comment on above: Performed By: #### 2 55821 ####[facility],[address] [place] [address] Urea nitrogen [Mass/Vol] 15 mg/dL Normal 7 - 18 [facility] Comment on above: Performed By: #### 2 78223 ####[facility],[address] [place], [place] [address] CORONAVIRUS (SARS) ANTIGEN T ESTon 11-29-2024 EXTERNAL QC DONE? YES Normal [facility] Comment on above: Performed By: #### 2 96269 ####[facility],[address] [place] [address] INTERNAL CONTROL PASS Normal [facility] Comment on above: Performed By: #### 2 85303 ####[facility],[address] [place] [address] SARS ANTIGEN Negative Normal NORMAL: NEGATIVE [facility] Comment on above: Performed By: #### 2 66858 ####[facility],[address] [place] [address] SEND TO ? NO Normal [facility] Comment on above: Result Comment: SARS -CoV-2THIS TEST IS BEING USED UNDER THE FDA EUA PROCEDURE. THIS ASSAY HAS BEENVALIDATED AT [facility] FOR USE WITH NASAL AND NASOPHARYNGEAL [...] BECONSIDERED BY HEALTHCARE PROVIDERS IN CONSULTATION WITH [facility]. Performed By: #### 2 51972 ####[address] [address] CPKon 11-29-2024 CPK 558 U/L High 39 - 308 [facility] Comment on above: Performed By: #### 2 28608 ####[address] [address] [address] CHEST W/CONTRASTon 2024 CT CHEST W/CONTRAST Normal [facility] HEMOGLOBIN A1C (POM)on 11-29 Glucose [Mass/Vol] 191.5 mg/dL High 0.0 - 0.0 [facility] Comment on above: Result Comment: BLDo HEMOGLOBIN A1C REFERENCE RANGESBLDo Suggested Diagnosis HbA1c(%) HbA1C (mmol/mol Diabetic >/=6.5 >/=48 Prediabetes 5.7 - 6.4 39 - 47 Normal <5.7 <39 Performed By: #### 2 24521 ####[facility],[address] [place] [address] 55262 HbA1c (Bld) [Mass fraction] 8.3 % High 0.0 - 6.5 [facility] Comment on above: Performed By: #### 2 81594 ####[place] [id number] INFLUENZA VIRUS RAPID A/Bon 11-29-2024 INFLUENZA VIRUS RAPID A/B Normal [facility] Comment on above: Performed By: #### 2 98022 ####[place] [id number] LIPASEon 11-29-2024 Lipase [Catalytic activity/Vol] 27.0 U/L Normal 15.0 - 78.0 [facility] Comment on above: Result Comment: *PLE ASE NOTE THAT RANGES FOR LIPASE HAVE CHANGED OF 10/20/23 DUE TO AN ASSAYUPDATE BY THE AVIONIC TECHNICIAN.THE NEW ASSAY RANGE IS 6-250 U/L, WITH A REFERENCERANGE OF 16-77 U/L. Performed By: #### 2 34062 ####[place] [id number] Lipase [Catalytic activity/Vol] 26.0 U/L Normal 15.0 - 78.0 [facility] Comment on above: Result Comment: *PLE ASE NOTE THAT RANGES FOR LIPASE HAVE CHANGED OF 10/20/23 DUE TO AN ASSAYUPDATE BY THE AVIONIC TECHNICIAN.THE NEW ASSAY RANGE IS 6-250 U/L, WITH A REFERENCERANGE OF 16-77 U/L. Performed By: #### 2 42194 ####[place] [id number] LIPID PROFILEon 11-29-2024 Cholesterol [Mass/Vol] 95 mg/dL Normal 0 - 240 [facility] Comment on above: Performed By: #### 2 06925 ####[place] [id number] Cholesterol in HDL [Mass/Vol] 44 mg/dL Normal 40 - 60 [facility] Comment on above: Performed By: #### 2 05803 ####[place] [id number] Cholesterol in LDL [Mass/Vol] 25 mg/dL Normal 0 - 129 [facility] Comment on above: Performed By: #### 2 58228 ####[facility],[address] [place] [address] 60248 Cholesterol.total/Ch olesterol in HDL [Mass ratio] 2.2 {ratio} Normal 0.0 - 5.0 [facility] Comment on above: Performed By: #### 2 32824 ####[facility],[address] [place] [address] 82668 Lipid 1996 panel Normal [facility] Comment on above: Result Comment: LIPI D PROFILE Performed By: #### 2 39939 ####[facility],[address] [place] [address] 92274 Triglyceride [Mass/Vol] 129 mg/dL Normal 0 - 150 [facility] Comment on above: Performed By: #### 2 00602 ####[facility],[address] [place] [address] 59043 NM CARDIAC STRESS (SPECT) W/ LEXISCANon 11-29-2024 NM CARDIAC STRESS (SPECT) W/LEXISCAN Normal [facility] NM EXERCISE STRESS TEST (W/C ARDIAC STUDYon 11-29-2024 NM EXERCISE STRESS TEST (W/CARDIAC STUDY Normal [facility] NT-proBNPon 11-29-2024 Natriuretic peptide B (Bld) [Mass/Vol] 70 pg/mL Normal 0 - 125 [facility] Comment on above: Performed By: #### 2 19164 ####[facility],[address] [place] [address] 25102 RSVon 11-29-2024 RSV Normal [facility] Comment on above: Performed By: #### 2 74646 ####[facility],[address] [place] [address] 09516 TROPONINon 11-29-2024 HS TROPONIN 17.9 pg/mL Normal 0.0 - 76.2 [facility] [facility] Comment on above: Performed By: #### 2 52742 ####[facility],[address] [place] [address] 23497 TROPONIN I, HIGH SENSITIVITY on 11-29-2024 HS TROPONIN 12.3 pg/mL Normal 0.0 - 76.2 [facility] Comment on above: Performed By: #### 2 59519 ####[facility],[address] [place] [address] 16766 C-REACTIVE PROTEINon 025 CRP 0.81 mg/dl Normal 0.00 - 0.90 [facility] Comment on above: Performed By: #### 2 62362 ####[facility],[address] [place], [place] [phone] CBC + DIFFon 11-28-2024 Baso # 0.01 x10EE3/UL Normal 0.00 - 0.10 [facility] Comment on above: Performed By: #### 2 39252 ####[facility],[address] [place] [address] 64904 Basophils/100 WBC (Bld) 0.2 % Normal 0.0 - 2.0 [facility] Comment on above: Performed By: #### 2 44764 ####[facility],[address] [place] [address] 56139 CBC + DIFF Normal [facility] Comment on above: Result Comment: CBC- COMPLETE BLOOD COUNT Performed By: #### 2 34190 ####[facility],[address] [place] [address] 77848 EO # 0.28 x10EE3/UL Normal 0.00 - 0.50 [facility] Comment on above: Performed By: #### 2 71057 ####[facility],[address] [place] [address] 27749 Eosinophils/100 WBC (Bld) 4.1 % Normal 0.0 - 7.0 [facility] Comment on above: Performed By: #### 2 34615 ####[facility],[address] [place], [place] [phone] Erythrocyte distribution width (RBC) [Ratio] 13.3 % Normal 12.0 - 15.6 [facility] Comment on above: Performed By: #### 2 63669 ####[facility],[address] [place] [address] Hematocrit (Bld) [Volume fraction] 40.5 % Normal 40.0 - 52.0 [facility] Comment on above: Performed By: #### 2 94176 ####[facility],[address] [place] [address] Hemoglobin (Bld) [Mass/Vol] 13.8 g/dL Normal 13.0 - 17.5 [facility] Comment on above: Performed By: #### 2 75725 ####[facility],[address] [place] [address] Lymph # 1.87 x10EE3/UL Normal 0.80 - 2.80 [facility] Comment on above: Performed By: #### 2 83411 ####[facility],[address] [place], [place] [phone] Lymphocytes/100 WBC (Bld) 27.5 % Normal 20.0 - 45.0 [facility] Comment on above: Performed By: #### 2 63370 ####[facility],[address] [place], [place] [phone] MANUAL DIFF N/A Normal [facility] Comment on above: Performed By: #### 2 64104 ####[facility],[address] [place] [address] 75256 MCH (RBC) [Entitic mass] 31 pg Normal 27 - 33 [facility] Comment on above: Performed By: #### 2 34799 ####[facility],[address] [place] [address] 80699 MCHC 34 X10 3 Normal 32 - 36 [facility] Comment on above: Performed By: #### 2 78745 ####[facility],[address] [place] [address] 53184 MCV (RBC) [Entitic vol] 92 fL Normal 81 - 98 [facility] Comment on above: Performed By: #### 2 47449 ####[facility],[address] [place] [address] 66568 Benzie # 0.56 x10EE3/UL Normal 0.20 - 1.00 [facility] Comment on above: Performed By: #### 2 50768 ####[facility],[address] [place] [address] 19573 MONOS % 8.2 % Normal 0.0 - 10.0 [facility] Comment on above: Performed By: #### 2 47949 ####[facility],[address] [place] [address] 05260 Morphology Brody (Bld) [Interp] N/A Normal [facility] Comment on above: Performed By: #### 2 11439 ####[facility],[address] [place] [address] 22272 Neut # 4.09 x10EE3/UL Normal 1.50 - 7.10 [facility] Comment on above: Performed By: #### 2 62775 ####[facility],[address] [place] [address] 14266 Neutrophils/100 WBC (Bld) 60.1 % Normal 46.0 - 76.0 [facility] Comment on above: Performed By: #### 2 01288 ####[facility],[address] [place] [address] 33697 PLATELET 216 x10EE3/UL Normal 150 - 450 [facility] Comment on above: Performed By: #### 2 50912 ####[facility],[address] [place] [address] 43387 Platelet mean volume (Bld) [Entitic vol] 7.8 fL Normal 6.4 - 10.5 [facility] Comment on above: Result Comment: AUTO MATED DIFFERENTIAL Performed By: #### 2 04042 ####[facility],[address] [place] [address] 88153 RBC 4.39 x 10EE6/UL Low 4.50 - 6.00 [facility] Comment on above: Performed By: #### 2 33160 ####[facility],[address] [place] [address] 03808 WBC 6.8 x 10EE3/UL Normal 4.5 - 10.8 [facility] Comment on above: Performed By: #### 2 78218 ####[facility],[address] [place] [address] 15096 CHEST 1 VIEWon 11-28-2024 CHEST 1 VIEW Normal [facility] CMP with eGFRon 11-28-2024 AGE 63 years Normal [facility] Comment on above: Performed By: #### 2 78560 ####[facility],[address] [place] [address] 98241 Albumin [Mass/Vol] 3.7 g/dL Normal 3.4 - 5.0 [facility] Comment on above: Performed By: #### 2 89657 ####[facility],[address] [place] [address] 85635 Albumin/Globulin [Mass ratio] 1.3 {ratio} Normal 0.9 - 1.6 [facility] Comment on above: Performed By: #### 2 47670 ####[facility],[address] [place] [address] 52340 ALK PHOS 82 U/L Normal 46 - 116 [facility] Comment on above: Performed By: #### 2 62457 ####[facility],[address] [place] [address] 97637 ALT [Catalytic activity/Vol] 66 U/L High 16 - 63 [facility] Comment on above: Performed By: #### 2 68632 ####[facility],[address] [place] [address] 09568 Anion gap [Moles/Vol] 10 mmol/L Normal 10 - 20 [facility] Comment on above: Performed By: #### 2 32411 ####[facility],[address] [place], [place] [phone] AST [Catalytic activity/Vol] 41 U/L High 15 - 37 [facility] Comment on above: Performed By: #### 2 19803 ####[facility],[address] [place] [address] B/C RATIO 11 ratio Normal 0 - 30 [facility] Comment on above: Performed By: #### 2 67681 ####[facility],[address] [place] [address] Bilirubin [Mass/Vol] 0.5 mg/dL Normal 0.2 - 1.0 [facility] Comment on above: Performed By: #### 2 87088 ####[facility],[address] [place] [address] Calcium [Mass/Vol] 8.6 mg/dL Normal 8.5 - 10.1 [facility] Comment on above: Performed By: #### 2 16881 ####[facility],[address] [place], [place] [phone] Chloride [Moles/Vol] 106 mmol/L Normal 98 - 107 [facility] Comment on above: Performed By: #### 2 40113 ####[facility],[address] [place] [address] 38287 CMP with eGFR Normal [facility] Comment on above: Result Comment: COMP REHENSIVE METABOLIC PANEL Performed By: #### 2 02179 ####[facility],[address] [place] [address] 97048 CO2 [Moles/Vol] 32.1 mmol/L High 21.0 - 32.0 [facility] Comment on above: Performed By: #### 2 04258 ####[facility],[address] [place] [address] Creatinine [Mass/Vol] 1.15 mg/dL Normal 0.70 - 1.30 [facility] Comment on above: Performed By: #### 2 36393 ####[facility],[address] [place], [place] [phone] GFR/1.73 sq M.predicted among non-blacks MDRD (S/P/Bld) [Vol rate/Area] mL/min/{1.73_m2} Normal 60 - 999 [facility] Comment on above: Performed By: #### 2 33165 ####[facility],[address] [place] [address] Result Comment: ACCO RDING TO THE NATIONAL KIDNEY DISEASE EDUCATION PROGRAM(NKDE), A NORMAL eGFRIS A VALUE GREATER THAN OR EQUAL TO 60 ML/MIN/1.73 SQ METERS.CHRONIC KIDNEY DISEASE: <60mL/MIN/1.73 SQ METERSKIDNEY FAILURE: <15mL/MIN/1.73 SQ METERSTHIS TEST SHOULD ONLY BE USED FOR PATIENTS 18 YEARS OF AGE AND OLDER. Globulin (S) [Mass/Vol] 2.8 g/dL Normal 1.5 - 3.8 [facility] Comment on above: Performed By: #### 2 90278 ####[facility],[address] [place] [address] 79948 Glucose [Mass/Vol] 147 mg/dL High 74 - 106 [facility] Comment on above: Performed By: #### 2 09236 ####[facility],[address] [place] [address] 53036 Potassium [Moles/Vol] 3.8 mmol/L Normal 3.5 - 5.1 [facility] Comment on above: Performed By: #### 2 75349 ####[facility],[address] [place] [address] 20896 Protein [Mass/Vol] 6.5 g/dL Normal 6.4 - 8.2 [facility] Comment on above: Performed By: #### 2 33803 ####[facility],[address] [place] [address] 78747 Sodium [Moles/Vol] 144 mmol/L Normal 136 - 145 [facility] Comment on above: Performed By: #### 2 42436 ####[facility],[address] [place] [address] 11563 Urea nitrogen [Mass/Vol] 13 mg/dL Normal 7 - 18 [facility] Comment on above: Performed By: #### 2 52165 ####[facility],[address] [place], [place] [phone] CORONAVIRUS (SARS) ANTIGEN T ESTon 11-28-2024 EXTERNAL QC DONE? YES Normal [facility] Comment on above: Performed By: #### 2 90366 ####[facility],[address] [place] [address] INTERNAL CONTROL PASS Normal [facility] Comment on above: Performed By: #### 2 29380 ####[facility],[address] [place], [place] [phone] SARS ANTIGEN Negative Normal NORMAL: NEGATIVE [facility] Comment on above: Performed By: #### 2 72414 ####[facility],[address] [place] [address] 75644 SEND TO ? NO Normal [facility] Comment on above: Result Comment: SARS -CoV-2THIS TEST IS BEING USED UNDER THE FDA EUA PROCEDURE. THIS ASSAY HAS BEENVALIDATED AT [facility] FOR USE WITH NASAL AND NASOPHARYNGEAL [...] BECONSIDERED BY HEALTHCARE PROVIDERS IN CONSULTATION WITH [facility]. Performed By: #### 2 23858 ####[place] [address] CT CHEST (PE PROTOCOL)on CT CHEST (PE PROTOCOL) Normal [facility] D-DIMER, QUANTITATIVEon 02- D-DIMER QUANT 240 ng/ml High 0 - 230 [facility] Comment on above: Performed By: #### 2 83145 ####[address] [address] D-DIMER, QUANTITATIVE Normal [facility] Comment on above: Result Comment: ARMEN T D-DIMER Performed By: #### 2 51986 ####[address] [address] INFLUENZA VIRUS RAPID A/Bon 11-28-2024 INFLUENZA VIRUS RAPID A/B Normal [facility] Comment on above: Performed By: #### 2 19090 ####[address] [address] LIPASEon 11-28-2024 Lipase [Catalytic activity/Vol] 23.0 U/L Normal 15.0 - 78.0 [facility] Comment on above: Result Comment: *PLE ASE NOTE THAT RANGES FOR LIPASE HAVE CHANGED OF 10/20/23 DUE TO AN ASSAYUPDATE BY THE AVIONIC TECHNICIAN.THE NEW ASSAY RANGE IS 6-250 U/L, WITH A REFERENCERANGE OF 16-77 U/L. Performed By: #### 2 21497 ####[facility],[address] [place] [address] 48111 NT-proBNPon 11-28-2024 Natriuretic peptide B (Bld) [Mass/Vol] 35 pg/mL Normal 0 - 125 [facility] Comment on above: Performed By: #### 2 09691 ####[address] [address] TROPONINon 11-28-2024 HS TROPONIN 9.4 pg/mL Normal 0.0 - 76.2 [facility] Comment on above: Performed By: #### 2 92965 ####[address] [address] HS TROPONIN 8.9 pg/mL Normal 0.0 - 76.2 [facility] Comment on above: Performed By: #### 2 89820 ####[address] [address] C-REACTIVE PROTEINon 025 CRP 0.58 mg/dl Normal 0.00 - 0.90 [facility] Comment on above: Performed By: #### 2 92655 ####[address] [address] CBC + DIFFon 11-16-2024 Baso # 0.01 x10EE3/UL Normal 0.00 - 0.10 [facility] Comment on above: Performed By: #### 2 67665 ####[address] [address] Basophils/100 WBC (Bld) 0.2 % Normal 0.0 - 2.0 [facility] Comment on above: Performed By: #### 2 58469 ####[facility],[address] [place] [address] CBC + DIFF Normal [facility] Comment on above: Result Comment: CBC- COMPLETE BLOOD COUNT Performed By: #### 2 71948 ####[place] [address] EO # 0.31 x10EE3/UL Normal 0.00 - 0.50 [facility] Comment on above: Performed By: #### 2 60792 ####[place] [address] Eosinophils/100 WBC (Bld) 3.9 % Normal 0.0 - 7.0 [facility] Comment on above: Performed By: #### 2 99791 ####[place] [address] Erythrocyte distribution width (RBC) [Ratio] 13.3 % Normal 12.0 - 15.6 [facility] Comment on above: Performed By: #### 2 72435 ####[place] [address] Hematocrit (Bld) [Volume fraction] 43.7 % Normal 40.0 - 52.0 [facility] Comment on above: Performed By: #### 2 30009 ####[facility],[address] [place] [address] Hemoglobin (Bld) [Mass/Vol] 14.6 g/dL Normal 13.0 - 17.5 [facility] Comment on above: Performed By: #### 2 67453 ####[facility],[address] [place] [address] Lymph # 1.97 x10EE3/UL Normal 0.80 - 2.80 [facility] Comment on above: Performed By: #### 2 21774 ####[facility],[address] [place] [address] Lymphocytes/100 WBC (Bld) 25.0 % Normal 20.0 - 45.0 [facility] Comment on above: Performed By: #### 2 89473 ####[facility],[address] [place] [address] MANUAL DIFF N/A Normal [facility] Comment on above: Performed By: #### 2 15914 ####[facility],[address] [place] [address] MCH (RBC) [Entitic mass] 31 pg Normal 27 - 33 [facility] Comment on above: Performed By: #### 2 60434 ####[facility],[address] [place] [address] MCHC 34 X10 3 Normal 32 - 36 [facility] Comment on above: Performed By: #### 2 23117 ####[facility],[address] [place] [address] MCV (RBC) [Entitic vol] 92 fL Normal 81 - 98 [facility] Comment on above: Performed By: #### 2 08385 ####[facility],[address] [place] [address] Benzie # 0.57 x10EE3/UL Normal 0.20 - 1.00 [facility] Comment on above: Performed By: #### 2 32121 ####[facility],[address] [place] [address] MONOS % 7.2 % Normal 0.0 - 10.0 [facility] Comment on above: Performed By: #### 2 67500 ####[place] [address] Morphology Brody (Bld) [Interp] N/A Normal [facility] Comment on above: Performed By: #### 2 67003 ####[facility],[address],[place] [address] Neut # 5.03 x10EE3/UL Normal 1.50 - 7.10 [facility] Comment on above: Performed By: #### 2 20683 ####[facility],[address] [place] [address] 54862 Neutrophils/100 WBC (Bld) 63.7 % Normal 46.0 - 76.0 [facility] Comment on above: Performed By: #### 2 29406 ####[facility],[address] [place] [address] 12178 PLATELET 218 x10EE3/UL Normal 150 - 450 [facility] Comment on above: Performed By: #### 2 34797 ####[facility],[address] [place] [address] 79043 Platelet mean volume (Bld) [Entitic vol] 7.3 fL Normal 6.4 - 10.5 [facility] Comment on above: Result Comment: AUTO MATED DIFFERENTIAL Performed By: #### 2 12255 ####[facility],[address] [place] [address] 79137 RBC 4.76 x 10EE6/UL Normal 4.50 - 6.00 [facility] Comment on above: Performed By: #### 2 27902 ####[facility],[address] [place] [address] 66696 WBC 7.9 x 10EE3/UL Normal 4.5 - 10.8 [facility] Comment on above: Performed By: #### 2 72452 ####[facility],[address] [place] [address] 38759 CMP with eGFRon 11-16-2024 AGE 63 years Normal [facility] Comment on above: Performed By: #### 2 15933 ####[facility],[address] [place] [address] 44319 Albumin [Mass/Vol] 3.6 g/dL Normal 3.4 - 5.0 [facility] Comment on above: Performed By: #### 2 61432 ####[facility],[address] [place] [address] 27916 Albumin/Globulin [Mass ratio] 1.2 {ratio} Normal 0.9 - 1.6 [facility] Comment on above: Performed By: #### 2 57516 ####[facility],[address] [place] [address] 91526 ALK PHOS 76 U/L Normal 46 - 116 [facility] Comment on above: Performed By: #### 2 67484 ####[facility],[address] [place] [address] 83132 ALT [Catalytic activity/Vol] 62 U/L Normal 16 - 63 [facility] Comment on above: Performed By: #### 2 54368 ####[facility],[address] [place] [address] 31551 Anion gap [Moles/Vol] 11 mmol/L Normal 10 - 20 [facility] Comment on above: Performed By: #### 2 64783 ####[facility],[address] [place] [address] 34400 AST [Catalytic activity/Vol] 32 U/L Normal 15 - 37 [facility] Comment on above: Performed By: #### 2 61869 ####[facility],[address] [place] [address] 12883 B/C RATIO 14 ratio Normal 0 - 30 [facility] Comment on above: Performed By: #### 2 76588 ####[facility],[address] [place] [address] 56091 Bilirubin [Mass/Vol] 0.5 mg/dL Normal 0.2 - 1.0 [facility] Comment on above: Performed By: #### 2 83589 ####[facility],[address] [place] [address] 57419 Calcium [Mass/Vol] 8.9 mg/dL Normal 8.5 - 10.1 [facility] Comment on above: Performed By: #### 2 29089 ####[facility],[address] [place] [address] 31480 Chloride [Moles/Vol] 102 mmol/L Normal 98 - 107 [facility] Comment on above: Performed By: #### 2 26736 ####[facility],[address] [place] [address] 64523 CMP with eGFR Normal [facility] Comment on above: Result Comment: COMP REHENSIVE METABOLIC PANEL Performed By: #### 2 60624 ####[facility],[address] [place] [address] 82064 CO2 [Moles/Vol] 33.5 mmol/L High 21.0 - 32.0 [facility] Comment on above: Performed By: #### 2 64547 ####[facility],[address] [place] [address] 40334 Creatinine [Mass/Vol] 1.07 mg/dL Normal 0.70 - 1.30 [facility] Comment on above: Performed By: #### 2 43280 ####[facility],[address] [place] [address] 50923 GFR/1.73 sq M.predicted among non-blacks MDRD (S/P/Bld) [Vol rate/Area] mL/min/{1.73_m2} Normal 60 - 999 [facility] Comment on above: Performed By: #### 2 68899 ####[facility],[address] [place], [place] [phone] Result Comment: ACCO RDING TO THE NATIONAL KIDNEY DISEASE EDUCATION PROGRAM(NKDE), A NORMAL eGFRIS A VALUE GREATER THAN OR EQUAL TO 60 ML/MIN/1.73 SQ METERS.CHRONIC KIDNEY DISEASE: <60mL/MIN/1.73 SQ METERSKIDNEY FAILURE: <15mL/MIN/1.73 SQ METERSTHIS TEST SHOULD ONLY BE USED FOR PATIENTS 18 YEARS OF AGE AND OLDER. Globulin (S) [Mass/Vol] 3.0 g/dL Normal 1.5 - 3.8 [facility] Comment on above: Performed By: #### 2 81589 ####[facility],[address] [place] [address] 83433 Glucose [Mass/Vol] 145 mg/dL High 74 - 106 [facility] Comment on above: Performed By: #### 2 71213 ####[facility],[address] [place] [address] 54679 Potassium [Moles/Vol] 4.2 mmol/L Normal 3.5 - 5.1 [facility] Comment on above: Performed By: #### 2 09700 ####[facility],[address] [place] [address] 55662 Protein [Mass/Vol] 6.6 g/dL Normal 6.4 - 8.2 [facility] Comment on above: Performed By: #### 2 41412 ####[facility],[address] [place] [address] 50813 Sodium [Moles/Vol] 142 mmol/L Normal 136 - 145 [facility] Comment on above: Performed By: #### 2 13514 ####[facility],[address] [place] [address] 61935 Urea nitrogen [Mass/Vol] 15 mg/dL Normal 7 - 18 [facility] Comment on above: Performed By: #### 2 79894 ####[facility],[address] [place] [address] ABDOMEN/PELVIS Won 2024 CT ABDOMEN/PELVIS W Normal [facility] ED MED ADMINISTRATION DETAIL on 11-16-2024 ED MED ADMINISTRATION DETAIL Normal [facility] ED NURSES CLINICAL NOTEon ED NURSES CLINICAL NOTE Normal [facility] ED ORDER SHEET (CPOE ONLY)on 11-16-2024 ED ORDER SHEET (CPOE ONLY) Normal [facility] ED PHYSICIAN CLINICAL REPORT on 11-16-2024 ED PHYSICIAN CLINICAL REPORT Normal [facility] ED PHYSICIAN DISCHARGE REPOR Ton 11-16-2024 ED PHYSICIAN DISCHARGE REPORT Normal [facility] ED SUPER BILLon 11-16-2024 ED SUPER BILL Normal [facility] ED VISIT SUMMARYon ED VISIT SUMMARY Normal [facility] ED VITALS FLOW SHEETon 11-16 ED VITALS FLOW SHEET Normal [facility] LACTATEon 11-16-2024 Lactate [Moles/Vol] 1.1 mmol/L Normal 0.4 - 2.0 [facility] Comment on above: Performed By: #### 2 02422 ####[facility],[address] [place] [address] 90507 LIPASEon 11-16-2024 Lipase [Catalytic activity/Vol] 22.0 U/L Normal 15.0 - 78.0 [facility] Comment on above: Result Comment: *PLE ASE NOTE THAT RANGES FOR LIPASE HAVE CHANGED OF 10/20/23 DUE TO AN ASSAYUPDATE BY THE AVIONIC TECHNICIAN.THE NEW ASSAY RANGE IS 6-250 U/L, WITH A REFERENCERANGE OF 16-77 U/L. Performed By: #### 2 39015 ####[facility],[address] [place] [address] 45577 TROPONINon 11-16-2024 HS TROPONIN 8.3 pg/mL Normal 0.0 - 76.2 [facility] Comment on above: Performed By: #### 2 32894 ####[facility],[address] [place] [address] 63662 URINALYSISon 11-16-2024 Bilirubin Ql (U) Negative Normal NORMAL: NEGATIVE [facility] Comment on above: Performed By: #### 2 03585 ####[facility],[address] [place] [address] 60259 Clarity (U) clear Normal NORMAL: CLEAR [facility] Comment on above: Performed By: #### 2 82435 ####[facility],[address] [place] [address] 24476 Color (U) yellow Normal NORMAL: YELLOW [facility] Comment on above: Performed By: #### 2 08566 ####[facility],[address] [place] [address] 21531 Glucose Ql (U) 250 Abnormal NORMAL: NORMAL [facility] Comment on above: Performed By: #### 2 39571 ####[facility],[address] [place] [address] 89608 Hemoglobin Ql (U) Negative Normal NORMAL: NEGATIVE [facility] Comment on above: Performed By: #### 2 27382 ####[facility],[address] [place] [address] 68620 Ketone Negative Normal NORMAL: NEGATIVE [facility] Comment on above: Performed By: #### 2 43215 ####[facility],[address] [place] [address] 44529 Leukocytes Negative Normal NORMAL: NEGATIVE [facility] Comment on above: Performed By: #### 2 05783 ####[facility],[address] [place] [address] 83508 Nitrite Ql (U) Negative Normal NORMAL: NEGATIVE [facility] Comment on above: Performed By: #### 2 84003 ####[facility],[address] [place] [address] 02130 pH (U) 7 [pH] Normal NORMAL: 5.0-8.0 [facility] Comment on above: Performed By: #### 2 12146 ####[facility],[address] [place] [address] 71745 Protein Ql (U) 15 Abnormal NORMAL: NEGATIVE [facility] Comment on above: Performed By: #### 2 01286 ####[facility],[address] [place] [address] 93602 Sp [place] 1.010 Normal NORMAL: 1.010-1.030 [facility] [facility] Comment on above: Performed By: #### 2 [id number] ####[facility],[address] [place] [address] Specimen Type R Normal [facility] Comment on above: Performed By: #### 2 03586 ####[facility],[address] [place] [address] Urinalysis dipstick W Reflex Microscopic panel (U) NOT INDICATED Normal [facility] Comment on above: Performed By: #### 2 00387 ####[facility],[address] [place] [address]888 Urobilinog NORM Normal NORMAL: NORMAL [facility] Comment on above: Performed By: #### 2 10255 ####[facility],[address] [place] [address] Abd Aortic/IVC Duplex scanon 10-22-2024 Abd Aortic/IVC Duplex scan [facility] [address] [place] [address] Abd Aortic/IVC Duplex scan 10/22/24 09 MR#: [id number] Acct: [id number] Name: QUIQUE DENNY Rep #: [id number] : 1960 63 From: Sarah Rivera MD [...] Aorta IVC Iliac vasculature or bypass grafts 33255. Technically Difficult Study. Exam performed in department. 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 Pilar Morataya MD Date Dictated: 10/22/24919 Date Transcribed: 10/22/241558 Substation Mechanic: Signed Normal [facility] MR/BMS.BVSon 10-01-2024 MR/BMS.BVS [facility] [address] [place] [address] OFFICE VISIT Date of Service: 10/01/24 MR#: [id number] Acct: [id number] Name: QUIQUE DENNY Rep #: [id number] : 1960 Provider: LAURA Orellana Age/Sex: 63/M Location: [facility] Status: Signed Intake Vital Signs 09/11/24 09:59 [...] that he also had a CT at [place] 6 months ago which had shown this [...] is not diabetic. Reviewed his records in [facility]. Did see report of CTA Abd/Pelvis completed [...] HPI, No (more content not included)... Normal [facility] Emergency Department Summary on 09-14-2024 Emergency Department Summary [facility] Medical Records Department [address] [place] [address] Emergency Department Summary 09/14/24 MR#: [id number] Acct: [id number] Name: QUIQUE DENNY Rep #: [id number] : 1960 63 From: Umesh Cotton PCP: [...] the findings above. Prior similar symptoms: Yes [facility] Medical History Cough Home Medications ???Medication ???Instructions [...] documents re (more content not included)... Normal [facility] Ribs Uni Min 3V w/PA Cheston 09-14-2024 Ribs Uni Min 3V w/PA Chest [facility] Imaging Services [address] [place], [place] [id number] Ribs Uni Min 3V w/PA Chest MR#: [id number] Acct: [id number] Name: QUIQUE DENNY Rep #: [id number] : 1960 M 63 From: Tim Portillo MD PCP: Dr. Pilar Morataya MD Status: REG ER Study: Ribs Uni Min 3V w/PA Chest Date of Exam: 09/14 Exam# [id number] Ordering Dr: Umesh Multani DO [id number] EXAM: XR RIGHT RIBS AND AP CHEST, [...] Pilar Morataya MD; Dr. Umesh Multani DO Substation Mechanic: Signed Normal [facility] 12 Lead EKGon 09-11-2024 12 Lead EKG [facility] Cardi[facility] Services [address] [place] [address] 12 Lead EKG 09/11/24 1029 MR#: [id number] Acct: [id number] Name: QUIQUE DENNY Rep #: [id number] : 1960 63 From: Leandro Scott MD [...] Borderline ECG Confirmed by LEANDRO SCOTT ([id number]), assignment editor PAMELA OCTTER ([id number]) on 09/13/2024 12:02:12 PM Referred By: Confirmed By: LEANDRO SCOTT 09/13/24 1202 Date Leandro Scott MD CC: Dr. Pilar Morataya MD; Dr. Umesh Multani DO Signed [facility] Basic Metabolic Profile (BMP )on 09-11-2024 BUN/CRE 17.6 RATIO Normal 08-11 [facility] Comment on above: Performed By: #### L 100.0100, L500.2500, L500.3400 #### [facility] [address] [place], [address] CA,Total 9.0 mg/dL Normal 8.5-10.1 [facility] Comment on above: Performed By: #### L 100.0100, L500.2500, L500.3400 #### [facility] [address] [place], [address] Chloride [Moles/Vol] 105 mmol/L Normal 98-107 [facility] Comment on above: Performed By: #### L 100.0100, L500.2500, L500.3400 #### [facility] [address] [place], [address] CO2 [Moles/Vol] 29.0 mmol/L Normal 21.0-32.0 [facility] Comment on above: Performed By: #### L 100.0100, L500.2500, L500.3400 #### [facility] [address] [place], [address] Creatinine [Mass/Vol] 1.08 mg/dL Normal 0.70-1.30 [facility] Comment on above: Result Comment: The validity of the calculated GFR GFRAA in patients over 70 years has not been determined. Clinical correlation is essential. Performed By: #### L 100.0100, L500.2500, L500.3400 #### [facility] [address] [place], [address] ECRCL 102.16 ml/min Normal [facility] Comment on above: Performed By: #### L 100.0100, L500.2500, L500.3400 #### [facility] [address] [place], [address] EST GFR - AA 89 mL/min Normal >60 [facility] Comment on above: Result Comment: Afri can Montserratian GFR Calc Performed By: #### L 100.0100, L500.2500, L500.3400 #### [facility] [address] [place], [address] GAP 4 Low 5-15 [facility] Comment on above: Performed By: #### L 100.0100, L500.2500, L500.3400 #### [facility] [address] [place], [address] GFR/1.73 sq M.predicted among non-blacks MDRD (S/P/Bld) [Vol rate/Area] 73 mL/min/{1.73_m2} Normal >60 [facility] Comment on above: Result Comment: Non- GFR Calc Performed By: #### L 100.0100, L500.2500, L500.3400 #### [facility] [address] [place], [address] Glucose [Mass/Vol] 127 mg/dL High 74-106 [facility] Comment on above: Result Comment: Fast ing Glucose result greater than or equal to 126 mg/dL suggests DIABETES MELLITUS per A.D.A. criteria. Performed By: #### L 100.0100, L500.2500, L500.3400 #### [facility] [address] [place], [address] Potassium [Moles/Vol] 4.3 mmol/L Normal 3.5-5.1 [facility] Comment on above: Performed By: #### L 100.0100, L500.2500, L500.3400 #### [facility] [address] [place], [address] Sodium [Moles/Vol] 139 mmol/L Normal 136-145 [facility] Comment on above: Performed By: #### L 100.0100, L500.2500, L500.3400 #### [facility] [address] [place], [address] Urea nitrogen [Mass/Vol] 19 mg/dL High 7-18 [facility] Comment on above: Performed By: #### L 100.0100, L500.2500, L500.3400 #### [facility] [address] [place], [address] CBC W/Diff, Automatedon 11-2 0-2024 Absolute Lymph 1.14 X10 3/uL Normal 0.83-4.51 [facility] Comment on above: Performed By: #### L 100.0100, L500.2500, L500.3400 #### [facility] [address] [place], [address] Absolute Neut 6.3 X10 3/uL Normal 2.0-7.7 [facility] Comment on above: Performed By: #### L 100.0100, L500.2500, L500.3400 #### [facility] [address] [place], [address] Basophils/100 WBC (Bld) 0.5 % Normal 0-1 [facility] Comment on above: Performed By: #### L 100.0100, L500.2500, L500.3400 #### [facility] [address] [place], [address] Eosinophils/100 WBC (Bld) 1.8 % Normal 0-5 [facility] Comment on above: Performed By: #### L 100.0100, L500.2500, L500.3400 #### [facility] [address] [place], [address] Erythrocyte distribution width (RBC) [Ratio] 13.9 % Normal 11.6-14.6 [facility] Comment on above: Performed By: #### L 100.0100, L500.2500, L500.3400 #### [facility] [address] [place], [address] Hematocrit (Bld) [Volume fraction] 45.7 % Normal 40-54 [facility] Comment on above: Performed By: #### L 100.0100, L500.2500, L500.3400 #### [facility] [address] [place], [address] Hemoglobin (Bld) [Mass/Vol] 15.0 g/dL Normal 13.0-16.5 [facility] Comment on above: Performed By: #### L 100.0100, L500.2500, L500.3400 #### [facility] [address] [place], [address] IG% 0.400 Normal 0.0-0.9 [facility] Comment on above: Result Comment: IG% - Immature Granulocytes (promyelocytes, myelocytes and metamyelocytes) > 1% indicates that a LEFT SHIFT is Present. Performed By: #### L 100.0100, L500.2500, L500.3400 #### [facility] [address] [place], [address] Lymphocytes/100 WBC (Bld) 14.0 % Low 19-41 [facility] Comment on above: Performed By: #### L 100.0100, L500.2500, L500.3400 #### [facility] [address] [place], [address] MCH (RBC) [Entitic mass] 30.7 pg Normal 27.0-32.0 [facility] Comment on above: Performed By: #### L 100.0100, L500.2500, L500.3400 #### [facility] [address] [place], [address] MCHC (RBC) [Mass/Vol] 32.8 g/dL Normal 32-36 [facility] Comment on above: Performed By: #### L 100.0100, L500.2500, L500.3400 #### [facility] [address] [place], [address] MCV (RBC) [Entitic vol] 93.6 fL Normal 80-94 [facility] Comment on above: Performed By: #### L 100.0100, L500.2500, L500.3400 #### [facility] [address] [place], [address] Monocytes/100 WBC (Bld) 5.7 % Normal 0-10 [facility] Comment on above: Performed By: #### L 100.0100, L500.2500, L500.3400 #### [facility] [address] [place], [address] Neutrophils/100 WBC (Bld) 77.6 % High 47-70 [facility] Comment on above: Performed By: #### L 100.0100, L500.2500, L500.3400 #### [facility] [address] [place], [address] Nucleated RBC (Bld) [#/Vol] 0 10*3/uL Normal 0-5 [facility] Comment on above: Performed By: #### L 100.0100, L500.2500, L500.3400 #### [facility] [address] [place], [address] Platelet mean volume (Bld) [Entitic vol] 9.7 fL Normal 6.2-12.0 [facility] Comment on above: Performed By: #### L 100.0100, L500.2500, L500.3400 #### [facility] [address] [place], [address] Platelets (Bld) [#/Vol] 211 10*3/uL Normal 150-450 [facility] Comment on above: Performed By: #### L 100.0100, L500.2500, L500.3400 #### [facility] [address] [place], [address] RBC (Bld) [#/Vol] 4.88 10*6/uL Normal 4.6-6.2 [facility] Comment on above: Performed By: #### L 100.0100, L500.2500, L500.3400 #### [facility] [address] [place], [address] RDW SD 47.5 fl High 35.1-43.9 [facility] Comment on above: Performed By: #### L 100.0100, L500.2500, L500.3400 #### [facility] [address] [place], [address] WBC (Bld) [#/Vol] 8.1 10*3/uL Normal 4.4-11.0 [facility] Comment on above: Performed By: #### L 100.0100, L500.2500, L500.3400 #### [facility] [address] [place], [address] CT Abd/Pelvis W/WO Contrasto n 09-11-2024 CT Abd/Pelvis W/WO Contrast [facility] Imaging Services [address] [place] [address] CT Abd/Pelvis W/WO Contrast MR#: [id number] Acct: [id number] Name: QUIQUE DENNY Rep #: [id number] : 1960 M 63 From: Sree salomon MD PCP: Dr. Pilar Morataya MD Status: REG ER Study: CT Abd/Pelvis W/WO Contrast Date of Exam: 08/24 Exam# [id number] Ordering Dr: Umesh Multani DO [id number] STUDY: CT ABDOMEN AND PELVIS WITH AND [...] Signed: Sree Farmer MD at 14:11 EST , CC: Dr. Pilar Morataya MD; Dr. Umesh Multani DO Substation Mechanic: Signed Normal [facility] Chest without Contraston Chest without Contrast [facility] Imaging Services [address] [place], [place] [address] Chest without Contrast MR#: [id number] Acct: [id number] Name: QUIQUE DENNY Rep #: [id number] : 1960 M 63 From: Jazmin Jama MD PCP: Dr. Pilar Morataya MD Status: REG ER Study: Chest without Contrast Date of Exam: 09/11/24 Exam# [id number] Ordering Dr: Umesh Multani DO [id number] INDICATION: cough, right rib injury EXAMINATION: CT [...] mass protocol CT is recommended. Electronically Signed: Jazmin Jama MD at 11:43 EST , CC: Dr. Pilar Morataya MD; Dr. Umesh Multani DO Substation Mechanic: Signed Normal [facility] Emergency Department Summary on 09-11-2024 Emergency Department Summary [facility] Medical Records Department [address] [place] [address] Emergency Department Summary 09/11/24 MR#: [id number] Acct: [id number] Name: QUIQUE DENNY Rep #: [id number] : 1960 63 From: Umesh Cotton PCP: [...] He was seen outside emergency department in [place] 3 days ago he states only a chest x-ray was done and he was discharged. He has been using Aleve. Last dose today. Last breathing treatment this morning. No cardiac history. [facility] Medical History Cough Home Medications ???Medication ???Instructions [...] MDM: Differ (more content not included)... Normal [facility] Liver Profileon 09-11-2024 Albumin [Mass/Vol] 4.0 g/dL Normal 3.2-5.0 [facility] Comment on above: Performed By: #### L 100.0100, L500.2500, L500.3400 #### [facility] [address] [place], [address] ALK P 73 U/L Normal 45-117 [facility] Comment on above: Performed By: #### L 100.0100, L500.2500, L500.3400 #### [facility] [address] [place], [address] ALT [Catalytic activity/Vol] 54 U/L Normal 16-61 [facility] Comment on above: Performed By: #### L 100.0100, L500.2500, L500.3400 #### [facility] [address] [place], [address] AST [Catalytic activity/Vol] 29 U/L Normal 15-37 [facility] Comment on above: Performed By: #### L 100.0100, L500.2500, L500.3400 #### [facility] [address] [place], [address] Bilirubin [Mass/Vol] 0.70 mg/dL Normal 0.20-1.00 [facility] Comment on above: Result Comment: For patients on eltrombopag therapy, use of Dimension [place] TBIL is not recommended. Performed By: #### L 100.0100, L500.2500, L500.3400 #### [facility] [address] [place], [address] Bilirubin.direct [Mass/Vol] 0.15 mg/dL Normal 0.00-0.30 [facility] Comment on above: Performed By: #### L 100.0100, L500.2500, L500.3400 #### [facility] [address] [place], [address] Globulin (S) [Mass/Vol] 2.8 g/dL Normal 2.2-4.2 [facility] Comment on above: Performed By: #### L 100.0100, L500.2500, L500.3400 #### [facility] [address] [place], [address] T PROT 6.8 g/dL Normal 6.4-8.2 [facility] Comment on above: Performed By: #### L 100.0100, L500.2500, L500.3400 #### [facility] [address] [place], [address] ED MED ADMINISTRATION DETAIL on 09-09-2024 ED MED ADMINISTRATION DETAIL Normal [facility] ED NURSES CLINICAL NOTEon ED NURSES CLINICAL NOTE Normal [facility] ED ORDER SHEET (CPOE ONLY)on 09-09-2024 ED ORDER SHEET (CPOE ONLY) Normal [facility] ED PHYSICIAN CLINICAL REPORT on 09-09-2024 ED PHYSICIAN CLINICAL REPORT Normal [facility] ED PHYSICIAN DISCHARGE REPOR Ton 09-09-2024 ED PHYSICIAN DISCHARGE REPORT Normal [facility] ED SUPER BILLon 09-09-2024 ED SUPER BILL Normal [facility] ED VISIT SUMMARYon ED VISIT SUMMARY Normal [facility] ED VITALS FLOW SHEETon 09-09 ED VITALS FLOW SHEET Normal [facility] SHOULDER COMPLETE RTon 09-09 SHOULDER COMPLETE RT Normal [facility] ED MED ADMINISTRATION DETAIL on 09-05-2024 ED MED ADMINISTRATION DETAIL Normal [facility] ED NURSES CLINICAL NOTEon ED NURSES CLINICAL NOTE Normal [facility] ED ORDER SHEET (CPOE ONLY)on 09-05-2024 ED ORDER SHEET (CPOE ONLY) Normal [facility] ED PHYSICIAN CLINICAL REPORT on 09-05-2024 ED PHYSICIAN CLINICAL REPORT Normal [facility] ED PHYSICIAN DISCHARGE REPOR Ton 09-05-2024 ED PHYSICIAN DISCHARGE REPORT Normal [facility] ED SUPER BILLon 09-05-2024 ED SUPER BILL Normal [facility] ED VISIT SUMMARYon ED VISIT SUMMARY Normal [facility] ED VITALS FLOW SHEETon 09-05 ED VITALS FLOW SHEET Normal [facility] CHEST 1 VIEWon 09-04-2024 CHEST 1 VIEW Normal [facility] CT CERVICAL W/O CONTRASTon 1 11-04-2023 CT CERVICAL W/O CONTRAST Normal [facility] CNOVon 08-13-2024 CNOV Office Visit (PULMWS ) -------- QUIQUE DENNY ([id number]) 1960 M Date Time Provider Department 08/13/24 11:00 AM FABI JOVEL PULRAVIN During your visit today, we recorded the following information about you: Pulse Blood pressure Weight Height 88/minute 126/94 139.7 kg 1.829 m Fabi Jovel MD 08/13/2024 12:24 PM Signed . Respiratory Sublette Note Patient name: Quique Denny PCP: Pilar Morataya MD Referring Physician: same Consultation requested by Dr. Morataya for an opinion regarding COPD. My final recommendations will be communicated back to the requesting physician by way of shared Medical record or letter to requesting physician via US mail. CC: COPD HPI: Quique Denny 63 year old male current 42-wifi-eajd smoker with PMH significant for COPD, PAD, [...] had a CT of the chest at [facility] approximately 1 month ago. I do not have a report or images to review. DATA: PFT: Pulmonary function tests are consistent with [facility] Imaging / Diagnostic Studies: Reviewed chest CT shows flattening of diaphragms on the lateral view and a pulmonary nodule PAST MEDICAL HISTORY Diagnosis Date AAA (abdominal aortic aneurysm) ([facility] COPD (chronic obstructive pulmonary disease) ([facility]) Morbid obesity ([facility]) VANDANA (obstructive sleep apnea) PAD (peripheral artery disease) ([facility]) ALLERGIES No Known Allergies Naproxen SR [...] Appearance: Morbidly (more content not included)... Normal [facility] XR CHEST 2V FRONTAL/LATon XR CHEST 2V [...] atelectasis or fibrosis at the left base Substation Mechanic: UZIEL Transcribe Date/Time: Aug 14 2024 3:09P Dictated by : JASON CHAPMAN MD This examination was interpreted and the report reviewed and electronically signed by: JASON CHAPMAN MD on Aug 14 2024 3:09PM EST [id number] Normal [facility] BCIDon 07-28-2024 Acinetobacter fatemeh-baumanii complex Not detected Normal Not Detected [facility] Comment on above: Order Comment: jay reza at [facility], [facility] , 07/28/2024 13:25:10 EDT//JV Performed By: #### B ELDER #### [place] [address] Bacteroides fragilis Not detected Normal Not Detected [facility] Comment on above: Order Comment: jay erza at [facility], [facility] [place] , 07/28/2024 13:25:10 EDT//JV Performed By: #### B ELDER #### [place] [address] BCID Comment See Comment Normal [facility] Comment on above: Order Comment: jay reza at [facility], [facility] [place] , 07/28/2024 13:25:10 EDT//JV Result Comment: [...] follow. Performed By: #### B ELDER #### [facility] [address] [place], [place] [address] Marie albicans Not detected Normal Not Detected [facility] Comment on above: Order Comment: jay reza at [facility] [place] , 07/28/2024 13:25:10 EDT//JV Performed By: #### B ELDER #### [facility] [address] [place] [address] Marie auris Not detected Normal Not Detected [facility] Comment on above: Order Comment: jay reza at [facility] [place] , 07/28/2024 13:25:10 EDT//JV Performed By: #### B ELDER #### [facility] [address] [place] [address] Marie glabrata Not detected Normal Not Detected [facility] Comment on above: Order Comment: jay reza at [facility], [facility] [place] , 07/28/2024 13:25:10 EDT//JV Performed By: #### B ELDER #### [address] [address] Marie krusei Not detected Normal Not Detected [facility] Comment on above: Order Comment: jay reza at [facility], [facility] [place] , 07/28/2024 13:25:10 EDT//JV Performed By: #### B ELDER #### [address] [address] Marie parapsilosis Not detected Normal Not Detected [facility] Comment on above: Order Comment: jay reza at [facility], [facility] [place] , 07/28/2024 13:25:10 EDT//JV Performed By: #### B ELDER #### [address] [address] Marie tropicalis Not detected Normal Not Detected [facility] Comment on above: Order Comment: jay reza at [facility], [facility] [place] , 07/28/2024 13:25:10 EDT//JV Performed By: #### B ELDER #### [address] [address] Cryptococcus neoformans-gattii Not detected Normal Not Detected [facility] Comment on above: Order Comment: jay reza at [facility], [facility] [place] , 07/28/2024 13:25:10 EDT//JV Performed By: #### B ELDER #### [facility] [address] [place] [address] CTX-M (ESBL) Not Applicable Normal Not Detected [facility] Comment on above: Order Comment: jay reza at [facility], [facility] [place] , 07/28/2024 13:25:10 EDT//JV Performed By: #### B ELDER #### [facility] [address] [place] [address] E. Coli Not detected Normal Not Detected [facility] Comment on above: Order Comment: jay reza at [facility], [facility] [place] , 07/28/2024 13:25:10 EDT//JV Performed By: #### B ELDER #### [address] [address] Enterobacter cloacae Complex Not detected Normal Not Detected [facility] Comment on above: Order Comment: jay reza at [facility], [facility] [place] , 07/28/2024 13:25:10 EDT//JV Performed By: #### B ELDER #### [address] [address] Enterobacterales Not detected Normal Not Detected [facility] Comment on above: Order Comment: jay reza at [facility], [facility] [place] , 07/28/2024 13:25:10 EDT//JV Performed By: #### B ELDER #### [address] [address] Enterococcus faecalis Not detected Normal Not Detected [facility] Comment on above: Order Comment: jay reza at [facility], [facility] [place] , 07/28/2024 13:25:10 EDT//JV Performed By: #### B ELDER #### [address] [address] Enterococcus faecium Not detected Normal Not Detected [facility] Comment on above: Order Comment: jay reza at [facility], [facility] [place] , 07/28/2024 13:25:10 EDT//JV Performed By: #### B ELDER #### [address] [address] Haemophilus influenzae Not detected Normal Not Detected [facility] Comment on above: Order Comment: jay reza at [facility], [facility] [place] , 07/28/2024 13:25:10 EDT//JV Performed By: #### B ELDER #### [address] [address] IMP (Carbapenemase) Not Applicable Normal Not Detected [facility] Comment on above: Order Comment: jay reza at [facility], [place] [facility] [place] , 07/28/2024 13:25:10 EDT//JV Performed By: #### B ELDER #### [address] [address] Klebsiella aerogenes Not detected Normal Not Detected [facility] Comment on above: Order Comment: jay reza [facility] [place] , 07/28/2024 13:25:10 EDT//JV Performed By: #### B ELDER #### [address] [address] Klebsiella oxytoca Not detected Normal Not Detected [facility] Comment on above: Order Comment: jay reza [facility] [place] , 07/28/2024 13:25:10 EDT//JV Performed By: #### B ELDER #### [address] [address] Klebsiella pneumoniae group Not detected Normal Not Detected [facility] Comment on above: Order Comment: jay re[facility] [place] , 07/28/2024 13:25:10 EDT//JV Performed By: #### B ELDER #### [address] [address] KPC (Carbapenemase) Not Applicable Normal Not Detected [facility] Comment on above: Order Comment: jay re[facility] [place] , 07/28/2024 13:25:10 EDT//JV Performed By: #### B ELDER #### [address] [address] Listeria monocytogenes Not detected Normal Not Detected [facility] Comment on above: Order Comment: jay reza at [facility], [facility] , 07/28/2024 13:25:10 EDT//JV Performed By: #### B ELDER #### [address] [address] MCR-1 (Colistin Resistance) Not Applicable Normal Not Detected [facility] Comment on above: Order Comment: jay reza at [facility], [facility] [place] , 07/28/2024 13:25:10 EDT//JV Performed By: #### B ELDER #### [address] [address] Mec A/C Detected Abnormal Not Detected [facility] Comment on above: Order Comment: jay reza at [facility], [facility] [place] , 07/28/2024 13:25:10 EDT//JV Performed By: #### B ELDER #### [place] [address] Mec A/C-MREJ (MRSA) Not Applicable Normal Not Detected [facility] Comment on above: Order Comment: jay reza at [facility], [facility] [place] , 07/28/2024 13:25:10 EDT//JV Performed By: #### B ELDER #### [address] [address] NDM (Carbapenemase) Not Applicable Normal Not Detected [facility] Comment on above: Order Comment: jay reza at [facility], [facility] [place] , 07/28/2024 13:25:10 EDT//JV Performed By: #### B ELDER #### [address] [address] Neisseria meningitidis (Encapsalated) Not detected Normal Not Detected [facility] Comment on above: Order Comment: jay reza at [facility], [facility] [place] , 07/28/2024 13:25:10 EDT//JV Performed By: #### B ELDER #### [address] [address] OXA-48 like (Carbapenemase) Not Applicable Normal Not Detected [facility] Comment on above: Order Comment: jay reza [facility] [place] , 07/28/2024 13:25:10 EDT//JV Performed By: #### B ELDER #### [address] [address] Proteus Not detected Normal Not Detected [facility] Comment on above: Order Comment: jay reza [facility] [place] , 07/28/2024 13:25:10 EDT//JV Performed By: #### B ELDER #### [place] [address] Pseudomonas aeruginosa Not detected Normal Not Detected [facility] Comment on above: Order Comment: jay reza at [facility], [facility] [place] , 07/28/2024 13:25:10 EDT//JV Performed By: #### B ELDER #### [place] [address] S. agalactiae Org specific cx Ql (Vag fld) Not detected Normal Not Detected [facility] Comment on above: Order Comment: jay reza [facility] [place] , 07/28/2024 13:25:10 EDT//JV Performed By: #### B ELDER #### [place] [address] Salmonella species Not detected Normal Not Detected [facility] Comment on above: Order Comment: jay reza at [facility] [place] , 07/28/2024 13:25:10 EDT//JV Performed By: #### B ELDER #### [place] [address] Serratia marcescens Not detected Normal Not Detected [facility] Comment on above: Order Comment: jay reza at [facility], [facility] [place] , 07/28/2024 13:25:10 EDT//JV Performed By: #### B ELDER #### [place] [address] Staphylococcus Detected Abnormal Not Detected [facility] Comment on above: Order Comment: jay reza at [facility], [facility] [place] , 07/28/2024 13:25:10 EDT//JV Performed By: #### B ELDER #### [facility] [address] [place] [address] Staphylococcus aureus Not detected Normal Not Detected [facility] Comment on above: Order Comment: jay reza at [facility], [facility] [place] , 07/28/2024 13:25:10 EDT//JV Result Comment: If S taphylococcus aureus is Detected, an Infectious Disease physician consult is required on identification. Performed By: #### B ELDER #### [address] [address] Staphylococcus epidermidis Detected Abnormal Not Detected [facility] Comment on above: Order Comment: jay reza at [facility], [facility] [place] , 07/28/2024 13:25:10 EDT//JV Performed By: #### B ELDER #### [address] [address] Staphylococcus lugdunensis Not detected Normal Not Detected [facility] Comment on above: Order Comment: jay reza at [facility], [facility] [place] , 07/28/2024 13:25:10 EDT//JV Performed By: #### B ELDER #### [address] [address] Stenotrophomonas maltophilia Not detected Normal Not Detected [facility] Comment on above: Order Comment: jay reza [facility] [place] , 07/28/2024 13:25:10 EDT//JV Performed By: #### B ELDER #### [address] [address] Streptococcus Not detected Normal Not Detected [facility] Comment on above: Order Comment: [facility] [place] , 07/28/2024 13:25:10 EDT//JV Performed By: #### B ELDER #### [address] [address] Streptococcus pneumoniae Not detected Normal Not Detected [facility] Comment on above: Order Comment: [facility] [place] , 07/28/2024 13:25:10 EDT//JV Performed By: #### B ELDER #### [facility] [address] [place] [address] Streptococcus pyogenes Not detected Normal Not Detected [facility] Comment on above: Order Comment: [facility] [place] , 07/28/2024 13:25:10 EDT//JV Performed By: #### B ELDER #### [address] [address] Van A/B Not Applicable Normal Not Detected [facility] Comment on above: Order Comment: [facility] [place] , 07/28/2024 13:25:10 EDT//JV Performed By: #### B ELDER #### [place] [address] VIM (Carbapenemase) Not Applicable Normal Not Detected [facility] Comment on above: Order Comment: j[facility] re[facility] [place] , 07/28/2024 13:25:10 EDT//JV Performed By: #### B ELDER #### [place] [id number] CBC + DIFFon 07-27-2024 Baso # 0.01 x10EE3/UL Normal 0.00 - 0.10 [facility] Comment on above: Performed By: #### 2 51736 ####[facility],[address] [place] [address] Basophils/100 WBC (Bld) 0.2 % Normal 0.0 - 2.0 [facility] Comment on above: Performed By: #### 2 42035 ####[facility],[address] [place] [address] CBC + DIFF Normal [facility] Comment on above: Result Comment: CBC- COMPLETE BLOOD COUNT Performed By: #### 2 71056 ####[facility],[address] [place] [address] EO # 0.29 x10EE3/UL Normal 0.00 - 0.50 [facility] Comment on above: Performed By: #### 2 09153 ####[facility],[address] [place] [address] Eosinophils/100 WBC (Bld) 4.9 % Normal 0.0 - 7.0 [facility] Comment on above: Performed By: #### 2 59635 ####[facility],[address] [place] [address] Erythrocyte distribution width (RBC) [Ratio] 13.9 % Normal 12.0 - 15.6 [facility] Comment on above: Performed By: #### 2 93143 ####[facility],[address] [place] [address] Hematocrit (Bld) [Volume fraction] 47.0 % Normal 40.0 - 52.0 [facility] Comment on above: Performed By: #### 2 42514 ####[facility],[address] [place] [address] Hemoglobin (Bld) [Mass/Vol] 15.7 g/dL Normal 13.0 - 17.5 [facility] Comment on above: Performed By: #### 2 09874 ####[facility],[address] [place] [address] Lymph # 1.60 x10EE3/UL Normal 0.80 - 2.80 [facility] Comment on above: Performed By: #### 2 52519 ####[facility],[address] [place] [address] Lymphocytes/100 WBC (Bld) 27.0 % Normal 20.0 - 45.0 [facility] Comment on above: Performed By: #### 2 87383 ####[facility],[address] [place] [address] MANUAL DIFF N/A Normal [facility] Comment on above: Performed By: #### 2 50761 ####[facility],[address] [place] [address] MCH (RBC) [Entitic mass] 31 pg Normal 27 - 33 [facility] Comment on above: Performed By: #### 2 48958 ####[facility],[address] [place] [address] MCHC 34 X10 3 Normal 32 - 36 [facility] Comment on above: Performed By: #### 2 77174 ####[facility],[address] [place] [address] MCV (RBC) [Entitic vol] 92 fL Normal 81 - 98 [facility] Comment on above: Performed By: #### 2 43755 ####[facility],[address] [place] [address] Benzie # 0.47 x10EE3/UL Normal 0.20 - 1.00 [facility] Comment on above: Performed By: #### 2 30212 ####[facility],[address] [place] [address] MONOS % 7.9 % Normal 0.0 - 10.0 [facility] Comment on above: Performed By: #### 2 12276 ####[facility],[address] [place] [address] Morphology Brody (Bld) [Interp] N/A Normal [facility] Comment on above: Performed By: #### 2 03980 ####[facility],[address] [place] [address] Neut # 3.57 x10EE3/UL Normal 1.50 - 7.10 [facility] Comment on above: Performed By: #### 2 26493 ####[facility],[address] [place], [place] [id number] Neutrophils/100 WBC (Bld) 60.1 % Normal 46.0 - 76.0 [facility] Comment on above: Performed By: #### 2 92798 ####[facility],[address] [place] [address] PLATELET 193 x10EE3/UL Normal 150 - 450 [facility] Comment on above: Performed By: #### 2 04228 ####[facility],[address] [place] [address] Platelet mean volume (Bld) [Entitic vol] 7.7 fL Normal 6.4 - 10.5 [facility] Comment on above: Result Comment: AUTO MATED DIFFERENTIAL Performed By: #### 2 23726 ####[facility],[address] [place] [address] RBC 5.11 x 10EE6/UL Normal 4.50 - 6.00 [facility] Comment on above: Performed By: #### 2 18111 ####[facility],[address] [place] [address] WBC 6.0 x 10EE3/UL Normal 4.5 - 10.8 [facility] Comment on above: Performed By: #### 2 09756 ####[facility],[address] [place] [address] CMP with eGFRon 07-27-2024 AGE 63 years Normal [facility] Comment on above: Performed By: #### 2 35225 ####[facility],[address] [place] [address] Albumin [Mass/Vol] 3.6 g/dL Normal 3.4 - 5.0 [facility] Comment on above: Performed By: #### 2 87321 ####[facility],[address] [place] [address] Albumin/Globulin [Mass ratio] 1.1 {ratio} Normal 0.9 - 1.6 [facility] Comment on above: Performed By: #### 2 25486 ####[facility],[address] [place] [address] ALK PHOS 70 U/L Normal 46 - 116 [facility] Comment on above: Performed By: #### 2 58140 ####[facility],[address] [place] [address] ALT [Catalytic activity/Vol] 58 U/L Normal 16 - 63 [facility] Comment on above: Performed By: #### 2 35380 ####[facility],[address] [place] [address] Anion gap [Moles/Vol] 10 mmol/L Normal 10 - 20 [facility] Comment on above: Performed By: #### 2 24710 ####[facility],[address] [place] [address] AST [Catalytic activity/Vol] 28 U/L Normal 15 - 37 [facility] Comment on above: Performed By: #### 2 96518 ####[facility],[address] [place] [address] B/C RATIO 14 ratio Normal 0 - 30 [facility] Comment on above: Performed By: #### 2 29083 ####[facility],[address] [place] [address] Bilirubin [Mass/Vol] 0.5 mg/dL Normal 0.2 - 1.0 [facility] Comment on above: Performed By: #### 2 25243 ####[facility],[address] [place] [address] Calcium [Mass/Vol] 8.6 mg/dL Normal 8.5 - 10.1 [facility] Comment on above: Performed By: #### 2 22497 ####[facility],[address] [place] [address] Chloride [Moles/Vol] 101 mmol/L Normal 98 - 107 [facility] Comment on above: Performed By: #### 2 13287 ####[facility],[address] [place] [address] CMP with eGFR Normal [facility] Comment on above: Result Comment: COMP REHENSIVE METABOLIC PANEL Performed By: #### 2 23099 ####[facility],[address] [place] [address] CO2 [Moles/Vol] 31.1 mmol/L Normal 21.0 - 32.0 [facility] Comment on above: Performed By: #### 2 18012 ####[facility],[address] [place] [address] Creatinine [Mass/Vol] 1.04 mg/dL Normal 0.70 - 1.30 [facility] Comment on above: Performed By: #### 2 23599 ####[facility],[address] [place] [address] GFR/1.73 sq M.predicted among non-blacks MDRD (S/P/Bld) [Vol rate/Area] mL/min/{1.73_m2} Normal 60 - 999 [facility] Comment on above: Performed By: #### 2 77421 ####[facility],[address] [place] [address] Result Comment: ACCO RDING TO THE NATIONAL KIDNEY DISEASE EDUCATION PROGRAM(NKDE), A NORMAL eGFRIS A VALUE GREATER THAN OR EQUAL TO 60 ML/MIN/1.73 SQ METERS.CHRONIC KIDNEY DISEASE: <60mL/MIN/1.73 SQ METERSKIDNEY FAILURE: <15mL/MIN/1.73 SQ METERSTHIS TEST SHOULD ONLY BE USED FOR PATIENTS 18 YEARS OF AGE AND OLDER. Globulin (S) [Mass/Vol] 3.4 g/dL Normal 1.5 - 3.8 [facility] Comment on above: Performed By: #### 2 55419 ####[facility],[address] [place] [address] Glucose [Mass/Vol] 123 mg/dL High 74 - 106 [facility] Comment on above: Performed By: #### 2 32318 ####[facility],[address] [place] [address] Potassium [Moles/Vol] 3.7 mmol/L Normal 3.5 - 5.1 [facility] Comment on above: Performed By: #### 2 30033 ####[facility],[address] [place] [address] Protein [Mass/Vol] 7.0 g/dL Normal 6.4 - 8.2 [facility] Comment on above: Performed By: #### 2 45043 ####[facility],[address] [place] [address] Sodium [Moles/Vol] 138 mmol/L Normal 136 - 145 [facility] Comment on above: Performed By: #### 2 54214 ####[facility],[address] [place] [address] Urea nitrogen [Mass/Vol] 15 mg/dL Normal 7 - 18 [facility] Comment on above: Performed By: #### 2 51255 ####[facility],[address] [place] [address] CORONAVIRUS (SARS) ANTIGEN T ESTon 07-27-2024 EXTERNAL QC DONE? YES Normal [facility] Comment on above: Performed By: #### 2 60959 ####[facility],[address] [place] [address] INTERNAL CONTROL PASS Normal [facility] Comment on above: Performed By: #### 2 65122 ####[place] [address] SARS ANTIGEN Negative Normal NORMAL: NEGATIVE [facility] Comment on above: Performed By: #### 2 29709 ####[place] [address] SEND TO ? NO Normal [facility] Comment on above: Result Comment: SARS -CoV-2THIS TEST IS BEING USED UNDER THE FDA EUA PROCEDURE. THIS ASSAY HAS BEENVALIDATED AT [facility] FOR USE WITH NASAL AND NASOPHARYNGEAL [...] BY HEALTHCARE PROVIDERS IN CONSULTATION WITH PUBLIC [facility]. Performed By: #### 2 53911 ####[facility],[address] [place] [address] CHEST (PE PROTOCOL)on CT CHEST (PE PROTOCOL) Normal [facility] CULTURE BLOOD [DANIEL]on Microscopic examination of blood, culture CULTURE BLOOD [DANIEL] _BLOOD CULTURE_ [facility] AND [facility]ACH[facility] FOR SCANNED REPORT 07/30/24.1345.DNP.COMPLE TE Normal [facility] Comment on above: Performed By: #### 2 20326 ####[facility],[address] [place] [address] Microscopic examination of blood, culture CULTURE BLOOD [DANIEL] _BLOOD CULTURE_ [facility] AND ATTACHMENTS FOR SCANNED REPORT 08/02/24.1218.DNP.COMPLE TE Normal [facility] Comment on above: Performed By: #### 2 43699 ####[facility],[address] [place] [address] LACTATEon 07-27-2024 Lactate [Moles/Vol] 1.5 mmol/L Normal 0.4 - 2.0 [facility] Comment on above: Performed By: #### 2 91193 ####[place] [address] TROPONIN I, HIGH SENSITIVITY on 07-27-2024 HS TROPONIN 12.6 pg/mL Normal 0.0 - 76.2 [facility] Comment on above: Performed By: #### 2 18480 ####[facility],[address] [place] [address] URINALYSISon 07-27-2024 Bilirubin Ql (U) Negative Normal NORMAL: NEGATIVE [facility] Comment on above: Performed By: #### 2 56916 ####[address] [address] Clarity (U) clear Normal NORMAL: CLEAR [facility] Comment on above: Performed By: #### 2 02508 ####[address] [address] Color (U) marilynn Normal NORMAL: YELLOW [facility] Comment on above: Performed By: #### 2 51605 ####[address] [address] Glucose Ql (U) NORM Normal NORMAL: NORMAL [facility] Comment on above: Performed By: #### 2 09124 ####[address] [address] Hemoglobin Ql (U) Negative Normal NORMAL: NEGATIVE [facility] Comment on above: Performed By: #### 2 98958 ####[facility],[address] [place] [address] Ketone Negative Normal NORMAL: NEGATIVE [facility] Comment on above: Performed By: #### 2 01273 ####[facility],[address] [place] [address] Leukocytes Negative Normal NORMAL: NEGATIVE [facility] Comment on above: Performed By: #### 2 67761 ####[facility],[address] [place] [address] Nitrite Ql (U) Negative Normal NORMAL: NEGATIVE [facility] Comment on above: Performed By: #### 2 46045 ####[facility],[address] [place] [address] pH (U) 6 [pH] Normal NORMAL: 5.0-8.0 [facility] Comment on above: Performed By: #### 2 42644 ####[facility],[address] [place] [address] Protein Ql (U) 30 Abnormal NORMAL: NEGATIVE [facility] Comment on above: Performed By: #### 2 98559 ####[facility],[address] [place], [place] [id number] Sp [place] 1.020 Normal NORMAL: 1.010-1.030 [facility] Comment on above: Performed By: #### 2 92239 ####[facility],[address] [place] [address] Specimen Type UNSPECIFIED Normal [facility] Comment on above: Performed By: #### 2 57604 ####[facility],[address] [place] [address] Urinalysis dipstick W Reflex Microscopic panel (U) NOT INDICATED Normal [facility] Comment on above: Performed By: #### 2 19990 ####[facility],[address],[place] [address] Urobilinog 1 Abnormal NORMAL: NORMAL [facility] Comment on above: Performed By: #### 2 24926 ####[facility],[address] [facility] [address] CV ECHO COMPLETEon CV ECHO COMPLETE Normal [facility] ALBon 09-05-2023 Albumin Level 3.9 G/dL Normal 3.2-4.8 [facility] [place] Comment on above: Performed By: #### A LB #### [facility] [address] [place] [address] Vital Signs Date Time Vital Sign Value Performing Clinician Faci lity 05-20-2025 14:20-0400 Body height 182.[address] Pilar Morataya MD Work Phone: [facility] 05-20-2025 14:20-0400 Body mass index (BMI) [Ratio] 39.4 kg/m2 Dr. Pilar Morataya MD Work Phone: [facility] 05-20-2025 14:20-0400 Body weight 131.[address] Pilar Morataya MD Work Phone: [facility] 08-13-2024 10:50-0400 Body height 182.9 cm Fabi Jovel MD Work Phone: [facility] 08-13-2024 10:50-0400 Body mass index (BMI) [Ratio] 41.77 kg/m2 Fabi Jovel MD Work Phone: [facility] 08-13-2024 10:50-0400 Body weight 139.71 kg Fabi Jovel MD Work Phone: [facility] 08-13-2024 10:50-0400 Diastolic blood pressure 94 mm[Hg] Fabi Jovel MD Work Phone: [facility] 08-13-2024 10:50-0400 Heart rate 88 /min Fabi Jovel MD Work Phone: [facility] 08-13-2024 10:50-0400 SaO2% (BldA) [Mass fraction] 89 % Fbai Jovel MD Work Phone: [facility] 08-13-2024 10:50-0400 Systolic blood pressure 126 mm[Hg] Fabi Jovel MD Work Phone: [facility] 08-13-2024 10:31-0400 Body height 179.3 cm Pulm Wstr Work Phone: [facility] 08-13-2024 10:31-0400 Body mass index (BMI) [Ratio] 43.46 kg/m2 Pulm Wstr Work Phone: [facility] 08-13-2024 10:31-0400 Body weight 139.71 kg Pulm Wstr Work Phone: [facility] 08-13-2024 10:31-0400 Heart rate 86 /min Pulm Wstr Work Phone: [facility] 08-13-2024 10:31-0400 Respiratory rate 16 /min Pulm Wstr Work Phone: [facility] 08-13-2024 10:31-0400 SaO2% (BldA) [Mass fraction] 95 % Pulm Wstr Work Phone: [facility] Encounters Encounter Date Encounter Type Care Provider Facility Start: 06-09-2025 ambulatory Kleber Mott Facility :[facility] Start: 06-05-2025 End: 06-05-2025 Emergency department [facility] Start: 05-27-2025 End: 05-28-2025 ambulatory PILAR MORATAYA [facility] Start: 05-22-2025 End: 05-22-2025 Emergency department patient visit GOOD ZAFAR [facility] Start: 05-20-2025 End: 05-20-[address] Kleber Mott MD [facility] Work Phone: Start: 05-20-2025 End: 05-20-[address] Pilar Morataya MD Work Phone: -[facility] Start: 05-12-2025 End: 05-12-2025 ambulatory PILAR MORATAYA [facility] Start: 05-05-2025 End: 05-05-2025 ambulatory PILAR MORATAYA [facility] Start: 05-02-2025 End: 05-02-2025 Emergency department patient [facility] Start: 04-16-2025 End: 04-16-[address] Pilar Morataya MD Work Phone: -[facility] Start: 04-16-2025 End: 04-16-2025 Patient encounter procedure Dr. Abraham Garvin MD -Radiology [facility] Work Phone: Start: 04-16-2025 End: 04-16-2025 ambulatory Abraham Garvin Facility:[facility] Start: 03-22-2025 End: 03-22-2025 Emergency department patient visit [facility] Start: 02-27-2025 End: 02-27-2025 ambulatory [facility] Start: 02-18-2025 End: 02-18-2025 [facility] Start: 01-22-2025 End: 01-22-2025 ambulatory PILAR MORATAYA [facility] Start: 01-21-2025 End: 01-21-2025 Emergency department patient visit [facility] Start: 12-26-2024 End: 12-27-2024 ambulatory [facility] Start: 12-10-2024 End: 12-10-2024 Patient encounter procedure [facility] Work Phone: [facility]ULM LAB [facility] Start: 12-10-2024 End: 12-10-2024 ambulatory [facility] Work Phone: PULM LAB [facility] Comment on above: Spirometry Start: 12-10-2024 End: 12-10-2024 Office outpatient visit 15 minutes Lou Dave APRN.CNP Work Phone: Pulmonary Medicine Comment on above: Hypoxia (Primary Dx) ; Chronic obstructive pulmonary disease, unspecified COPD type (HCC); Pulmonary emphysema, unspecified emphysema type (HCC); Cigarette smoker Start: 12-06-2024 End: 12-06-2024 Telephone encounter Fabi Jovel MD Work Phone: Pulmonary Medicine Start: 11-29-2024 End: 11-30-2024 Emergency department patient [facility] Start: 11-28-2024 End: 11-29-2024 [facility] Start: 11-16-2024 End: 11-16-2024 Emergency department patient visit [facility] Start: 11-04-2024 End: 11-04-2024 ambulatory Fabi Jovel MD Work Phone: Pulmonary Medicine Comment on above: Received Outside Med ical Records Start: 10-22-2024 ambulatory Sarah Rivera Facility:[facility] Start: 10-22-2024 End: 10-22-2024 [facility] Start: 10-01-2024 End: 10-01-2024 [facility] Start: 09-14-2024 End: 09-14-2024 Emergency department patient visit [facility] Facility:[facility] Start: 09-11-2024 End: 09-11-2024 Emergency department patient visit [facility] Facility:[facility] Start: 09-09-2024 End: 09-09-2024 Emergency department patient visit RITA DA SILVA [facility] Start: 09-04-2024 End: 09-04-2024 Emergency department patient visit MUSHTAQ ALMODOVAR [facility] Start: 08-19-2024 End: 08-19-2024 ambulatory [facility] Start: 08-13-2024 End: 08-13-2024 Patient encounter procedure [facility] Work Phone: PULM LAB [facility] Comment on above: Chronic obstructive pulmonary disease, unspecified COPD type (HCC) (Primary Dx); Cigarette smoker; Lung nodule; Morbid obesity (HCC) Start: 08-13-2024 End: 08-13-2024 ambulatory [facility] Comment on above: Spirometry Start: 08-13-2024 End: 08-13-2024 Subsequent hospital visit by physician Xr [facility] Work Phone: Radiology Comment on above: Dyspnea, unspecified type [R06.00] Start: 07-27-2024 End: 07-27-2024 Emergency department patient visit PILAR ALMODOVAR [facility] Start: 07-24-2024 End: 07-24-2024 ambulatory [facility] Start: 07-16-2024 End: 07-16-2024 ambulatory PILAR ALMODOVAR [facility] Procedures Date Procedure Procedure Detail Performing Clinician Start: 04-16-2025 X-ray of lumbosacral spine Dr. Pilar Morataya MD Work Phone: Start: 03-22-2025 Urinalysis PILAR SHIPLEY Comment on above: Result Comment: URIN ALYSIS Performed By: #### [id number] ####[facility],[address] [place] [address] Start: 12-10-2024 Noninvasive ear/puls e oximetry multiple deter Fabi Jovel MD Work Phone: Start: 11-16-2024 Urinalysis PILAR SHIPLEY Comment on above: Result Comment: URIN ALYSIS Performed By: #### [id number] ####[facility],[address] [place] [address] Start: 08-13-2024 Brncdilat rspse spmt ry pre&post-brncdilat admn Fabi Jovel MD Work Phone: Start: 07-27-2024 Urinalysis PILAR LIGIA SHIPLEY Comment on above: Result Comment: URIN ALYSIS Performed By: #### [id number] ####[facility],[address] [place] [address] Plan of Treatment Date Care Activity Detail Author Start: 12-07-2027 Urine microalbumin profile DTaP,Tdap,Td Vaccine (2 - Td or Tdap) [facility] Start: 06-10-2025 End: 06-10-2025 Patient encounter procedure 06/10/2025 11:30 AM EDT Office Visit Pulmonary Medicine [address] [place] [address] Lou Dave APRN.UNDERWRITING ASSISTANT [address] [place] [id number] 6 MTH F/U Pulmonary Medicine Comment on above: 6 MTH F/U Start: 12-17-2024 End: 12-17-2024 Patient encounter procedure 12/17/2024 11:00 AM EST Office Visit Pulmonary Medicine [address] [place] [address] Lou Dave APRN.UNDERWRITING ASSISTANT [address] [place] [address] 4 MTH F/U Pulmonary Medicine Comment on above: 4 MTH F/U Start: 06-23-2024 Covid-19 Vaccine ( season) Covid-19 Vaccine ( season) [facility] Start: 06-23-2024 Influenza vaccination Influenza Vacc ine (#1) [facility] Start: 2020 RSV Vaccine (1 - Ris k 60-74 years 1-dose series) RSV Vaccine (1 - Risk 60-74 years 1-dose series) [facility] Start: 2015 Prostate specific antigen measurement Prostate Cancer Screening Discussion [facility] Start: 2010 Screening for malign ant neoplasm of lung Lung Cancer Screening [facility] Start: 2010 Shingrix Vaccine (1 of 2) Shingrix Vaccine (1 of 2) [facility] Start: 2005 Diabetes Screening Diabetes Screenin g [facility] Start: 2005 Screening for malign ant neoplasm of colon [facility] Start: 1995 Lipid panel Lipid Screening [facility] Start: 1990 Zoledronic acid therapy Alpha- 1 Antitrypsin Deficiency Screening [facility] Start: 1979 Pneumococcal Vaccine : 50+ (1 of 2 - PCV) Pneumococcal Vaccine: 50+ (1 of 2 - PCV) [facility] Start: 1978 Annual PCP Team Supervisor Powdered Sugar rainer Disease Visit Annual PCP Team Chronic Disease Visit [facility] Start: 1978 Anxiety Screening Anxiety Screening [facility] Start: 1978 Depression Screening Depression Scre ening [facility] Start: 1978 Hepatitis C screening Hepatitis C Sc reening [facility] Start: 1978 HIV screening HIV Screening [facility] Start: 1966 Pneumococcal vaccination Pneumococcal Vaccine (1 of 2 - PCV) [facility] OXIMETRY - NOCTURNAL OXIMETRY - NOCTURNAL Procedures Routine Hypoxia Ordered: 12/10/2024 [facility] Work Phone: Comment on above: Ordered: 12/10/2024 End: 01-05-2026 OXIMETRY WITH AMBULATION OXIMETRY WITH AMBULATION PFT Routine Chronic obstructive pulmonary disease, unspecified COPD type (HCC) 1 Occurrences starting 12/06/2024 until 01/05/2026 [facility] Work Phone: Comment on above: 1 Occurrences starti ng 12/06/2024 until 01/05/2026 SPIROMETRY WITH DILA TOR IF OBSTRUCTED SPIROMETRY WITH DILATOR IF OBSTRUCTED PFT Routine Dyspnea, unspecified type 08/13/2024 10:17 AM EDT [facility] Work Phone: XR Chest PA and Lateral XR CHEST 2V FRONTAL/LAT Radiology Routine Dyspnea, unspecified type 08/13/2024 10:08 AM EDT [facility] Work Phone: Immunizations Immunization Date Immunization Notes Care Provider Wilver hassan 12-07-2017 tetanus toxoid, redu twan diphtheria toxoid, and acellular pertussis vaccine, adsorbed Dr. Pilar Morataya MD Work Phone: [facility] Payers Date Payer Category Payer Self-pay 2024 Medicaid [id number] 2024 Medicaid [id number] 1960 Unknown [id number] 2.16.8 40.1.463097.3.579.2.651 1960 Unknown [id number] 2.16.8 40.1.062576.3.579.2.651 1960 Unknown [id number] 2.16.8 40.1.515358.3.579.2.651 1960 Unknown [id number] 2.16.8 40.1.528592.3.579.2.651 1960 Unknown [id number] 2.16.8 40.1.054643.3.579.2.651 1960 Unknown [id number] 2.16.8 40.1.567142.3.579.2.651 1960 Unknown [id number] 2.16.8 40.1.776249.3.579.2.651 1960 Unknown [id number] 2.16.8 40.1.612061.3.579.2.651 1960 Unknown [id number] 2.16.8 40.1.113852.3.579.2.651 1960 Unknown [id number] 2.16.8 40.1.980873.3.579.2.651 1960 Unknown [id number] 2.16.8 40.1.730966.3.579.2.651 1960 Unknown [id number] 2.16.8 40.1.092483.3.579.2.651 1960 Unknown [id number] 2.16.8 40.1.563644.3.579.2.651 1960 Unknown [id number] 2.16.8 40.1.004330.3.579.2.651 1960 Unknown [id number] 2.16.8 40.1.096012.3.579.2.651 1960 Unknown [id number] 2.16.8 40.1.972056.3.579.2.651 1960 Unknown [id number] 2.16.8 40.1.957783.3.579.2.651 1960 Unknown [id number] 2.16.8 40.1.243240.3.579.2.651 1960 Unknown [id number] 2.16.8 40.1.594088.3.579.2.651 1960 Unknown [id number] 2.16.8 40.1.915893.3.579.2.651 1960 Unknown [id number] 2.16.8 40.1.050122.3.579.2.651 Self-pay [id number] Unknown [id number] Unknown [id number] 2.16.8 40.1.406725.3.579.2.462 Unknown [id number] 2.16.8 40.1.304754.3.579.2.462 Unknown [id number] 2.16.8 40.1.149522.3.579.2.462 Unknown [id number] 2.16.8 40.1.182824.3.579.2.462 Unknown [id number] 2.16.8 40.1.967899.3.579.2.462 Unknown [id number] 2.16.8 40.1.973611.3.579.2.462 Unknown [id number] 2.16.8 40.1.325020.3.579.2.462 Unknown [id number] 2.16.8 40.1.504785.3.579.2.462 Social History Date Type Detail Facility Start: [facility] Start: 10-23-1976 History of tobacco use Cigarette Smo ker [facility] Start: 08-13-2024 End: 12-10-2024 Cigarettes smoked current (pack per day) - Reported 1 [facility] Start: 08-13-2024 Tobacco use and exposure Smokeless tobacco non-user [facility] Start: 08-13-2024 End: 12-10-2024 Alcoholic beverage intake Lifetime non-drinker (finding) [facility] Start: 08-13-2024 End: 12-10-2024 Tobacco use panel [facility] National Score (1-10 0), lower number is lower risk 80 [facility] Start: 1960 Sex assigned at Not on file [facility] Start: 10-01-2024 Tobacco smoking stat [facility] Current Heavy tobacco smoker [facility] Start: 09-11-2024 Alcohol Alcohol [facility] Start: 03-14-2018 Drugs Drugs [facility] Start: 09-11-2024 Lives Lives [facility] Start: 03-14-2018 Tobacco Use Tobacco Use [facility] Start: 1960 Sex Assigned At Male W [facility] Clinical Notes 11-14-2023 to 05-12-2025 Patient InstructionsJusten Roman RP - 12/10/2024 1:27 PM Justen Lorenzana RPFT - 12/10/2024 1:27 PM Justen Lorenzana RP - 12/10/2024 1:12 PM EST Note Date & Type Note Facility 05-12-2025 Note [facility] 04-17-2025 Radiology Diagnostic study note [facility] Imaging Services [address] [place] [address] L/S Spine Bending Flex/Ext MR#: [id number] Acct: [id number] Name: QUIQUE DENNY Rep #: [id number] 2 : 1960 M 64 From: Jose Alejandro Brown MD PCP: Dr. Pilar Morataya MD Status: R EG CLI Study:L/S Spine Bending Flex/Ext Date of Exam : 04/16/25 Exam# [id number] Ordering Dr: Abraham Garvni MD PROCEDURE: L/S SPINE BENDING FLEX/EXT 04/16/2025 REASON FOR EXAM: LUMBAR SPONDYLOLYSIS TECHNIQUE: L/S SPINE BENDING FLEX/EXT COMPARISON: None. FINDINGS: Grade 2 anterolisthesis of L5 on S1 secondary to bilateral pars defects. No evidence of instability on flexion/extension images. Grade 1 anterolisthesis of L3 on L4 secondary to facet joint arthropathy withoutassociated instability on flexion/extension images. There are diffuse spondylotic changes. Findings are demonstrated to by diffuse disc space narrowing, osteophyte formation and degenerative endplate sclerosis. There is diffuse facet joint arthropathy with secondary bilateral neural foramina narrowing. No fracture or dislocation is seen. No aggressive lytic or blastic bony lesion is noted. RAD/L/S Spine Bending Flex/Ext IMPRESSION: Grade 2 anterolisthesis of L5 on S1 secondary to bilateral pars defects. No evidence of instability on flexion/extension images. Grade 1 anterolisthesis of L3 on L4 secondary to facet joint arthropathy withoutassociated instability on flexion/extension images. Spondylosis. Reading [facility] CC: Dr. Abraham Garvin MD; Dr. Pilar Morataya MD ~ Substation Mechanic: Signed [facility] 03-26-2025 Note . MICRO - Microbiology PROCEDURE: [...] Locations *1: This test was performed at: [address], [address] [place] [address] 03-24-2025 Note . MICRO - Microbiology PROCEDURE: Shiga Toxins 1 and 2 [[id number]: [id number] ^1 *1] SOURCE: Stool BODY SITE: COLLECTED [...] Locations *1: This test was performed at: [address], [address] [place] [address] 12-10-2024 Instructions Lou Dave APRN.CNP - 12/10/2024 1:59 PM EST Take your Lasix prescription in the morning. Continue your current inhalers with Advair and Spiriva. Complete your sleep study. You will have an overnight oxygen test to see if you also need oxygen overnight. [facility] will supply the machine to test and send me a report. I will let you know what it shows. Our test today do not show the need for oxygen during the day with activity. documented in this encounter [facility] 12-10-2024 Note HNO ID: [id number] Author: JUSTEN ROMAN RPFT Service: ? Author [...] December 10, 2024 TIME: 1:28 PM Comment: [facility] 12-10-2024 Procedure note Associated Ord er(s): OXIMETRY [...] December 10, 2024 TIME: 1:28 PM Comment: [facility] 12-10-2024 Procedure note Associated Ord er(s): OXIMETRY [...] 1:28 PM Comment: documented in this encounter [facility] 12-10-2024 Note HNO ID: [id number] Author: JUSTEN ROMAN RPFT Service: ? Author Type: Respiratory Therapist Type: Progress Notes Filed: 12/10/2024 13:28 Note Text: PULM FUNCTION: Provider: Fabi Jovel MD Assisting Tech: Justen Roman RPFT Oximetry - Ambulation: 1 [facility] 12-10-2024 History of Present illness Narrative PULM FUNCTION: Provider: Fabi Jovel MD Assisting Tech: Justen Roman RPFT Oximetry - Ambulation: 1 documented in this encounter [facility] 12-10-2024 Note HNO ID: [id number] Author: LOU DAVE APRN.CNP Service: ? Author Type: Nurse Practitioner Type: Progress Notes Filed: 12/10/2024 17:41 Note Text: Pulmonary Medicine Patients name: Quique Denny PCP: Pilar Morataya MD CC: oxygen testing and follow-up HPI: Quique Denny is a 63 year old male current 77-vlbd-bxfd smoker with PMH significant for COPD, PAD, [...] a chest CT report was sent from [facility] which revealed Emphysema and a calcified granuloma. [...] HISTORY Diagnosis Date AAA (abdominal aortic aneurysm) ([facility]) COPD (chronic obstructive pulmonary disease) ([facility]) Morbid obesity ([facility]) VANDANA (obstructive sleep apnea) PAD (peripheral artery disease) ([facility]) Allergies: No Known Allergies Medication List [...] atelectasis or fibrosis at the left base Substation Mechanic: UZIEL Transcribe Date/Time: Aug 14 2024 3:09P [...] distress. Breath sound (more content not included)... [facility] 12-10-2024 History of Present illness Narrative Images from the original note were not included. Pulmonary Medicine Patients name: Quique Denny PCP: Pilar Morataya MD CC: oxygen testing and follow-up HPI: Quique Denny is a 63 year old male current 27-ecfk-pdek smoker with PMH significant for COPD, PAD, [...] a chest CT report was sent from [facility] which revealed Emphysema and a calcified granuloma. [...] HISTORY Diagnosis Date AAA (abdominal aortic aneurysm) ([facility]) COPD (chronic obstructive pulmonary disease) ([facility]) Morbid obesity ([facility]) VANDANA (obstructive sleep apnea) PAD (peripheral artery disease) ([facility]) Allergies: No Known Allergies Medication List [...] atelectasis or fibrosis at the left base Substation Mechanic: UZIEL Transcribe Date/Time: Aug 14 2024 3:09P [...] which included preparing to see the patient, vziz-ue-cjof patient care, completing clinical documentation, performing a medically appropriate examination, counseling and educating the patient/family/caregiver, and ordering medications, tests, or procedures. documented in this encounter [facility] 12-06-2024 Telephone encounter Note Orders placed. I'm happy to see him. [facility] 12-06-2024 Miscellaneous Notes Orders placed. I'm happy [...] Julia Burris LPN documented in this encounter [facility] 12-06-2024 Telephone encounter Note Patient calling and [...] to testing and visit. Julia Burris LPN [facility] 11-04-2024 Note HNO ID: [id number] Author: FABI JOVEL MD Service: ? Author Type: Physician Type: Progress Notes Filed: 11/04/2024 05:25 Note Text: Received report of chest CT 07/2024 from [facility]. Emphysema and calcified granuloma. Will Refer for lung cancer screening but not due until this July. [facility] 11-04-2024 History of Present illness Narrative Received report of chest CT 07/2024 from [facility]. Emphysema and calcified granuloma. Will Refer for lung cancer screening but not due until this July. documented in this encounter [facility] 09-13-2024 Note HNO ID: [id number] Author: FABI JOVEL MD Service: ? Author Type: Physician Type: Progress Notes Filed: 09/13/2024 08:22 Note Text: Outside PFT 10/2023: FVC 3.15 L 67% FEV1 2.46 L 69% FEV1/FVC 102% Marked improvement post bronchodilator TLC 4.48 L 61% RV 0.79 L 32% RV/TLC 51% DLCO 28.12 100% DLCO/VA 101% [facility] 08-13-2024 History of Present illness Narrative Images from the original note were not included. . Respiratory [place]lette Note Patient name: Quique Denny PCP: Pilar Morataya MD Referring Physician: same Consultation requested by Dr. Morataya for an opinion regarding COPD. My final recommendations will be communicated back to the requesting physician by way of shared Medical record or letter to requesting physician via US mail. CC: COPD HPI: Quique Denny 63 year old male current 36-qdja-gdhd smoker with PMH significant for COPD, PAD, [...] had a CT of the chest at [facility] approximately 1 month ago. I do [...] Lung nodule -See #2 -Requesting images from [facility] 4. Morbid obesity -BMI 41 -Weight loss advised Fabi Jovel MD Respiratory [place] documented in this encounter [facility] 08-13-2024 Note HNO ID: [id number] Author: FABI JOVEL MD Service: ? Author Type: Physician Type: Progress Notes Filed: 08/13/2024 12:24 Note Text: . Respiratory [place]lette Note Patient name: Quique Denny PCP: Pilar Morataya MD Referring Physician: same Consultation requested by Dr. Morataya for an opinion regarding COPD. My final recommendations will be communicated back to the requesting physician by way of shared Medical record or letter to requesting physician via US mail. CC: COPD HPI: Quique Denny 63 year old male current 93-nkix-euqt smoker with PMH significant for COPD, PAD, [...] had a CT of the chest at [facility] approximately 1 month ago. I do not have a report or images to review. DATA: PFT: Pulmonary function tests are consistent with [facility]ISM Imaging / Diagnostic Studies: Reviewed chest CT shows flattening of diaphragms on the lateral view and a pulmonary nodule PAST MEDICAL HISTORY Diagnosis Date AAA (abdominal aortic aneurysm) ([facility]) COPD (chronic obstructive pulmonary disease) ([facility]) Morbid obesity (HCC) VANDANA (obstructive sleep apnea) PAD (peripheral artery disease) ([facility]) ALLERGIES No Known Allergies Naproxen SR [...] adenopathy. Lungs: Not (more content not included)... [facility] 08-13-2024 Note HNO ID: [id number] Author: JUSTEN ROMAN RPFT Service: ? Author Type: Respiratory Therapist Type: Progress Notes Filed: 08/13/2024 10:44 Note Text: PULM FUNCTION: Provider: Fabi Jovel MD Assisting Tech: Justen Roman RPFT Spirometry w/BD: 1 [facility] 08-13-2024 History of Present illness Narrative PULM FUNCTION: Provider: Fabi Jovel MD Assisting Tech: Justen Roman RPFT Spirometry w/BD: 1 documented in this encounter [facility] 08-13-2024 History of Present illness Narrative Radiology Service Progress Note PATIENT [...] PATIENT PRESENTS WITH AN IMPLANTABLE OR ATTACHED BIOMEDICAL TECHNICIAN: No RADIOLOGY DEPARTMENT: General X-ray: Exam(s) Completed: Chest X-Ray PERIPHERAL IV DATA: Not applicable SIGNED BY: RT Yeni(R) August 13, 2024 12:20 PM documented in this encounter [facility] 08-13-2024 Note HNO ID: [id number] Author: ARIELLA CORNEJO RT(R) Service: ? Author Type: Technologist Type: Progress [...] PATIENT PRESENTS WITH AN IMPLANTABLE OR ATTACHED BIOMEDICAL TECHNICIAN: No RADIOLOGY DEPARTMENT: General X-ray: Exam(s) Completed: Chest X-Ray PERIPHERAL IV DATA: Not applicable SIGNED BY: RT Yeni(R) August 13, 2024 12:20 PM [facility] 08-01-2024 Note . MICRO - Microbiology PROCEDURE: [...] Locations *1: This test was performed at: [address], [facility] , [facility] 07-29-2024 Note . MICRO - Microbiology [...] Locations *1: This test was performed at: [address], [facility] , [facility] 11-14-2023 Note . MICRO - Microbiology PROCEDURE: [...] Locations *1: This test was performed at: [facility], [address] [place] [address], [id number] , [facility] ([place]) Evaluation note Diagnosis Dyspnea, unspecified type [facility] Diagnosis Chronic obstructive pulmonary disease, unspecified COPD type (HCC)- Primary Cigarette smoker Tobacco use disorder Lung nodule Solitary pulmonary nodule Morbid obesity (HCC) Morbid obesity [facility]* Diagnosis Dyspnea, unspecified type [facility] Diagnosis Chronic obstructive pulmonary disease, unspecified COPD type (HCC)- Primary [facility] Diagnosis Chronic obstructive pulmonary disease, unspecified COPD type (HCC) [facility] Diagnosis Hypoxia- Primary Hypoxemia Chronic obstructive pulmonary disease, unspecified COPD type (HCC) Pulmonary emphysema, unspecified emphysema type (HCC) Cigarette smoker Tobacco use disorder documented in this encounter [facility] noteNo assessment information availableWSelect [facility] [place] Work Phone: Evaluation note* Diagnosis Onset Date Resolution Status Admit Date Left wrist pain acute April 2:19pm [facility] Work Phone: Reason for referral (narrative)No reason for referral information availableWSelect Medical Special[facility] [place] Work Phone: Summary Purpose Family History No Family History Records FoundNo Family History Records FoundNo Family History Records FoundNo Family History Records FoundNo Family History Records Found Advance Directives No Advanced Directives Records FoundNo Advanced Directives Records FoundNo Advanced Directives Records FoundNo Advanced Directives Records FoundNo Advanced Directives Records Found Chief Complaint and Reason for Visit Chief Complaint Admit Date XRAY April 16, 2025 11:2 6am Chief Complaint Admit Date XRAY April 16, 2025 11:2 6am LEFT HAND May 20, 2025 2:19 pm Reason for Visit Admit Date Left wrist pain May 20, 2025 2:19 pm Additional Source Comments (unrecognized sect ion and content) No Status Records FoundNo Status Records FoundNo Status Records FoundNo Status Records FoundNo Status Records Found INFORMATION SOURCE (unrecogn ized section and content) DATE CREATED AUTHOR 11/15/2023 [facility] ([place]) DATE CREATED AUTHOR AUTHOR'S ORGANIZ ATION 03/25/2025 [facility] DATE CREATED AUTHOR AUTHOR'S ORGANIZ ATION 05/15/2025 [facility] DATE CREATED AUTHOR AUTHOR'S ORGANIZ ATION 06/01/2025 [facility] DATE CREATED AUTHOR AUTHOR'S ORGANIZ ATION 06/07/2025 [facility] Source Comments (unrecognize d section and content) In the event this informatio n is protected by the Federal Confidentiality of Alcohol and Drug Abuse Patient Records regulations: The Federal rules restrict any use of the information to criminally investigate or prosecute any alcohol or drug abuse patient.[facility]woodsIn the event this information is protected by the Federal Confidentiality of Alcohol and Drug Abuse Patient Records regulations: The Federal rules restrict any use of the information to criminally investigate or prosecute any alcohol or drug abuse patient.[facility]woodsIn the event this information is protected by the Federal Confidentiality of Alcohol and Drug Abuse Patient Records regulations: The Federal rules restrict any use of the information to criminally investigate or prosecute any alcohol or drug abuse patient.[facility]woodsIn the event this information is protected by the Federal Confidentiality of Alcohol and Drug Abuse Patient Records regulations: The Federal rules restrict any use of the information to criminally investigate or prosecute any alcohol or drug abuse patient.[facility]In the event this information is protected by the Federal Confidentiality of Alcohol and Drug Abuse Patient Records regulations: The Federal rules restrict any use of the information to criminally investigate or prosecute any alcohol or drug abuse patient.[facility]woodsIn the event this information is protected by the Federal Confidentiality of Alcohol and Drug Abuse Patient Records regulations: The Federal rules restrict any use of the information to criminally investigate or prosecute any alcohol or drug abuse patient.[facility]woodsIn the event this information is protected by the Federal Confidentiality of Alcohol and Drug Abuse Patient Records regulations: The Federal rules restrict any use of the information to criminally investigate or prosecute any alcohol or drug abuse patient.[facility] Reason for Visit (unrecogniz ed section and content) Reason Comments Spirometry Specialty Diagnoses / Procedures Referred By Contac t Referred To Contact [facility] Diagnoses Dyspnea, unspecified type Procedures SPIROMETRY WITH DILATOR IF OBSTRUCTED BRNCDILAT RSPSE SPMTRY PRE&POST-BRNCDILAT ADMFabi Brown MD [address] [place] [address] [place] [address] Referral ID Status Reason Start Date Expiration Date V isits Requested Visits Authorized [id number] Closed Auto-Generate d Referral 05/29/2024 06/28/2025 1 1 Reason Comments Consult Breathing difficulti es x 1 year Reason Comments Received Outside Medical Records Specialty Diagnoses / Procedures Referred By Contac t Referred To Contact [facility] Diagnoses Chronic obstructive pulmonary disease, unspecified COPD type (HCC) Procedures OXIMETRY WITH AMBULATION NONINVASIVE EAR/PULSE OXIMETRY MULTIPLE Fabi Aguirre MD [address] [place] [address] Phone: tel: fax: [address] [address] Referral ID Status Reason Start Date Expiration Date V isits Requested Visits Authorized [id number] Closed Auto-Generate d Referral 12/06/2024 01/05/2026 1 1 Reason Comments Established Patient COPD/Evaluate for po rtable O2 Care Teams (unrecognized sec tion and content) [employer] Base [employer] Relationship Specialty Start Date End Date Pilar Morataya MD [address] [place] [address] PCP - General Internal Medicine 08/13/24 [employer] Base Tr[employer] Relationship Specialty Start Date End Date Pilar Morataya MD [address] [place] [address] PCP - General Internal Medicine 08/13/24 [employer] Base Trimmer Relationship Specialty Start Date End Date Pilar Morataya MD [address] [place] [address] PCP - General Internal Medicine 08/13/24 [employer] Base Trimmer Relationship Specialty Start Date End Date Pilar Morataya MD [address] [place] [address] PCP - General Internal Medicine 08/13/24 [employer] Base Trimmer Relationship Specialty Start Date End Date Pilar Morataya MD [address] [place] [address] PCP - General Internal Medicine 08/13/24 Ski Base Trimmer Relationship Specialty Start Date End Date Pilar Morataya MD [address] [place] [address] PCP - General Internal Medicine 08/13/24 [employer] Base Trimmer Relationship Specialty Start Date End Date Pilar Morataya MD [address] [place] [address] PCP - General Internal Medicine 08/13/24 Team Status: Active Member Role/Relationship Status Dates No Primary Care Physician Family Provider Active Dr. Pilar Morataya MD Primary Care Provider Active Team Status: Inactive Member Role/Relationship Status Dates Dr. Pilar Morataya MD Primary Care Provider Active Start: April 16, 2025 End: April 16, 2025 Dr. Abraham Garvin MD Attending Provider Active Start: April 16, 2025 End: April 16, 2025 Dr. Abraham Garvin MD Referring Provider Active Start: April 16, 2025 End: April 16, 2025 Team Status: Inactive Member Role/Relationship Status Dates Dr. Pilar Morataya MD Primary Care Provider Active Start: May 20, 2025 End: May 20, 2025 Dr. Pilar Morataya MD Referring Provider Active Start: May 20, 2025 End: May 20, 2025 Kleber Mott MD Attending Provider Active St art: May 20, 2025 End: May 20, 2025 Goals (unrecognized section and content) Goals may be documented in a n alternate sectionGoals may be documented in an alternate section FOR RECORDS PERTAINING TO PATIENTS WHO ARE [...] BE BASED ON THE PRIMARY CLINICAL RECORDS. [employer] provides no warranty or guarantee of the accuracy or completeness of information in this document.
== END | disposition home or self-care (01) ==
LOC: US 09:28
PROVIDERS: PCP Student in an Organized Health Care Education/Training Program; Referring Provider Orthopaedic Surgery Sports Medicine; Visit Provider Orthopaedic Surgery Sports Medicine
DX: R22.32 Localized swelling, mass and lump, left upper limb (principal)
CPT/HCPCS: 76882

== ENCOUNTER → 2025-09-26 | Outpatient (CLI) | payer MEDICAID, SELFPAY ==
--- NOTE | 2025-09-26 08:46 | AAVD_ITS ---
Reason For Study Reason For Study: AAA Aorta Measurements Aorta Doppler Measurements Proximal aorta measures2.53 x 2.53cm. in cross-sectional Peak systolic flow velocities within the proximal aorta axis. measure 77.7 cm/sec. Proximal aorta measures2.50cm. in longitudinal axis. Peak systolic flow velocities within the mid aorta measure Mid aorta measures4.30 x 4.32cm. in cross-sectional axis. 51.5 cm/sec. Mid aorta measures4.47cm. in longitudinal axis. Peak systolic flow velocities within the distal aorta Distal aorta measures3.11 x 3.17cm. in cross-sectional axis.measure 35.1 cm/sec. Distal aorta measures3.28cm. in longitudinal axis. Left Iliac Artery Left iliac artery measures 1.11 x 1.11 cm. in the cross-sectional axis. Left iliac artery measures 1.13 cm. in the longitudinal axis. Peak systolic velocity in the left iliac artery measures 103.9 cm/sec. Right Iliac Artery Right iliac artery measures 1.26 x 1.25 cm. in the cross-sectional axis. Right iliac artery measures 1.32 cm. in the longitudinal axis. Peak systolic velocity in the right iliac artery measures 100.3 cm/sec. Procedure Aorta IVC Iliac vasculature or bypass grafts [id number]. Exam performed in department. 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 Right iliac artery patent, ectasia to 1.32 cm. Left iliac artery patent, normal caliber. Ordering Physician: Chela Tabares Referring Physician: Pilar Morataya Performed By: Helen Traylor RVT
== END | disposition home or self-care (01) ==
LOC: CVS 08:46
PROVIDERS: PCP Student in an Organized Health Care Education/Training Program; Referring Provider Physician Assistant; Visit Provider Physician Assistant
DX: I71.40 Abdominal aortic aneurysm, without rupture, unspecified (principal)
CPT/HCPCS: 93978

== ENCOUNTER → 2025-10-17 | Outpatient (CLI) | payer MEDICAID, SELFPAY ==
--- NOTE | 2025-10-17 10:37 | VDLE_ITS ---
Reason For Study Reason For Study: LLE Pain RIGHT LEFT CFV is compressible, spontaneous, phasic, competent GSV is normal. and demonstrates normal augmentation. CFV is compressible, spontaneous, phasic, competent, Procedure and demonstrates normal augmentation. This is a venous duplex using B-mode, color flow and FV is compressible, spontaneous, phasic, competent spectral Doppler. and demonstrates normal augmentation. Exam performed in department. POP V is compressible, spontaneous, phasic, competent A preliminary report was called and/or faxed to and demonstrates normal augmentation. Chela SANCHEZ. T/P Trunk is compressible. PTV is compressible. LT PerV is compressible. VL/Venous Duplex US, Unilateral Interpretation Summary Deep veins of the left lower extremity are patent and compressible segmentally. There is no evidence of left lower extremity deep vein thrombosis. The left great saphenous vein appears patent an d compressible segmentally. Ordering Physician: Chela Tabares Referring Physician: Pilar Morataya Performed By: Tiffany Galarza, STEVE, RVT
--- OUTSIDE RECORDS SUMMARY | 2025-10-17 10:57 | XMS RPT_ITS | CCD ---
Author Organization [facility] Care Team Providers Care Surgical Corsetier Name Role Phone Pilar Vivar MD Primary Care Provider Hood ALMODOVAR, Dr. Quezada Primary Care Provider Virgie ALMODOVAR, Dr. Rosario Attending Provider Dr. Abraham Garvin MD Referring Provider Hood ALMODOVAR, Dr. Quezada Referring Provider Kleber Mott MD Attending Provider Kleber Mott MD Referring Provider FABI MOHAMUD Attending Unavailable SELF Referring Unavailable SELF Referring Unavailable FABI MOHAMUD Referring Unavailable LOU DAVE Attending Unavailable KALISETTI, PILAR Primary Care Unavailable FABI MOHAMUD Referring Unavailable KALISETTI, PILAR Primary Care Unavailable LOU DAVE Attending Unavailable KALISETTI, PILRA Primary Care Unavailable Kalisetti, Pilar Primary Care Unavailable Tabares, Chela Referring Unavailable Poncho Tabaresison Attending Unavailable Kalisetti, Pilar Referring Unavailable Kalisetti, Pilar Primary Care Unavailable Poncho Tabaresison Attending Unavailable Kleber Mott Attending Unavailable Kalisetti, Pilar Primary Care Unavailable Kalisetti, Pilar Referring Unavailable Sarah Rivera Attending Unavailable Tabares, Chela Referring Unavailable Kalisetti, Pilar Primary Care Unavailable Kleber Mott Attending Unavailable Kalisetti, Pilar Primary Care Unavailable Kalisetti, Pilar Referring Unavailable Kleber Mott Referring Unavailable Kleber Mott Attending Unavailable Kalisetti, Pilar Primary Care Unavailable Kalisetti, Pilar Primary Care Unavailable Le, Umesh Attending Unavailable Pilar Vivar Primary Care Unavailable Umesh Multani Attending Unavailable Abraham Garvin Referring Unavailable Abraham Garvin Attending Unavailable Pilar Vivar Primary Care Unavailable PILAR VIVAR MD Consulting Unavailable PILAR VIVAR MD Primary Care Unavailable PILAR VIVAR MD Admitting Unavailable PILAR VIVAR MD Attending Unavailable PROVIDER, UNKNOWN Consulting Unavailable PROVIDER, UNKNOWN Consulting Unavailable PILAR VIVAR MD Primary Care Unavailable PILAR VIVAR MD Admitting Unavailable PILAR VIVAR MD Consulting Unavailable PILAR VIVAR MD Attending Unavailable PROVIDER, UNKNOWN Consulting Unavailable PROVIDER, UNKNOWN Consulting Unavailable PILAR VIVAR MD Consulting Unavailable KATJA MCKEON Attending Unavailable KATJA MCKEON Primary Care Unavailable KATJA MCKEON Admitting Unavailable PROVIDER, UNKNOWN Consulting Unavailable PROVIDER, UNKNOWN Consulting Unavailable PILAR VIVAR MD Primary Care Unavailable PILAR VIVAR MD Admitting Unavailable PILRA VIVAR MD Consulting Unavailable PILAR VIVAR MD Attending Unavailable PROVIDER, UNKNOWN Consulting Unavailable PROVIDER, UNKNOWN Consulting Unavailable LEANNA HAINES DO Primary Care Unavailable LEANNA HAINES DO Admitting Unavailable PILAR VIVAR MD Referring Unavailable PILAR VIVAR MD Consulting Unavailable LEANNA HAINES DO Attending Unavailable PROVIDER, UNKNOWN Consulting Unavailable PROVIDER, UNKNOWN Consulting Unavailable PILAR VIVAR MD Primary Care Unavailable PILAR VIVAR MD Admitting Unavailable PILAR VIVAR MD Consulting Unavailable PILAR VIVAR MD Attending Unavailable PROVIDER, UNKNOWN Consulting Unavailable PROVIDER, UNKNOWN Consulting Unavailable ORLANDO CHEY E Primary Care Unavailable PILAR VIVAR MD Consulting Unavailable PILAR VIVAR MD Referring Unavailable ORLANDO, CHEY E Admitting Unavailable ORLANDO, CHEY E Attending Unavailable PROVIDER, UNKNOWN Consulting Unavailable PROVIDER, UNKNOWN Consulting Unavailable PILAR VIVAR MD Referring Unavailable ARIK GONZALES JR Attending Unavailable ARIK GONZALES JR Primary Care Unavailable ARIK GONZALES JR Admitting Unavailable PILAR VIVAR MD Consulting Unavailable PROVIDER, UNKNOWN Consulting Unavailable PROVIDER, UNKNOWN Consulting Unavailable PILAR VIVAR MD Consulting Unavailable DEBORAH CHU MD Attending Unavailable DEBORAH CHU MD Primary Care Unavailable PILAR VIVAR MD Referring Unavailable DEBORAH CUH MD Admitting Unavailable PROVIDER, UNKNOWN Consulting Unavailable PROVIDER, UNKNOWN Consulting Unavailable ORLANDO, CHEY E Primary Care Unavailable PILAR VIVAR MD Referring Unavailable PILAR VIVAR MD Consulting Unavailable ORLANDO, CHEY E Attending Unavailable ORLANDO, CHEY E Admitting Unavailable PROVIDER, UNKNOWN Consulting Unavailable PROVIDER, UNKNOWN Consulting Unavailable PILAR VIVAR MD Consulting Unavailable LEANNA HAINES DO Primary Care Unavailable LEANNA HAINES DO Admitting Unavailable LEANNA HAINES DO Attending Unavailable PILAR VIVAR MD Referring Unavailable PROVIDER, UNKNOWN Consulting Unavailable PROVIDER, UNKNOWN Consulting Unavailable PILAR VIVAR MD Referring Unavailable PILAR VIVAR MD Consulting Unavailable ORLANDO, CHEY E Attending Unavailable ORLANDO, CHEY E Admitting Unavailable [place]LANDO, CHEY E Primary Care Unavailable PROVIDER, UNKNOWN Consulting Unavailable PROVIDER, UNKNOWN Consulting Unavailable PILAR VIVAR MD Consulting Unavailable CSERSARAH CARABALLO DO Attending Unavailable CSERNYIK, SARAH DO Primary Care Unavailable CSERNYIK, SARAH DO Admitting Unavailable PROVIDER, UNKNOWN Consulting Unavailable PROVIDER, UNKNOWN Consulting Unavailable PILAR VIVAR MD Consulting Unavailable DA SILVA, RITA C Attending Unavailable PILAR VIVAR MD Referring Unavailable DA SILVA, RITA C Admitting Unavailable DA SILVA, RITA C Primary Care Unavailable PROVIDER, UNKNOWN Consulting Unavailable PROVIDER, UNKNOWN Consulting Unavailable PILAR VIVAR MD Consulting Unavailable PILAR VIVAR MD Referring Unavailable LEANNA HAINES DO Primary Care Unavailable LEANNA HAINES DO Admitting Unavailable LEANNA HAINES DO Attending Unavailable PROVIDER, UNKNOWN Consulting Unavailable PROVIDER, UNKNOWN Consulting Unavailable PILAR VIVAR MD Consulting Unavailable PILAR VIVAR MD Referring Unavailable LEAH PEARL MD Attending Unavailable LEAH PEARL MD Primary Care Unavailable LEAH PEARL MD Admitting Unavailable PROVIDER, UNKNOWN Consulting Unavailable PROVIDER, UNKNOWN Consulting Unavailable PILAR VIVAR MD Consulting Unavailable MUSHTAQ GUZMAN MD Attending Unavailable MUSHTAQ GUZMAN MD Primary Care Unavailable PILAR VIVAR MD Referring Unavailable MUSHTAQ GUZMAN MD Admitting Unavailable PROVIDER, UNKNOWN Consulting Unavailable PROVIDER, UNKNOWN Consulting Unavailable PILAR VIVAR MD Consulting Unavailable PILAR VIVAR MD Referring Unavailable GOOD ZAFAR Attending Unavailable GOOD ZAFAR Primary Care Unavailable GOOD ZAFAR Admitting Unavailable PROVIDER, UNKNOWN Consulting Unavailable PROVIDER, UNKNOWN Consulting Unavailable PILAR VIVAR MD Primary Care Unavailable PILAR VIVAR MD Admitting Unavailable PILAR VIVAR MD Attending Unavailable PILAR VIVAR MD Consulting Unavailable PROVIDER, UNKNOWN Consulting Unavailable PROVIDER, UNKNOWN Consulting Unavailable PILAR VIVAR MD Primary Care Unavailable PILAR VIVAR MD Admitting Unavailable PILAR VIVAR MD Consulting Unavailable PILAR VIVAR MD Attending Unavailable PROVIDER, UNKNOWN Consulting Unavailable PROVIDER, UNKNOWN Consulting Unavailable PILAR VIVAR MD Consulting Unavailable PILAR VIVAR MD Referring Unavailable CHADD ALANIS MD Attending Unavailable CHADD ALANIS MD Primary Care Unavailable CHADD ALANIS MD Admitting Unavailable PROVIDER, UNKNOWN Consulting Unavailable PROVIDER, UNKNOWN Consulting Unavailable Medications Current Medications Medication Drug Class(es) Dates Sig (Normalized) Sig (Original) albuterol 0.83 mg/ml inhalation solution (15 sources) beta2-Adrenergic Agonist Start: 06-10-2025 albuterol (PROVENTIL) 2.5 mg /3 mL (0.083 %) nebulizer solution Indications: Pulmonary emphysema, unspecified emphysema type (HCC) , Chronic obstructive pulmonary disease, unspecified COPD type (HCC) Use 3 mL via nebulizer every 6 hours as needed. 360 mL 3 06/10/2025 Active Start: 06-10-2025 take 2 puff(s) by in halation every six hours as needed albuterol HFA (PROVENTIL HFA, VENTOLIN HFA) 90 mcg/actuation inhaler Indications: Pulmonary emphysema, unspecified emphysema type (HCC) , Chronic obstructive pulmonary disease, unspecified COPD type (HCC) Inhale 2 puffs as instructed every 6 hours as needed. 18 g 5 06/10/2025 Active Start: 08-03-2024 End: 06-10-2025 take 2.5 mg by inhalation every six hours as needed albuterol (PROVENTIL) 2.5 mg /3 mL (0.083 %) nebulizer solution Use 2.5 mg via nebulizer every 6 hours as needed. 08/03/2024 06/10/2025 Discontinued End: 06-10-2025 take 2 puff(s) by inhalation every six hours as needed albuterol HFA (PROVENTIL HFA, VENTOLIN HFA) 90 mcg/actuation inhaler Inhale 2 Puffs as instructed every 6 hours as needed. 06/10/2025 Discontinued aspirin 81 mg chewable tablet (3 sources) Platelet Aggregation Inhibitor, Nonsteroidal Anti-inflammatory Drug Start: 10-01-2024 take 1 tablet by mouth once daily Aspirin 81 mg tablet,chewable Active 81 mg PO daily October 01, 2024 1:00am azithromycin 250 mg oral tablet (3 sources) Macrolide Antimicrobial Start: 09-11-2024 take 1 tablet by mouth once daily Azithromycin 250 mg tablet Active 250 mg PO DAILY 4 0 September 11, 2024 1:00am COMP-AIR NEBULIZER COMPRESSOR (8 sources) Start: 07-13-2024 COMP-AIR NEBULIZER COMPRESSOR USE NEBULIZER DAILY 07/13/2024 Active dicyclomine hydrochloride 20 mg oral tablet (8 sources) Anticholinergic Start: 04-30-2024 dicyclomine (BENTYL) 20 mg tablet Take 1 tablet by mouth as needed. 04/30/2024 Active 0.5 ml dulaglutide 1.5 mg/ml auto-injector (3 sources) GLP-1 Receptor Agonist Start: 12-04-2024 inject 0.75 mg by subcutaneous injection every week TRULICITY 0.75 mg/0.5 mL pen injector Inject 0.75 mg subcutaneously one time a week. 12/04/2024 Active fluticasone / salmeterol (12 sources) Corticosteroid, beta2-Adrenergic Agonist Start: 06-10-2025 take 1 puff(s) by mouth twice daily fluticasone-salmet kal (ADVAIR DISKUS) 250-50 mcg/dose inhaler Indications: Pulmonary emphysema, unspecified emphysema type (HCC) , Chronic obstructive pulmonary disease, unspecified COPD type (HCC) Inhale 1 puff as instructed two times a day. RINSE AND GARGLE MOUTH WITH WATER AFTER EACH USE. 1 each 5 06/10/2025 Active Start: 10-01-2024 Fluticasone Pr opion-Salmeterol (Advair Diskus) 250-50 mcg/dose blister with device Active 1 NMA INHALATION Q12H October 01, 2024 1:00am Start: 10-01-2024 Fluticasone Pr opion-Salmeterol (Advair Diskus) 250-50 mcg/dose blister with device Discontinued 1 NMA INHALATION Q12H October 01, 2024 1:00am Start: 08-13-2024 End: 06-10-2025 take 1 puff(s) by mouth twice daily fluticasone-salmeterol (ADVAIR DISKUS) 250-50 mcg/dose inhaler Inhale 1 Puff as instructed two times a day. RINSE AND GARGLE MOUTH WITH WATER AFTER EACH USE. 1 Each 5 08/13/2024 06/10/2025 Discontinued Start: 08-13-2024 take 1 puff(s) by mo uth twice daily fluticasone-salmeterol (ADVAIR DISKUS) 250-50 mcg/dose inhaler Inhale 1 Puff as instructed two times a day. RINSE AND GARGLE MOUTH WITH WATER AFTER EACH USE. 1 Each 08/13/2024 Active Start: 08-01-2024 End: 08-13-2024 take 1 puff(s) by inhalation twice daily ADVAIR DISKUS 100-50 mcg/dose inhaler Inhale 1 Puff as instructed two times a day. 08/01/2024 08/13/2024 Discontinued furosemide 20 mg oral tablet (3 sources) Loop Diuretic Start: 11-29-2024 take 1 tablet by mouth once furosemide (LASIX) 20 mg tablet Take 1 tablet by mouth every afternoon. 11/29/2024 Active guaifenesin/dextrom ethorphan (TUSSIN DM MAX ORAL) (8 sources) Start: 07-31-2024 take 10 mL by mouth once daily guaifenesin/dext romethorphan (TUSSIN DM MAX ORAL) Take 10 mL by mouth once daily. 07/31/2024 Active ketorolac tromethamine 10 mg oral tablet (3 sources) Nonsteroidal Anti-inflammatory Drug, Cyclooxygenase Inhibitor Start: 11-30-2024 take 1 tablet by mouth every eight hours as needed keTORolac (TORADOL) 10 mg tablet Take 10 mg by mouth every 8 hours as needed. 11/30/2024 Active magnesium oxide 400 mg oral tablet (8 sources) Start: 02-05-2024 take 1 tablet by mouth once daily magnesium oxide (MAG-OX) 400 mg (241.3 mg magnesium) tablet Take 1 tablet by mouth once daily. 02/05/2024 Active meloxicam 7.5 mg oral tablet (12 sources) Nonsteroidal Anti-inflammatory Drug Start: 05-20-2025 take [...] hydrochloride 500 mg extended release oral tablet (3 sources) Biguanide Start: 11-29-2024 take 1 tablet by mouth every twelve hours metFORMIN ER (GLUCOPHAGE XR) 500 mg 24 hr tablet Take 1 tablet by mouth every 12 hours. 11/29/2024 Active naproxen 500 mg delayed release oral tablet (11 sources) Nonsteroidal Anti-inflammatory Drug Start: 03-03-2018 Naproxen SR (EC-NAPROSYN) 500 mg EC tablet Take 500 mg by mouth as needed. 03/03/2018 Active Start: 03-03-2018 take 1 tablet by naun th twice daily as needed Naproxen 500 MG tablet Active 500 mg PO TWICE DAILY NEEDED March 03, 2018 12:00am ondansetron 4 mg disintegrating oral tablet (8 sources) Serotonin-3 Receptor Antagonist Start: 04-30-2024 take 1 tablet by mouth every eight hours as needed ondansetron orally disintegrating (ZOFRAN ODT) 4 mg disintegrating tablet Take 4 mg by mouth every 8 hours as needed. 04/30/2024 Active pantoprazole 40 mg delayed release oral tablet (11 sources) Proton Pump Inhibitor Start: 03-14-2018 take 1 tablet by mouth once daily Pantoprazole 40 MG tablet Active 40 mg PO DAILY March 14, 2018 12:00am pregabalin 150 mg oral capsule (1 source) Start: 06-04-2025 take 1 capsule by mouth every twelve hours pregabalin (LYRICA) 150 mg capsule Take 1 capsule by mouth every 12 hours. 06/04/2025 Active tamsulosin hydrochloride 0.4 mg oral capsule (11 sources) alpha-Adrenergic Tera Start: 10-01-2024 take 1 capsule by mouth at bedtime Tamsulosin 0.4 mg capsule Active 0.4 mg PO AT BEDTIME October 01, 2024 1:00am 60 actuat tiotropium 0.55381 mg/actuat inhalation spray (12 sources) Anticholinergic Start: 10-01-2024 take 1.25 ug by inhalation every twenty-four hours Tiotropium [place] (Spiriva Respimat) 1.25 mcg/actuation mist Active 2 NMA INHALATION Q24H October 01, 2024 1:00am Start: 08-13-2024 End: 06-10-2025 take 2 puff(s) by inhalation once daily tiotropium bromide (SPIRIVA RESPIMAT) 2.5 mcg/actuation inhaler Indications: Pulmonary emphysema, unspecified emphysema type (HCC) , Chronic obstructive pulmonary disease, unspecified COPD type (HCC) Inhale 2 puffs as instructed once daily. 1 each 5 06/10/2025 Active End: 08-13-2024 SPIRIVA RESPIMAT 1.25 mcg/ac tuation inhaler Inhale 2 Puffs as instructed once daily. 08/13/2024 Discontinued tiZANidine 4 mg oral tablet (1 source) Central alpha-2 Adrenergic Agonist Start: 06-04-2025 take 1 tablet by mouth every eight hours as needed tiZANidine (ZANAFLEX) 4 mg tablet Take 4 mg by mouth three times a day as needed. 06/04/2025 Active valACYclovir 500 mg oral tablet (4 sources) Herpesvirus Nucleoside Analog DNA Polymerase Inhibitor, Herpes Simplex Virus Nucleoside Analog DNA Polymerase Inhibitor, Herpes Zoster Virus Nucleoside Analog DNA Polymerase Inhibitor Start: 06-05-2025 take 1 tablet by mouth three times daily valACYclovir (VALTREX) 500 mg tablet Take 500 mg by mouth three times a day. 06/05/2025 Active Start: 03-14-2018 End: 10-01-2024 take 1 tablet by mouth three times daily Valacyclovir 1,000 MG tablet Discontinued 1000 mg PO THREE TIMES A DAY March 14, 2018 12:00am October 01, 2024 2:19pm varenicline 1 mg oral tablet (3 sources) Partial Cholinergic Nicotinic Agonist Start: 11-10-2024 take 1 tablet by mouth once daily at breakfast varenicline (CHANTIX) 1 mg tablet Take 1 mg by mouth daily with breakfast. 11/10/2024 Active Completed/Discontinued Medications Medication Drug Class(es) Dates Sig (Normalized) Sig (Original) acetaminophen 325 mg / HYDROcodone bitartrate 5 mg oral tablet (3 sources) Opioid Agonist Start: 09-14-2024 End: 10-01-2024 Hydrocodone-Acetam inophen 5-325 mg tablet Discontinued 1 {tbl} PO EVERY 6 HOURS NEEDED as needed for Pain 12 3 September 14, 2024 October 01, 2024 2:17pm Sprain of costal cartilage Sprain of ribs, initial encounter gabapentin 100 mg oral capsule (9 sources) Anti-epileptic Agent Start: 10-01-2024 take 1 capsule by mouth at bedtime Gabapentin 100 mg capsule Discontinued 100 mg PO AT BEDTIME October 01, 2024 1:00am take 2 capsules by m outh once daily at bedtime gabapentin (NEURONTIN) 300 mg capsule Ta ke 600 mg by mouth daily at bedtime. Active predniSONE 20 mg oral tablet (6 sources) Start: 09-11-2024 End: 10-01-2024 take 3 [...] days rosuvastatin calcium 20 mg oral tablet (12 sources) HMG-CoA Reductase Inhibitor Start: 10-01-2024 End: 04-01-2025 take 1 tablet by mouth once Rosuvastatin (Crestor) 20 mg tablet Discontinued 20 mg PO ONCE 30 October 29, 2024 8:26am April 01, 2025 8:58am Varenicline Tartrate 0.5 mg (11)- 1 mg (42) tablets,dose pack (1 source) Start: 10-01-2024 take 1 tablet by mouth once Varenicline Tartrate 0.5 mg (11)- 1 mg (42) tablets,dose pack Discontinued 0 PO per package directions October 01, 2024 1:00am PO PER PKG DIR Problems Active Problems Problem Classification Problem Date Documented Da te Episodic/Chronic Aortic; peripheral; and visceral artery aneurysms (7 sources) Abdominal aortic aneurysm; Translations: [Abdominal aortic aneurysm (AAA)] Onset: 01-21-2025 10-01-2024 Chronic Cancer of liver and intrahepatic bile duct (1 source) Malignant neoplasm of liver, not specified as primary or secondary; Translations: [Malignant neoplasm of liver, not specified as primary or secondary] Onset: 06-14-2025 Chronic Chronic obstructive pulmonary disease and bronchiectasis (19 sources) Chronic obstructive lung disease; Translations: [Chronic obstructive pulmonary disease, unspecified] Onset: 06-10-2025 08-13-2024 Chronic Diabetes mellitus without complication (2 sources) Type 2 diabetes mellitus without complications; Translations: [Type 2 diabetes mellitus without complications] Onset: 06-15-2025 Chronic Disorders of lipid metabolism (1 source) Hyperlipidemia, unspecified; Translations: [Hyperlipidemia, unspecified] Onset: 06-15-2025 Chronic Esophageal disorders (1 source) Gastro-esophageal reflux disease without esophagitis; Translations: [Gastro-esophageal reflux disease without esophagitis] Onset: 06-15-2025 Chronic Essential hypertension (1 source) Essential (primary) hypertension; Translations: [Essential (primary) hypertension] Onset: 06-15-2025 Chronic Nonspecific chest pain (4 sources) Other chest pain; Translations: [Chest pain, unspecified] Onset: 10-13-2024 Episodic Other aftercare (1 source) vermin exterminator (current) use of oral hypoglycemic drugs; Translations: [vermin exterminator (current) use of oral hypoglycemic drugs] Onset: 06-15-2025 Episodic Other connective tissue disease (3 sources) Weakness of face muscles; Translations: [Facial weakness] 03-14-2018 Episodic Other connective tissue disease (3 sources) Ganglion cyst of left dorsal wrist; Translations: [Ganglion, left wrist] 05-20-2025 Episodic Other connective tissue disease (1 source) Ganglion, left wrist; Translations: [Ganglion, left wrist] Onset: 05-20-2025 Episodic Other connective tissue disease (2 sources) Other symptoms and signs involving the nervous system; Translations: [Other symptoms and signs involving the nervous system] Onset: 05-27-2025 Episodic Other liver diseases (3 sources) Liver mass; Translations: [Hepatomegaly, not elsewhere classified] 09-19-2024 Episodic Other lower respiratory disease (2 sources) Dyspnea; Translations: [Dyspnea, unspecified] 08-13-2024 Episodic Other lower respiratory disease (2 sources) Nodule of lung; Translations: [Solitary pulmonary nodule] 08-13-2024 Episodic Other lower respiratory disease (1 source) Hypoxia; Translations: [Hypoxemia] 12-10-2024 Episodic Other lower respiratory disease (3 sources) Cough; Translations: [Cough] 09-22-2024 Episodic Other lower respiratory disease (1 source) Solitary pulmonary nodule; Translations: [Lung nodule] Onset: 06-10-2025 Episodic Other lower respiratory disease (1 source) Shortness of breath; Translations: [Shortness of breath] Onset: 06-15-2025 Episodic Other nervous system disorders (3 sources) Facial weakness, lower motor neurone; 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] 03-14-2018 Episodic Other nervous system disorders (3 sources) Facial paresthesia; Translations: [Anesthesia of skin] 03-14-2018 Episodic Other non-traumatic joint disorders (4 sources) Pain in wrist; Translations: [Pain in left wrist] 05-20-2025 Episodic Other nutritional; endocrine; and metabolic disorders (2 sources) Morbid obesity; Translations: [Morbid (severe) obesity due to excess calories] 08-13-2024 Chronic Other nutritional; endocrine; and metabolic disorders (2 sources) Morbid (severe) obesity due to excess calories; Translations: [Morbid obesity (HCC)] Onset: 06-10-2025 Chronic Other nutritional; endocrine; and metabolic disorders (1 source) Body mass index (BMI) 40.0-44.9, adult; Translations: [Body mass index [BMI]40.0-44.9, adult] Onset: 06-15-2025 Chronic Other skin disorders (1 source) Localized swelling, mass and lump, left upper limb; Translations: [Localized swelling, mass and lump, left upper limb] Onset: 06-13-2025 Episodic Other skin disorders (2 sources) Rash and other nonspecific skin eruption; Translations: [Rash and other nonspecific skin eruption] Onset: 06-05-2025 Episodic Residual codes; unclassified (2 sources) Obstructive sleep apnea syndrome; Translations: [Obstructive sleep apnea (adult) (pediatric)] 06-10-2025 Chronic Residual codes; unclassified (2 sources) Obstructive sleep apnea (adult) (pediatric); Translations: [VANDANA (obstructive sleep apnea)] Onset: 05-27-2025 Chronic Residual codes; unclassified (3 sources) Tobacco user; Translations: [Tobacco use] 11-08-2013 Episodic Residual codes; unclassified (1 source) Tobacco use; Translations: [Tobacco use] Onset: 06-14-2025 Episodic Respiratory failure; insufficiency; arrest (adult) (1 source) Dependence on supplemental oxygen; Translations: [Dependence on supplemental oxygen] Onset: 06-15-2025 Chronic Screening and history of mental health and substance abuse codes (1 source) Personal history of nicotine dependence; Translations: [Personal history of nicotine dependence] Onset: 06-15-2025 Episodic Spondylosis; intervertebral disc disorders; other back problems (1 source) Spondylosis without myelopathy or radiculopathy, lumbar region; Translations: [Spondylosis without myelopathy or radiculopathy, lumbar region] Onset: 04-21-2025 Chronic Substance-related disorders (6 sources) Cigarette smoker ; Translations: [Nicotine dependence, cigarettes, uncomplicated] Onset: 05-02-2025 08-13-2024 Chronic Superficial injury; contusion (3 sources) Contusion of chest; Translations: [Contusion of unspecified front wall of thorax, initial encounter] 09-19-2024 Episodic Thyroid disorders (1 source) Other specified hypothyroidism; Translations: [Other specified hypothyroidism] Onset: 02-18-2025 Chronic Unclassified (3 sources) history of rotator cuff disease 11-08-2013 Unclassified (1 source) Abdominal aortic aneurysm, without rupture, unspecified; Translations: [Abdominal aortic aneurysm, without rupture, unspecified] Onset: 11-13-2024 Unclassified (1 source) Cough, unspecified; Translations: [Cough, unspecified] Onset: 10-09-2024 Unclassified (1 source) Long-term (current) use of injectable non-insulin antidiabetic drugs; Translations: [Long-term (current) use of injectable non-insulin antidiabetic drugs] Onset: 06-15-2025 Urinary tract infections (1 source) Urinary tract infection, site not specified; Translations: [Urinary tract infection, site not specified] Onset: 06-14-2025 Episodic Viral infection (1 source) Zoster without complications; Translations: [Zoster without complications] Onset: 06-05-2025 Episodic Past or Other Problems Problem Classification Problem Date Documented Date Episodic/Chronic Abdominal pain (4 sources) Right lower quadrant pain; Translations: [Left lower quadrant pain] Onset: 11-16-2024 Episodic Other aftercare (1 source) Other custodial (current) drug therapy; Translations: [Other supervisor intermediates (current) drug therapy] Onset: 05-02-2025 Episodic Other connective tissue disease (3 sources) Pain in left lower leg; Translations: [Pain in left lower leg] Onset: 01-22-2025 Episodic Other lower respiratory disease (1 source) Dyspnea, unspecified; Translations: [Dyspnea, unspecified type] Onset: 08-13-2024 Episodic Other non-traumatic joint disorders (3 sources) Pain in left wrist; Translations: [Pain in left wrist] Onset: 05-02-2025 Episodic Pneumonia (except that caused by tuberculosis or sexually transmitted disease) (1 source) Pneumonia, unspecified organism; Translations: [Pneumonia, unspecified organism] Onset: 05-22-2025 Episodic Sprains and strains (4 sources) Chondrocostal joint sprain; Translations: [Sprain of ribs, initial encounter] Onset: 05-02-2025 09-22-2024 Episodic Results Test Name Value Interpretation Reference Range Facility HEMOGLOBIN A1C (POM)on 08-20 Glucose [Mass/Vol] 131.2 mg/dL High 0.0 - 0.0 [facility] Comment on above: Result Comment: BLDo HEMOGLOBIN A1C REFERENCE RANGESBLDo Suggested Diagnosis HbA1c(%) HbA1C (mmol/mol Diabetic >/=6.5 >/=48 Prediabetes 5.7 - 6.4 39 - 47 Normal <5.7 <39 Performed By: #### 2 [id number] ####[address] [address] HbA1c (Bld) [Mass fraction] 6.2 % Normal 0.0 - 6.5 [facility] Comment on above: Performed By: #### 2 96721 ####[facility],[address] [place], [place] [id number] ABDOMEN 2 VIEWSon 08-06-2025 ABDOMEN 2 VIEWS Normal [facility] ED MED ADMINISTRATION DETAIL on 08-06-2025 ED MED ADMINISTRATION DETAIL Normal [facility] ED NURSES CLINICAL NOTEon ED NURSES CLINICAL NOTE Normal [facility] ED ORDER SHEET (CPOE ONLY)on 08-06-2025 ED ORDER SHEET (CPOE ONLY) Normal [facility] ED PHYSICIAN CLINICAL REPORT on 08-06-2025 ED PHYSICIAN CLINICAL REPORT Normal [facility] ED SUPER BILLon 08-06-2025 ED SUPER BILL Normal [facility] ED VISIT SUMMARYon ED VISIT SUMMARY Normal [facility] ED VITALS FLOW SHEETon 08-06 ED VITALS FLOW SHEET Normal [facility] BMP with eGFRon 06-16-2025 AGE 64 years Normal [facility] Comment on above: Performed By: #### 2 86755 ####[facility],[address] [place] [address] Anion gap [Moles/Vol] 12 mmol/L Normal - [facility] Comment on above: Performed By: #### 2 84023 ####[facility],[address] [place] [address] BMP with eGFR Normal [facility] Comment on above: Result Comment: BASI C METABOLIC PANEL Performed By: #### 2 58690 ####[facility],[address] [place], [place] [id number] Calcium [Mass/Vol] 8.4 mg/dL Low 8.5 - 10.1 [facility] Comment on above: Performed By: #### 2 96736 ####[facility],[address] [place], [place] [address] Chloride [Moles/Vol] 106 mmol/L Normal 98 - 107 [facility] Comment on above: Performed By: #### 2 24984 ####[facility],[address] [place] [address] CO2 [Moles/Vol] 30.1 mmol/L Normal 21.0 - 32.0 [facility] Comment on above: Performed By: #### 2 33304 ####[facility],[address] [place] [address] Creatinine [Mass/Vol] 0.94 mg/dL Normal 0.70 - 1.30 [facility] Comment on above: Performed By: #### 2 39878 ####[facility],[address] [place] [address] GFR/1.73 sq M.predicted among non-blacks MDRD (S/P/Bld) [Vol rate/Area] mL/min/{1.73_m2} Normal 60 - 999 [facility] Comment on above: Performed By: #### 2 22441 ####[facility],[address] [place] [address] Result Comment: ACCO RDING TO THE NATIONAL KIDNEY DISEASE EDUCATION PROGRAM(NKDE), A NORMAL eGFRIS A VALUE GREATER THAN OR EQUAL TO 60 ML/MIN/1.73 SQ METERS.CHRONIC KIDNEY DISEASE: <60mL/MIN/1.73 SQ METERSKIDNEY FAILURE: <15mL/MIN/1.73 SQ METERSTHIS TEST SHOULD ONLY BE USED FOR PATIENTS 18 YEARS OF AGE AND OLDER. Glucose [Mass/Vol] 77 mg/dL Normal 74 - 106 [facility] Comment on above: Performed By: #### 2 76789 ####[facility],[address] [place], [place] [id number] Potassium [Moles/Vol] 3.8 mmol/L Normal 3.5 - 5.1 [facility] Comment on above: Performed By: #### 2 55426 ####[facility],[address] [place] [address] Sodium [Moles/Vol] 144 mmol/L Normal 136 - 145 [facility] Comment on above: Performed By: #### 2 48222 ####[facility],[address] [place] [address] 75120 Urea nitrogen [Mass/Vol] 17 mg/dL Normal 7 - 18 [facility] Comment on above: Performed By: #### 2 32933 ####[facility],[address] [place] [address] 47514 CBC + DIFFon 06-16-2025 Baso # 0.01 x10EE3/UL Normal 0.00 - 0.10 [facility] Comment on above: Performed By: #### 2 41021 ####[facility],[address] [place] [address] 24537 Basophils/100 WBC (Bld) 0.2 % Normal 0.0 - 2.0 [facility] Comment on above: Performed By: #### 2 36479 ####[facility],[address] [place] [address] CBC + DIFF Normal [facility] Comment on above: Result Comment: CBC- COMPLETE BLOOD COUNT Performed By: #### 2 86187 ####[facility],[address] [place] [address] 16773 EO # 0.11 x10EE3/UL Normal 0.00 - 0.50 [facility] Comment on above: Performed By: #### 2 34036 ####[facility],[address] [place] [address] 77199 Eosinophils/100 WBC (Bld) 1.5 % Normal 0.0 - 7.0 [facility] Comment on above: Performed By: #### 2 46413 ####[facility],[address] [place] [address] 82072 Erythrocyte distribution width (RBC) [Ratio] 13.6 % Normal 12.0 - 15.6 [facility] Comment on above: Performed By: #### 2 51444 ####[facility],[address] [place] [address] 85093 Hematocrit (Bld) [Volume fraction] 42.2 % Normal 40.0 - 52.0 [facility] Comment on above: Performed By: #### 2 97878 ####[facility],[address] [place] [address] Hemoglobin (Bld) [Mass/Vol] 14.6 g/dL Normal 13.0 - 17.5 [facility] Comment on above: Performed By: #### 2 53032 ####[facility],[address] [place] [address] Lymph # 2.48 x10EE3/UL Normal 0.80 - 2.80 [facility] Comment on above: Performed By: #### 2 12236 ####[facility],[address] [place] [address] Lymphocytes/100 WBC (Bld) 32.6 % Normal 20.0 - 45.0 [facility] Comment on above: Performed By: #### 2 99369 ####[facility],[address] [place] [address] MANUAL DIFF N/A Normal [facility] Comment on above: Performed By: #### 2 37635 ####[facility],[address] [place] [address] MCH (RBC) [Entitic mass] 32 pg Normal 27 - 33 [facility] Comment on above: Performed By: #### 2 33823 ####[facility],[address] [place], [place] [address] MCHC 35 X10 3 Normal 32 - 36 [facility] Comment on above: Performed By: #### 2 13548 ####[facility],[address] [place], [place] [address] MCV (RBC) [Entitic vol] 92 fL Normal 81 - 98 [facility] Comment on above: Performed By: #### 2 55614 ####[facility],[address] [place] [address] Hemphill # 0.52 x10EE3/UL Normal 0.20 - 1.00 [facility] Comment on above: Performed By: #### 2 18352 ####[facility],[address] [place] [address] 30379 MONOS % 6.8 % Normal 0.0 - 10.0 [facility] Comment on above: Performed By: #### 2 05274 ####[facility],[address] [place] [address] 41227 Morphology Brody (Bld) [Interp] N/A Normal [facility] Comment on above: Performed By: #### 2 50369 ####[facility],[address] [place] [address] 95393 Neut # 4.47 x10EE3/UL Normal 1.50 - 7.10 [facility] Comment on above: Performed By: #### 2 89387 ####[facility],[address] [place] [address] 17114 Neutrophils/100 WBC (Bld) 58.9 % Normal 46.0 - 76.0 [facility] Comment on above: Performed By: #### 2 34146 ####[facility],[address] [place] [address] 45141 PLATELET 200 x10EE3/UL Normal 150 - 450 [facility] Comment on above: Performed By: #### 2 47173 ####[facility],[address] [place] [address] 52925 Platelet mean volume (Bld) [Entitic vol] 7.6 fL Normal 6.4 - 10.5 [facility] Comment on above: Result Comment: AUTO MATED DIFFERENTIAL Performed By: #### 2 25342 ####[facility],[address] [place] [address] 70910 RBC 4.57 x 10EE6/UL Normal 4.50 - 6.00 [facility] Comment on above: Performed By: #### 2 83425 ####[facility],[address] [place] [address] 46527 WBC 7.6 x 10EE3/UL Normal 4.5 - 10.8 [facility] Comment on above: Performed By: #### 2 69227 ####[facility],[address] [place] [address] 34683 HEMOGLOBIN A1C (POM)on 06-16 Glucose [Mass/Vol] 131.2 mg/dL High 0.0 - 0.0 [facility] Comment on above: Result Comment: BLDo HEMOGLOBIN A1C REFERENCE RANGESBLDo Suggested Diagnosis HbA1c(%) HbA1C (mmol/mol Diabetic >/=6.5 >/=48 Prediabetes 5.7 - 6.4 39 - 47 Normal <5.7 <39 Performed By: #### 2 36228 ####[facility],[address] [place] [address] 45910 HbA1c (Bld) [Mass fraction] 6.2 % Normal 0.0 - 6.5 [facility] Comment on above: Performed By: #### 2 72437 ####[facility],[address] [place] [address] 18932 LIPID PROFILEon 06-16-2025 Cholesterol [Mass/Vol] 93 mg/dL Normal 0 - 240 [facility] Comment on above: Performed By: #### 2 43163 ####[facility],[address] [place] [address] 25750 Cholesterol in HDL [Mass/Vol] 43 mg/dL Normal 40 - 60 [facility] Comment on above: Performed By: #### 2 67739 ####[facility],[address] [place] [address] 56977 Cholesterol in LDL [Mass/Vol] 23 mg/dL Normal 0 - 129 [facility] Comment on above: Performed By: #### 2 95555 ####[facility],[address] [place] [address] 12952 Cholesterol.total/Ch olesterol in HDL [Mass ratio] 2.2 {ratio} Normal 0.0 - 5.0 [facility] Comment on above: Performed By: #### 2 33389 ####[facility],[address] [place] [address] 43905 Lipid 1996 panel Normal [facility] Comment on above: Result Comment: LIPI D PROFILE Performed By: #### 2 51439 ####[facility],[address] [place] [address] 03546 Triglyceride [Mass/Vol] 135 mg/dL Normal 0 - 150 [facility] Comment on above: Performed By: #### 2 23701 ####[facility],[address] [place] [address] 60511 TROPONIN I, HIGH SENSITIVITY on 06-16-2025 HS TROPONIN 9.3 pg/mL Normal 0.0 - 76.2 [facility] Comment on above: Performed By: #### 2 27657 ####[facility],[address] [place] [address] 51728 CBC + DIFFon 06-15-2025 Baso # 0.01 x10EE3/UL Normal 0.00 - 0.10 [facility] Comment on above: Performed By: #### 2 74886 ####[facility],[address] [place] [address] 40088 Basophils/100 WBC (Bld) 0.1 % Normal 0.0 - 2.0 [facility] Comment on above: Performed By: #### 2 56865 ####[facility],[address] [place] [address] 36138 CBC + DIFF Normal [facility] Comment on above: Result Comment: CBC- COMPLETE BLOOD COUNT Performed By: #### 2 44925 ####[facility],[address] [place] [address] 27745 EO # 0.12 x10EE3/UL Normal 0.00 - 0.50 [facility] Comment on above: Performed By: #### 2 14737 ####[facility],[address] [place] [address] 96595 Eosinophils/100 WBC (Bld) 1.6 % Normal 0.0 - 7.0 [facility] Comment on above: Performed By: #### 2 20689 ####[facility],[address] [place] [address] Erythrocyte distribution width (RBC) [Ratio] 13.7 % Normal 12.0 - 15.6 [facility] Comment on above: Performed By: #### 2 43670 ####[facility],[address] [place] [address] Hematocrit (Bld) [Volume fraction] 41.8 % Normal 40.0 - 52.0 [facility] Comment on above: Performed By: #### 2 75749 ####[facility],[address] [place] [address] Hemoglobin (Bld) [Mass/Vol] 15.1 g/dL Normal 13.0 - 17.5 [facility] Comment on above: Performed By: #### 2 67969 ####[facility],[address] [place] [address] Lymph # 2.15 x10EE3/UL Normal 0.80 - 2.80 [facility] Comment on above: Performed By: #### 2 76987 ####[facility],[address] [place] [address] Lymphocytes/100 WBC (Bld) 27.8 % Normal 20.0 - 45.0 [facility] Comment on above: Performed By: #### 2 22259 ####[facility],[address] [place], [place] [address] MANUAL DIFF N/A Normal [facility] Comment on above: Performed By: #### 2 70099 ####[place] [address] MCH (RBC) [Entitic mass] 33 pg Normal 27 - 33 [facility] Comment on above: Performed By: #### 2 88385 ####[place] [address] MCHC 36 X10 3 Normal 32 - 36 [facility] Comment on above: Performed By: #### 2 13045 ####[place] [address] MCV (RBC) [Entitic vol] 91 fL Normal 81 - 98 [facility] Comment on above: Performed By: #### 2 09888 ####[facility],[address] [place] [address] Hemphill # 0.52 x10EE3/UL Normal 0.20 - 1.00 [facility] Comment on above: Performed By: #### 2 17225 ####[place] [address] MONOS % 6.7 % Normal 0.0 - 10.0 [facility] Comment on above: Performed By: #### 2 56169 ####[place] [address] Morphology Brody (Bld) [Interp] N/A Normal [facility] Comment on above: Performed By: #### 2 68022 ####[place] [address] Neut # 4.95 x10EE3/UL Normal 1.50 - 7.10 [facility] Comment on above: Performed By: #### 2 92551 ####[place] [address] Neutrophils/100 WBC (Bld) 63.9 % Normal 46.0 - 76.0 [facility] Comment on above: Performed By: #### 2 89452 ####[place] [address] PLATELET 190 x10EE3/UL Normal 150 - 450 [facility] Comment on above: Performed By: #### 2 76820 ####[place] [address] Platelet mean volume (Bld) [Entitic vol] 7.5 fL Normal 6.4 - 10.5 [facility] Comment on above: Result Comment: AUTO MATED DIFFERENTIAL Performed By: #### 2 99449 ####[facility],[address] [place] [address] 27340 RBC 4.57 x 10EE6/UL Normal 4.50 - 6.00 [facility] Comment on above: Performed By: #### 2 84046 ####[facility],[address] [place] [address] 16298 WBC 7.8 x 10EE3/UL Normal 4.5 - 10.8 [facility] Comment on above: Performed By: #### 2 61307 ####[facility],[address] [place] [address] 74481 CHEST 1 VIEWon 06-15-2025 CHEST 1 VIEW Normal [facility] CMP with eGFRon 06-15-2025 AGE 64 years Normal [facility] Comment on above: Performed By: #### 2 38991 ####[facility],[address] [place] [address] 53273 Albumin [Mass/Vol] 3.5 g/dL Normal 3.4 - 5.0 [facility] Comment on above: Performed By: #### 2 93280 ####[facility],[address] [place] [address] 84949 Albumin/Globulin [Mass ratio] 1.1 {ratio} Normal 0.9 - 1.6 [facility] Comment on above: Performed By: #### 2 75368 ####[facility],[address] [place] [address] 12943 ALK PHOS 72 U/L Normal 46 - 116 [facility] Comment on above: Performed By: #### 2 47914 ####[facility],[address] [place] [address] 02149 ALT [Catalytic activity/Vol] 41 U/L Normal 16 - 63 [facility] Comment on above: Performed By: #### 2 45488 ####[facility],[address] [place] [address] 65164 Anion gap [Moles/Vol] 12 mmol/L Normal 10 - 20 [facility] Comment on above: Performed By: #### 2 52590 ####[facility],[address] [place] [address] 93911 AST [Catalytic activity/Vol] 20 U/L Normal 15 - 37 [facility] Comment on above: Performed By: #### 2 08889 ####[facility],[address] [place] [address] 34106 B/C RATIO 17 ratio Normal 0 - 30 [facility] Comment on above: Performed By: #### 2 13393 ####[facility],[address] [place] [address] 21874 Bilirubin [Mass/Vol] 0.4 mg/dL Normal 0.2 - 1.0 [facility] Comment on above: Performed By: #### 2 00221 ####[facility],[address] [place] [address] 74629 Calcium [Mass/Vol] 8.9 mg/dL Normal 8.5 - 10.1 [facility] Comment on above: Performed By: #### 2 16702 ####[facility],[address] [place] [address] 16587 Chloride [Moles/Vol] 103 mmol/L Normal 98 - 107 [facility] Comment on above: Performed By: #### 2 63351 ####[facility],[address] [place] [address] 31053 CMP with eGFR Normal [facility] Comment on above: Result Comment: COMP REHENSIVE METABOLIC PANEL Performed By: #### 2 85939 ####[facility],[address] [place] [address] 92555 CO2 [Moles/Vol] 31.1 mmol/L Normal 21.0 - 32.0 [facility] Comment on above: Performed By: #### 2 08793 ####[facility],[address] [place] [address] 35906 Creatinine [Mass/Vol] 1.09 mg/dL Normal 0.70 - 1.30 [facility] Comment on above: Performed By: #### 2 92846 ####[facility],[address] [place] [address] 34267 GFR/1.73 sq M.predicted among non-blacks MDRD (S/P/Bld) [Vol rate/Area] mL/min/{1.73_m2} Normal 60 - 999 [facility] Comment on above: Performed By: #### 2 37741 ####[facility],[address] [place] [address] 15639 Result Comment: ACCO RDING TO THE NATIONAL KIDNEY DISEASE EDUCATION PROGRAM(NKDE), A NORMAL eGFRIS A VALUE GREATER THAN OR EQUAL TO 60 ML/MIN/1.73 SQ METERS.CHRONIC KIDNEY DISEASE: <60mL/MIN/1.73 SQ METERSKIDNEY FAILURE: <15mL/MIN/1.73 SQ METERSTHIS TEST SHOULD ONLY BE USED FOR PATIENTS 18 YEARS OF AGE AND OLDER. Globulin (S) [Mass/Vol] 3.1 g/dL Normal 1.5 - 3.8 [facility] Comment on above: Performed By: #### 2 13821 ####[facility],[address] [place] [address] 36985 Glucose [Mass/Vol] 128 mg/dL High 74 - 106 [facility] Comment on above: Performed By: #### 2 01307 ####[facility],[address] [place] [address] 99675 Potassium [Moles/Vol] 3.9 mmol/L Normal 3.5 - 5.1 [facility] Comment on above: Performed By: #### 2 95739 ####[facility],[address] [place] [address] 10205 Protein [Mass/Vol] 6.6 g/dL Normal 6.4 - 8.2 [facility] Comment on above: Performed By: #### 2 07169 ####[facility],[address] [place] [address] Sodium [Moles/Vol] 142 mmol/L Normal 136 - 145 [facility] Comment on above: Performed By: #### 2 25544 ####[facility],[address] [place] [address] Urea nitrogen [Mass/Vol] 19 mg/dL High 7 - 18 [facility] Comment on above: Performed By: #### 2 46171 ####[facility],[address] [place], [place] [id number] ED MED ADMINISTRATION DETAIL on 06-15-2025 ED MED ADMINISTRATION DETAIL Normal [facility] ED NURSES CLINICAL NOTEon ED NURSES CLINICAL NOTE Normal [facility] ED ORDER SHEET (CPOE ONLY)on 06-15-2025 ED ORDER SHEET (CPOE ONLY) Normal [facility] ED PHYSICIAN CLINICAL REPORT on 06-15-2025 ED PHYSICIAN CLINICAL REPORT Normal [facility] ED SUPER BILLon 06-15-2025 ED SUPER BILL Normal [facility] ED VISIT SUMMARYon ED VISIT SUMMARY Normal [facility] ED VITALS FLOW SHEETon 06-15 ED VITALS FLOW SHEET Normal [facility] NT-proBNPon 06-15-2025 Natriuretic peptide B (Bld) [Mass/Vol] 26 pg/mL Normal 0 - 125 [facility] Comment on above: Performed By: #### 2 81867 ####[facility],[address] [place], [place] [id number] PROTHROMBIN TIME AND INRon 0 06-15-2025 INR Coag (PPP) [Relative time] 1.1 {INR} Normal 0.8 - 1.2 [facility] Comment on above: Result Comment: T HE HEMOSIL THROMBOPLASTIN REAGENT USED IN THE PROTHROMBIN TIMETEST INTERACTS WITH THE DRUG CUBICIN (DAPTOMYCIN) AND WILL RESULTIN FALSELY ELEVATED PT / INR RESULTS INR INTERPRETATION INR INDICATION PREVENTION AND TREATMENT OF THROMBOEMBOLISM ASSOCIATED WITH: 2.0 - 3.0 ATRIAL FIBRILLATION, BIOPROSTHETIC HEART VALVES, PULMONARY EMBOLISM, VENOUS THROMBOSIS, SYSTEMIC EMBOLISM POST MYOCARDIAL INFARCTION 2.5 - 3.5 MECHANICAL HEART VALVES Performed By: #### 2 10649 ####[facility],[address] [place] [address] PROTHROMBIN TIME AND INR Normal [facility] Comment on above: Result Comment: PROT HROMBIN TIME AND INR Performed By: #### 2 54627 ####[facility],[address] [place] [address] PT-COUMADIN 11.6 sec Normal 9.3 - 14.1 [facility] Comment on above: Performed By: #### 2 74287 ####[place] [address] TROPONINon 06-15-2025 HS TROPONIN 7.9 pg/mL Normal 0.0 - 76.2 [facility] Comment on above: Performed By: #### 2 43269 ####[facility],[address] [place] [address] HS TROPONIN 7.8 pg/mL Normal 0.0 - 76.2 [facility] Comment on above: Performed By: #### 2 18567 ####[facility],[address] [place] [address] C-REACTIVE PROTEINon 025 CRP 1.90 mg/dl High 0.00 - 0.90 [facility] Comment on above: Performed By: #### 2 75238 ####[place] [address] CBC + DIFFon 06-14-2025 Baso # 0.02 x10EE3/UL Normal 0.00 - 0.10 [facility] Comment on above: Performed By: #### 2 92256 ####[facility],[address] [place], [place] [id number] Basophils/100 WBC (Bld) 0.2 % Normal 0.0 - 2.0 [facility] Comment on above: Performed By: #### 2 72094 ####[facility],[address] [place] [address] CBC + DIFF Normal [facility] Comment on above: Result Comment: CBC- COMPLETE BLOOD COUNT Performed By: #### 2 73968 ####[facility],[address] [place] [address] EO # 0.18 x10EE3/UL Normal 0.00 - 0.50 [facility] Comment on above: Performed By: #### 2 34971 ####[facility],[address] [place] [address] Eosinophils/100 WBC (Bld) 2.1 % Normal 0.0 - 7.0 [facility] Comment on above: Performed By: #### 2 78725 ####[facility],[address] [place] [address] Erythrocyte distribution width (RBC) [Ratio] 13.4 % Normal 12.0 - 15.6 [facility] Comment on above: Performed By: #### 2 58202 ####[facility],[address] [place] [address] Hematocrit (Bld) [Volume fraction] 43.1 % Normal 40.0 - 52.0 [facility] Comment on above: Performed By: #### 2 42051 ####[facility],[address] [place] [address] Hemoglobin (Bld) [Mass/Vol] 14.9 g/dL Normal 13.0 - 17.5 [facility] Comment on above: Performed By: #### 2 01955 ####[facility],[address] [place] [address] Lymph # 2.83 x10EE3/UL High 0.80 - 2.80 [facility] Comment on above: Performed By: #### 2 57877 ####[facility],[address] [place], [place] [id number] Lymphocytes/100 WBC (Bld) 32.5 % Normal 20.0 - 45.0 [facility] Comment on above: Performed By: #### 2 93874 ####[facility],[address] [place] [address] MANUAL DIFF N/A Normal [facility] Comment on above: Performed By: #### 2 72724 ####[facility],[address] [place] [address] MCH (RBC) [Entitic mass] 31 pg Normal 27 - 33 [facility] System Comment on above: Performed By: #### 2 72946 ####[facility],[address] [place] [address] MCHC 35 X10 3 Normal 32 - 36 [facility] Comment on above: Performed By: #### 2 91336 ####[facility],[address] [place] [address] MCV (RBC) [Entitic vol] 90 fL Normal 81 - 98 [facility] Comment on above: Performed By: #### 2 98695 ####[facility],[address] [place] [address] Hemphill # 0.64 x10EE3/UL Normal 0.20 - 1.00 [facility] Comment on above: Performed By: #### 2 00954 ####[facility],[address] [place] [address] MONOS % 7.4 % Normal 0.0 - 10.0 [facility] Comment on above: Performed By: #### 2 51802 ####[facility],[address] [place], [place] [id number] Morphology Brody (Bld) [Interp] N/A Normal [facility] Comment on above: Performed By: #### 2 27944 ####[facility],[address] [place] [address] 68123 Neut # 5.05 x10EE3/UL Normal 1.50 - 7.10 [facility] Comment on above: Performed By: #### 2 18117 ####[facility],[address] [place] [address] 61534 Neutrophils/100 WBC (Bld) 57.9 % Normal 46.0 - 76.0 [facility] Comment on above: Performed By: #### 2 51166 ####[facility],[address] [place] [address] 25222 PLATELET 181 x10EE3/UL Normal 150 - 450 [facility] Comment on above: Performed By: #### 2 87231 ####[facility],[address] [place] [address] 34863 Platelet mean volume (Bld) [Entitic vol] 7.3 fL Normal 6.4 - 10.5 [facility] Comment on above: Result Comment: AUTO MATED DIFFERENTIAL Performed By: #### 2 25675 ####[facility],[address] [place] [address] 33188 RBC 4.78 x 10EE6/UL Normal 4.50 - 6.00 [facility] Comment on above: Performed By: #### 2 26786 ####[facility],[address] [place] [address] 16451 WBC 8.7 x 10EE3/UL Normal 4.5 - 10.8 [facility] Comment on above: Performed By: #### 2 48565 ####[facility],[address] [place] [address] 56405 CHEST 1 VIEWon 06-14-2025 CHEST 1 VIEW Normal [facility] CMP with eGFRon 06-14-2025 AGE 64 years Normal [facility] Comment on above: Performed By: #### 2 82589 ####[facility],[address] [place] [address] 49166 Albumin [Mass/Vol] 3.4 g/dL Normal 3.4 - 5.0 [facility] Comment on above: Performed By: #### 2 36991 ####[facility],[address] [place] [address] 43945 Albumin/Globulin [Mass ratio] 1.1 {ratio} Normal 0.9 - 1.6 [facility] Comment on above: Performed By: #### 2 35184 ####[facility],[address] [place], [place] [address] ALK PHOS 72 U/L Normal 46 - 116 [facility] Comment on above: Performed By: #### 2 37718 ####[facility],[address] [place], [place] [address] ALT [Catalytic activity/Vol] 36 U/L Normal 16 - 63 [facility] Comment on above: Performed By: #### 2 75048 ####[facility],[address] [place], [place] [address] Anion gap [Moles/Vol] 10 mmol/L Normal 10 - 20 [facility] Comment on above: Performed By: #### 2 68130 ####[facility],[address] [place], [place] [address] AST [Catalytic activity/Vol] 17 U/L Normal 15 - 37 [facility] Comment on above: Performed By: #### 2 37299 ####[facility],[address] [place] [address] 33334 B/C RATIO 16 ratio Normal 0 - 30 [facility] Comment on above: Performed By: #### 2 97764 ####[facility],[address] [place] [address] 09113 Bilirubin [Mass/Vol] 0.6 mg/dL Normal 0.2 - 1.0 [facility] Comment on above: Performed By: #### 2 03463 ####[facility],[address] [place] [address] 98242 Calcium [Mass/Vol] 8.6 mg/dL Normal 8.5 - 10.1 [facility] Comment on above: Performed By: #### 2 52241 ####[facility],[address] [place] [address] 38386 Chloride [Moles/Vol] 102 mmol/L Normal 98 - 107 [facility] Comment on above: Performed By: #### 2 00710 ####[facility],[address] [place] [address] 40453 CMP with eGFR Normal [facility] Comment on above: Result Comment: COMP REHENSIVE METABOLIC PANEL Performed By: #### 2 27807 ####[facility],[address] [place] [address] 37183 CO2 [Moles/Vol] 30.4 mmol/L Normal 21.0 - 32.0 [facility] Comment on above: Performed By: #### 2 72017 ####[facility],[address] [place], [place] [address] Creatinine [Mass/Vol] 1.06 mg/dL Normal 0.70 - 1.30 [facility] Comment on above: Performed By: #### 2 06242 ####[facility],[address] [place] [address] 29370 GFR/1.73 sq M.predicted among non-blacks MDRD (S/P/Bld) [Vol rate/Area] mL/min/{1.73_m2} Normal 60 - 999 [facility] Comment on above: Performed By: #### 2 05458 ####[facility],[address] [place] [address] 79992 Result Comment: ACCO RDING TO THE NATIONAL KIDNEY DISEASE EDUCATION PROGRAM(NKDE), A NORMAL eGFRIS A VALUE GREATER THAN OR EQUAL TO 60 ML/MIN/1.73 SQ METERS.CHRONIC KIDNEY DISEASE: <60mL/MIN/1.73 SQ METERSKIDNEY FAILURE: <15mL/MIN/1.73 SQ METERSTHIS TEST SHOULD ONLY BE USED FOR PATIENTS 18 YEARS OF AGE AND OLDER. Globulin (S) [Mass/Vol] 3.0 g/dL Normal 1.5 - 3.8 [facility] Comment on above: Performed By: #### 2 53130 ####[facility],[address] [place] [address] 89064 Glucose [Mass/Vol] 86 mg/dL Normal 74 - 106 [facility] Comment on above: Performed By: #### 2 28916 ####[facility],[address] [place] [address] 93124 Potassium [Moles/Vol] 3.9 mmol/L Normal 3.5 - 5.1 [facility] Comment on above: Performed By: #### 2 35521 ####[facility],[address] [place] [address] 42862 Protein [Mass/Vol] 6.4 g/dL Normal 6.4 - 8.2 [facility] Comment on above: Performed By: #### 2 82118 ####[facility],[address] [place] [address] 16030 Sodium [Moles/Vol] 138 mmol/L Normal 136 - 145 [facility] Comment on above: Performed By: #### 2 92148 ####[facility],[address] [place] [address] 38658 Urea nitrogen [Mass/Vol] 17 mg/dL Normal 7 - 18 [facility] Comment on above: Performed By: #### 2 56736 ####[facility],[address] [place] [address] CHEST (PE PROTOCOL)on CT CHEST (PE PROTOCOL) Normal [facility] D-DIMER, QUANTITATIVEon 05-24 D-DIMER QUANT 334 ng/ml High 0 - 230 [facility] Comment on above: Performed By: #### 2 87329 ####[facility],[address] [place] [address] 75156 D-DIMER, QUANTITATIVE Normal [facility] Comment on above: Result Comment: ARMEN T D-DIMER Performed By: #### 2 36985 ####[facility],[address] [place] [address] ED MED ADMINISTRATION DETAIL on 06-14-2025 ED MED ADMINISTRATION DETAIL Normal [facility] ED NURSES CLINICAL NOTEon ED NURSES CLINICAL NOTE Normal [facility] ED ORDER SHEET (CPOE ONLY)on 06-14-2025 ED ORDER SHEET (CPOE ONLY) Normal [facility] ED PHYSICIAN CLINICAL REPORT on 06-14-2025 ED PHYSICIAN CLINICAL REPORT Normal [facility] ED SUPER BILLon 06-14-2025 ED SUPER BILL Normal [facility] ED VISIT SUMMARYon ED VISIT SUMMARY Normal [facility] ED VITALS FLOW SHEETon 06-14 ED VITALS FLOW SHEET Normal [facility] LIPASEon 06-14-2025 Lipase [Catalytic activity/Vol] 54.0 U/L Normal 15.0 - 78.0 [facility] Comment on above: Result Comment: *PLE ASE NOTE THAT RANGES FOR LIPASE HAVE CHANGED OF 10/20/23 DUE TO AN ASSAYUPDATE BY THE FAMILY NURSE PRACTITIONER.THE NEW ASSAY RANGE IS 6-250 U/L, WITH A REFERENCERANGE OF 16-77 U/L. Performed By: #### 2 07021 ####[facility],[address] [place], [place] [address] NT-proBNPon 06-14-2025 Natriuretic peptide B (Bld) [Mass/Vol] 16 pg/mL Normal 0 - 125 [facility] Comment on above: Performed By: #### 2 15957 ####[facility],[address] [place] [address] 44904 TROPONINon 06-14-2025 HS TROPONIN 8.6 pg/mL Normal 0.0 - 76.2 [facility] Comment on above: Performed By: #### 2 33885 ####[facility],[address],[place] [address] HS TROPONIN 9.4 pg/mL Normal 0.0 - 76.2 [facility] Comment on above: Performed By: #### 2 41931 ####[facility],[address] [place] [address] CNCOon 06-10-2025 CNCO Letter Text Normal [facility] CNOVon 06-10-2025 CNOV Office Visit (PULMWS ) -------- QUIQUE DENNY ([id number]) 1960 M Date Time Provider Department 06/10/25 11:30 AM LOU DAVE PULMWS During your visit today, we recorded the following information about you: Pulse Blood pressure Weight 90/minute 118/80 130.2 kg Lou Dave, MENTAL HEALTH AIDE.CHILD THERAPIST 06/10/2025 12:22 PM Signed Pulmonary Medicine Patients name: Quique Denny PCP: Pilar Vivar MD CC: follow-up HPI: Quique Denny is a 64 year old male current 34-oldc-bkcm smoker with PMH significant for COPD, PAD, AAA, obesity, and HTN. SKYLER 11/2024, had been sent for oxygen assessment by primary care but does not need O2 with exertion. Had upcoming PSG. Smoking decreased to 1 pack per week. Current therapy with Advair, Spiriva and PRN Albuterol. He presents today for follow-up. Since his last visit, he reports his breathing symptoms have overall been stable. He had a sleep study which showed sleep apnea. He has not yet started on CPAP as he would like to be seen by sleep medicine first. He had overnight oxymetry testing which showed hypoxia but needs to be tested again once he starts CPAP. He did have a respiratory infection last month but symptoms resolved with a course of antibiotics. Today, patient denies cough, wheezing or chest tightness. Denies dyspnea at rest but will sometimes note with heavy exertion. WARREN not limiting on daily activities. No fevers, chills, or night sweats. Albuterol use is 1-2 a week d/t shortness of breath and relieves symptoms. He continues to experience weight loss with the help of Sylvain. Currently down 23 lbs since his last visit and notices an improvement on his overall health. Currently smokes 5 cigarettes a day, continues to work on quitting. PAST MEDICAL HISTORY Diagnosis Date AAA (abdominal aortic aneurysm) ([facility]) COPD (chronic obstructive pulmonary disease) ([facility]) Morbid obesity ([facility]) VANDANA (obstructive sleep apnea) PAD (peripheral artery disease) ([facility]) Allergies: No Known Allergies Medication List Accurate as of June 09, 2025 8:38 PM. If you have any questions, ask your nurse or doctor. CHANGE how you take these medications JOSE CRUZ MACDONALD What changed: additional instructions CONTINUE taking these medications * albuterol HFA [...] GARGLE MOUTH WITH WATER AFTER EACH USE. furosemide 20 mg tablet Commonly known as: LASIX gabapentin 300 mg capsule Commonly known as: NEURONTIN keTORolac 10 mg tablet Commonly known as: Toradol magnesium oxide 400 mg (241.3 mg magnesium) tablet Commonly known as: MAG-OX meloxicam 7.5 mg tablet Commonly known as: MOBIC metFORMIN ER 500 mg 24 hr tablet Commonly known as: GLUCOPHAGE XR Naproxen SR 500 mg EC tablet Commonly known as: EC-NAPROSYN ondansetron orally disintegrating 4 mg disintegrating tablet Commonly known as: ZOFRAN ODT pantoprazole DR 40 mg tablet Commonly known as: PROTONIX rosuvastatin 20 mg tablet Commonly known as: CRESTOR SPIRIVA RESPIMAT 2.5 mcg/actuation inhaler Generic drug: tiotropium bromide Inhale 2 Puffs as instructed once daily. tamsulosin 0.4 mg Commonly known as: FLOMAX TRULICITY 0.75 mg/0.5 mL pen injector Generic drug: dulaglutide varenicline 1 mg tablet Commonly known as: CHANTIX * This list has 2 medication(s) that are the same as other medications prescribed for you. Read the directions carefully, and ask your doctor or other care provider to review them with you. DATA: I personally reviewed and analyzed all labs, radiographs and available pulmonary function testing PFT: 07/2024 Spirometry notable for obstruction of midflows. No improvement with bronchodilator. CXR: Last XR Chest - Impression Only XR CHEST 2V FRONTAL/LAT Exam End: 08/13/2024 10:08 AM (Final result) Impression: IMPRESSION: Minimal linear atelectasis or fibrosis at the left base Associate Art Director: UZIEL Transcribe Date/Time: Aug 14 2024 3:09P ... CT Chest: 07/2024 Review of Systems Constitutional: Negative for activity change, appetite change, fatigue and unexpected weight change. HENT: Negative for congestion, mouth sores, postnasal drip and sinus pressure. Respiratory: Negative for cough, chest tightness, shortness of breath and wheezing. Cardiovascular: Negative for chest pain, palpitations and leg swelling. Allergic/Immunologic: Negative for environmental allergies. Neurological: Negative for weakness and light-headedness. BP 118/80 (more content not included)... Normal [facility] Jamal 06-09-2025 [facility] Telephone (AKILA) -------- QUIQUE DENNY ([id number]) 1960 M Date Time Provider Department 06/09/25 NEUROLOGY PROVIDER AKILA During your visit today, we recorded the following information about you: Leah Mcgraw LPN 06/09/2025 8:47 AM Signed Detailed message left on secure VM advising patient to call and schedule as New Sleep patient for CPAP with Mary Juárez (Pulm/Dr Mohamud is not sleep certified)- Verify with patient if he has CPAP ordered- may want to schedule as new patient but 31-90 day follow up after he receives his CPAP. If wanting to see provider before getting CPAP- anytime will work as new patient. ARIAN Gold Lori, LPN 06/12/2025 12:51 PM Signed Noted patient scheduled wit Fannie. Leah Mcgraw LPN Allergies As of Date: 06/09/2025 (No Known Allergies) Date Reviewed: 12/10/2024 Reviewed by: Lou Dave APRN.CHILD THERAPIST - Fully Assessed Reason for Visit: Consult [502] Cmt: Referral received from Dr Mohamud's office as they are not sleep certified- Indigo had forwarded to them. Prescriptions as of 06/12/2025 - pregabalin (LYRICA) 150 mg capsule Take 1 capsule by mouth every 12 hours. - tiZANidine (ZANAFLEX) 4 mg tablet Take 4 mg by mouth three times a day as needed. - valACYclovir (VALTREX) 500 mg tablet Take 500 mg by mouth three times a day. - fluticasone-salmeterol (ADVAIR DISKUS) 250-50 mcg/dose inhaler Inhale 1 puff as instructed two times a day. RINSE AND GARGLE MOUTH WITH WATER AFTER EACH USE. - tiotropium bromide (SPIRIVA RESPIMAT) 2.5 mcg/actuation inhaler Inhale 2 puffs as instructed once daily. - albuterol (PROVENTIL) 2.5 mg /3 mL (0.083 %) nebulizer solution Use 3 mL via nebulizer every 6 hours as needed. - albuterol HFA (PROVENTIL HFA, VENTOLIN HFA) 90 mcg/actuation inhaler Inhale 2 puffs as instructed every 6 hours as needed. - TRULICITY 0.75 mg/0.5 mL pen injector Inject 0.75 mg subcutaneously one time a week. - furosemide (LASIX) 20 mg tablet Take 1 tablet by mouth every afternoon. - keTORolac (TORADOL) 10 mg tablet Take 10 mg by mouth every 8 hours as needed. - metFORMIN ER (GLUCOPHAGE XR) 500 mg 24 hr tablet Take 1 tablet by mouth every 12 hours. - rosuvastatin (CRESTOR) 20 mg tablet Take 1 tablet by mouth every afternoon. - varenicline (CHANTIX) 1 mg tablet Take 1 mg by mouth daily with breakfast. - Naproxen SR (EC-NAPROSYN) 500 mg EC [...] 0.4 mg by mouth daily at bedtime. Problem List As Of Date: 06/09/2025 (None) Encounter Status:Closed by LEAH MCGRAW on 06/12/25 Normal [facility] Ext Non Vasc Limited/Soft Ti sson 06-09-2025 Ext Non Vasc Limited/Soft Tiss [facility] Imaging Services [address] [place] [address]691 Ext Non Vasc Limited/Soft Tiss MR#: [id number] Acct: [id number] Name: QUIQUE DENNY Rep #: [id number] : 1960 M 64 From: rSee salomon MD PCP: Dr. Pilar Vivar MD Status: REG CLI Study: Ext Non Vasc Limited/Soft Tiss Date of Exam: 0 06/09/25 Exam# [id number] Ordering Dr: Kleber Mott MD PROCEDURE: EXT NON VASC LIMITED/SOFT TISS 06/09/2025 REASON FOR EXAM: WRIST SWELLING, ASSESS FOR GANGLION CYST TECHNIQUE: EXT NON VASC LIMITED/SOFT TISS COMPARISON: None FINDINGS: The dorsal aspect of the left hand/wrist was examined with ultrasound. The palpable abnormality corresponds to a 2.8 cm 2.6 cm x 0.4 cm cystic collection with the increased echoes within it. Drainage recommended. US/Ext Non Vasc Limited/Soft Tiss IMPRESSION: The palpable abnormality corresponds to a 2.8 cm 2.6 cm x 0.4 cm cystic collection with increased echoes within it. Percutaneous drainage is sampling recommended. Reading Location: [id number] CC: Dr. Pilar Vivar MD; Dr. Kleber Mott MD Associate Art Director: Signed Normal [facility] ED MED ADMINISTRATION DETAIL on 06-05-2025 ED MED ADMINISTRATION DETAIL Normal [facility] ED NURSES CLINICAL NOTEon ED NURSES CLINICAL NOTE Normal [facility] ED ORDER SHEET (CPOE ONLY)on 06-05-2025 ED ORDER SHEET (CPOE ONLY) Normal [facility] ED PHYSICIAN CLINICAL REPORT on 06-05-2025 ED PHYSICIAN CLINICAL REPORT Normal [facility] ED SUPER BILLon 06-05-2025 ED SUPER BILL Normal [facility] ED VISIT SUMMARYon ED VISIT SUMMARY Normal [facility] ED VITALS FLOW SHEETon 06-05 ED VITALS FLOW SHEET Normal [facility] CBC + DIFFon 05-22-2025 Baso # 0.02 x10EE3/UL Normal 0.00 - 0.10 [facility] Comment on above: Performed By: #### 2 54092 ####[facility],[address] [place] [address] Basophils/100 WBC (Bld) 0.1 % Normal 0.0 - 2.0 [facility] Comment on above: Performed By: #### 2 82021 ####[facility],[address] [place] [address] CBC + DIFF Normal [facility] Comment on above: Result Comment: CBC- COMPLETE BLOOD COUNT Performed By: #### 2 80913 ####[address] [address] EO # 0.20 x10EE3/UL Normal 0.00 - 0.50 [facility] Comment on above: Performed By: #### 2 36512 ####[facility],[address] [place] [address] Eosinophils/100 WBC (Bld) 1.5 % Normal 0.0 - 7.0 [facility] Comment on above: Performed By: #### 2 37715 ####[place] [address] Erythrocyte distribution width (RBC) [Ratio] 14.2 % Normal 12.0 - 15.6 [facility] Comment on above: Performed By: #### 2 30503 ####[place] [address] Hematocrit (Bld) [Volume fraction] 44.9 % Normal 40.0 - 52.0 [facility] Comment on above: Performed By: #### 2 49507 ####[place] [address] Hemoglobin (Bld) [Mass/Vol] 15.6 g/dL Normal 13.0 - 17.5 [facility] Comment on above: Performed By: #### 2 39627 ####[place] [id number] Lymph # 3.07 x10EE3/UL High 0.80 - 2.80 [facility] Comment on above: Performed By: #### 2 47673 ####[place] [id number] Lymphocytes/100 WBC (Bld) 22.8 % Normal 20.0 - 45.0 [facility] Comment on above: Performed By: #### 2 48283 ####[place] [address] MANUAL DIFF N/A Normal [facility] Comment on above: Performed By: #### 2 93033 ####[facility],[address] [place] [address] MCH (RBC) [Entitic mass] 32 pg Normal 27 - 33 [facility] Comment on above: Performed By: #### 2 74424 ####[facility],[address] [place] [address] MCHC 35 X10 3 Normal 32 - 36 [facility] Comment on above: Performed By: #### 2 15190 ####[facility],[address] [place] [address] MCV (RBC) [Entitic vol] 91 fL Normal 81 - 98 [facility] Comment on above: Performed By: #### 2 01755 ####[facility],[address] [place] [address] Hemphill # 0.80 x10EE3/UL Normal 0.20 - 1.00 [facility] Comment on above: Performed By: #### 2 27845 ####[facility],[address] [place] [address] MONOS % 6.0 % Normal 0.0 - 10.0 [facility] Comment on above: Performed By: #### 2 53334 ####[facility],[address] [place] [address] Morphology Brody (Bld) [Interp] N/A Normal [facility] Comment on above: Performed By: #### 2 42971 ####[facility],[address] [place] [address] Neut # 9.38 x10EE3/UL High 1.50 - 7.10 [facility] Comment on above: Performed By: #### 2 33380 ####[facility],[address] [place] [address] Neutrophils/100 WBC (Bld) 69.6 % Normal 46.0 - 76.0 [facility] Comment on above: Performed By: #### 2 28806 ####[facility],[address] [place] [address] 54372 PLATELET 235 x10EE3/UL Normal 150 - 450 [facility] Comment on above: Performed By: #### 2 94550 ####[facility],[address] [place] [address] 39624 Platelet mean volume (Bld) [Entitic vol] 7.4 fL Normal 6.4 - 10.5 [facility] Comment on above: Result Comment: AUTO MATED DIFFERENTIAL Performed By: #### 2 02304 ####[facility],[address] [place] [address] 61520 RBC 4.95 x 10EE6/UL Normal 4.50 - 6.00 [facility] Comment on above: Performed By: #### 2 61384 ####[facility],[address] [place] [address] 20075 WBC 13.5 x 10EE3/UL High 4.5 - 10.8 [facility] Comment on above: Performed By: #### 2 47116 ####[facility],[address] [place] [address] 08889 CHEST 1 VIEWon 05-22-2025 CHEST 1 VIEW Normal [facility] CMP with eGFRon 05-22-2025 AGE 64 years Normal [facility] Comment on above: Performed By: #### 2 36232 ####[facility],[address] [place] [address] 70092 Albumin [Mass/Vol] 3.7 g/dL Normal 3.4 - 5.0 [facility] Comment on above: Performed By: #### 2 53412 ####[facility],[address] [place] [address] 29080 Albumin/Globulin [Mass ratio] 1.2 {ratio} Normal 0.9 - 1.6 [facility] Comment on above: Performed By: #### 2 23493 ####[facility],[address] [place] [address] 87823 ALK PHOS 75 U/L Normal 46 - 116 [facility] Comment on above: Performed By: #### 2 82555 ####[facility],[address] [place] [address] 24018 ALT [Catalytic activity/Vol] 48 U/L Normal 16 - 63 [facility] Comment on above: Performed By: #### 2 29106 ####[facility],[address] [place] [address] 86503 Anion gap [Moles/Vol] 8 mmol/L Low 10 - 20 [facility] Comment on above: Performed By: #### 2 04636 ####[facility],[address] [place] [address] 32804 AST [Catalytic activity/Vol] 20 U/L Normal 15 - 37 [facility] Comment on above: Performed By: #### 2 95782 ####[facility],[address] [place] [address] 90880 B/C RATIO 23 ratio Normal 0 - 30 [facility] Comment on above: Performed By: #### 2 67121 ####[facility],[address] [place] [address] 72131 Bilirubin [Mass/Vol] 0.4 mg/dL Normal 0.2 - 1.0 [facility] Comment on above: Performed By: #### 2 84361 ####[facility],[address] [place] [address] 42982 Calcium [Mass/Vol] 9.1 mg/dL Normal 8.5 - 10.1 [facility] Comment on above: Performed By: #### 2 54660 ####[facility],[address] [place] [address] 46281 Chloride [Moles/Vol] 100 mmol/L Normal 98 - 107 [facility] Comment on above: Performed By: #### 2 27856 ####[facility],[address] [place] [address] 32995 CMP with eGFR Normal [facility] Comment on above: Result Comment: COMP REHENSIVE METABOLIC PANEL Performed By: #### 2 56604 ####[facility],[address] [place] [address] 85750 CO2 [Moles/Vol] 30.5 mmol/L Normal 21.0 - 32.0 [facility] Comment on above: Performed By: #### 2 47984 ####[facility],[address] [place] [address] 95176 Creatinine [Mass/Vol] 0.94 mg/dL Normal 0.70 - 1.30 [facility] Comment on above: Performed By: #### 2 52686 ####[facility],[address] [place] [address] 38925 GFR/1.73 sq M.predicted among non-blacks MDRD (S/P/Bld) [Vol rate/Area] mL/min/{1.73_m2} Normal 60 - 999 [facility] Comment on above: Performed By: #### 2 56610 ####[facility],[address] [place] [address] 76218 Result Comment: ACCO RDING TO THE NATIONAL KIDNEY DISEASE EDUCATION PROGRAM(NKDE), A NORMAL eGFRIS A VALUE GREATER THAN OR EQUAL TO 60 ML/MIN/1.73 SQ METERS.CHRONIC KIDNEY DISEASE: <60mL/MIN/1.73 SQ METERSKIDNEY FAILURE: <15mL/MIN/1.73 SQ METERSTHIS TEST SHOULD ONLY BE USED FOR PATIENTS 18 YEARS OF AGE AND OLDER. Globulin (S) [Mass/Vol] 3.2 g/dL Normal 1.5 - 3.8 [facility] Comment on above: Performed By: #### 2 91764 ####[facility],[address] [place] [address] 92254 Glucose [Mass/Vol] 95 mg/dL Normal 74 - 106 [facility] Comment on above: Performed By: #### 2 76555 ####[facility],[address] [place] [address] 19664 Potassium [Moles/Vol] 4.0 mmol/L Normal 3.5 - 5.1 [facility] Comment on above: Performed By: #### 2 06147 ####[facility],[address] [place] [address] 81675 Protein [Mass/Vol] 6.9 g/dL Normal 6.4 - 8.2 [facility] Comment on above: Performed By: #### 2 24166 ####[facility],[address] [place] [address] 59219 Sodium [Moles/Vol] 134 mmol/L Low 136 - 145 [facility] Comment on above: Performed By: #### 2 93841 ####[facility],[address] [place] [address] 06565 Urea nitrogen [Mass/Vol] 22 mg/dL High 7 - 18 [facility] Comment on above: Performed By: #### 2 18301 ####[facility],[address] [place] [address] 66603 ED MED ADMINISTRATION DETAIL on 05-22-2025 ED MED ADMINISTRATION DETAIL Normal [facility] ED NURSES CLINICAL NOTEon ED NURSES CLINICAL NOTE Normal [facility] ED ORDER SHEET (CPOE ONLY)on 05-22-2025 ED ORDER SHEET (CPOE ONLY) Normal [facility] ED PHYSICIAN CLINICAL REPORT on 05-22-2025 ED PHYSICIAN CLINICAL REPORT Normal [facility] ED SUPER BILLon 05-22-2025 ED SUPER BILL Normal [facility] ED VISIT SUMMARYon ED VISIT SUMMARY Normal [facility] ED VITALS FLOW SHEETon 05-22 ED VITALS FLOW SHEET Normal [facility] TROPONINon 05-22-2025 HS TROPONIN <4.0 Normal 0.0 - 76.2 [facility] Comment on above: Performed By: #### 2 22716 ####[facility],[address] [facility] [address] HS TROPONIN <4.0 Normal 0.0 - 76.2 [facility] Comment on above: Performed By: #### 2 67206 ####[facility],[address] [place] [address] 01756 Orthopedic Visit Reporton Orthopedic Visit Report [facility] [address] [place] [address] [address] [place] [address] OFFICE VISIT Date of Service: 05/20/25 MR#: [id number] Acct: [id number] Name: QUIQUE DENNY Rep #: [id number] : 1960 Provider: Dr. Kleber banuelos MD Age/Sex: 64/M Location: [facility] Status: Signed Intake Vital Signs 09/14/24 15:20 [...] tablet 250 mg PO DAILY #4 TABLETS 09/11/ 4 05/20/25 Rx aspirin 81 mg chewable [...] you fallen in the past year?: No [facility] Medical History (Updated 05/20/25 @ 14:39 by [...] painful. 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 [id number]. Has not tried any formal treatment. Did [...] and APB: (more content not included)... Normal [facility] ED MED ADMINISTRATION DETAIL on 05-16-2025 ED MED ADMINISTRATION DETAIL Normal [facility] ED NURSES CLINICAL NOTEon ED NURSES CLINICAL NOTE Normal [facility] ED ORDER SHEET (CPOE ONLY)on 05-16-2025 ED ORDER SHEET (CPOE ONLY) Normal [facility] ED PHYSICIAN CLINICAL REPORT on 05-16-2025 ED PHYSICIAN CLINICAL REPORT Normal [facility] ED SUPER BILLon 05-16-2025 ED SUPER BILL Normal [facility] ED VISIT SUMMARYon ED VISIT SUMMARY Normal [facility] ED VITALS FLOW SHEETon 05-16 ED VITALS FLOW SHEET Normal [facility] Final Surgical Pathology Rep char 05-14-2025 Final Surgical Pathology Report . Pathology Reports Accession: Collected Date/Time: Received Date/Time: Pathologist: [id number] 05/12/2025 08:30 EDT 05/13/2025 08:45 EDT MD JAZMIN CADE Final Surgical Pathology Report DIAGNOSIS: A. DESCENDING COLON, BIOPSY: - HYPERPLASTIC POLYP B. RECTOSIGMOID COLON, BIOPSY: - HYPERPLASTIC POLYP C. RECTUM, BIOPSY: - FRAGMENTS OF HYPERPLASTIC POLYP COMMENT: [facility] [id number] CLINICAL INFORMATION: SCREENING COLONOSCOPY SPECIMEN: A DESCENDING COLON POLYP X 1 B RECTAL-SIGMOID COLON POLYP X 1 C RECTAL POLYP X 8 GROSS DESCRIPTION: All parts labelled with patient name and [id number] A. Received in formalin labeled descending colon [...] not survive processing. TS-1 Radha Echeverria, Grossing Record Tabulating Clerk/ Dr. Ammon Taylor, Pathologist Performed by Radha Echeverria MICROSCOPIC DESCRIPTION: The microscopic examination is performed, except in the case of Gross Only. Verified by Pathology Report verified by [facility] JAZMIN CADE MD Sign out Date: 05/14/2025 09:14 Performing Lab: [facility], [address] [place] [address] Pathology Dept Disclaimer If ancillary studies were utilized, the following Laboratory Developed Test (LDT) disclaimer will apply: Under CLIA requirements, [facility] is qualified to perform high complexity testing. For all ancillary stains, positive and negative controls stain appropriately. Performance characteristics of immunohistochemical and chromogenic in-situ Pathology Reports Accession: Collected Date/Time: Received Date/Time: Pathologist: [id number] 05/12/2025 08:30 EDT 05/13/2025 08:45 EDT MD JAZMIN CADE Disclaimer hybridization tests have been determined by [facility]. These tests are used for clinical purposes, They should not be regarded as investigational or for research. Normal [facility] US AORTAon 05-05-2025 US AORTA Normal [facility] WRIST COMPLETE LTon 05-02-20 WRIST COMPLETE LT Normal [facility] L/S Spine Bending Flex/[place] 04-16-2025 L/S Spine Bending Flex/Ext [facility] Imaging Services [address] [place], [place] [id number] L/S Spine Bending Flex/Ext MR#: [id number] Acct: [id number] Name: QUIQUE DENNY Rep #: [id number] : 1960 M 64 From: Tamy palomares MD PCP: Dr. Pilar Vivar MD Status: REG CLI Study: L/S Spine Bending Flex/Ext Date of Exam: 04/16 Exam# [id number] Ordering Dr: Abraham Garvin MD PROCEDURE: L/S [...] instability on flexion/extension images. Spondylosis. Reading [facility] CC: Dr. Abraham Garvin MD; Dr. Pilar Vivar MD Associate Art Director: Signed Normal [facility] ED MED ADMINISTRATION DETAIL on 03-23-2025 ED MED ADMINISTRATION DETAIL Normal [facility] ED NURSES CLINICAL NOTEon ED NURSES CLINICAL NOTE Normal [facility] ED ORDER SHEET (CPOE ONLY)on 03-23-2025 ED ORDER SHEET (CPOE ONLY) Normal [facility] ED PHYSICIAN CLINICAL REPORT on 03-23-2025 ED PHYSICIAN CLINICAL REPORT Normal [facility] ED SUPER BILLon 03-23-2025 ED SUPER BILL Normal [facility] ED VISIT SUMMARYon ED VISIT SUMMARY Normal [facility] ED VITALS FLOW SHEETon 03-23 ED VITALS FLOW SHEET Normal [facility] Bacteria Ur Culton 5 Bacteria identified Cx Nom (U) ORGANISM ID: 1 10,000 -<50,000 CFU/ml Normal urogenital tomy Normal [facility] Comment on above: Performed By: #### 6 30-4 ####[facility] LABCL[facility] [id number] [address] OF [facility] C DIFF COMPLETEon 03-22-2025 C DIFF COMPLETE Normal [facility] Comment on above: Performed By: #### 2 66723 ####[facility],[address] [place], [place] [address] CBC + DIFFon 03-22-2025 Baso # 0.02 x10EE3/UL Normal 0.00 - 0.10 [facility] Comment on above: Performed By: #### 2 96514 ####[facility],[address] [place], [place] [address] Basophils/100 WBC (Bld) 0.3 % Normal 0.0 - 2.0 [facility] Comment on above: Performed By: #### 2 91046 ####[facility],[address] [place] [address] 88603 CBC + DIFF Normal [facility] Comment on above: Result Comment: CBC- COMPLETE BLOOD COUNT Performed By: #### 2 65027 ####[facility],[address] [place] [address] 78548 EO # 0.38 x10EE3/UL Normal 0.00 - 0.50 [facility] Comment on above: Performed By: #### 2 35834 ####[facility],[address] [place] [address] 46438 Eosinophils/100 WBC (Bld) 5.1 % Normal 0.0 - 7.0 [facility] Comment on above: Performed By: #### 2 44973 ####[facility],[address] [place] [address] Erythrocyte distribution width (RBC) [Ratio] 13.6 % Normal 12.0 - 15.6 [facility] Comment on above: Performed By: #### 2 67455 ####[facility],[address] [place], [place] [address] Hematocrit (Bld) [Volume fraction] 44.1 % Normal 40.0 - 52.0 [facility] Comment on above: Performed By: #### 2 69346 ####[facility],[address] [place] [address] 47087 Hemoglobin (Bld) [Mass/Vol] 15.5 g/dL Normal 13.0 - 17.5 [facility] Comment on above: Performed By: #### 2 04503 ####[facility],[address] [place] [address] 55753 Lymph # 1.75 x10EE3/UL Normal 0.80 - 2.80 [facility] Comment on above: Performed By: #### 2 59847 ####[facility],[address] [place] [address] 79040 Lymphocytes/100 WBC (Bld) 23.2 % Normal 20.0 - 45.0 [facility] Comment on above: Performed By: #### 2 30329 ####[facility],[address] [place] [address] MANUAL DIFF N/A Normal [facility] Comment on above: Performed By: #### 2 86817 ####[facility],[address] [place] [address] MCH (RBC) [Entitic mass] 32 pg Normal 27 - 33 [facility] Comment on above: Performed By: #### 2 09306 ####[facility],[address] [place] [address] MCHC 35 X10 3 Normal 32 - 36 [facility] Comment on above: Performed By: #### 2 50838 ####[place] [address] MCV (RBC) [Entitic vol] 90 fL Normal 81 - 98 [facility] Comment on above: Performed By: #### 2 05538 ####[facility],[address] [place] [address] Hemphill # 0.57 x10EE3/UL Normal 0.20 - 1.00 [facility] Comment on above: Performed By: #### 2 62348 ####[facility],[address] [place] [address] MONOS % 7.6 % Normal 0.0 - 10.0 [facility] Comment on above: Performed By: #### 2 08215 ####[place] [id number] Morphology Brody (Bld) [Interp] N/A Normal [facility] Comment on above: Performed By: #### 2 45040 ####[facility],[address] [place] [address] Neut # 4.80 x10EE3/UL Normal 1.50 - 7.10 [facility] Comment on above: Performed By: #### 2 23200 ####[facility],[address] [place] [address] 09441 Neutrophils/100 WBC (Bld) 63.9 % Normal 46.0 - 76.0 [facility] Comment on above: Performed By: #### 2 80810 ####[facility],[address] [place] [address] 19631 PLATELET 224 x10EE3/UL Normal 150 - 450 [facility] Comment on above: Performed By: #### 2 06551 ####[facility],[address] [place] [address] 47880 Platelet mean volume (Bld) [Entitic vol] 7.8 fL Normal 6.4 - 10.5 [facility] Comment on above: Result Comment: AUTO MATED DIFFERENTIAL Performed By: #### 2 44137 ####[facility],[address] [place], [place] [address] RBC 4.91 x 10EE6/UL Normal 4.50 - 6.00 [facility] Comment on above: Performed By: #### 2 19562 ####[facility],[address] [place] [address] 46388 WBC 7.5 x 10EE3/UL Normal 4.5 - 10.8 [facility] Comment on above: Performed By: #### 2 91351 ####[facility],[address] [place] [address] 95741 CMP with eGFRon 03-22-2025 AGE 64 years Normal [facility] Comment on above: Performed By: #### 2 51336 ####[facility],[address] [place] [address] 42207 Albumin [Mass/Vol] 3.5 g/dL Normal 3.4 - 5.0 [facility] Comment on above: Performed By: #### 2 96101 ####[facility],[address] [place] [address] 25241 Albumin/Globulin [Mass ratio] 1.0 {ratio} Normal 0.9 - 1.6 [facility] Comment on above: Performed By: #### 2 54516 ####[facility],[address] [place] [address] 15292 ALK PHOS 77 U/L Normal 46 - 116 [facility] Comment on above: Performed By: #### 2 07618 ####[facility],[address] [place] [address] ALT [Catalytic activity/Vol] 37 U/L Normal 16 - 63 [facility] Comment on above: Performed By: #### 2 11283 ####[facility],[address] [place] [address] Anion gap [Moles/Vol] 14 mmol/L Normal 10 - 20 [facility] Comment on above: Performed By: #### 2 26316 ####[facility],[address] [place] [address] AST [Catalytic activity/Vol] 21 U/L Normal 15 - 37 [facility] Comment on above: Performed By: #### 2 00209 ####[facility],[address] [place] [address] 06410 B/C RATIO 14 ratio Normal 0 - 30 [facility] Comment on above: Performed By: #### 2 41855 ####[facility],[address] [place] [address] 83984 Bilirubin [Mass/Vol] 0.5 mg/dL Normal 0.2 - 1.0 [facility] Comment on above: Performed By: #### 2 12273 ####[facility],[address] [place] [address] 24405 Calcium [Mass/Vol] 8.3 mg/dL Low 8.5 - 10.1 [facility] Comment on above: Performed By: #### 2 49288 ####[facility],[address] [place], [place] [address] Chloride [Moles/Vol] 102 mmol/L Normal 98 - 107 [facility] Comment on above: Performed By: #### 2 62634 ####[facility],[address] [place], [place] [address] CMP with eGFR Normal [facility] Comment on above: Result Comment: COMP REHENSIVE METABOLIC PANEL Performed By: #### 2 45409 ####[facility],[address] [place] [address] CO2 [Moles/Vol] 25.9 mmol/L Normal 21.0 - 32.0 [facility] Comment on above: Performed By: #### 2 18545 ####[facility],[address] [place] [address] Creatinine [Mass/Vol] 0.98 mg/dL Normal 0.70 - 1.30 [facility] Comment on above: Performed By: #### 2 81350 ####[facility],[address] [place] [address] GFR/1.73 sq M.predicted among non-blacks MDRD (S/P/Bld) [Vol rate/Area] mL/min/{1.73_m2} Normal 60 - 999 [facility] Comment on above: Performed By: #### 2 85345 ####[facility],[address] [place] [address] Result Comment: ACCO RDING TO THE NATIONAL KIDNEY DISEASE EDUCATION PROGRAM(NKDE), A NORMAL eGFRIS A VALUE GREATER THAN OR EQUAL TO 60 ML/MIN/1.73 SQ METERS.CHRONIC KIDNEY DISEASE: <60mL/MIN/1.73 SQ METERSKIDNEY FAILURE: <15mL/MIN/1.73 SQ METERSTHIS TEST SHOULD ONLY BE USED FOR PATIENTS 18 YEARS OF AGE AND OLDER. Globulin (S) [Mass/Vol] 3.4 g/dL Normal 1.5 - 3.8 [facility] Comment on above: Performed By: #### 2 44540 ####[facility],[address] [place], [place] [address] Glucose [Mass/Vol] 123 mg/dL High 74 - 106 [facility] Comment on above: Performed By: #### 2 40898 ####[facility],[address] [place] [address] 47357 Potassium [Moles/Vol] 3.7 mmol/L Normal 3.5 - 5.1 [facility] Comment on above: Performed By: #### 2 36602 ####[facility],[address] [place] [address] 55297 Protein [Mass/Vol] 6.9 g/dL Normal 6.4 - 8.2 [facility] Comment on above: Performed By: #### 2 60049 ####[facility],[address] [place], [place] [address] Sodium [Moles/Vol] 138 mmol/L Normal 136 - 145 [facility] Comment on above: Performed By: #### 2 07190 ####[facility],[address] [place], [place] [address] Urea nitrogen [Mass/Vol] 14 mg/dL Normal 7 - 18 [facility] Comment on above: Performed By: #### 2 44523 ####[facility],[address] [place] [address] ABDOMEN/PELVIS Won 2024 CT ABDOMEN/PELVIS W Normal [facility] LACTOFERRIN, QUALITATIVE, ST OOLon 03-22-2025 LACTOFERRIN, QUALITATIVE, STOOL Normal [facility] Comment on above: Performed By: #### 2 98088 ####[facility],[address] [place] [address] 93369 LIPASEon 03-22-2025 Lipase [Catalytic activity/Vol] 18.0 U/L Normal 15.0 - 78.0 [facility] Comment on above: Result Comment: *PLE ASE NOTE THAT RANGES FOR LIPASE HAVE CHANGED OF 10/20/23 DUE TO AN ASSAYUPDATE BY THE FAMILY NURSE PRACTITIONER.THE NEW ASSAY RANGE IS 6-250 U/L, WITH A REFERENCERANGE OF 16-77 U/L. Performed By: #### 2 12919 ####[facility],[address] [place] [address] STOOL CULTURE [DANIEL]on Stool culture STOOL CULTURE [[facility] AN] 03/27/25.0919.DNP.COMPLE TE Normal [facility] Comment on above: Performed By: #### 2 94072 ####[facility],[address] [place] [address] URINALYSISon 03-22-2025 Amorphous NONE Normal [facility] Comment on above: Performed By: #### 2 16157 ####[facility],[address] [place] [address] Bacteria NONE Normal [facility] Comment on above: Performed By: #### 2 63374 ####[facility],[address] [place] [address] Bilirubin Ql (U) 1 Abnormal NORMAL: NEGATIVE [facility] Comment on above: Performed By: #### 2 63219 ####[facility],[address] [place] [address] Casts NONE Normal [facility] Comment on above: Performed By: #### 2 99182 ####[facility],[address] [place] [address] Clarity (U) clear Normal NORMAL: CLEAR [facility] Comment on above: Performed By: #### 2 97605 ####[facility],[address] [place], [place] [address] Color (U) marilynn Normal NORMAL: YELLOW [facility] Comment on above: Performed By: #### 2 47496 ####[facility],[address] [place] [address] 22990 Crystals LM Nom (Urine sed) NONE Normal [facility] Comment on above: Performed By: #### 2 56111 ####[facility],[address] [place] [address] 49172 Epi Cells NONE Normal [facility] Comment on above: Performed By: #### 2 84680 ####[facility],[address] [place] [address] 97996 Glucose Ql (U) NORM Normal NORMAL: NORMAL [facility] Comment on above: Performed By: #### 2 90246 ####[facility],[address] [place] [address] 80482 Hemoglobin Ql (U) Negative Normal NORMAL: NEGATIVE [facility] Comment on above: Performed By: #### 2 95953 ####[facility],[address] [place] [address] 55998 Ketone Negative Normal NORMAL: NEGATIVE [facility] Comment on above: Performed By: #### 2 86145 ####[facility],[address] [place] [address] 45671 Leukocytes 25 Abnormal NORMAL: NEGATIVE [facility] Comment on above: Performed By: #### 2 01692 ####[facility],[address] [place] [address] 47221 Mucous 1+ Normal [facility] Comment on above: Performed By: #### 2 95600 ####[facility],[address] [place] [address] 62008 Nitrite Ql (U) Negative Normal NORMAL: NEGATIVE [facility] Comment on above: Performed By: #### 2 38363 ####[facility],[address] [place] [address] 85427 pH (U) 5 [pH] Normal NORMAL: 5.0-8.0 [facility] Comment on above: Performed By: #### 2 85568 ####[facility],[address] [place] [address] 16794 Protein Ql (U) 30 Abnormal NORMAL: NEGATIVE [facility] Comment on above: Performed By: #### 2 14259 ####[facility],[address] [place] [address] Rbc NONE Normal 0-3/hpf [facility] Comment on above: Performed By: #### 2 06045 ####[facility],[address] [place] [address] Sp [place] 1.020 Normal NORMAL: 1.010-1.030 [facility] Comment on above: Performed By: #### 2 98430 ####[facility],[address] [place] [address] Specimen Type R Normal [facility] Comment on above: Performed By: #### 2 64152 ####[facility],[address] [place] [address] Urinalysis dipstick W Reflex Microscopic panel (U) SEE BELOW Normal [facility] Comment on above: Result Comment: MICR OSCOPIC Performed By: #### 2 43194 ####[facility],[address] [place] [address] Urobilinog 1 Abnormal NORMAL: NORMAL [facility] Comment on above: Performed By: #### 2 22627 ####[facility],[address] [place] [address] Wbc 1-5 Normal 0-5/hpf [facility] Comment on above: Performed By: #### 2 23354 ####[facility],[address] [place] [address] Yeast NONE Normal [facility] Comment on above: Performed By: #### 2 03260 ####[facility],[address] [place] [address] URINE CULTURE [CCL]on 2024 Bacteria identified Cx Nom (U) Normal [facility] Comment on above: Performed By: #### 2 44457 ####[facility],[address] [place] [address] US EXTREMITY NONVASCULAR COM PLETEon 02-27-2025 US EXTREMITY NONVASCULAR COMPLETE Normal [facility] HEMOGLOBIN A1C (POM)on 02-18 Glucose [Mass/Vol] 148.5 mg/dL High 0.0 - 0.0 [facility] Comment on above: Result Comment: BLDo HEMOGLOBIN A1C REFERENCE RANGESBLDo Suggested Diagnosis HbA1c(%) HbA1C (mmol/mol Diabetic >/=6.5 >/=48 Prediabetes 5.7 - 6.4 39 - 47 Normal <5.7 <39 Performed By: #### 2 60730 ####[facility],[address] [place] [address] HbA1c (Bld) [Mass fraction] 6.8 % High 0.0 - 6.5 [facility] Comment on above: Performed By: #### 2 92744 ####[facility],[address] [place] [address] T4-FREE (FREE THYROXINE)on 0 02-18-2025 Free T4 [Mass/Vol] 0.99 ng/dL Normal 0.76 - 1.46 [facility] Comment on above: Result Comment: P otential of falsely elevated results when biotin concentrations are > 10ng/mL. Performed By: #### 2 56629 ####[facility],[address] [place], [place] [address] TSHon 02-18-2025 TSH Qn 3.68 m[IU]/L Normal 0.35 - 3.74 [facility] Comment on above: Performed By: #### 2 47383 ####[facility],[address] [place] [address] 20795 URINE MICROALBUMIN W/CREATIN INE, RANDOMon 02-18-2025 CREATININE UR 231.46 mg/dl Normal [facility] Comment on above: Performed By: #### 2 01585 ####[facility],[address] [place] [address] 83566 MICROALBUMIN UR 0.9 mg/dL Normal 0.1 - 25.1 [facility] Comment on above: Performed By: #### 2 30253 ####[facility],[address] [place], [place] [id number] UACR 4 mg/g Normal [facility] Comment on above: Performed By: #### 2 20490 ####[facility],[address] [place], [place] [id number] CV VENOUS LEG LTon 5 CV VENOUS LEG LT Normal [facility] ED MED ADMINISTRATION DETAIL on 01-21-2025 ED MED ADMINISTRATION DETAIL Normal [facility] ED NURSES CLINICAL NOTEon ED NURSES CLINICAL NOTE Normal [facility] ED ORDER SHEET (CPOE ONLY)on 01-21-2025 ED ORDER SHEET (CPOE ONLY) Normal [facility] ED PHYSICIAN CLINICAL REPORT on 01-21-2025 ED PHYSICIAN CLINICAL REPORT Normal [facility] ED PHYSICIAN DISCHARGE REPOR Ton 01-21-2025 ED PHYSICIAN DISCHARGE REPORT Normal [facility] ED SUPER BILLon 01-21-2025 ED SUPER BILL Normal [facility] ED VISIT SUMMARYon ED VISIT SUMMARY Normal [facility] ED VITALS FLOW SHEETon 01-21 ED VITALS FLOW SHEET Normal [facility] CNOVon 12-10-2024 CNOV Office Visit (PULMWS ) -------- QUIQUE DENNY ([id number]) 1960 M Date Time Provider Department 12/10/24 1:00 PM LOU DAVE PULMWS During your visit today, we recorded the following information about you: Lou Dave APRN.CHILD THERAPIST 12/10/2024 5:41 PM Signed Pulmonary Medicine Patients name: Quique Denny PCP: Pilar Vivar MD CC: oxygen testing and follow-up HPI: Quique Denny is a 63 year old male current 09-qeys-zdfc smoker with PMH significant for COPD, PAD, AAA, obesity, and HTN. He presents today for follow-up and request for oxygen testing for portable oxygen. Current therapy with Advair, Spiriva and PRN Albuterol. New to Dr. Mohamud 08/13/2024 for COPD. PFT with midflow obstruction but he had used Advair prior to testing which may have impacted results. Advair and Spiriva doses increased d/t symptoms of cough, wheezing and exertional dyspnea. Recommended sleep study which is scheduled for 12/12. Following his visit, a chest CT report was sent from [facility] which revealed Emphysema and a calcified [...] HISTORY Diagnosis Date AAA (abdominal aortic aneurysm) ([facility]) COPD (chronic obstructive pulmonary disease) ([facility]) Morbid obesity (HCC) VANDANA (obstructive sleep apnea) PAD (peripheral artery disease) ([facility]) Allergies: No Known Allergies Medication List [...] atelectasis or fibrosis at the left base Associate Art Director: UZIEL Transcribe Date/Time: Aug 14 2024 3:09P [...] exudate. Cardiova (more content not included)... Normal [facility] OXIMETRY WITH AMBULATIONon 0 12-10-2024 Justen Roman [...] December 10, 2024 TIME: 1:28 PM Comment: [facility] Jamal 12-06-2024 [facility] ([facility] -------- REILLYQUIQUE PORTILLO ([id number]) 1960 M Date Time Provider Department 12/06/24 FABI MOHAMUDSETH During your visit today, we recorded the following information about you: Julia Burris LPN 12/06/2024 2:26 PM Signed Patient calling and states he would like a POC for using outside of the home. Currently has O2 he uses PRN at home through [facility] that was ordered by PCP. PCPs office has directed patient to us for POC order. I advised the patient we do not have qualifying data and he would need to complete oximetry testing and have a face to face with provider for insurance to cover. He is agreeable to testing and visit. ARIAN West Christine M, APRN.CHILD THERAPIST 12/06/2024 2:33 PM Signed Orders placed. I'm happy to see him. Allergies As of Date: 12/06/2024 (No Known Allergies) Date Reviewed: 08/13/2024 Reviewed by: Fabi Mohamud MD - Fully Assessed Primary Visit Diagnosis:Chronic obstructive pulmonary disease, unspecified COPD type (HCC) [J44.9] Order(s):OXIMETRY WITH AMBULATION [[id number]] Order #: [id number]: 1 FUTURE Prescriptions as of 12/06/2024 - [...] by CLICK, LOU Maxwell on 12/06/24 Normal [facility] CVFLURVon 11-30-2024 FLU A PCR Negative Normal Negative [facility] Comment on above: Result Comment: [place] s [id number] Performed By: #### C VFLURV #### [place] [address] FLU B PCR Negative Normal Negative [facility] Comment on above: Result Comment: Note s [id number] Performed By: #### C VFLURV #### [place] [id number] RSV PCR Negative Normal Negative [facility] Comment on above: Result Comment: Note s [id number] Performed By: #### C VFLURV #### [place] [address] SARS-CoV-2 (COVID-19) RNA DANIEL+probe Ql (Unsp spec) Negative Normal Negative [facility] Comment on above: Result Comment: Note s [id number] This test has been authorized by FDA [...] results. Performed By: #### C VFLURV #### [place] [address] ED MED ADMINISTRATION DETAIL on 11-30-2024 ED MED ADMINISTRATION DETAIL Normal [facility] ED MED ADMINISTRATION DETAIL Normal [facility] ED NURSES CLINICAL NOTEon ED NURSES CLINICAL NOTE Normal [facility] ED NURSES CLINICAL NOTE Normal [facility] ED ORDER SHEET (CPOE ONLY)on 11-30-2024 ED ORDER SHEET (CPOE ONLY) Normal [facility] ED ORDER SHEET (CPOE ONLY) Normal [facility] ED PHYSICIAN CLINICAL REPORT on 11-30-2024 ED PHYSICIAN CLINICAL REPORT Normal [facility] ED PHYSICIAN CLINICAL REPORT Normal [facility] ED PHYSICIAN DISCHARGE REPOR Ton 11-30-2024 ED PHYSICIAN DISCHARGE REPORT Normal [facility] ED PHYSICIAN DISCHARGE REPORT Normal [facility] ED SUPER BILLon 11-30-2024 ED SUPER BILL Normal [facility] ED SUPER BILL Normal [facility] ED VISIT SUMMARYon ED VISIT SUMMARY Normal [facility] ED VISIT SUMMARY Normal [facility] ED VITALS FLOW SHEETon 11-30 ED VITALS FLOW SHEET Normal [facility] ED VITALS FLOW SHEET Normal [facility] CBC + DIFFon 11-29-2024 Baso # 0.01 x10EE3/UL Normal 0.00 - 0.10 [facility] Comment on above: Performed By: #### 2 27254 ####[facility],[address] [place] [address] Basophils/100 WBC (Bld) 0.2 % Normal 0.0 - 2.0 [facility] Comment on above: Performed By: #### 2 28967 ####[facility],[address] [place] [address] CBC + DIFF Normal [facility] Comment on above: Result Comment: CBC- COMPLETE BLOOD COUNT Performed By: #### 2 31845 ####[facility],[address] [place] [address] EO # 0.28 x10EE3/UL Normal 0.00 - 0.50 [facility] Comment on above: Performed By: #### 2 34983 ####[facility],[address] [place] [address] 32936 Eosinophils/100 WBC (Bld) 4.3 % Normal 0.0 - 7.0 [facility] Comment on above: Performed By: #### 2 18608 ####[facility],[address] [place] [address] Erythrocyte distribution width (RBC) [Ratio] 13.4 % Normal 12.0 - 15.6 [facility] Comment on above: Performed By: #### 2 12896 ####[facility],[address] [place] [address] Hematocrit (Bld) [Volume fraction] 42.0 % Normal 40.0 - 52.0 [facility] Comment on above: Performed By: #### 2 65850 ####[facility],[address] [place], [place] [address] Hemoglobin (Bld) [Mass/Vol] 14.3 g/dL Normal 13.0 - 17.5 [facility] Comment on above: Performed By: #### 2 25231 ####[facility],[address] [place] [address] 70625 Lymph # 2.28 x10EE3/UL Normal 0.80 - 2.80 [facility] Comment on above: Performed By: #### 2 03109 ####[facility],[address] [place] [address] 70386 Lymphocytes/100 WBC (Bld) 34.7 % Normal 20.0 - 45.0 [facility] Comment on above: Performed By: #### 2 10489 ####[facility],[address] [place] [address] 63684 MANUAL DIFF N/A Normal [facility] Comment on above: Performed By: #### 2 91938 ####[facility],[address] [place] [address] MCH (RBC) [Entitic mass] 31 pg Normal 27 - 33 [facility] Comment on above: Performed By: #### 2 27211 ####[facility],[address] [place] [address] MCHC 34 X10 3 Normal 32 - 36 [facility] Comment on above: Performed By: #### 2 77646 ####[facility],[address] [place] [address] MCV (RBC) [Entitic vol] 92 fL Normal 81 - 98 [facility] Comment on above: Performed By: #### 2 53698 ####[facility],[address] [place] [address] Hemphill # 0.41 x10EE3/UL Normal 0.20 - 1.00 [facility] Comment on above: Performed By: #### 2 67583 ####[facility],[address] [place] [address] MONOS % 6.2 % Normal 0.0 - 10.0 [facility] Comment on above: Performed By: #### 2 11182 ####[facility],[address] [place] [address] Morphology Brody (Bld) [Interp] N/A Normal [facility] Comment on above: Performed By: #### 2 24018 ####[facility],[address] [place] [address] Neut # 3.59 x10EE3/UL Normal 1.50 - 7.10 [facility] Comment on above: Performed By: #### 2 53448 ####[place] [address] Neutrophils/100 WBC (Bld) 54.6 % Normal 46.0 - 76.0 [facility] Comment on above: Performed By: #### 2 20667 ####[facility],[address] [place] [address] 69881 PLATELET 216 x10EE3/UL Normal 150 - 450 [facility] Comment on above: Performed By: #### 2 33567 ####[facility],[address] [place] [address] 97884 Platelet mean volume (Bld) [Entitic vol] 7.7 fL Normal 6.4 - 10.5 [facility] Comment on above: Result Comment: AUTO MATED DIFFERENTIAL Performed By: #### 2 55210 ####[facility],[address] [place] [address] 99294 RBC 4.56 x 10EE6/UL Normal 4.50 - 6.00 [facility] Comment on above: Performed By: #### 2 86797 ####[facility],[address] [place] [address] 64313 WBC 6.6 x 10EE3/UL Normal 4.5 - 10.8 [facility] Comment on above: Performed By: #### 2 30941 ####[facility],[address] [place] [address] 79242 CMP with eGFRon 11-29-2024 AGE 63 years Normal [facility] Comment on above: Performed By: #### 2 83141 ####[facility],[address] [place] [address] 11605 Albumin [Mass/Vol] 3.6 g/dL Normal 3.4 - 5.0 [facility] Comment on above: Performed By: #### 2 16144 ####[facility],[address] [place] [address] 97942 Albumin/Globulin [Mass ratio] 1.2 {ratio} Normal 0.9 - 1.6 [facility] Comment on above: Performed By: #### 2 83489 ####[facility],[address] [place] [address] 07497 ALK PHOS 81 U/L Normal 46 - 116 [facility] Comment on above: Performed By: #### 2 55348 ####[facility],[address] [place] [address] 34928 ALT [Catalytic activity/Vol] 63 U/L Normal 16 - 63 [facility] Comment on above: Performed By: #### 2 52605 ####[facility],[address] [place] [address] 97419 Anion gap [Moles/Vol] 8 mmol/L Low 10 - 20 [facility] Comment on above: Performed By: #### 2 98340 ####[facility],[address] [place] [address] 43981 AST [Catalytic activity/Vol] 36 U/L Normal 15 - 37 [facility] Comment on above: Performed By: #### 2 96049 ####[facility],[address] [place] [address] 97938 B/C RATIO 12 ratio Normal 0 - 30 [facility] Comment on above: Performed By: #### 2 24393 ####[facility],[address] [place] [address] 22004 Bilirubin [Mass/Vol] 0.4 mg/dL Normal 0.2 - 1.0 [facility] Comment on above: Performed By: #### 2 70880 ####[facility],[address] [place] [address] 95938 Calcium [Mass/Vol] 8.4 mg/dL Low 8.5 - 10.1 [facility] Comment on above: Performed By: #### 2 40979 ####[facility],[address] [place] [address] 21935 Chloride [Moles/Vol] 104 mmol/L Normal 98 - 107 [facility] Comment on above: Performed By: #### 2 58783 ####[facility],[address] [place] [address] 11719 CMP with eGFR Normal [facility] Comment on above: Result Comment: COMP REHENSIVE METABOLIC PANEL Performed By: #### 2 77117 ####[facility],[address] [place] [address] 52298 CO2 [Moles/Vol] 32.9 mmol/L High 21.0 - 32.0 [facility] Comment on above: Performed By: #### 2 93686 ####[facility],[address] [place] [address] 50599 Creatinine [Mass/Vol] 1.23 mg/dL Normal 0.70 - 1.30 [facility] Comment on above: Performed By: #### 2 31068 ####[facility],[address] [place] [address] 84976 eGFR 59 ML/MINUTE Low 60 - 999 [facility] Comment on above: Performed By: #### 2 54374 ####[facility],[address] [place] [address] 05898 GFR/1.73 sq M.predicted among non-blacks MDRD (S/P/Bld) [Vol rate/Area] mL/min/{1.73_m2} Normal 60 - 999 [facility] Comment on above: Result Comment: ACCO RDING TO THE NATIONAL KIDNEY DISEASE EDUCATION PROGRAM(NKDE), A NORMAL eGFRIS A VALUE GREATER THAN OR EQUAL TO 60 ML/MIN/1.73 SQ METERS.CHRONIC KIDNEY DISEASE: <60mL/MIN/1.73 SQ METERSKIDNEY FAILURE: <15mL/MIN/1.73 SQ METERSTHIS TEST SHOULD ONLY BE USED FOR PATIENTS 18 YEARS OF AGE AND OLDER. Performed By: #### 2 05317 ####[facility],[address] [place] [address] 88999 Globulin (S) [Mass/Vol] 2.9 g/dL Normal 1.5 - 3.8 [facility] Comment on above: Performed By: #### 2 31853 ####[facility],[address] [place] [address] 50840 Glucose [Mass/Vol] 202 mg/dL High 74 - 106 [facility] Comment on above: Performed By: #### 2 88112 ####[facility],[address] [place] [address] 41355 Potassium [Moles/Vol] 3.7 mmol/L Normal 3.5 - 5.1 [facility] Comment on above: Performed By: #### 2 11060 ####[facility],[address] [place] [address] 30214 Protein [Mass/Vol] 6.5 g/dL Normal 6.4 - 8.2 [facility] Comment on above: Performed By: #### 2 62588 ####[facility],[address] [place] [address] 45176 Sodium [Moles/Vol] 141 mmol/L Normal 136 - 145 [facility] Comment on above: Performed By: #### 2 44719 ####[facility],[address] [place] [address] 84032 Urea nitrogen [Mass/Vol] 15 mg/dL Normal 7 - 18 [facility] Comment on above: Performed By: #### 2 48538 ####[facility],[address] [place] [address] 20843 CORONAVIRUS (SARS) ANTIGEN T ESTon 11-29-2024 EXTERNAL QC DONE? YES Normal [facility] Comment on above: Performed By: #### 2 42189 ####[facility],[address] [place] [address] 93887 INTERNAL CONTROL PASS Normal [facility] Comment on above: Performed By: #### 2 61478 ####[facility],[address] [place] [address] 82490 SARS ANTIGEN Negative Normal NORMAL: NEGATIVE [facility] Comment on above: Performed By: #### 2 16011 ####[facility],[address] [place] [address] 62377 SEND TO ? NO Normal [facility] Comment on above: Result Comment: SARS -CoV-2THIS TEST IS BEING USED UNDER THE FDA EUA PROCEDURE. THIS ASSAY HAS BEENVALIDATED AT [facility] FOR USE WITH NASAL AND NASOPHARYNGEAL [...] BY HEALTHCARE PROVIDERS IN CONSULTATION WITH PUBLIC HEALTHAUTHORITIES. Performed By: #### 2 35983 ####[facility],[address] [place], [place] [id number] CPKon 11-29-2024 CPK 558 U/L High 39 - 308 [facility] Comment on above: Performed By: #### 2 20315 ####[facility],[address] [place] [address] CHEST W/CONTRASTon 2024 CT CHEST W/CONTRAST Normal [facility] HEMOGLOBIN A1C (POM)on 11-29 Glucose [Mass/Vol] 191.5 mg/dL High 0.0 - 0.0 [facility] Comment on above: Result Comment: BLDo HEMOGLOBIN A1C REFERENCE RANGESBLDo Suggested Diagnosis HbA1c(%) HbA1C (mmol/mol Diabetic >/=6.5 >/=48 Prediabetes 5.7 - 6.4 39 - 47 Normal <5.7 <39 Performed By: #### 2 38610 ####[facility],[address] [place] [address] HbA1c (Bld) [Mass fraction] 8.3 % High 0.0 - 6.5 [facility] Comment on above: Performed By: #### 2 32819 ####[facility],[address] [place] [address] INFLUENZA VIRUS RAPID A/Bon 11-29-2024 INFLUENZA VIRUS RAPID A/B Normal [facility] Comment on above: Performed By: #### 2 15743 ####[facility],[address] [place], [place] [id number] LIPASEon 11-29-2024 Lipase [Catalytic activity/Vol] 27.0 U/L Normal 15.0 - 78.0 [facility] Comment on above: Result Comment: *PLE ASE NOTE THAT RANGES FOR LIPASE HAVE CHANGED OF 10/20/23 DUE TO AN ASSAYUPDATE BY THE FAMILY NURSE PRACTITIONER.THE NEW ASSAY RANGE IS 6-250 U/L, WITH A REFERENCERANGE OF 16-77 U/L. Performed By: #### 2 96295 ####[facility],[address] [place], [place] [address] Lipase [Catalytic activity/Vol] 26.0 U/L Normal 15.0 - 78.0 [facility] Comment on above: Result Comment: *PLE ASE NOTE THAT RANGES FOR LIPASE HAVE CHANGED OF 10/20/23 DUE TO AN ASSAYUPDATE BY THE FAMILY NURSE PRACTITIONER.THE NEW ASSAY RANGE IS 6-250 U/L, WITH A REFERENCERANGE OF 16-77 U/L. Performed By: #### 2 85103 ####[facility],[address] [place] [address] 59296 LIPID PROFILEon 11-29-2024 Cholesterol [Mass/Vol] 95 mg/dL Normal 0 - 240 [facility] Comment on above: Performed By: #### 2 65423 ####[facility],[address] [place] [address] 99735 Cholesterol in HDL [Mass/Vol] 44 mg/dL Normal 40 - 60 [facility] Comment on above: Performed By: #### 2 74121 ####[facility],[address] [place] [address] 45725 Cholesterol in LDL [Mass/Vol] 25 mg/dL Normal 0 - 129 [facility] Comment on above: Performed By: #### 2 87171 ####[facility],[address] [place] [address] 42475 Cholesterol.total/Ch olesterol in HDL [Mass ratio] 2.2 {ratio} Normal 0.0 - 5.0 [facility] Comment on above: Performed By: #### 2 58846 ####[facility],[address] [place] [address] 46167 Lipid 1996 panel Normal [facility] Comment on above: Result Comment: LIPI D PROFILE Performed By: #### 2 20769 ####[facility],[address] [place] [address] 33030 Triglyceride [Mass/Vol] 129 mg/dL Normal 0 - 150 [facility] Comment on above: Performed By: #### 2 36295 ####[facility],[address] [place] [address] 90120 NM CARDIAC STRESS (SPECT) W/ LEXISCANon 11-29-2024 NM CARDIAC STRESS (SPECT) W/LEXISCAN Normal [facility] NM EXERCISE STRESS TEST (W/C ARDIAC STUDYon 11-29-2024 NM EXERCISE STRESS TEST (W/CARDIAC STUDY Normal [facility] NT-proBNPon 11-29-2024 Natriuretic peptide B (Bld) [Mass/Vol] 70 pg/mL Normal 0 - 125 [facility] Comment on above: Performed By: #### 2 37080 ####[facility],[address] [place] [address] 60522 RSVon 11-29-2024 RSV Normal [facility] Comment on above: Performed By: #### 2 12041 ####[facility],[address] [place] [address] 47987 TROPONINon 11-29-2024 HS TROPONIN 17.9 pg/mL Normal 0.0 - 76.2 [facility] Comment on above: Performed By: #### 2 85248 ####[facility],[address] [place] [address] 78523 TROPONIN I, HIGH SENSITIVITY on 11-29-2024 HS TROPONIN 12.3 pg/mL Normal 0.0 - 76.2 [facility] Comment on above: Performed By: #### 2 87769 ####[facility],[address] [place] [address] 28978 C-REACTIVE PROTEINon 025 CRP 0.81 mg/dl Normal 0.00 - 0.90 [facility] Comment on above: Performed By: #### 2 10784 ####[facility],[address] [place] [address] 26558 CBC + DIFFon 11-28-2024 Baso # 0.01 x10EE3/UL Normal 0.00 - 0.10 [facility] Comment on above: Performed By: #### 2 25734 ####[facility],[address] [place] [address] 86072 Basophils/100 WBC (Bld) 0.2 % Normal 0.0 - 2.0 [facility] Comment on above: Performed By: #### 2 13839 ####[facility],[address] [place] [address] 81374 CBC + DIFF Normal [facility] Comment on above: Result Comment: CBC- COMPLETE BLOOD COUNT Performed By: #### 2 95666 ####[place] [address] EO # 0.28 x10EE3/UL Normal 0.00 - 0.50 [facility] Comment on above: Performed By: #### 2 21061 ####[place] [address] Eosinophils/100 WBC (Bld) 4.1 % Normal 0.0 - 7.0 [facility] Comment on above: Performed By: #### 2 36108 ####[place] [address] Erythrocyte distribution width (RBC) [Ratio] 13.3 % Normal 12.0 - 15.6 [facility] Comment on above: Performed By: #### 2 34939 ####[place] [address] Hematocrit (Bld) [Volume fraction] 40.5 % Normal 40.0 - 52.0 [facility] Comment on above: Performed By: #### 2 65711 ####[place] [address] Hemoglobin (Bld) [Mass/Vol] 13.8 g/dL Normal 13.0 - 17.5 [facility] Comment on above: Performed By: #### 2 89905 ####[place] [address] Lymph # 1.87 x10EE3/UL Normal 0.80 - 2.80 [facility] Comment on above: Performed By: #### 2 79276 ####[place] [address] Lymphocytes/100 WBC (Bld) 27.5 % Normal 20.0 - 45.0 [facility] Comment on above: Performed By: #### 2 34054 ####[address] [address] MANUAL DIFF N/A Normal [facility] Comment on above: Performed By: #### 2 58227 ####[facility],[address] [place] [address] MCH (RBC) [Entitic mass] 31 pg Normal 27 - 33 [facility] Comment on above: Performed By: #### 2 06222 ####[facility],[address] [place] [address] MCHC 34 X10 3 Normal 32 - 36 [facility] Comment on above: Performed By: #### 2 60873 ####[facility],[address] [place] [address] MCV (RBC) [Entitic vol] 92 fL Normal 81 - 98 [facility] Comment on above: Performed By: #### 2 54869 ####[place] [address] Hemphill # 0.56 x10EE3/UL Normal 0.20 - 1.00 [facility] Comment on above: Performed By: #### 2 61857 ####[place] [address] MONOS % 8.2 % Normal 0.0 - 10.0 [facility] Comment on above: Performed By: #### 2 17899 ####[facility],[address] [place] [address] Morphology Brody (Bld) [Interp] N/A Normal [facility] Comment on above: Performed By: #### 2 95052 ####[place] [address] Neut # 4.09 x10EE3/UL Normal 1.50 - 7.10 [facility] Comment on above: Performed By: #### 2 54648 ####[place] [address] Neutrophils/100 WBC (Bld) 60.1 % Normal 46.0 - 76.0 [facility] Comment on above: Performed By: #### 2 18842 ####[facility],[address] [place] [address] 70716 PLATELET 216 x10EE3/UL Normal 150 - 450 [facility] Comment on above: Performed By: #### 2 16608 ####[facility],[address] [place] [address] 47277 Platelet mean volume (Bld) [Entitic vol] 7.8 fL Normal 6.4 - 10.5 [facility] Comment on above: Result Comment: AUTO MATED DIFFERENTIAL Performed By: #### 2 36896 ####[facility],[address] [place] [address] 14363 RBC 4.39 x 10EE6/UL Low 4.50 - 6.00 [facility] Comment on above: Performed By: #### 2 49675 ####[facility],[address] [place] [address] 58854 WBC 6.8 x 10EE3/UL Normal 4.5 - 10.8 [facility] Comment on above: Performed By: #### 2 72667 ####[facility],[address] [place] [address] 25558 CHEST 1 VIEWon 11-28-2024 CHEST 1 VIEW Normal [facility] CMP with eGFRon 11-28-2024 AGE 63 years Normal [facility] Comment on above: Performed By: #### 2 82753 ####[facility],[address] [place] [address] 63167 Albumin [Mass/Vol] 3.7 g/dL Normal 3.4 - 5.0 [facility] Comment on above: Performed By: #### 2 68072 ####[facility],[address] [place] [address] 68143 Albumin/Globulin [Mass ratio] 1.3 {ratio} Normal 0.9 - 1.6 [facility] Comment on above: Performed By: #### 2 84786 ####[facility],[address] [place] [address] 57741 ALK PHOS 82 U/L Normal 46 - 116 [facility] Comment on above: Performed By: #### 2 47615 ####[facility],[address] [place] [address] 50675 ALT [Catalytic activity/Vol] 66 U/L High 16 - 63 [facility] Comment on above: Performed By: #### 2 15751 ####[facility],[address] [place] [address] 08554 Anion gap [Moles/Vol] 10 mmol/L Normal 10 - 20 [facility] Comment on above: Performed By: #### 2 68089 ####[facility],[address] [place] [address] 81200 AST [Catalytic activity/Vol] 41 U/L High 15 - 37 [facility] Comment on above: Performed By: #### 2 64011 ####[facility],[address] [place] [address] 54845 B/C RATIO 11 ratio Normal 0 - 30 [facility] Comment on above: Performed By: #### 2 08822 ####[facility],[address] [place] [address] 63295 Bilirubin [Mass/Vol] 0.5 mg/dL Normal 0.2 - 1.0 [facility] Comment on above: Performed By: #### 2 16763 ####[facility],[address] [place] [address] 36889 Calcium [Mass/Vol] 8.6 mg/dL Normal 8.5 - 10.1 [facility] Comment on above: Performed By: #### 2 99881 ####[facility],[address] [place] [address] 75097 Chloride [Moles/Vol] 106 mmol/L Normal 98 - 107 [facility] Comment on above: Performed By: #### 2 59585 ####[facility],[address] [place] [address] 69153 CMP with eGFR Normal [facility] Comment on above: Result Comment: COMP REHENSIVE METABOLIC PANEL Performed By: #### 2 19867 ####[facility],[address] [place] [address] 18194 CO2 [Moles/Vol] 32.1 mmol/L High 21.0 - 32.0 [facility] Comment on above: Performed By: #### 2 48925 ####[facility],[address] [place] [address] 77108 Creatinine [Mass/Vol] 1.15 mg/dL Normal 0.70 - 1.30 [facility] Comment on above: Performed By: #### 2 32717 ####[facility],[address] [place] [address] 54547 GFR/1.73 sq M.predicted among non-blacks MDRD (S/P/Bld) [Vol rate/Area] mL/min/{1.73_m2} Normal 60 - 999 [facility] Comment on above: Performed By: #### 2 49343 ####[facility],[address] [place] [address] 66720 Result Comment: ACCO RDING TO THE NATIONAL KIDNEY DISEASE EDUCATION PROGRAM(NKDE), A NORMAL eGFRIS A VALUE GREATER THAN OR EQUAL TO 60 ML/MIN/1.73 SQ METERS.CHRONIC KIDNEY DISEASE: <60mL/MIN/1.73 SQ METERSKIDNEY FAILURE: <15mL/MIN/1.73 SQ METERSTHIS TEST SHOULD ONLY BE USED FOR PATIENTS 18 YEARS OF AGE AND OLDER. Globulin (S) [Mass/Vol] 2.8 g/dL Normal 1.5 - 3.8 [facility] Comment on above: Performed By: #### 2 99546 ####[facility],[address] [place] [address] 47286 Glucose [Mass/Vol] 147 mg/dL High 74 - 106 [facility] Comment on above: Performed By: #### 2 16175 ####[facility],[address] [place] [address] 56828 Potassium [Moles/Vol] 3.8 mmol/L Normal 3.5 - 5.1 [facility] Comment on above: Performed By: #### 2 72352 ####[facility],[address] [place] [address] 56634 Protein [Mass/Vol] 6.5 g/dL Normal 6.4 - 8.2 [facility] Comment on above: Performed By: #### 2 63998 ####[facility],[address] [place] [address] Sodium [Moles/Vol] 144 mmol/L Normal 136 - 145 [facility] Comment on above: Performed By: #### 2 10010 ####[facility],[address] [place] [address] Urea nitrogen [Mass/Vol] 13 mg/dL Normal 7 - 18 [facility] Comment on above: Performed By: #### 2 52436 ####[facility],[address] [place] [address] CORONAVIRUS (SARS) ANTIGEN T ESTon 11-28-2024 EXTERNAL QC DONE? YES Normal [facility] Comment on above: Performed By: #### 2 25415 ####[facility],[address] [place] [address] INTERNAL CONTROL PASS Normal [facility] Comment on above: Performed By: #### 2 62177 ####[facility],[address] [place] [address] 24538 SARS ANTIGEN Negative Normal NORMAL: NEGATIVE [facility] Comment on above: Performed By: #### 2 73576 ####[facility],[address] [place] [address] 90382 SEND TO ? NO Normal [facility] Comment on above: Result Comment: SARS -CoV-2THIS TEST IS BEING USED UNDER THE FDA EUA PROCEDURE. THIS ASSAY HAS BEENVALIDATED AT [facility] FOR USE WITH NASAL AND NASOPHARYNGEAL [...] BY HEALTHCARE PROVIDERS IN CONSULTATION WITH PUBLIC HEALTHAUTHORITIES. Performed By: #### 2 99379 ####[facility],[address] [place] [address] CT CHEST (PE PROTOCOL)on CT CHEST (PE PROTOCOL) Normal [facility] D-DIMER, QUANTITATIVEon 02-0 D-DIMER QUANT 240 ng/ml High 0 - 230 [facility] Comment on above: Performed By: #### 2 27936 ####[facility],[address] [place] [address] 25024 D-DIMER, QUANTITATIVE Normal [facility] Comment on above: Result Comment: ARMEN T D-DIMER Performed By: #### 2 99542 ####[facility],[address] [place], [place] [address] INFLUENZA VIRUS RAPID A/Bon 11-28-2024 INFLUENZA VIRUS RAPID A/B Normal [facility] Comment on above: Performed By: #### 2 72394 ####[facility],[address] [place], [place] [address] LIPASEon 11-28-2024 Lipase [Catalytic activity/Vol] 23.0 U/L Normal 15.0 - 78.0 [facility] Comment on above: Result Comment: *PLE ASE NOTE THAT RANGES FOR LIPASE HAVE CHANGED OF 10/20/23 DUE TO AN ASSAYUPDATE BY THE FAMILY NURSE PRACTITIONER.THE NEW ASSAY RANGE IS 6-250 U/L, WITH A REFERENCERANGE OF 16-77 U/L. Performed By: #### 2 17970 ####[facility],[address] [place], [place] [address] NT-proBNPon 11-28-2024 Natriuretic peptide B (Bld) [Mass/Vol] 35 pg/mL Normal 0 - 125 [facility] Comment on above: Performed By: #### 2 29597 ####[facility],[address] [place] [address] 60007 TROPONINon 11-28-2024 HS TROPONIN 9.4 pg/mL Normal 0.0 - 76.2 [facility] Comment on above: Performed By: #### 2 28324 ####[facility],[address] [place] [address] 28774 HS TROPONIN 8.9 pg/mL Normal 0.0 - 76.2 [facility] Comment on above: Performed By: #### 2 25036 ####[facility],[address] [place], [place] [address] C-REACTIVE PROTEINon CRP 0.58 mg/dl Normal 0.00 - 0.90 [facility] Comment on above: Performed By: #### 2 67706 ####[facility],[address] [place] [address] CBC + DIFFon 11-16-2024 Baso # 0.01 x10EE3/UL Normal 0.00 - 0.10 [facility] Comment on above: Performed By: #### 2 77359 ####[facility],[address] [place], [place] [address] Basophils/100 WBC (Bld) 0.2 % Normal 0.0 - 2.0 [facility] Comment on above: Performed By: #### 2 75565 ####[facility],[address] [place] [address] CBC + DIFF Normal [facility] Comment on above: Result Comment: CBC- COMPLETE BLOOD COUNT Performed By: #### 2 12802 ####[facility],[address] [place] [address] EO # 0.31 x10EE3/UL Normal 0.00 - 0.50 [facility] Comment on above: Performed By: #### 2 85319 ####[facility],[address] [place], [place] [address] Eosinophils/100 WBC (Bld) 3.9 % Normal 0.0 - 7.0 [facility] Comment on above: Performed By: #### 2 54200 ####[facility],[address] [place] [address] Erythrocyte distribution width (RBC) [Ratio] 13.3 % Normal 12.0 - 15.6 [facility] Comment on above: Performed By: #### 2 12790 ####[facility],[address] [place] [address] Hematocrit (Bld) [Volume fraction] 43.7 % Normal 40.0 - 52.0 [facility] Comment on above: Performed By: #### 2 37421 ####[facility],[address] [place] [address] 46515 Hemoglobin (Bld) [Mass/Vol] 14.6 g/dL Normal 13.0 - 17.5 [facility] Comment on above: Performed By: #### 2 26438 ####[facility],[address] [place] [address] Lymph # 1.97 x10EE3/UL Normal 0.80 - 2.80 [facility] Comment on above: Performed By: #### 2 52795 ####[facility],[address] [place] [address] Lymphocytes/100 WBC (Bld) 25.0 % Normal 20.0 - 45.0 [facility] Comment on above: Performed By: #### 2 28483 ####[facility],[address] [place], [place] [address] MANUAL DIFF N/A Normal [facility] Comment on above: Performed By: #### 2 33676 ####[facility],[address] [place] [address] 47670 MCH (RBC) [Entitic mass] 31 pg Normal 27 - 33 [facility] Comment on above: Performed By: #### 2 94881 ####[facility],[address] [place] [address] 33661 MCHC 34 X10 3 Normal 32 - 36 [facility] Comment on above: Performed By: #### 2 35914 ####[facility],[address] [place] [address] 64090 MCV (RBC) [Entitic vol] 92 fL Normal 81 - 98 [facility] Comment on above: Performed By: #### 2 11563 ####[facility],[address] [place] [address] 24655 Hemphill # 0.57 x10EE3/UL Normal 0.20 - 1.00 [facility] Comment on above: Performed By: #### 2 37796 ####[facility],[address] [place] [address] 49957 MONOS % 7.2 % Normal 0.0 - 10.0 [facility] Comment on above: Performed By: #### 2 83448 ####[facility],[address] [place] [address] 84258 Morphology Brody (Bld) [Interp] N/A Normal [facility] Comment on above: Performed By: #### 2 59841 ####[facility],[address] [place] [address] 62364 Neut # 5.03 x10EE3/UL Normal 1.50 - 7.10 [facility] Comment on above: Performed By: #### 2 34800 ####[facility],[address] [place] [address] 17341 Neutrophils/100 WBC (Bld) 63.7 % Normal 46.0 - 76.0 [facility] Comment on above: Performed By: #### 2 26634 ####[facility],[address] [place] [address] 18106 PLATELET 218 x10EE3/UL Normal 150 - 450 [facility] Comment on above: Performed By: #### 2 16137 ####[facility],[address] [place] [address] 69203 Platelet mean volume (Bld) [Entitic vol] 7.3 fL Normal 6.4 - 10.5 [facility] Comment on above: Result Comment: AUTO MATED DIFFERENTIAL Performed By: #### 2 23568 ####[facility],[address] [place] [address] 02914 RBC 4.76 x 10EE6/UL Normal 4.50 - 6.00 [facility] Comment on above: Performed By: #### 2 78011 ####[facility],[address] [place] [address] 33850 WBC 7.9 x 10EE3/UL Normal 4.5 - 10.8 [facility] Comment on above: Performed By: #### 2 32034 ####[facility],[address] [place] [address] 90499 CMP with eGFRon 11-16-2024 AGE 63 years Normal [facility] Comment on above: Performed By: #### 2 37437 ####[facility],[address] [place] [address] 80172 Albumin [Mass/Vol] 3.6 g/dL Normal 3.4 - 5.0 [facility] Comment on above: Performed By: #### 2 88433 ####[facility],[address] [place] [address] 87760 Albumin/Globulin [Mass ratio] 1.2 {ratio} Normal 0.9 - 1.6 [facility] Comment on above: Performed By: #### 2 51071 ####[facility],[address] [place] [address] 30008 ALK PHOS 76 U/L Normal 46 - 116 [facility] Comment on above: Performed By: #### 2 52856 ####[facility],[address] [place] [address] 13861 ALT [Catalytic activity/Vol] 62 U/L Normal 16 - 63 [facility] Comment on above: Performed By: #### 2 74196 ####[facility],[address] [place] [address] 22092 Anion gap [Moles/Vol] 11 mmol/L Normal 10 - 20 [facility] Comment on above: Performed By: #### 2 48831 ####[facility],[address] [place] [address] 12912 AST [Catalytic activity/Vol] 32 U/L Normal 15 - 37 [facility] Comment on above: Performed By: #### 2 43701 ####[facility],[address] [place] [address] 97660 B/C RATIO 14 ratio Normal 0 - 30 [facility] Comment on above: Performed By: #### 2 95701 ####[facility],[address] [place] [address] 89096 Bilirubin [Mass/Vol] 0.5 mg/dL Normal 0.2 - 1.0 [facility] Comment on above: Performed By: #### 2 66956 ####[facility],[address] [place] [address] 52284 Calcium [Mass/Vol] 8.9 mg/dL Normal 8.5 - 10.1 [facility] Comment on above: Performed By: #### 2 66121 ####[facility],[address] [place] [address] 57027 Chloride [Moles/Vol] 102 mmol/L Normal 98 - 107 [facility] Comment on above: Performed By: #### 2 21858 ####[facility],[address] [place], [place] [address] CMP with eGFR Normal [facility] Comment on above: Result Comment: COMP REHENSIVE METABOLIC PANEL Performed By: #### 2 21391 ####[facility],[address] [place] [address] 18153 CO2 [Moles/Vol] 33.5 mmol/L High 21.0 - 32.0 [facility] Comment on above: Performed By: #### 2 90504 ####[facility],[address] [place] [address] 74341 Creatinine [Mass/Vol] 1.07 mg/dL Normal 0.70 - 1.30 [facility] Comment on above: Performed By: #### 2 35217 ####[facility],[address] [place] [address] 68541 GFR/1.73 sq M.predicted among non-blacks MDRD (S/P/Bld) [Vol rate/Area] mL/min/{1.73_m2} Normal 60 - 999 [facility] Comment on above: Performed By: #### 2 47004 ####[facility],[address] [place] [address] Result Comment: ACCO RDING TO THE NATIONAL KIDNEY DISEASE EDUCATION PROGRAM(NKDE), A NORMAL eGFRIS A VALUE GREATER THAN OR EQUAL TO 60 ML/MIN/1.73 SQ METERS.CHRONIC KIDNEY DISEASE: <60mL/MIN/1.73 SQ METERSKIDNEY FAILURE: <15mL/MIN/1.73 SQ METERSTHIS TEST SHOULD ONLY BE USED FOR PATIENTS 18 YEARS OF AGE AND OLDER. Globulin (S) [Mass/Vol] 3.0 g/dL Normal 1.5 - 3.8 [facility] Comment on above: Performed By: #### 2 36870 ####[facility],[address] [place] [address] Glucose [Mass/Vol] 145 mg/dL High 74 - 106 [facility] Comment on above: Performed By: #### 2 14778 ####[facility],[address] [place] [address] Potassium [Moles/Vol] 4.2 mmol/L Normal 3.5 - 5.1 [facility] Comment on above: Performed By: #### 2 19790 ####[facility],[address] [place] [address] Protein [Mass/Vol] 6.6 g/dL Normal 6.4 - 8.2 [facility] Comment on above: Performed By: #### 2 56806 ####[facility],[address] [place], [place] [address] Sodium [Moles/Vol] 142 mmol/L Normal 136 - 145 [facility] Comment on above: Performed By: #### 2 66984 ####[facility],[address] [place], [place] [address] Urea nitrogen [Mass/Vol] 15 mg/dL Normal 7 - 18 [facility] Comment on above: Performed By: #### 2 11873 ####[facility],[address] [place], [place] [address] CT ABDOMEN/PELVIS Won 2024 CT ABDOMEN/PELVIS W Normal [facility] ED MED ADMINISTRATION DETAIL on 11-16-2024 ED MED ADMINISTRATION DETAIL Normal [facility] ED NURSES CLINICAL NOTEon ED NURSES CLINICAL NOTE Normal [facility] ED ORDER SHEET (CPOE ONLY)on 11-16-2024 ED ORDER SHEET (CPOE ONLY) Normal [facility] ED PHYSICIAN CLINICAL REPORT on 11-16-2024 ED PHYSICIAN CLINICAL REPORT Normal [facility] ED PHYSICIAN DISCHARGE REPOR Ton 11-16-2024 ED PHYSICIAN DISCHARGE REPORT Normal [facility] ED SUPER BILLon 11-16-2024 ED SUPER BILL Normal [facility] ED VISIT SUMMARYon ED VISIT SUMMARY Normal [facility] ED VITALS FLOW SHEETon 11-16 ED VITALS FLOW SHEET Normal [facility] LACTATEon 11-16-2024 Lactate [Moles/Vol] 1.1 mmol/L Normal 0.4 - 2.0 [facility] Comment on above: Performed By: #### 2 14847 ####[facility],[address] [place] [address] LIPASEon 11-16-2024 Lipase [Catalytic activity/Vol] 22.0 U/L Normal 15.0 - 78.0 [facility] Comment on above: Result Comment: *PLE ASE NOTE THAT RANGES FOR LIPASE HAVE CHANGED OF 10/20/23 DUE TO AN ASSAYUPDATE BY THE FAMILY NURSE PRACTITIONER.THE NEW ASSAY RANGE IS 6-250 U/L, WITH A REFERENCERANGE OF 16-77 U/L. Performed By: #### 2 51320 ####[facility],[address] [place] [address] TROPONINon 11-16-2024 HS TROPONIN 8.3 pg/mL Normal 0.0 - 76.2 [facility] Comment on above: Performed By: #### 2 25346 ####[facility],[address] [place] [address] URINALYSISon 11-16-2024 Bilirubin Ql (U) Negative Normal NORMAL: NEGATIVE [facility] Comment on above: Performed By: #### 2 96429 ####[facility],[address] [place] [address] 25267 Clarity (U) clear Normal NORMAL: CLEAR [facility] Comment on above: Performed By: #### 2 72550 ####[facility],[address] [place] [address] 06945 Color (U) yellow Normal NORMAL: YELLOW [facility] Comment on above: Performed By: #### 2 67942 ####[facility],[address] [place] [address] 84822 Glucose Ql (U) 250 Abnormal NORMAL: NORMAL [facility] Comment on above: Performed By: #### 2 85380 ####[facility],[address] [place] [address] 30721 Hemoglobin Ql (U) Negative Normal NORMAL: NEGATIVE [facility] Comment on above: Performed By: #### 2 26586 ####[facility],[address] [place] [address] 66903 Ketone Negative Normal NORMAL: NEGATIVE [facility] Comment on above: Performed By: #### 2 48109 ####[facility],[address] [place] [address] 04982 Leukocytes Negative Normal NORMAL: NEGATIVE [facility] Comment on above: Performed By: #### 2 64006 ####[facility],[address] [place] [address] 42547 Nitrite Ql (U) Negative Normal NORMAL: NEGATIVE [facility] Comment on above: Performed By: #### 2 78179 ####[facility],[address] [place] [address] 15584 pH (U) 7 [pH] Normal NORMAL: 5.0-8.0 [facility] Comment on above: Performed By: #### 2 92330 ####[facility],[address] [place] [address] Protein Ql (U) 15 Abnormal NORMAL: NEGATIVE [facility] Comment on above: Performed By: #### 2 43365 ####[facility],[address] [place] [address] Sp [place] 1.010 Normal NORMAL: 1.010-1.030 [facility] Comment on above: Performed By: #### 2 57070 ####[facility],[address] [place] [address] Specimen Type R Normal [facility] Comment on above: Performed By: #### 2 94036 ####[facility],[address] [place] [address] Urinalysis dipstick W Reflex Microscopic panel (U) NOT INDICATED Normal [facility] Comment on above: Performed By: #### 2 85262 ####[facility],[address] [place] [address] Urobilinog NORM Normal NORMAL: NORMAL [facility] Comment on above: Performed By: #### 2 42249 ####[facility],[address] [place] [address] Abd Aortic/IVC Duplex scanon 10-22-2024 Abd Aortic/IVC Duplex scan [facility] [address] [place] [address] Abd Aortic/IVC Duplex scan 10/22/24 0920 MR#: [id number] Acct: [id number] Name: QUIQUE DENNY Rep #: [id number] : 1960 63 From: Sarah Rivera MD [...] Aorta IVC Iliac vasculature or bypass grafts 85735. Technically Difficult Study. Exam performed in department. 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 Pilar Vivar MD Date Dictated: 10/22/24919 Date Transcribed: 10/22/241558 Associate Art Director: Signed Normal [facility] MR/BMS.Tessie 10-01-2024 [facility] [address] [place], [place] [address] OFFICE VISIT Date of Service: 10/01/24 MR#: [id number] Acct: [id number] Name: QUIQUE DENNY Rep #: [id number] : 1960 Provider: LAURA Orellana Age/Sex: 63/M Location: [facility] Status: Signed Intake Vital Signs 09/11/24 09:59 [...] that he also had a CT at [place] 6 months ago which had shown this [...] HPI, No (more content not included)... Normal [facility] Emergency Department Summary on 09-14-2024 Emergency Department Summary [facility] Medical Records Department [address] [place] [address] Emergency Department Summary 09/14/24 MR#: [id number] Acct: [id number] Name: QUIQUE DENNY Rep #: [id number] : 1960 63 From: Umesh Cotton PCP: Dr. Pilar Vivar MD Status:DEP ER Location: ED HPI History [...] the findings above. Prior similar symptoms: Yes PFSH PFSH Medical History Cough Home Medications ???Medication ???Instructions [...] documents re (more content not included)... Normal [facility] Ribs Uni Min 3V w/PA Cheston 09-14-2024 Ribs Uni Min 3V w/PA Chest [facility] Imaging Services [address] [place] [address] Ribs Uni Min 3V w/PA Chest MR#: [id number] Acct: [id number] Name: QUIQUE DENNY Rep #: [id number] : 1960 M 63 From: Tim Portillo MD PCP: Dr. Pilar Vivar MD Status: REG ER Study: Ribs Uni Min 3V w/PA Chest Date of Exam: 09/14 Exam# [id number] Ordering Dr: Umesh Multani DO [id number] EXAM: XR RIGHT RIBS AND AP CHEST, [...] at 16:35 EST , CC: Dr. Pilar Vivar MD; Dr. Umesh Multani DO Associate Art Director: Signed Normal [facility] 12 Lead EKGon 09-11-2024 12 Lead EKG [facility] Cardiovascular Services [address], [place] [address] 12 Lead EKG 09/11/24 1029 MR#: [id number] Acct: [id number] Name: QUIQUE DENNY Rep #: [id number] : 1960 63 From: Leandro Scott MD [...] Borderline ECG Confirmed by LEANDRO SCOTT ([id number]), commissioning editor PAMELA COTTER ([id number]) on 09/13/2024 12:02:12 PM Referred By: Confirmed By: LEANDRO SCOTT 09/13/24 1202 Date Leandro Scott MD CC: Dr. Pilar Vivar MD; Dr. Umesh Multani DO Signed Normal [facility] Basic Metabolic Profile (BMP )on 09-11-2024 BUN/CRE 17.6 RATIO Normal 08-11 [facility] Comment on above: Performed By: #### L 500.2500, L100.0100, L500.3400 #### [facility] [address] [place], [address] CA,Total 9.0 mg/dL Normal 8.5-10.1 [facility] Comment on above: Performed By: #### L 500.2500, L100.0100, L500.3400 #### [facility] [address] [place], [address] Chloride [Moles/Vol] 105 mmol/L Normal 98-107 [facility] Comment on above: Performed By: #### L 500.2500, L100.0100, L500.3400 #### [facility] [address] [place], [address] CO2 [Moles/Vol] 29.0 mmol/L Normal 21.0-32.0 [facility] Comment on above: Performed By: #### L 500.2500, L100.0100, L500.3400 #### [facility] [address] [place], [address] Creatinine [Mass/Vol] 1.08 mg/dL Normal 0.70-1.30 [facility] Comment on above: Result Comment: The validity of the calculated GFR GFRAA in patients over 70 years has not been determined. Clinical correlation is essential. Performed By: #### L 500.2500, L100.0100, L500.3400 #### [facility] [address] [place], [address] ECRCL 102.16 ml/min Normal [facility] Comment on above: Performed By: #### L 500.2500, L100.0100, L500.3400 #### [facility] [address] [place], [address] EST GFR - AA 89 mL/min Normal >60 [facility] Comment on above: Result Comment: Afri can Ugandan GFR Calc Performed By: #### L 500.2500, L100.0100, L500.3400 #### [facility] [address] [place], [address] GAP 4 Low 5-15 [facility] Comment on above: Performed By: #### L 500.2500, L100.0100, L500.3400 #### [facility] [address] [place], [address] GFR/1.73 sq M.predicted among non-blacks MDRD (S/P/Bld) [Vol rate/Area] 73 mL/min/{1.73_m2} Normal >60 [facility] Comment on above: Result Comment: Non- GFR Calc Performed By: #### L 500.2500, L100.0100, L500.3400 #### [facility] [address] [place], [address] Glucose [Mass/Vol] 127 mg/dL High 74-106 [facility] Comment on above: Result Comment: Fast ing Glucose result greater than or equal to 126 mg/dL suggests DIABETES MELLITUS per A.D.A. criteria. Performed By: #### L 500.2500, L100.0100, L500.3400 #### [facility] [address] [place], [address] Potassium [Moles/Vol] 4.3 mmol/L Normal 3.5-5.1 [facility] Comment on above: Performed By: #### L 500.2500, L100.0100, L500.3400 #### [facility] [address] [place], [address] Sodium [Moles/Vol] 139 mmol/L Normal 136-145 [facility] Comment on above: Performed By: #### L 500.2500, L100.0100, L500.3400 #### [facility] [address] [place], [address] Urea nitrogen [Mass/Vol] 19 mg/dL High 7-18 [facility] Comment on above: Performed By: #### L 500.2500, L100.0100, L500.3400 #### [facility] [address] [place], [address] CBC W/Diff, Automatedon 11-2 0-2023 Absolute Lymph 1.14 X10 3/uL Normal 0.83-4.51 [facility] Comment on above: Performed By: #### L 500.2500, L100.0100, L500.3400 #### [facility] [address] [place], [address] Absolute Neut 6.3 X10 3/uL Normal 2.0-7.7 [facility] Comment on above: Performed By: #### L 500.2500, L100.0100, L500.3400 #### [facility] [address] [place], [address] Basophils/100 WBC (Bld) 0.5 % Normal 0-1 [facility] Comment on above: Performed By: #### L 500.2500, L100.0100, L500.3400 #### [facility] [address] [place], [address] Eosinophils/100 WBC (Bld) 1.8 % Normal 0-5 [facility] Comment on above: Performed By: #### L 500.2500, L100.0100, L500.3400 #### [facility] [address] [place], [address] Erythrocyte distribution width (RBC) [Ratio] 13.9 % Normal 11.6-14.6 [facility] Comment on above: Performed By: #### L 500.2500, L100.0100, L500.3400 #### [facility] [address] [place], [address] Hematocrit (Bld) [Volume fraction] 45.7 % Normal 40-54 [facility] Comment on above: Performed By: #### L 500.2500, L100.0100, L500.3400 #### [facility] [address] [place], [address] Hemoglobin (Bld) [Mass/Vol] 15.0 g/dL Normal 13.0-16.5 [facility] Comment on above: Performed By: #### L 500.2500, L100.0100, L500.3400 #### [facility] [address] [place], [address] IG% 0.400 Normal 0.0-0.9 [facility] Comment on above: Result Comment: IG% - Immature Granulocytes (promyelocytes, myelocytes and metamyelocytes) > 1% indicates that a LEFT SHIFT is Present. Performed By: #### L 500.2500, L100.0100, L500.3400 #### [facility] [address] [place], [address] Lymphocytes/100 WBC (Bld) 14.0 % Low 19-41 [facility] Comment on above: Performed By: #### L 500.2500, L100.0100, L500.3400 #### [facility] [address] [place], [address] MCH (RBC) [Entitic mass] 30.7 pg Normal 27.0-32.0 [facility] Comment on above: Performed By: #### L 500.2500, L100.0100, L500.3400 #### [facility] [address] [place], [address] MCHC (RBC) [Mass/Vol] 32.8 g/dL Normal 32-36 [facility] Comment on above: Performed By: #### L 500.2500, L100.0100, L500.3400 #### [facility] [address] [place], [address] MCV (RBC) [Entitic vol] 93.6 fL Normal 80-94 [facility] Comment on above: Performed By: #### L 500.2500, L100.0100, L500.3400 #### [facility] [address] [place], [address] Monocytes/100 WBC (Bld) 5.7 % Normal 0-10 [facility] Comment on above: Performed By: #### L 500.2500, L100.0100, L500.3400 #### [facility] [address] [place], [address] Neutrophils/100 WBC (Bld) 77.6 % High 47-70 [facility] Comment on above: Performed By: #### L 500.2500, L100.0100, L500.3400 #### [facility] [address] [place], [address] Nucleated RBC (Bld) [#/Vol] 0 10*3/uL Normal 0-5 [facility] Comment on above: Performed By: #### L 500.2500, L100.0100, L500.3400 #### [facility] [address] [place], [address] Platelet mean volume (Bld) [Entitic vol] 9.7 fL Normal 6.2-12.0 [facility] Comment on above: Performed By: #### L 500.2500, L100.0100, L500.3400 #### [facility] [address] [place], [address] Platelets (Bld) [#/Vol] 211 10*3/uL Normal 150-450 [facility] Comment on above: Performed By: #### L 500.2500, L100.0100, L500.3400 #### [facility] [address] [place], [address] RBC (Bld) [#/Vol] 4.88 10*6/uL Normal 4.6-6.2 [facility] Comment on above: Performed By: #### L 500.2500, L100.0100, L500.3400 #### [facility] [address] [place], [address] RDW SD 47.5 fl High 35.1-43.9 [facility] Comment on above: Performed By: #### L 500.2500, L100.0100, L500.3400 #### [facility] [address] [place], [address] WBC (Bld) [#/Vol] 8.1 10*3/uL Normal 4.4-11.0 [facility] Comment on above: Performed By: #### L 500.2500, L100.0100, L500.3400 #### [facility] [address] [place], [address] CT Abd/Pelvis W/WO Contrasto n 09-11-2024 CT Abd/Pelvis W/WO Contrast [facility] Imaging Services [address] [place] [address] CT Abd/Pelvis W/WO Contrast MR#: [id number] Acct: [id number] Name: QUIQUE DENNY Rep #: [id number] : 1960 M 63 From: Sree salomon MD PCP: Dr. Pilar Vivar MD Status: [facility] ER Study: CT Abd/Pelvis W/WO Contrast Date of Exam: 08/24 Exam# [id number] Ordering Dr: Umesh Multani DO [id number] STUDY: CT ABDOMEN AND PELVIS WITH AND [...] at 14:11 EST , CC: Dr. Pilar Vivar MD; Dr. Umesh Multani DO Associate Art Director: Signed Normal [facility] Chest without Contraston Chest without Contrast [facility] Imaging Services [address] [place], [place] [address] Chest without Contrast MR#: [id number] Acct: [id number] Name: QUIQUE DENNY Rep #: [id number] : 1960 M 63 From: Jazmin Jama MD PCP: Dr. Pilar Vivar MD Status: REG ER Study: Chest without Contrast Date of Exam: 09/11/24 Exam# [id number] Ordering Dr: Umesh Multani DO [id number] INDICATION: cough, right rib injury EXAMINATION: CT [...] at 11:43 EST , CC: Dr. Pilar Vivar MD; Dr. Umesh Multani DO Associate Art Director: Signed Normal [facility] Emergency Department Summary on 09-11-2024 Emergency Department Summary [facility] Medical Records Department [address] [place] [address] Emergency Department Summary 09/11/24 MR#: [id number] Acct: [id number] Name: QUIQUE DENNY Rep #: [id number] : 1960 63 From: Umesh Cotton PCP: Dr. Pilar Vivar MD Status:REG ER Location: ED HPI History [...] He was seen outside emergency department in [place] 3 days ago he states only a chest x-ray was done and he was discharged. He has been using Aleve. Last dose today. Last breathing treatment this morning. No cardiac history. [facility] Medical History Cough Home Medications ???Medication ???Instructions [...] MDM: Differ (more content not included)... Normal [facility] Liver Profileon 09-11-2024 Albumin [Mass/Vol] 4.0 g/dL Normal 3.2-5.0 [facility] Comment on above: Performed By: #### L 500.2500, L100.0100, L500.3400 #### [facility] [address] [place], [address] ALK P 73 U/L Normal 45-117 [facility] Comment on above: Performed By: #### L 500.2500, L100.0100, L500.3400 #### [facility] [address] [place], [address] ALT [Catalytic activity/Vol] 54 U/L Normal 16-61 [facility] Comment on above: Performed By: #### L 500.2500, L100.0100, L500.3400 #### [facility] [address] [place], [address] AST [Catalytic activity/Vol] 29 U/L Normal 15-37 [facility] Comment on above: Performed By: #### L 500.2500, L100.0100, L500.3400 #### [facility] [address] [place], [address] Bilirubin [Mass/Vol] 0.70 mg/dL Normal 0.20-1.00 [facility] Comment on above: Result Comment: For patients on eltrombopag therapy, use of Dimension [place] TBIL is not recommended. Performed By: #### L 500.2500, L100.0100, L500.3400 #### [facility] [address] [place], [address] Bilirubin.direct [Mass/Vol] 0.15 mg/dL Normal 0.00-0.30 [facility] Comment on above: Performed By: #### L 500.2500, L100.0100, L500.3400 #### [facility] [address] [place], [address] Globulin (S) [Mass/Vol] 2.8 g/dL Normal 2.2-4.2 [facility] Comment on above: Performed By: #### L 500.2500, L100.0100, L500.3400 #### [facility] [address] [place], [address] T PROT 6.8 g/dL Normal 6.4-8.2 [facility] Comment on above: Performed By: #### L 500.2500, L100.0100, L500.3400 #### [facility] [address] [place], [address] ED MED ADMINISTRATION DETAIL on 09-09-2024 ED MED ADMINISTRATION DETAIL Normal [facility] ED NURSES CLINICAL NOTEon ED NURSES CLINICAL NOTE Normal [facility] ED ORDER SHEET (CPOE ONLY)on 09-09-2024 ED ORDER SHEET (CPOE ONLY) Normal [facility] ED PHYSICIAN CLINICAL REPORT on 09-09-2024 ED PHYSICIAN CLINICAL REPORT Normal [facility] ED PHYSICIAN DISCHARGE REPOR Ton 09-09-2024 ED PHYSICIAN DISCHARGE REPORT Normal [facility] ED SUPER BILLon 09-09-2024 ED SUPER BILL Normal [facility] ED VISIT SUMMARYon 4 ED VISIT SUMMARY Normal [facility] ED VITALS FLOW SHEETon 09-09 ED VITALS FLOW SHEET Normal [facility] SHOULDER COMPLETE RTon 09-09 SHOULDER COMPLETE RT Normal [facility] ED MED ADMINISTRATION DETAIL on 09-05-2024 ED MED ADMINISTRATION DETAIL Normal [facility] ED NURSES CLINICAL NOTEon ED NURSES CLINICAL NOTE Normal [facility] ED ORDER SHEET (CPOE ONLY)on 09-05-2024 ED ORDER SHEET (CPOE ONLY) Normal [facility] ED PHYSICIAN CLINICAL REPORT on 09-05-2024 ED PHYSICIAN CLINICAL REPORT Normal [facility] ED PHYSICIAN DISCHARGE REPOR Ton 09-05-2024 ED PHYSICIAN DISCHARGE REPORT Normal [facility] ED SUPER BILLon 09-05-2024 ED SUPER BILL Normal [facility] ED VISIT SUMMARYon 4 ED VISIT SUMMARY Normal [facility] ED VITALS FLOW SHEETon 09-05 ED VITALS FLOW SHEET Normal [facility] CHEST 1 VIEWon 09-04-2024 CHEST 1 VIEW Normal [facility] CT CERVICAL W/O CONTRASTon 1 11-04-2023 CT CERVICAL W/O CONTRAST Normal [facility] CNOVon 08-13-2024 CNOV Office Visit (PULMWS ) -------- QUIQUE DENNY ([id number]) 1960 M Date Time Provider Department 08/13/24 11:00 AM FABI MOHAMUD During your visit today, we recorded the following information about you: Pulse Blood pressure Weight Height 88/minute 126/94 139.7 kg 1.829 m Fabi Mohamud MD 08/13/2024 12:24 PM Signed . Respiratory [place] Note Patient name: Quique Denny PCP: Pilar Vivar MD Referring Physician: same Consultation requested by Dr. Vivar for an opinion regarding COPD. My final recommendations will be communicated back to the requesting physician by way of shared Medical record or letter to requesting physician via US mail. CC: COPD HPI: Quique Denny 63 year old male current 93-kili-eavf smoker with PMH significant for COPD, PAD, [...] had a CT of the chest at [facility] approximately 1 month ago. I do not have a report or images to review. 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 Normal [facility] XR CHEST 2V FRONTAL/LATon XR CHEST 2V [...] atelectasis or fibrosis at the left base Associate Art Director: UZIEL Transcribe Date/Time: Aug 14 2024 3:09P Dictated by : JASON CHAPMAN MD This examination was interpreted and the report reviewed and electronically signed by: JASON CHAPMAN MD on Aug 14 2024 3:09PM EST [id number] Normal [facility] BCIDon 07-28-2024 Acinetobacter fatemeh-baumanii complex Not detected Normal Not Detected [facility] Comment on above: Order Comment: jay reza at [facility] [place] , 07/28/2024 13:25:10 EDT//JV Performed By: #### B ELDER #### [address] [address] Bacteroides fragilis Not detected Normal Not Detected [facility] Comment on above: Order Comment: jay reza at [facility] [place] [place] , 07/28/2024 13:25:10 EDT//JV Performed By: #### B ELDER #### [address] [address] BCID Comment See Comment Normal [facility] Comment on above: Order Comment: jay reza at [facility] [place] , 07/28/2024 13:25:10 EDT//JV Result [...] follow. Performed By: #### B ELDER #### [place] [id number] [place] [address] Marie albicans Not detected Normal Not Detected [facility] Comment on above: Order Comment: jay reza at [facility] [place] , 07/28/2024 13:25:10 EDT//JV Performed By: #### B ELDER #### [place] [id number] Marie auris Not detected Normal Not Detected [facility] Comment on above: Order Comment: jay reza at [facility] [place] , 07/28/2024 13:25:10 EDT//JV Performed By: #### B ELDER #### [address] [address] Marie glabrata Not detected Normal Not Detected [facility] Comment on above: Order Comment: jay reza at [facility] [place] , 07/28/2024 13:25:10 EDT//JV Performed By: #### B ELDER #### [address] [address] Marie krusei Not detected Normal Not Detected [facility] Comment on above: Order Comment: jay reza at [facility] [place] , 07/28/2024 13:25:10 EDT//JV Performed By: #### B ELDER #### [address] [address] Marie parapsilosis Not detected Normal Not Detected [facility] Comment on above: Order Comment: jay reza at [facility] [place] , 07/28/2024 13:25:10 EDT//JV Performed By: #### B ELDER #### [place] [id number] [place] [address] Marie tropicalis Not detected Normal Not Detected [facility] Comment on above: Order Comment: jay reza at [facility] [place] , 07/28/2024 13:25:10 EDT//JV Performed By: #### B ELDER #### [address] [address] Cryptococcus neoformans-gattii Not detected Normal Not Detected [facility] Comment on above: Order Comment: jay reza at [facility], [facility] [place] , 07/28/2024 13:25:10 EDT//JV Performed By: #### B ELDER #### [address] [address] CTX-M (ESBL) Not Applicable Normal Not Detected [facility] Comment on above: Order Comment: jay reza at [facility] [place] , 07/28/2024 13:25:10 EDT//JV Performed By: #### B ELDER #### [address] [address] E. Coli Not detected Normal Not Detected [facility] Comment on above: Order Comment: jay reza at [facility], [facility] [place] , 07/28/2024 13:25:10 EDT//JV Performed By: #### B ELDER #### [address] [address] Enterobacter cloacae Complex Not detected Normal Not Detected [facility] Comment on above: Order Comment: jay reza at [facility] [place] , 07/28/2024 13:25:10 EDT//JV Performed By: #### B ELDER #### [address] [address] Enterobacterales Not detected Normal Not Detected [facility] Comment on above: Order Comment: jay reza at [facility] [place] , 07/28/2024 13:25:10 EDT//JV Performed By: #### B ELDER #### [address] [address] Enterococcus faecalis Not detected Normal Not Detected [facility] Comment on above: Order Comment: jay reza at [facility], [facility] [place] , 07/28/2024 13:25:10 EDT//JV Performed By: #### B ELDER #### [place] [address] Enterococcus faecium Not detected Normal Not Detected [facility] Comment on above: Order Comment: jay reza at [facility], [facility] [place] , 07/28/2024 13:25:10 EDT//JV Performed By: #### B ELDER #### [address] [address] Haemophilus influenzae Not detected Normal Not Detected [facility] Comment on above: Order Comment: jay reza at [facility], [facility] [place] , 07/28/2024 13:25:10 EDT//JV Performed By: #### B ELDER #### [address] [address] IMP (Carbapenemase) Not Applicable Normal Not Detected [facility] Comment on above: Order Comment: jay reza at [facility], [facility] [place] , 07/28/2024 13:25:10 EDT//JV Performed By: #### B ELDER #### [address] [address] Klebsiella aerogenes Not detected Normal Not Detected [facility] Comment on above: Order Comment: jay reza at [facility], [facility] [place] , 07/28/2024 13:25:10 EDT//JV Performed By: #### B ELDER #### [place] [id number] Klebsiella oxytoca Not detected Normal Not Detected [facility] Comment on above: Order Comment: jay reza at [facility], [facility] [place] , 07/28/2024 13:25:10 EDT//JV Performed By: #### B ELDER #### [address] [place] [address] Klebsiella pneumoniae group Not detected Normal Not Detected [facility] Comment on above: Order Comment: jay reza at [facility], [facility] [place] , 07/28/2024 13:25:10 EDT//JV Performed By: #### B ELDER #### [facility] [address] [place] [address] KPC (Carbapenemase) Not Applicable Normal Not Detected [facility] Comment on above: Order Comment: jay reza at [facility], [facility] [place] , 07/28/2024 13:25:10 EDT//JV Performed By: #### B ELDER #### [address] [address] Listeria monocytogenes Not detected Normal Not Detected [facility] Comment on above: Order Comment: jay reza at [facility] [place] , 07/28/2024 13:25:10 EDT//JV Performed By: #### B ELDER #### [address] [address] MCR-1 (Colistin Resistance) Not Applicable Normal Not Detected [facility] Comment on above: Order Comment: jay reza at [facility] [place] , 07/28/2024 13:25:10 EDT//JV Performed By: #### B ELDER #### [address] [address] Mec A/C Detected Abnormal Not Detected [facility] Comment on above: Order Comment: jay reza at [facility] [place] , 07/28/2024 13:25:10 EDT//JV Performed By: #### B ELDER #### [address] [address] Mec A/C-MREJ (MRSA) Not Applicable Normal Not Detected [facility] Comment on above: Order Comment: jay reza at [facility], [facility] [place] , 07/28/2024 13:25:10 EDT//JV Performed By: #### B ELDER #### [address] [address] NDM (Carbapenemase) Not Applicable Normal Not Detected [facility] Comment on above: Order Comment: j[facility] [place] [place] , 07/28/2024 13:25:10 EDT//JV Performed By: #### B ELDER #### [facility] [address] [place] [address] Neisseria meningitidis (Encapsalated) Not detected Normal Not Detected [facility] Comment on above: Order Comment: jay reza at [facility], [facility] [place] , 07/28/2024 13:25:10 EDT//JV Performed By: #### B ELDER #### [address] [address] OXA-48 like (Carbapenemase) Not Applicable Normal Not Detected [facility] Comment on above: Order Comment: jay reza at [facility] [place] , 07/28/2024 13:25:10 EDT//JV Performed By: #### B ELDER #### [address] [address] Proteus Not detected Normal Not Detected [facility] Comment on above: Order Comment: jay reza at [facility], [facility] [place] , 07/28/2024 13:25:10 EDT//JV Performed By: #### B ELDER #### [address] [address] Pseudomonas aeruginosa Not detected Normal Not Detected [facility] Comment on above: Order Comment: jay reza at [facility], [facility] [place] , 07/28/2024 13:25:10 EDT//JV Performed By: #### B ELDER #### [address] [address] S. agalactiae Org specific cx Ql (Vag fld) Not detected Normal Not Detected [facility] Comment on above: Order Comment: jay reza at [facility], [facility] [place] , 07/28/2024 13:25:10 EDT//JV Performed By: #### B ELDER #### [place] [id number] Salmonella species Not detected Normal Not Detected [facility] Comment on above: Order Comment: jay reza [facility], [facility] [place] , 07/28/2024 13:25:10 EDT//JV Performed By: #### B ELDER #### [address] [address] Serratia marcescens Not detected Normal Not Detected A [facility] Comment on above: Order Comment: jay reza at [facility], [facility] [place] , 07/28/2024 13:25:10 EDT//JV Performed By: #### B ELDER #### [address] [address] Staphylococcus Detected Abnormal Not Detected [facility] Comment on above: Order Comment: jay reza at [facility], [facility] [place] , 07/28/2024 13:25:10 EDT//JV Performed By: #### B ELDER #### [address] [address] Staphylococcus aureus Not detected Normal Not Detected [facility] Comment on above: Order Comment: jay reza at [facility], [facility] [place] , 07/28/2024 13:25:10 EDT//JV Result Comment: If S taphylococcus aureus is Detected, an Infectious Disease physician consult is required on identification. Performed By: #### B ELDER #### [address] [address] Staphylococcus epidermidis Detected Abnormal Not Detected [facility] Comment on above: Order Comment: jay reza at [facility], [facility] [place] , 07/28/2024 13:25:10 EDT//JV Performed By: #### B ELDER #### [address] [address] Staphylococcus lugdunensis Not detected Normal Not Detected [facility] Comment on above: Order Comment: jay reza at [facility], [facility] [place] , 07/28/2024 13:25:10 EDT//JV Performed By: #### B ELDER #### [address] [address] Stenotrophomonas maltophilia Not detected Normal Not Detected [facility] Comment on above: Order Comment: jay reza [facility], [facility] [place] , 07/28/2024 13:25:10 EDT//JV Performed By: #### B ELDER #### [address] [address] Streptococcus Not detected Normal Not Detected [facility] Comment on above: Order Comment: jay reza at [facility], [facility] [place] , 07/28/2024 13:25:10 EDT//JV Performed By: #### B ELDER #### [address] [address] Streptococcus pneumoniae Not detected Normal Not Detected [facility] Comment on above: Order Comment: jay reza [place] [facility] [place] , 07/28/2024 13:25:10 EDT//JV Performed By: #### B ELDER #### [address] [address] Streptococcus pyogenes Not detected Normal Not Detected [facility] Comment on above: Order Comment: jay reza at [facility], [facility] [place] , 07/28/2024 13:25:10 EDT//JV Performed By: #### B ELDER #### [address] [address] Van A/B Not Applicable Normal Not Detected [facility] Comment on above: Order Comment: jay reza at [facility], [facility] [place] , 07/28/2024 13:25:10 EDT//JV Performed By: #### B ELDER #### [address] [address] VIM (Carbapenemase) Not Applicable Normal Not Detected [facility] Comment on above: Order Comment: jay reza [facility], [facility] [place] , 07/28/2024 13:25:10 EDT//JV Performed By: #### B ELDER #### [address] [address] ALBon 09-05-2023 Albumin Level 3.9 G/dL Normal 3.2-4.8 [facility] ([place]) Comment on above: Performed By: #### A LB #### [place] [address] Vital Signs Date Time Vital Sign Value Performing Clinician Pema wilhelm 06-10-2025 11:35-0400 Body mass index (BMI) [Ratio] 38.92 kg/m2 Lou Click MENTAL HEALTH AIDE.CHILD THERAPIST Work Phone: [facility] 06-10-2025 11:35-0400 Body weight 130.18 kg Lou Click MENTAL HEALTH AIDE.CHILD THERAPIST Work Phone: [facility] 06-10-2025 11:35-0400 Diastolic blood pressure 80 mm[Hg] Lou Click MENTAL HEALTH AIDE.CHILD THERAPIST Work Phone: [facility] 06-10-2025 11:35-0400 Heart rate 90 /min Lou Click MENTAL HEALTH AIDE.CHILD THERAPIST Work Phone: [facility] 06-10-2025 11:35-0400 SaO2% (BldA) [Mass fraction] 95 % Lou Click MENTAL HEALTH AIDE.CHILD THERAPIST Work Phone: [facility] 06-10-2025 11:35-0400 Systolic blood pressure 118 mm[Hg] Lou Click MENTAL HEALTH AIDE.CHILD THERAPIST Work Phone: [facility] 05-20-2025 14:20-0400 Body height 182.[address] Pilar Vivar MD Work Phone: [facility] 05-20-2025 14:20-0400 Body mass index (BMI) [Ratio] 39.4 kg/m2 Dr. Pilar Vivar MD Work Phone: [facility] 05-20-2025 14:20-0400 Body weight 131.[address] Pilar Vivar MD Work Phone: [facility] 08-13-2024 10:50-0400 Body height 182.9 cm Fabi Mohamud MD Work Phone: [facility] 08-13-2024 10:50-0400 Body mass index (BMI) [Ratio] 41.77 kg/m2 Fabi Mohamud MD Work Phone: [facility] 08-13-2024 10:50-0400 Body weight 139.71 kg Fabi Mohamud MD Work Phone: [facility] 08-13-2024 10:50-0400 Diastolic blood pressure 94 mm[Hg] Fabi Mohamud MD Work Phone: [facility] 08-13-2024 10:50-0400 Heart rate 88 /min Fabi Mohamud MD Work Phone: [facility] 08-13-2024 10:50-0400 SaO2% (BldA) [Mass fraction] 89 % Fabi Mohamud MD Work Phone: [facility] 08-13-2024 10:50-0400 Systolic blood pressure 126 mm[Hg] Fabi Mohamud MD Work Phone: [facility] 08-13-2024 10:31-0400 Body height 179.3 cm Pulm Wstr Work Phone: [facility] 08-13-2024 10:31-0400 Body mass index (BMI) [Ratio] 43.46 kg/m2 Pulm Wstr Work Phone: [facility] 08-13-2024 10:31-0400 Body weight 139.71 kg Pulm Wstr Work Phone: [facility] 08-13-2024 10:31-0400 Heart rate 86 /min Pulm Wstr Work Phone: [facility] 08-13-2024 10:31-0400 Respiratory rate 16 /min Pulm Wstr Work Phone: [facility] 08-13-2024 10:31-0400 SaO2% (BldA) [Mass fraction] 95 % Pulm Wstr Work Phone: [facility] Encounters Encounter Date Encounter Type Care Provider Facility Start: 08-20-2025 End: 08-20-2025 [facility] Start: 08-06-2025 End: 08-06-2025 Emergency department [facility] Start: 06-16-2025 ambulatory Kleber Mott Facility :[facility] Start: 06-15-2025 End: 06-16[facility] Start: 06-14-2025 End: 06-14-2025 Emergency department patient [facility] Start: 06-10-2025 End: 06-10-2025 ambulatory LOU DAVE Facility:[facility] Start: 06-10-2025 End: 06-10-2025 Office outpatient visit 25 minutes Lou Dave MENTAL HEALTH AIDE.CHILD THERAPIST Work Phone: Pulmonary Medicine Comment on above: Pulmonary emphysema, unspecified emphysema type (HCC) (Primary Dx); Chronic obstructive pulmonary disease, unspecified COPD type (HCC); VANDANA (obstructive sleep apnea); Morbid obesity (HCC); Cigarette smoker; Lung nodule Start: 06-09-2025 End: 06-12-2025 Telephone encounter Neurology Provider Neurology Comment on above: Consult (Referral re ceived from Dr Mohamud's office as they are not sleep certified- [place] had forwarded to them. ) Start: 06-09-2025 End: 06-09-[address] Pilar Vivar MD Work Phone: -Ultrasound [facility] Start: 06-09-2025 End: 06-09-[address] Kleber Mott MD -Ultrasound [facility] Work Phone: Start: 06-09-2025 End: 06-09-2025 ambulatory Kleber Mott Facility:[facility] Start: 06-05-2025 End: 06-05-2025 Emergency department patient [facility] Start: 05-27-2025 End: 05-28-2025 [facility] Start: 05-22-2025 End: 05-22-2025 Emergency department patient visit PILAR VIVAR [facility] Start: 05-20-2025 End: 05-20-[address] Kleber Mott MD -[facility] Work Phone: Start: 05-20-2025 End: 05-20-[address] Pilar Vivar MD Work Phone: -[facility] Start: 05-12-2025 End: 05-12-2025 ambulatory [facility] Start: 05-05-2025 End: 05-05-2025 ambulatory PILAR VIVAR [facility] Start: 05-02-2025 End: 05-02-2025 Emergency department [facility] Start: 04-16-2025 End: 04-16-[address] Pilar Vivar MD Work Phone: -Radiology [facility] Start: 04-16-2025 End: 04-16-[address] Abraham Garvin MD -Radiology [facility] Work Phone: Start: 04-16-2025 End: 04-16-2025 ambulatory Abraham Garvin Facility:[facility] Start: 03-22-2025 End: 03-22-2025 Emergency department patient visit [facility] Start: 02-27-2025 End: 02-27-2025 ambulatory PILAR VIVAR [facility] Start: 02-18-2025 End: 02-18-2025 ambulatory PILAR VIVAR [facility] Start: 01-22-2025 End: 01-22-2025 ambulatory LEANNA FINK [facility] Start: 01-21-2025 End: 01-21-2025 Emergency department patient visit [facility] Start: 12-26-2024 End: 12-27-2024 ambulatory PILAR VIVAR [facility] Start: 12-10-2024 End: 12-10-2024 Patient encounter procedure [facility] Work Phone: [facility] Start: 12-10-2024 End: 12-10-2024 ambulatory Pulm Lab [facility] Work Phone: [facility] Comment on above: Spirometry Start: 12-10-2024 End: 12-10-2024 Office outpatient visit 15 minutes Lou Dave APRN.CHILD THERAPIST Work Phone: Pulmonary Medicine Comment on above: Hypoxia (Primary Dx) ; Chronic obstructive pulmonary disease, unspecified COPD type (HCC); Pulmonary emphysema, unspecified emphysema type (HCC); Cigarette smoker Start: 12-06-2024 End: 12-06-2024 Telephone encounter Fabi Mohamud MD Work Phone: [facility]monary Medicine Start: 11-29-2024 End: 11-30-2024 Emergency department patient visit PILAR ALMODOVAR [facility] Start: 11-28-2024 End: 11-29-2024 [facility] Start: 11-16-2024 End: 11-16-2024 Emergency department patient visit PILAR ALMODOVAR [facility] Start: 11-04-2024 End: 11-04-2024 ambulatory Fabi Mohamud MD Work Phone: Pulmonary Medicine Comment on above: Received Outside Med ical Records Start: 10-22-2024 ambulatory Sarah Rivera Facility:[facility] Start: 10-22-2024 End: 10-22-2024 ambulatory [facility] Facility:[facility] Start: 10-01-2024 End: 10-01-2024 ambulatory [facility] Facility:[facility] Start: 09-14-2024 End: 09-14-2024 Emergency department patient visit [facility] Facility:[facility] Start: 09-11-2024 End: 09-11-2024 Emergency department patient visit [facility] Facility:[facility] Start: 09-09-2024 End: 09-09-2024 Emergency department patient visit PILAR AMINI [facility] Start: 09-04-2024 End: 09-04-2024 Emergency department patient visit PILAR BARCENASUzair [facility] Start: 08-13-2024 End: 08-13-2024 Patient encounter procedure Pulm Lab [facility] Work Phone: [facility] Comment on above: Chronic obstructive pulmonary disease, unspecified COPD type (HCC) (Primary Dx); Cigarette smoker; Lung nodule; Morbid obesity (HCC) Start: 08-13-2024 End: 08-13-2024 ambulatory Pul[facility] Lab [facility] Work Phone: [facility] Comment on above: Spirometry Start: 08-13-2024 End: 08-13-2024 Subsequent hospital visit by physician Xr [facility] Work Phone: Radiology Comment on above: Dyspnea, unspecified type [R06.00] Procedures Date Procedure Procedure Detail Performing Clinician Start: 06-09-[address] Pilar Vivar MD Work Phone: Start: 04-16-2025 X-ray of lumbosacral spine Dr. Pilar Vivar MD Work Phone: Start: 03-22-2025 Urinalysis PILAR SHIPLEY Comment on above: Result Comment: URIN ALYSIS Performed By: #### [id number] ####[facility],[address] [place] [address] Start: 12-10-2024 Noninvasive ear/puls e oximetry multiple deter Fabi Mohamud MD Work Phone: Start: 11-16-2024 Urinalysis PILAR SHIPLEY Comment on above: Result Comment: URIN ALYSIS Performed By: #### 2 [id number] ####[facility],[address] [place] [address] Start: 08-13-2024 Brncdilat rspse spmt ry pre&post-brncdilat admn Fabi Mohamud MD Work Phone: Plan of Treatment Date Care Activity Detail Author Start: 04-14-2028 Screening for malign ant neoplasm of colon [facility] Start: 12-07-2027 Urine microalbumin profile DTaP,Tdap,Td Vaccine (2 - Td or Tdap) [facility] Start: 12-12-2025 End: 12-12-2025 Patient encounter procedure 12/12/2025 1:00 PM EST Office Visit Pulmonary Medicine [address] [place] [address] Lou Dave APRN.CHILD THERAPIST [address] [place] [address] 6MO OV Pulmonary Medicine Comment on above: 6MO OV Start: 08-11-2025 End: 08-11-2025 Patient encounter procedure 08/11/2025 1:00 PM EDT Office Visit Pulmonary Medicine [address], [place] [address] Ericka Blanca APRN.CHILD THERAPIST [address] [id number] igarette smoker [F17.210] Pulmonary Medicine Comment on above: igarette smoker [F17 .210] Start: 07-09-2025 End: 07-09-2025 Patient encounter procedure 07/09/2025 2:00 PM EDT Office Visit Neurology [address] [place] [address] Mary Juárez APRN.CHILD THERAPIST [address] [place] [address] VANDANA (obstructive sleep apnea) [G47.33 Neurology Comment on above: VANDANA (obstructive sle ep apnea) [G47.33 Start: 06-23-2025 Influenza vaccination Influenza Vacc ine (#1) [facility] Start: 06-10-2025 End: 06-10-2025 Patient encounter procedure 06/10/2025 11:30 AM EDT Office Visit Pulmonary Medicine [address], [place] [address] Lou Dave MENTAL HEALTH AIDE.CHILD THERAPIST [address] [place] [address] 6 MTH F/U Pulmonary Medicine Comment on above: 6 MTH F/U Start: 12-17-2024 End: 12-17-2024 Patient encounter procedure 12/17/2024 11:00 AM EST Office Visit Pulmonary Medicine [address] [place] [address] Lou Dave, MENTAL HEALTH AIDE.CHILD THERAPIST [address] [place] [address] 4 MTH F/U Pulmonary Medicine Comment on above: 4 MTH F/U Start: 06-23-2024 Covid-19 Vaccine ( season) Covid-19 Vaccine ( season) [facility] Start: 06-23-2024 Influenza vaccination Influenza Vacc ine (#1) [facility] Start: 2020 RSV Vaccine (1 - Ris k 60-74 years 1-dose series) RSV Vaccine (1 - Risk 60-74 years 1-dose series) [facility] Start: 2015 Prostate specific antigen measurement Prostate Cancer Screening Discussion [facility] Start: 2010 Screening for malign ant neoplasm of lung Lung Cancer Screening [facility] Start: 2010 Shingrix Vaccine (1 of 2) Shingrix Vaccine (1 of 2) [facility] Start: 2005 Diabetes Screening Diabetes Screenin g [facility] Start: 2005 Prostate specific antigen measurement Prostate Cancer Screening Discussion [facility] Start: 2005 Screening for malign ant neoplasm of colon [facility] Start: 1995 Lipid panel Lipid Screening [facility] Start: 1990 Zoledronic acid therapy Alpha- 1 Antitrypsin Deficiency Screening [facility] Start: 1979 Pneumococcal Vaccine : 50+ (1 of 2 - PCV) Pneumococcal Vaccine: 50+ (1 of 2 - PCV) [facility] Start: 1978 Annual PCP Team Facs Teacher rainer Disease Visit Annual PCP Team Chronic Disease Visit [facility] Start: 1978 Anxiety Screening Anxiety Screening [facility] Start: 1978 Depression Screening Depression Scre enchristian [facility] Start: 1978 Hepatitis C screening Hepatitis C Sc maureen [facility] Start: 1978 HIV screening HIV Screening [facility] Start: 1966 Pneumococcal vaccination Pneumococcal Vaccine (1 of 2 - PCV) [facility] OXIMETRY - NOCTURNAL OXIMETRY - NOCTURNAL Procedures Routine Hypoxia Ordered: 12/10/2024 [facility] Work Phone: Comment on above: Ordered: 12/10/2024 End: 01-05-2026 OXIMETRY WITH AMBULATION OXIMETRY WITH AMBULATION PFT Routine Chronic obstructive pulmonary disease, unspecified COPD type (HCC) 1 Occurrences starting 12/06/2024 until 01/05/2026 [facility] Work Phone: Comment on above: 1 Occurrences starti ng 12/06/2024 until 01/05/2026 SPIROMETRY WITH DILA TOR IF OBSTRUCTED SPIROMETRY WITH DILATOR IF OBSTRUCTED PFT Routine Dyspnea, unspecified type 08/13/2024 10:17 AM EDT [facility] Work Phone: XR Chest PA and Lateral XR CHEST 2V FRONTAL/LAT Radiology Routine Dyspnea, unspecified type 08/13/2024 10:08 AM [facility] Work Phone: Immunizations Immunization Date Immunization Notes Care Provider Wilver hassan 12-07-2017 tetanus toxoid, redu twan diphtheria toxoid, and acellular pertussis vaccine, adsorbed Dr. Pilar Vivar MD Work Phone: [facility] Payers Date Payer Category Payer Self-pay 2024 Medicaid [id number] 2024 Unknown [id number] 1960 Unknown [id number] 2.16.8 40.1.287702.3.579.2.651 1960 Unknown [id number] 2.16.8 40.1.955257.3.579.2.651 1960 Unknown [id number] 2.16.8 40.1.808498.3.579.2.651 1960 Unknown [id number] 2.16.8 40.1.236804.3.579.2.651 1960 Unknown [id number] 2.16.8 40.1.211082.3.579.2.651 1960 Unknown [id number] 2.16.8 40.1.914896.3.579.2.651 1960 Unknown [id number] 2.16.8 40.1.601007.3.579.2.651 1960 Unknown [id number] 2.16.8 40.1.563433.3.579.2.651 1960 Unknown [id number] 2.16.8 40.1.223188.3.579.2.651 1960 Unknown [id number] 2.16.8 40.1.264141.3.579.2.651 1960 Unknown [id number] 2.16.8 40.1.910566.3.579.2.651 1960 Unknown [id number] 2.16.8 40.1.290703.3.579.2.651 1960 Unknown [id number] 2.16.8 40.1.555201.3.579.2.651 1960 Unknown [id number] 2.16.8 40.1.756257.3.579.2.651 1960 Unknown [id number] 2.16.8 40.1.800891.3.579.2.651 1960 Unknown [id number] 2.16.8 40.1.025512.3.579.2.651 1960 Unknown [id number] 2.16.8 40.1.529862.3.579.2.651 1960 Unknown [id number] 2.16.8 40.1.586450.3.579.2.651 1960 Unknown [id number] 2.16.8 40.1.042896.3.579.2.651 1960 Unknown [id number] 2.16.8 40.1.916292.3.579.2.651 1960 Unknown [id number] 2.16.8 40.1.188030.3.579.2.651 Self-pay [id number] Unknown [id number] Unknown [id number] 2.16.8 40.1.543695.3.579.2.462 Unknown [id number] 2.16.8 40.1.110473.3.579.2.462 Unknown [id number] 2.16.8 40.1.494474.3.579.2.462 Unknown [id number] 2.16.8 40.1.011608.3.579.2.462 Unknown [id number] 2.16.8 40.1.878512.3.579.2.462 Unknown [id number] 2.16.8 40.1.074985.3.579.2.462 Unknown [id number] 2.16.8 40.1.146001.3.579.2.462 Unknown [id number] 2.16.8 40.1.011104.3.579.2.462 Unknown [id number] 2.16.8 40.1.845313.3.579.2.462 Social History Date Type Detail Facility Start: 10-23-1976 End: 06-10-2025 Tobacco smoking status NHIS Smokes tobacco daily [facility] Start: 10-23-1976 History of tobacco use Cigarette Smo ker [facility] Start: 08-13-2024 End: 06-10-2025 Cigarettes smoked current (pack per day) - Reported 1 [facility] Start: 08-13-2024 End: 06-10-2025 Tobacco use and exposure Smokeless tobacco non-user [facility] Start: 08-13-2024 End: 12-10-2024 Alcoholic beverage intake Lifetime non-drinker (finding) [facility] Start: 08-13-2024 End: 06-10-2025 Tobacco use panel [facility] Start: 09-23-2012 National Score (1-10 0), lower number is lower risk 80 [facility] Start: 1960 Sex assigned at Not on file [facility] Start: 10-01-2024 Tobacco smoking stat us NHIS Current Heavy tobacco smoker [facility] Start: 09-11-2024 Alcohol Alcohol [facility] Start: 03-14-2018 Drugs Drugs [facility] Start: 09-11-2024 Lives Lives [facility] Start: 03-14-2018 Tobacco Use Tobacco Use [facility] Start: 1960 Sex Assigned At Male [facility] Start: 06-10-2025 Tobacco Comment Smoking 4-5 ci g per day on average as of 06/10/2025 [facility] Clinical Notes 11-14-2023 to 06-12-2025 Telephone Encounter - Leah Mcgraw LPN - 06/12/2025 12:51 PM EDTTelephone Encounter - Leah Mcgraw LPN - 06/12/2025 12:51 PM EDTTelephone Encounter - Leah Mcgraw LPN - 06/09/2025 8:40 AM EDT Note Date & Type Note Facility 06-12-2025 Telephone encount er Note Noted patient scheduled stephy Greco. Leah Mcgraw LPN [facility] 06-12-2025 Miscellaneous Notes Formattin g of this note might be different from the original. Noted patient scheduled stephy Greco. Leah Mcgraw LPN Detailed message left on secure VM advising patient to call and schedule as New Sleep patient for CPAP with Mary Juárez (Pulm/Dr Mohamud is not sleep certified)- Verify with patient if he has CPAP ordered- may want to schedule as new patient but 31-90 day follow up after he receives his CPAP. If wanting to see provider before getting CPAP- anytime will work as new patient. Leah Mcgraw LPN documented in this encounter [facility] 06-10-2025 Instructions Lou Dave APRN.CNP - 06/10/2025 12:08 PM EDT Continue current inhaler with Advair, Spiriva and Albuterol as needed. Refills were sent to [facility]. Recommend scheduling with sleep medicine regarding CPAP. We will want to check your oxygen overnight after starting on CPAP. Evaluation by lung cancer screening. Follow-up in 6 months. documented in this encounter [facility] 06-10-2025 History of Presen t illness Narrative Images from the original note were not included. Pulmonary Medicine Patients name: Quique Denny PCP: Pilar Vivar MD CC: follow-up HPI: Quique Denny is a 64 year old male current [id number] smoker with PMH significant for COPD, PAD, AAA, obesity, and HTN. SKYLER 11/2024, had been sent for oxygen assessment by primary care but does not need O2 with exertion. Had upcoming PSG. Smoking decreased to 1 pack per week. Current therapy with Advair, Spiriva and PRN Albuterol. He presents today for follow-up. Since his last visit, he reports his breathing symptoms have overall been stable. He had a sleep study which showed sleep apnea. He has not yet started on CPAP as he would like to be seen by sleep medicine first. He had overnight oxymetry testing which showed hypoxia but needs to be tested again once he starts CPAP. He did have a respiratory infection last month but symptoms resolved with a course of antibiotics. Today, patient denies cough, wheezing or chest tightness. Denies dyspnea at rest but will sometimes note with heavy exertion. WARREN not limiting on daily activities. No fevers, chills, or night sweats. Albuterol use is 1-2 a week d/t shortness of breath and relieves symptoms. He continues to experience weight loss with the help of Trulicity. Currently down 23 lbs since his last visit and notices an improvement on his overall health. Currently smokes 5 cigarettes a day, continues to work on quitting. PAST MEDICAL HISTORY Diagnosis Date AAA (abdominal aortic aneurysm) ([facility]) COPD (chronic obstructive pulmonary disease) ([facility]) Morbid obesity ([facility]) VANDANA (obstructive sleep apnea) PAD (peripheral artery disease) ([facility]) Allergies: No Known Allergies Medication List Accurate as of June 09, 2025 8:38 PM. If you have any questions, ask your nurse or doctor. CHANGE how you take these medications JOSE CRUZ SOUSA PO What changed: additional instructions CONTINUE taking these medications * albuterol HFA [...] GARGLE MOUTH WITH WATER AFTER EACH USE. furosemide 20 mg tablet Commonly known as: LASIX gabapentin 300 mg capsule Commonly known as: NEURONTIN keTORolac 10 mg tablet Commonly known as: Toradol magnesium oxide 400 mg (241.3 mg magnesium) tablet Commonly known as: MAG-OX meloxicam 7.5 mg tablet Commonly known as: MOBIC metFORMIN ER 500 mg 24 hr tablet Commonly known as: GLUCOPHAGE XR Naproxen SR 500 mg EC tablet Commonly known as: EC-NAPROSYN ondansetron orally disintegrating 4 mg disintegrating tablet Commonly known as: ZOFRAN ODT pantoprazole DR 40 mg tablet Commonly known as: PROTONIX rosuvastatin 20 mg tablet Commonly known as: CRESTOR SPIRIVA RESPIMAT 2.5 mcg/actuation inhaler Generic drug: tiotropium bromide Inhale 2 Puffs as instructed once daily. tamsulosin 0.4 mg Commonly known as: FLOMAX TRULICITY 0.75 mg/0.5 mL pen injector Generic drug: dulaglutide varenicline 1 mg tablet Commonly known as: CHANTIX * This list has 2 medication(s) that are the same as other medications prescribed for you. Read the directions carefully, and ask your doctor or other care provider to review them with you. DATA: I personally reviewed and analyzed all labs, radiographs and available pulmonary function testing PFT: 07/2024 Spirometry notable for obstruction of midflows. No improvement with bronchodilator. CXR: Last XR Chest - Impression Only XR CHEST 2V FRONTAL/LAT Exam End: 08/13/2024 10:08 AM (Final result) Impression: IMPRESSION: Minimal linear atelectasis or fibrosis at the left base Associate Art Director: UZIEL Transcribe Date/Time: Aug 14 2024 3:09P ... CT Chest: 07/2024 Review of Systems Constitutional: Negative for activity change, appetite change, fatigue and unexpected weight change. HENT: Negative for congestion, mouth sores, postnasal drip and sinus pressure. Respiratory: Negative for cough, chest tightness, shortness of breath and wheezing. Cardiovascular: Negative for chest pain, palpitations and leg swelling. Allergic/Immunologic: Negative for environmental allergies. Neurological: Negative for weakness and light-headedness. BP 118/80 Pulse 90 Wt 130.2 kg (287 lb) SpO2 95% BMI 38.92 kg/m Physical Exam Vitals reviewed. Constitutional: General: He is not in acute distress. Appearance: Normal appearance. He is not ill-appearing. HENT: Head: Normocephalic. Mouth/Throat: Mouth: Mucous membranes are moist. Pharynx: No posterior oropharyngeal erythema. Cardiovascular: Rate and Rhythm: Normal rate and regular rhythm. Heart sounds: Normal heart sounds. Pulmonary: Effort: Pulmonary effort is normal. No respiratory distress. Breath sounds: No wheezing or rhonchi. Musculoskeletal: Right lower leg: No edema. Left lower leg: No edema. Lymphadenopathy: Cervical: No cervical adenopathy. Neurological: Mental Status: He is alert. ASSESSMENT/PLAN: 1. Pulmonary emphysema, unspecified emphysema type (HCC) - ICD9: 492.8, ICD10: J43.9 (primary diagnosis) 2. Chronic obstructive pulmonary disease, unspecified COPD type (HCC) - ICD9: 496, ICD10: J44.9 - Symptoms controlled. - needs to stop smoking. - Continue current therapy with Advair 250, Spiriva and Albuterol as needed. - FLUTICASONE 250 MCG-SALMETEROL 50 MCG/DOSE BLISTR POWDR FOR INHALATION - SPIRIVA RESPIMAT 2.5 MCG/ACTUATION SOLUTION FOR INHALATION - ALBUTEROL SULFATE 2.5 MG/3 ML (0.083 %) SOLUTION FOR NEBULIZATION - ALBUTEROL SULFATE HFA 90 MCG/ACTUATION AEROSOL INHALER 3. VANDANA (obstructive sleep apnea) - ICD9: 327.23, ICD10: G47.33 - will need repeat overnight oximetry after he is set up with CPAP. - CONSULT TO SLEEP MEDICINE - ADULT 4. Morbid obesity (HCC) - ICD9: 278.01, ICD10: E66.01 - Weight decreasing. BMI down to 38 since starting Trulicity. - encouraged continued weight loss. 5. Cigarette smoker - ICD9: 305.1, ICD10: F17.210 - Cessation encouraged. - Physiologic and physical aspects of tobacco addiction as well as strategies for quitting were discussed. - CONSULT LUNG CANCER SCREENING CLINIC 6. Lung nodule - ICD9: 793.11, ICD10: R91.1 - previous chest CT with calcified granuloma. F/u 6 months Portions of this documentation were copied and pasted from previous office visit notes in order to provide a cohesive continuity of the history. The note has been reviewed and edited and updated as necessary. Lou Dave APRN.CNP I spent a total of 30 minutes on the date of the service which included preparing to see the patient, zyyk-aj-tase patient care, completing clinical documentation, performing a medically appropriate examination, counseling and educating the patient/family/caregiver, ordering medications, tests, or procedures, and communicating results to the patient/family/caregiver. documented in this encounter [facility] 06-10-2025 Note HNO ID: [id number] Author: LOU DAVE APRN.CNP Service: ? Author Type: Nurse Practitioner Type: Progress Notes Filed: 06/10/2025 12:22 Note Text: Pulmonary Medicine Patients name: Quique Denny PCP: Pilar Vivar MD CC: follow-up HPI: Quique Denny is a 64 year old male current 45-zxlf-zoyt smoker with PMH significant for COPD, PAD, AAA, obesity, and HTN. SKYLER 11/2024, had been sent for oxygen assessment by primary care but does not need O2 with exertion. Had upcoming PSG. Smoking decreased to 1 pack per week. Current therapy with Advair, Spiriva and PRN Albuterol. He presents today for follow-up. Since his last visit, he reports his breathing symptoms have overall been stable. He had a sleep study which showed sleep apnea. He has not yet started on CPAP as he would like to be seen by sleep medicine first. He had overnight oxymetry testing which showed hypoxia but needs to be tested again once he starts CPAP. He did have a respiratory infection last month but symptoms resolved with a course of antibiotics. Today, patient denies cough, wheezing or chest tightness. Denies dyspnea at rest but will sometimes note with heavy exertion. WARREN not limiting on daily activities. No fevers, chills, or night sweats. Albuterol use is 1-2 a week d/t shortness of breath and relieves symptoms. He continues to experience weight loss with the help of Trulicity. Currently down 23 lbs since his last visit and notices an improvement on his overall health. Currently smokes 5 cigarettes a day, continues to work on quitting. PAST MEDICAL HISTORY Diagnosis Date AAA (abdominal aortic aneurysm) ([facility]) COPD (chronic obstructive pulmonary disease) ([facility]) Morbid obesity ([facility]) VANDANA (obstructive sleep apnea) PAD (peripheral artery disease) ([facility]) Allergies: No Known Allergies Medication List Accurate as of June 09, 2025 8:38 PM. If you have any questions, ask your nurse or doctor. CHANGE how you take these medications JOSE CRUZ MACDONALD What changed: additional instructions CONTINUE taking these medications * albuterol HFA [...] GARGLE MOUTH WITH WATER AFTER EACH USE. furosemide 20 mg tablet Commonly known as: LASIX gabapentin 300 mg capsule Commonly known as: NEURONTIN keTORolac 10 mg tablet Commonly known as: Toradol magnesium oxide 400 mg (241.3 mg magnesium) tablet Commonly known as: MAG-OX meloxicam 7.5 mg tablet Commonly known as: MOBIC metFORMIN ER 500 mg 24 hr tablet Commonly known as: GLUCOPHAGE XR Naproxen SR 500 mg EC tablet Commonly known as: EC-NAPROSYN ondansetron orally disintegrating 4 mg disintegrating tablet Commonly known as: ZOFRAN ODT pantoprazole DR 40 mg tablet Commonly known as: PROTONIX rosuvastatin 20 mg tablet Commonly known as: CRESTOR SPIRIVA RESPIMAT 2.5 mcg/actuation inhaler Generic drug: tiotropium bromide Inhale 2 Puffs as instructed once daily. tamsulosin 0.4 mg Commonly known as: FLOMAX TRULICITY 0.75 mg/0.5 mL pen injector Generic drug: dulaglutide varenicline 1 mg tablet Commonly known as: CHANTIX * This list has 2 medication(s) that are the same as other medications prescribed for you. Read the directions carefully, and ask your doctor or other care provider to review them with you. DATA: I personally reviewed and analyzed all labs, radiographs and available pulmonary function testing PFT: 07/2024 Spirometry notable for obstruction of midflows. No improvement with bronchodilator. CXR: Last XR Chest - Impression Only XR CHEST 2V FRONTAL/LAT Exam End: 08/13/2024 10:08 AM (Final result) Impression: IMPRESSION: Minimal linear atelectasis or fibrosis at the left base Associate Art Director: UZIEL Transcrijhony Date/Time: Aug 14 2024 3:09P ... CT Chest: 07/2024 Review of Systems Constitutional: Negative for activity change, appetite change, fatigue and unexpected weight change. HENT: Negative for congestion, mouth sores, postnasal drip and sinus pressure. Respiratory: Negative for cough, chest tightness, shortness of breath and wheezing. Cardiovascular: Negative for chest pain, palpitations and leg swelling. Allergic/Immunologic: Negative for environmental allergies. Neurological: Negative for weakness and light-headedness. BP 118/80 Pulse 90 Wt 130.2 kg (287 lb) SpO2 95% BMI 38.92 kg/m? Physical Exam Vitals reviewed. Constitutional: General: He is not in acute distress. Appearance: Normal appearance. He is not ill-appearing. HENT: Head: Normocephalic. (more content not included)... [facility] 06-09-2025 Radiology Diagnostic study note [facility] Imaging Services [address] [place], [place] [id number] Ext Non Vasc Limited/Soft Tiss MR#: [id number] Acct: [id number] Name: QUIQUE DENNY Rep #: [id number] : 1960 M 64 From: Magdy Farmer MD PCP: Dr. Pilar Vivar MD Status: R EG CLI Study:Ext Non Vasc Limited/Soft Tiss Date of Exam: 06/09/25 Exam# [id number] Ordering Dr: Kleber Mott MD PROCEDURE: EXT NON VASC LIMITED/SOFT TISS 06/09/2025 REASON FOR EXAM: WRIST SWELLING, ASSESS FOR GANGLION CYST TECHNIQUE: EXT NON VASC LIMITED/SOFT TISS COMPARISON: None FINDINGS: The dorsal aspect of the left hand/wrist was examined with ultrasound. The palpable abnormality corresponds to a 2.8 cm 2.6 cm x 0.4 cm cystic collection with the increased echoes within it. Drainage recommended. US/Ext Non Vasc Limited/Soft Tiss IMPRESSION: The palpable abnormality corresponds to a 2.8 cm 2.6 cm x 0.4 cm cystic collection with increased echoes within it. Percutaneous drainage is sampling recommended. Reading Location: [id number] CC: Dr. Pilar Vivar MD; Dr. Kleber Mott MD ~ Associate Art Director: Signed [facility] 06-09-2025 Telephone encount er Note Detailed message left on secure VM advising patient to call and schedule as New Sleep patient for CPAP with Mary Juárez ([place]/Dr Mohamud is not sleep certified)- Verify with patient if he has CPAP ordered- may want to schedule as new patient but 31-90 day follow up after he receives his CPAP. If wanting to see provider before getting CPAP- anytime will work as new patient. Leah Mcgraw LPN [facility] 05-20-2025 Evaluation note Diagnosis Onset Date Resolution Ganglion cyst of dorsum of left wrist acute May 20, 2025 2:19pm Left wrist pain acute April 2:19pm [facility] Work Phone: [phone]) 808-360907-21-2025 [facility] 04-17-2025 Radiology Diagnostic study note [facility] Imaging Services [address] [place], [place] [address] L/S Spine Bending Flex/Ext MR#: [id number] Acct: [id number] Name: QUIQUE DENNY Rep #: [id number] : 1960 M 64 From: Jose Alejandro Brown MD PCP: Dr. Pilar Vivar MD Status: R EG CLI Study:L/S Spine Bending Flex/Ext Date of Exam : 04/16/25 Exam# [id number] Ordering Dr: Abraham Garvin MD PROCEDURE: L/S SPINE BENDING FLEX/EXT 04/16/2025 REASON FOR EXAM: LUMBAR SPONDYLOLYSIS TECHNIQUE: L/S SPINE BENDING FLEX/EXT COMPARISON: None. FINDINGS: Grade 2 anterolisthesis of L5 on S1 secondary to bilateral pars defects. No evidence of instabilityon flexion/extension images. Grade 1 anterolisthesis of L3 [...] to bilateral pars defects. No evidence of instabilityon flexion/extension images. Grade 1 anterolisthesis of L3 on L4 secondary to facet joint arthropathy withoutassociated instability on flexion/extension images. Spondylosis. [facility] CC: Dr. Abraham Garvin MD; Dr. Pilar Vivar MD ~ Associate Art Director: Signed [facility]06-04-2025 Note. MICRO - Microbiology PROCEDURE: Stool Culture [^1 [...] Locations *1: This test was performed at: [facility], [address] [place] [address], [facility] , [facility]06-02-2025 Note. MICRO - Microbiology PROCEDURE: Shiga Toxins 1 and 2 [[id number]: [id number] ^1 *1] SOURCE: Stool BODY SITE: COLLECTED [...] Locations *1: This test was performed at: [facility], [address] [place] [address], [id number] , [facility]02-18-2025 Instructions* Patient Instructions* Lou Dave APRN.CNP - 12/10/2024 1:59 PM EST Take your Lasix prescription in the morning. Continue your current inhalers with Advair and Spiriva. Complete your sleep study. You will have an overnight oxygen test to see if you also need oxygen overnight. [facility] will supply the machine to test and send me a report. I will let you know what it shows. Our test today do not show the need for oxygen during the day with activity. [facility] NoteHNO ID: [id number] Author: JUSTEN ROMAN RPFT Service: ? Author [...] DATE: December 10, 2024 TIME: 1:28 PM Comment:[facility]02-18-2025 Procedure note* Justen Roman RPFT - 12/10/2024 1:27 PM ESTAssociated Order(s): OXIMETRY WITH AMBULATION RESPIRATORY THERAPY OXIMETRY WITH [...] December 10, 2024 TIME: 1:28 PM Comment: [facility]02-18-2025 Procedure note* Justen Roman RPFT - 12/10/2024 1:27 PM ESTAssociated Order(s): OXIMETRY WITH AMBULATION RESPIRATORY THERAPY OXIMETRY WITH [...] TIME: 1:28 PM Comment: documented in this encounterTol[facility]02-18-2025 NoteHNO ID: [id number] Author: JUSTEN ROMAN RPFT Service: ? Author Type: Respiratory Therapist Type: Progress Notes Filed: 12/10/2024 13:28 Note Text: PULM FUNCTION: Provider: Fabi Mohamud MD Assisting Tech: Justen Roman RPFT [facility] History of Present illness Narrative* Justen Roman RPFT - 12/10/2024 1:12 PM EST PULM FUNCTION: Provider: Fabi Mohamud MD Assisting Tech: Justen Roman RPFT Oximetry - Ambulation: 1 documented in this encounterT[facility]02-18-2025 NoteHNO ID: [id number] Author: LOU DAVE APRN.CHILD THERAPIST Service: ? Author Type: Nurse Practitioner Type: Progress Notes Filed: 12/10/2024 17:41 Note Text: Pulmonary Medicine Patients name: Quique Denny PCP: Pilar Vivar MD CC: oxygen testing and follow-up HPI: Quique Denny is a 63 year old male current 89-ejaa-gbhx smoker with PMH significant for COPD, PAD, AAA, obesity, and HTN. He presents today for follow-up and request for oxygen testing for portable oxygen. Current therapy with Advair, Spiriva and PRN Albuterol. New to Dr. Mohamud 08/13/2024 for COPD. PFT with midflow obstruction but he had used Advair prior to testing which may have impacted results. Advair and Spiriva doses increased d/t symptoms of cough, wheezing and exertional dyspnea. Recommended sleep study which is scheduled for 12/12. Following his visit, a chest CT report was sent from [facility] which revealed Emphysema and a calcified [...] aneurysm) (HCC) COPD (chronic obstructive pulmonary disease) ([facility]) Morbid obesity (HCC) VANDANA (obstructive sleep apnea) PAD (peripheral artery disease) ([facility]) Allergies: No Known Allergies Medication List [...] atelectasis or fibrosis at the left base Associate Art Director: PSCB Transcribe Date/Time: Aug 14 2024 3:09P ... [...] respiratory distress. Breath sound (more content not included)...[facility]02-18-2025 History of Present illness Narrative* Nathaly, Lou Maxwell APRN.[employer] - 12/10/2024 12:45 PM EST Images from the original note were not included. Pulmonary Medicine Patients name: Quique Denny PCP: Pilar Vviar MD CC: oxygen testing and follow-up HPI: Quique Denny is a 63 year old male current 16-wfcv-mmai smoker with PMH significant for COPD, PAD, AAA, obesity, and HTN. He presents today for follow- up and request for oxygen testing for portable oxygen. Current therapy with Advair, Spiriva and PRN Albuterol. New to Dr. Mohamud 08/13/2024 for COPD. PFT with midflow obstruction but he had used Advair prior to testing which may have impacted results. Advair and Spiriva doses increased d/t symptoms of cough, wheezing and exertional dyspnea. Recommended sleep study which is scheduled for 12/12. Following his visit, a chest CT report was sent from [facility] which revealed Emphysema and a calcified granuloma. Reportedly prescribed oxygen by PCP for hypoxia but he does not recall why. Has oxygen tanks but is requesting portable concentrator. Today, he reports he was prescribed Chantix by his PCP and is downto 1 pack of cigarettes a week. Breathing symptoms have significant improved. Currently has an occas ional cough with white phelgm. No hemoptysis. No wheezing. No dyspnea at rest. Exertional dyspnea with stairs or heavy activity which is much improved. No fevers, chills, or night sweats. No unintended weight loss. Currently on Trulicity for diabetes and has lost 5lbs. DME: Susan PAST MEDICAL HISTORY Diagnosis Date AAA (abdominal aortic aneurysm) ([facility]) COPD (chronic obstructive pulmonary disease) ([facility]) Morbid obesity ([facility]) VANDANA (obstructive sleep apnea) PAD (peripheral artery disease) ([facility]) Allergies: No Known Allergies Medication List [...] as other medications prescribed for you. Read thedirections carefully, and ask your doctor or other [...] atelectasis or fibrosis at the left base Associate Art Director: UZIEL Transcribe Date/Time: Aug 14 2024 3:09P [...] kg (310 lb) SpO2 (P) 91% BMI (P)42.04 kg/m Physical Exam Vitals reviewed. Constitutional: General: [...] edited and updated as necessary. Lou Dave APRN.CNP I spent a total of 22 minutes on the date of the service which included preparing to see the patient, dkiz-ex-hzwl patient care, completing clinical documentation, performing a medically appropriate examination, counseling and educating the patient/family/caregiver, and ordering medications, tests,or procedures. [facility] Telephone encounter Note * Telephone Encounter - Lou Dave APRN.CNP - 12/06/2024 2:32 PM EST Orders placed. I'm happy to see him. [facility]02-14-2025 Miscellaneous Notes* Telephone Encounter - Lou Dave APRN.SOM - 12/06/2024 2:32 PM EST Orders placed. I'm happy to see him. * Telephone Encounter - Julia Burris LPN - 12/06/2024 2:24 PM EST Patient calling and states he would like [...] visit. Julia Burris LPN documented in [facility]02-[facility]25 Telephone encounter Note * Telephone Encounter - Julia Burris LPN - 12/06/2024 2:24 PM EST Patient calling and states he would like [...] to testing and visit. Julia Burris LPN [facility]01-13-2025 NoteHNO ID: [id number] Author: FABI MOHAMUD MD Service: ? Author Type: Physician Type: Progress Notes Filed: 11/04/2024 05:25 Note Text: Received report of chest CT 07/2024 from [facility]. Emphysema and calcified granuloma. Will Refer for lung cancer screening but not due until this July.[facility]01-13-2025 History of Present illness Narrative* Fabi Mohamud MD - 11/04/2024 5:22 AM EST Received report of chest CT 07/2024 from [facility]. Emphysema and calcified granuloma. WillRefer for lung cancer screening but not due until this July. documented in this encounterT[facility]11-22-2024 NoteHNO ID: [id number] Author: FABI MOHAMUD MD Service: ? Author Type: Physician Type: Progress Notes Filed: 09/13/2024 08:22 Note Text: Outside PFT 10/2023: FVC 3.15 L 67% FEV1 2.46 L 69% FEV1/FVC 102% Marked improvement post bronchodilator TLC 4.48 L 61% RV 0.79 L 32% RV/TLC 51% DLCO 28.12 100% DLCO/VA 101%[facility]10-22-2024 History of Present illness Narrative* Fabi Mohamud MD - 08/13/2024 11:00 AM EDT Images from the original note were not included. . Respiratory [place] Note Patient name: Quique Denny PCP: Pilar Vivar MD Referring Physician: same Consultation requested by Dr. Vivar for an opinion regarding COPD. My final recommendations will be communicated back to the requesting physician by way of shared Medical record or letter to requesting physician via US mail. CC: COPD HPI: Quique Denny 63 year old male current 76-rcpg-hgen smoker with PMH significant for COPD, PAD, AAA, obesity, HTN being referred for evaluation of COPD. Current inhaled therapy consists of Advair and Spiriva Respimat he has been on medication for several years. Pending evaluation for obstructivesleep apnea. Respiratory symptoms consist of daily cough [...] daily basis. He has attempted smoking cessation inthe past using nicotine replacement as well as Chantix but has been unsuccessful. His chest x-ray today shows evidence of pulmonary nodularity. He states that he had a CT of the chest at [facility] approximately 1 month ago. I do not have a report or images to review. 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 Morbid obesity -BMI 41 -Weight loss advised Fabi Mohamud MD [facility] [place] documented in this encounterToledo Hospital10-22-2024 NoteHNO ID: [id number] Author: FABI MOHAMUD MD Service: ? Author Type: Physician Type: Progress Notes Filed: 08/13/2024 12:24 Note Text: . Respiratory [place] Note Patient name: Quique Denny PCP: Pilar Vivar MD Referring Physician: same Consultation requested by Dr. Vivar for an opinion regarding COPD. My final recommendations will be communicated back to the requesting physician by way of shared Medical record or letter to requesting physician via US mail. CC: COPD HPI: Quique Denny 63 year old male current 47-dect-dveb smoker with PMH significant for COPD, PAD, [...] had a CT of the chest at [facility] approximately 1 month ago. I do not [...] (obstructive sleep apnea) PAD (peripheral artery disease) ([facility]) ALLERGIES No Known Allergies Naproxen SR [...] or adenopathy. Lungs: Not (more content not included)...[facility]10-22-2024 NoteHNO ID: [id number] Author: JUSTEN ROMAN RPFT Service: ? Author Type: Respiratory Therapist Type: Progress Notes Filed: 08/13/2024 10:44 Note Text: PULM FUNCTION: Provider: Fabi Mohamud MD Assisting Tech: Justen Roman RPFT [facility]pirom[facility] w/BD: [facility] History of Present illness Narrative* Justen Roman RPFT - 08/13/2024 10:30 AM EDT PULM FUNCTION: Provider: Fabi Mohamud MD Assisting Tech: Justen Roman RPFT Spirometry w/BD: 1 documented in this encounterToledo Hospital10-22-2024 History of Present illness Narrative* Ariella Cornejo RT([place]) - 08/13/2024 10:00 AM EDT Radiology Service Progress Note PATIENT NAME: Quique Denny DATE OF SERVICE: August 13, 2024 TIME: 12:20 PM PATIENT IDENTITY VERIFICATION COMPLETED USING TWO (2) IDENTIFIERS: Name and Date of confirmedby patient verbally. FALL SCREENING: Has the patient had 2 falls in the last year or 1 fall with injury or currently using an Ambulatory Assistive Device (Walker, Cane, Wheelchair, Crutches, etc.)? No PATIENT GENDER DATA: Male PATIENT RELEVANT IMPLANT DATA REVIEWED: Not Applicable PATIENT PRESENTS WITH AN IMPLANTABLE OR ATTACHED CONSTRUCTION TRADES TEACHER: No RADIOLOGY DEPARTMENT: General X-ray: Exam(s) Completed: Chest X-Ray PERIPHERAL IV DATA: Not applicable SIGNED BY: RT Yeni([place]) August 13, 2024 12:20 PM documented in this encounterToledo Hospital10-22-2024 NoteHNO ID: [id number] Author: ARIELLA CORNEJO RT([place]) Service: ? Author [...] PATIENT PRESENTS WITH AN IMPLANTABLE OR ATTACHED CONSTRUCTION TRADES TEACHER: No RADIOLOGY DEPARTMENT: General X-ray: Exam(s) Completed: Chest X-Ray PERIPHERAL IV DATA: Not applicable SIGNED BY: RT Yeni([place]) August 13, 2024 12:20 [facility]10-10-2024 Note. MICRO - Microbiology PROCEDURE: Blood Culture (bacterial) [...] Locations *1: This test was performed at: [address], [address] [place] [address] [id number] Note. MICRO - Microbiology PROCEDURE: Blood Culture (bacterial) [...] Locations *1: This test was performed at: [address], [address] [place] [address] [id number] Note. MICRO - Microbiology PROCEDURE: Blood Culture (bacterial) [...] Locations *1: This test was performed at: [facility], [address] [place] [address], [facility] , [facility] ([place])Evaluation note* Diagnosis Dyspnea, unspecified type [facility] Diagnosis Chronic obstructive pulmonary disease, unspecified COPD type (HCC)- Primary Cigarette smoker Tobacco use disorder Lung nodule Solitary pulmonary nodule Morbid obesity (HCC) Morbid obesity [facility]* Diagnosis Dyspnea, unspecified type [facility]* Diagnosis Chronic obstructive pulmonary disease, unspecified COPD type (HCC)- Primary [facility] Diagnosis Chronic obstructive pulmonary disease, unspecified COPD type (HCC) [facility]* Diagnosis Hypoxia- Primary Hypoxemia Chronic obstructive pulmonary disease, unspecified COPD type (HCC) Pulmonary emphysema, unspecified emphysema type (HCC) Cigarette smoker Tobacco use disorder documented in this encounter [facility] noteNo assessment information availableWFayette [facility] Work Phone: Evaluation note* Diagnosis Onset Date Resolution Status Admit Date Left wrist pain acute April 2:19pm [facility] Work Phone: Evaluation note* Diagnosis Pulmonary emphysema, unspecified emphysema type (HCC)- Primary Chronic obstructive pulmonary disease, unspecified COPD type (HCC) VANDANA (obstructive sleep apnea) Obstructive sleep apnea (adult) (pediatric) Morbid obesity (HCC) Morbid obesity Cigarette smoker Tobacco use disorder Lung nodule Solitary pulmonary nodule documented in this encounter [facility] for referral (narrative)No reason for referral information availableWFayette County [facility] Work Phone: Summary Purpose Family History No [...] wrist pain May 20, 2025 2:19 pm Chief Complaint Admit Date XRAY April 16, 2025 11:2 6am LEFT HAND May 20, 2025 2:19 pm Ganglion, left wrist June 09, 2025 9 :27am Reason for Visit Admit Date Ganglion cyst of dorsum of left wrist Ju ly 2024 2:19pm Left wrist pain May 20, 2025 2:19 pm Additional Source Comments (unrecognized sect ion and content) No Status Records FoundNo Status Records FoundNo Status Records FoundNo Status Records FoundNo Status Records Found INFORMATION SOURCE (unrecogn ized section and content) DATE CREATED AUTHOR 11/15/2023 [facility] ([place]) DATE CREATED AUTHOR AUTHOR'S ORGANIZ ATION 05/15/2025 [facility] DATE CREATED AUTHOR AUTHOR'S ORGANIZ ATION 06/14/2025 [facility] DATE CREATED AUTHOR AUTHOR'S ORGANIZ ATION 06/15/2025 [facility] DATE CREATED AUTHOR AUTHOR'S ORGANIZ ATION 08/22/2025 [facility] Source Comments (unrecognize d section and content) In the event this informatio n is protected by the Federal Confidentiality of Alcohol and Drug Abuse Patient Records regulations: The Federal rules restrict any use of the information to criminally investigate or prosecute any alcohol or drug abuse patient.[facility] the event this information is protected by the Federal Confidentiality of Alcohol and Drug Abuse Patient Records regulations: The Federal rules restrict any use of the information to criminally investigate or prosecute any alcohol or drug abuse patient.[facility] HospitalIn the event this information is protected by the Federal Confidentiality of Alcohol and Drug Abuse Patient Records regulations: The Federal rules restrict any use of the information to criminally investigate or prosecute any alcohol or drug abuse patient.[facility] HospitalIn the event this information is protected by the Federal Confidentiality of Alcohol and Drug Abuse Patient Records regulations: The Federal rules restrict any use of the information to criminally investigate or prosecute any alcohol or drug abuse patient.[facility] Hospital[facility] the event this information is protected by the Federal Confidentiality of Alcohol and Drug Abuse Patient Records regulations: The Federal rules restrict any use of the information to criminally investigate or prosecute any alcohol or drug abuse patient.[facility] HospitalIn the event this information is protected by the Federal Confidentiality of Alcohol and Drug Abuse Patient Records regulations: The Federal rules restrict any use of the information to criminally investigate or prosecute any alcohol or drug abuse patient.[facility] HospitalIn the event this information is protected by the Federal Confidentiality of Alcohol and Drug Abuse Patient Records regulations: The Federal rules restrict any use of the information to criminally investigate or prosecute any alcohol or drug abuse patient.[facility] HospitalIn the event this information is protected by the Federal Confidentiality of Alcohol and Drug Abuse Patient Records regulations: The Federal rules restrict any use of the information to criminally investigate or prosecute any alcohol or drug abuse patient.[facility] HospitalIn the event this information is protected by the Federal Confidentiality of Alcohol and Drug Abuse Patient Records regulations: The Federal rules restrict any use of the information to criminally investigate or prosecute any alcohol or drug abuse patient.[facility] Reason for Visit (unrecogniz ed section and content) Reason Comments Spirometry Specialty Diagnoses / Procedures Referred By Contac t Referred To Contact [facility] [place] Diagnoses Dyspnea, unspecified type Procedures SPIROMETRY WITH DILATOR IF OBSTRUCTED BRNCDILAT RSPSE SPMTRY PRE&POST-BRNCDILAT ADMFabi Brown MD [address] [place] [address] [address] Referral ID Status Reason Start Date Expiration Date V isits Requested Visits Authorized [id number] Closed Auto-Generate d Referral 05/29/2024 06/28/2025 1 1 Reason Comments Consult Breathing difficulti es x 1 year Reason Comments Received Outside Medical Records Specialty Diagnoses / Procedures Referred By Contac t Referred To Contact [facility] [place] [facility] Diagnoses Chronic obstructive pulmonary disease, unspecified COPD type (HCC) Procedures OXIMETRY WITH AMBULATION NONINVASIVE EAR/PULSE OXIMETRY MULTIPLE Fabi Aguirre MD [address] [place] [address] Phone: tel: fax: [address] [phone] Referral ID Status Reason Start Date Expiration Date V isits Requested Visits Authorized [id number] Closed Auto-Generate d Referral 12/06/2024 01/05/2026 1 1 Reason Comments Established Patient COPD/Evaluate for po rtable O2 Reason Comments Follow Up COPD Reason Comments Consult Referral received fr Dr Mohamud's office as they are not sleep certified- [facility] had forwarded to them. Care Teams (unrecognized sec tion and content) Surgical Corsetier Relationship Specialty Start Date End Date Pilar Vivar MD [address] [place] [address] PCP - General Internal Medicine 08/13/24 Surgical Corsetier Relationship Specialty Start Date End Date Pilar Vivar MD [address] [place] [address] PCP - General Internal Medicine 08/13/24 Surgical Corsetier Relationship Specialty Start Date End Date Pilar Vivar MD [address] [place] [address] PCP - General Internal Medicine 08/13/24 Surgical Corsetier Relationship Specialty Start Date End Date Pilar Vivar MD [address] [place] [address] PCP - General Internal Medicine 08/13/24 Surgical Corsetier Relationship Specialty Start Date End Date Pilar Vivar MD [address] [place] [address] PCP - General Internal Medicine 08/13/24 Surgical Corsetier Relationship Specialty Start Date End Date Pilar Vivar MD [address] [place] [address] PCP - General Internal Medicine 08/13/24 Surgical Corsetier Relationship Specialty Start Date End Date Pilar Vivar MD [address] [place] [address] PCP - General Internal Medicine 08/13/24 Team Status: Active Member Role/Relationship Status Dates No Primary Care Physician Family Provider Active Dr. Pilar Vivar MD Primary Care Provider Active Team Status: Inactive Member Role/Relationship Status Dates Dr. Pilar Vivar MD Primary Care Provider Active Start: April 16, 2025 End: April 16, 2025 Dr. Abraham Garvin MD Attending Provider Active Start: April 16, 2025 End: April 16, 2025 Dr. Abraham Garvin MD Referring Provider Active Start: April 16, 2025 End: April 16, 2025 Team Status: Inactive Member Role/Relationship Status Dates Dr. Pilar Vivar MD Primary Care Provider Active Start: May 20, 2025 End: May 20, 2025 Dr. Pilar Vivar MD Referring Provider Active Start: May 20, 2025 End: May 20, 2025 Kleber Mott MD Attending Provider Active St art: May 20, 2025 End: May 20, 2025 Surgical Corsetier Relationship Specialty Start Date End Date Pilar Vivar MD [address] [place] [address] PCP - General Internal Medicine 08/13/24 Surgical Corsetier Relationship Specialty Start Date End Date Pilar Vivar MD [address] [place] [address] PCP - General Internal Medicine 08/13/24 Team Status: Active Member Role/Relationship Status Dates Dr. Pilra Vivar MD Primary Care Provider Active Team Status: Inactive Member Role/Relationship Status Dates Dr. Pilar Vivar MD Primary Care Provider Active Start: June 09, 2025 End: June 09, 2025 Kleber Mott MD Attending Provider Active St art: June 09, 2025 End: June 09, 2025 Kleber Mott MD Referring Provider Active St art: June 09, 2025 End: June 09, 2025 Goals (unrecognized section and content) Goals may be documented in a n alternate sectionGoals may be documented in an alternate sectionGoals may be documented in an [...] BE BASED ON THE PRIMARY CLINICAL RECORDS. [facility]. provides no warranty or guarantee of the accuracy or completeness of information in this document.
== END | disposition home or self-care (01) ==
LOC: CVS 10:36
PROVIDERS: PCP Student in an Organized Health Care Education/Training Program; Referring Provider Physician Assistant; Visit Provider Physician Assistant
DX: M79.662 Pain in left lower leg (principal); I71.40 Abdominal aortic aneurysm, without rupture, unspecified
CPT/HCPCS: 93971